=== PATIENT | female | born 2000 | race Asian ===

== ENCOUNTER 2021-11-17 02:49 | Emergency (ER) | payer OTHER, SELFPAY ==
[2021-11-17 04:14] VITALS: BP 131/75; PULSE 115; RESP 16; TEMP 36.8; O2SAT 97; BMI 37.2
[2021-11-17] MEDS: Ondansetron ODT 4 MG TAB.RAPDIS TRANSLINGU (04:21)
[2021-11-17 05:06] LABS: Basophils Percent Auto 0.2 % (0-2); Hematocrit 41.8 % (37.0-47.0); Hemoglobin 13.5 g/dl (12.0-16.0); Imm Gran Abs Auto 0.04 X10*3/uL (0.00-0.03); Imm Gran Pct Auto 0.3 % (0.0-0.4); Lymphocytes Absolute Auto 0.8 X10*3/uL (1.2-4.9); Lymphocytes Percent Auto 5.5 % (20-40); Mean Corpuscular HGB Conc 32.3 g/dl (31.0-35.0); Mean Corpuscular Hemoglobin 25.3 pg (27.0-33.0); Mean Corpuscular Volume 78.3 fL (80.0-98.0); Mean Platelet Volume 8.4 fL (9.4-12.3); Monocytes Absolute Auto 0.3 X10*3/uL (0.1-1.2); Monocytes Percent Auto 2.1 % (2-11); Neutrophils Absolute Auto 13.6 x10*3/uL (2.0-8.3); Neutrophils Percent Auto 91.9 % (45-73); Platelet Count 316 X10*3/uL (160-400); Red Blood Count 5.34 X10*6/uL (4.20-5.50); Red Cell Distribution Width 15.6 % (11.0-16.0); SCAN SMEAR FLAG 1; White Blood Count 14.7 X10*3/uL (4.8-10.8)
[2021-11-17 05:11] LABS: MANUAL DIFF FLAG SCAN
[2021-11-17 05:32] LABS: Alanine Aminotransferase 36 U/L (0-31); Albumin Level 4.5 g/dL (3.5-5.0); Alkaline Phosphatase 73 U/L (39-117); Anion Gap 16 (12-20); Aspartate Amino Transferase 20 U/L (5-31); Bilirubin Direct 0.3 mg/dL (0.0-0.5); Bilirubin Total 0.6 mg/dL (0.0-1.0); Blood Urea Nitrogen 12 mg/dL (9-16); Calcium 9.5 mg/dL (8.4-10.2); Carbon Dioxide 20 mmol/L (22-29); Chloride 105 mmol/L (96-108); Creatinine Clr Calc Pharmacy 117.6; Estimated Glomerular Filt Rate > 60; Glucose Random 135 mg/dL (60-115); Lipase 11 U/L (8-78); Potassium 4.2 mmol/L (3.3-5.1); Sodium 137 mmol/L (135-145); Total Protein 8.3 g/dL (6.5-8.0)
[2021-11-17 05:45] LABS: SLIDE REVIEW VERIFIED
--- NOTE | 2021-11-17 09:08 | ED_ITS ---
HPI - Nausea/Vomiting/Diarrhea General Chief complaint: Nausea/Vomiting/Diarrhea Stated complaint: Vomiting Time Seen by Provider: 11/17/21 09:08 Source: patient Mode of arrival: ambulatory History of Present Illness HPI Narrative: 21-year-old female without significant past medical history presents with multiple episodes of nausea and vomiting as well as diarrhea after consuming pasta are proximally 1630 yesterday and this was not preceded by any abdominal pain, urinary symptoms, fever, chills. Patient states that the food was from the previous day, did not have a cream sauce or containing any meet items. Patient otherwise denies any shortness of breath or chest pain. She currently is feeling better and last vomited at 02:00. Related Data Previous Rx's Medication Instructions Recorded ondansetron 4 mg disintegrating 4 mg PO Q8H PRN nausea and 11/17/21 tablet vomiting #7 tabs Allergies Allergy/AdvReac Type Severity Reaction Status Date / Time No Known Allergies Allergy Unverified 01/08/20 16:54 [No Known Allergies*] Review of Systems Review of Systems: Pertinent positives and negatives as stated in HPI 10 point review of systems is otherwise negative. PMFSH Past Medical History Source: nursing notes reviewed Medical History No known health problems Social History Social History Advance Directives: No Advance Directives Information Provided: No Physical Exam Vital Signs: Vital Signs: Last Vital Signs Temp 98.3 F 11/17/21 04:14 Pulse 115 H 11/17/21 04:14 Resp 16 11/17/21 04:14 BP 131/75 11/17/21 04:14 Pulse Ox 97 11/17/21 04:14 O2 Del Method 11/17/21 04:14 BMI result Body Mass Index 37.2 VITAL SIGNS: Reviewed. GENERAL: Well developed, well nourished, in no acute distress. HEAD: Normocephalic/atraumatic EYES: PERRLA, EOMI EARS: Ext canals without abnormality OROPHARYNX: no oral lesions noted, posterior pharynx clear LUNGS: Normal breath sounds. No adventitious sounds or accessory muscle use. SpO2<97> CARDIOVASCULAR: Regular rate and rhythm without noted murmurs ABDOMEN: Soft, non-tender, non-distended with bowel sounds. SKIN: Inspection of the skin reveals no rashes NEUROLOGIC: Alert and oriented x 4. Course Course Course Narrative: 21-year-old female with history and clinical presentation after review of all investigations consistent with food poisoning that has since resolved. Patient is now tolerating liquids and noted leukocytosis is likely reactive, urine is negative, U preg is negative and patient has no belly pain. All results and findings discussed with her bedside she was discharged home in stable condition. MDM - Nausea/Vomiting/Diarrhea Lab Data Result diagrams: 11/17/21 05:00 11/17/21 04:59 Labs: Lab Results 11/17/21 11/17/21 11/17/21 Range/Units 04:59 05:00 09:23 WBC 14.7 H (4.8-10.8) X10*3/uL RBC 5.34 (4.20-5.50) X10*6/uL Hgb 13.5 (12.0-16.0) g/dl Hct 41.8 (37.0-47.0) % MCV 78.3 L (80.0-98.0) fL MCH 25.3 L (27.0-33.0) pg MCHC 32.3 (31.0-35.0) g/dl RDW 15.6 (11.0-16.0) % Plt Count 316 (160-400) X10*3/uL MPV 8.4 L (9.4-12.3) fL Immature Gran % (Auto) 0.3 (0.0-0.4) % Neut % (Auto) 91.9 H (45-73) % Lymph % (Auto) 5.5 L (20-40) % [place] % (Auto) 2.1 (2-11) % Eos % (Auto) 0.0 (0-4) % Baso % (Auto) 0.2 (0-2) % Lymph # (Auto) 0.8 L (1.2-4.9) X10*3/uL [place] # (Auto) 0.3 (0.1-1.2) X10*3/uL Eos # (Auto) 0.0 (0.0-0.4) X10*3/uL Baso # (Auto) 0.0 (0.0-0.2) X10*3/uL Abs Immat Gran (auto) 0.04 H (0.00-0.03) X10*3/uL Absolute Neuts (auto) 13.6 H (2.0-8.3) x10*3/uL Absolute Nucleated RBC 0.000 (0.0-0.012) X10*3/uL Nucleated RBC % (auto) 0.0 (0.0-0.2) /100WBC Smear Tech's Comments VERIFIED Sodium 137 (135-145) mmol/L Potassium 4.2 (3.3-5.1) mmol/L Chloride 105 (96-108) mmol/L Carbon Dioxide 20 L (22-29) mmol/L Anion Gap 16 (12-20) BUN 12 (9-16) mg/dL Creatinine 0.83 (0.5-1.4) mg/dL Estim Creat Clear Calc 117.6 Estimated GFR > 60 Random Glucose 135 H (60-115) mg/dL Calcium 9.5 (8.4-10.2) mg/dL Total Bilirubin 0.6 (0.0-1.0) mg/dL Direct Bilirubin 0.3 (0.0-0.5) mg/dL AST 20 (5-31) U/L ALT 36 H (0-31) U/L Alkaline Phosphatase 73 (39-117) U/L Total Protein 8.3 H (6.5-8.0) g/dL Albumin 4.5 (3.5-5.0) g/dL Lipase 11 (8-78) U/L Beta HCG, Quant < 2 mIU/mL Urine Color YELLOW Urine Appearance HAZY Urine pH 6.0 (5.0-8.0) Ur Specific [place] >= 1.030 H (1.005-1.025) Urine Protein NEG (NEG-TRACE) MG/DL Urine Glucose (UA) NEG (NEG) MG/DL Urine Ketones NEG (NEG) MG/DL Urine Blood 1+ H (NEG) Urine Nitrite NEG (NEG) Ur Leukocyte Esterase NEG (NEG) Urine RBC 1-4 (0) /HPF Urine WBC 1-4 (0-4) /HPF Ur Squamous Epith Cells 4+ /LPF Urine Bacteria 2+ /LPF Discharge Plan Discharge Clinical Impression: Food poisoning, Gastroenteritis Patient Disposition: Home, Self-Care Instructions: Gastroenteritis (ED), Food Poisoning (ED) Additional Instructions: 1. Continue to stay well hydrated, especially with water. 2. You have been provided with a prescription for antinausea medication and should use this for the next 24 hours to help rehydrate. Return to the ER for worsening symptoms. Prescriptions: New ondansetron 4 mg tablet,disintegrating 4 mg PO Q8H PRN (Reason: nausea and vomiting) Qty: 7 0RF
[2021-11-17 09:33] LABS: Appearance Urine HAZY; Color Urine YELLOW; Glucose Urine UA NEG (NEG); Leukocyte Esterase Urine NEG (NEG); Nitrite Urine NEG (NEG); Specific Gravity - Urine >= 1.030 (1.005-1.025); UACC Culture Trigger NO; Urine Blood 1+ (NEG); Urine Ketones NEG (NEG); Urine Protein NEG (NEG-TRACE)
[2021-11-17 09:45] LABS: HCG Quantitative < 2 mIU/mL
[2021-11-17 09:56] LABS: Squamous Epithelial Cell Urine 4+ /LPF
[2021-11-17 09:57] LABS: Bacteria Urine 2+ /LPF
== END 2021-11-17 10:34 | disposition home or self-care (01) ==
PROVIDERS: Emergency Provider Student in an Organized Health Care Education/Training Program
DX: K52.9 Noninfective gastroenteritis and colitis, unspecified (principal); R11.2 Nausea with vomiting, unspecified; Z79.899 Other long term (current) drug therapy
CPT/HCPCS: 36415; 80053; 81001; 82248; 83690; 84702; 85025; 99282; 99283

== ENCOUNTER 2023-03-06 09:24 | Outpatient (AMB) | payer MEDICAID, SELFPAY ==
--- NOTE | 2023-03-06 09:41 | MHC.OFFVIS ---
Intake Vital Signs 03/06/23 09:43 Height 5 ft 3 in Weight 208 lb BMI 36.8 BP 112/70 Intake Visit Reasons: New patient PCOS consult Intake Note: Scribed for Maria R Escobedo CNM by Hoang Beltran medical charge entry specialist, on 03/06/23 at 9:55 AM, EST Allergies No Known Allergies [No Known Allergies*] Allergy (Verified 03/06/23 09:47) Is last menstrual period known: Yes Last menstrual period: 02/13/23 HPI HPI Comments History of Present Illness Details Patient is a 22 year old woman who presents to discuss possible PCOS. She denies any previous US. She denies ever having an annual slide fastener chain assembler exam. She denies ever being sexually active. She has a hx of gallbladder removal in 2012. She says since this surgery she has had issues with her menses. Her menses used to be irregular, sometimes months in-between. When they do occur they are painful with heavy bleeding for most of the time. Her menses typically lasts 5-8 days. In the last year they have been more normal when they occur, but they are still occasionally irregular. She denies any . She reports having facial hair growth about her chin, that she plucks semi-regularly. She also complains of increased acne in her chin. She has just graduated college, she says she gained weight due to school stress and virtual classes during [facility]. She has been working on improving her diet and increasing her activity now that she has graduated. She works two jobs, but says neither of these are particularly active. She tries to attend the gym 3x weekly or goes for a longer walk to make up for her prolonged sitting. She says with these changes she has not been able to lose weight. She denies any metabolic issues in her parents or grandparents, but is unsure if some family members have Diabetes. [facility] Medical History No known health problems Surgical History Hx of cholecystectomy Social History Alcohol intake: never Patient Tobacco Use Status: Never used Tobacco Female Reproductive History Menstrual Age of Menarche: 12 Duration of menses: 6-7 days Date of last menstrual period: 02/13/23 control method: none Total pregnancies: 0 Review of Systems Const All systems reviewed & are unremarkable except as noted in HPI and below Physical Exam Vital Signs: Last Vital Signs BP 112/70 03/06/23 09:43 BMI result Body Mass Index 36.8 Const General: cooperative, healthy appearing and no acute distress Orientation/consciousness: patient oriented x3 Neuro General: patient oriented x3 Assessment & Plan Assessment & Plan (1) PCOS (polycystic ovarian syndrome): Code(s): E28.2 - Polycystic ovarian syndrome Plan: Discussed workup including labs and US to rule out PCOS. Explained treatment options for PCOS, particularly PO BC. Labs and US ordered today. Will await results and treat accordingly. Return in 2 weeks for test results. Annual slide fastener chain assembler will be scheduled. She denies any hx of sexual activity. (2) Irregular menstrual cycle: Code(s): N92.6 - Irregular menstruation, unspecified Plan: Assessing for PCOS. Discussed weight management, and recommend she work on losing weight to see if this improves her symptoms. (3) Educated about management of weight: Code(s): Z78.9 - Other specified health status Orders: Orders Thyroid Stimulating Hormone Today L68.0 - Hirsutism, L70.9 - Acne, unspecified, N92.6 - Irregular menstruation, unspecified 17 Hydroxyprogesterone Today L68.0 - Hirsutism, L70.9 - Acne, unspecified, N92.6 - Irregular menstruation, unspecified DHEA Sulfate Today L68.0 - Hirsutism, L70.9 - Acne, unspecified, N92.6 - Irregular menstruation, unspecified US pelvic and transvaginal Today L68.0 - Hirsutism, L70.9 - Acne, unspecified, N92.6 - Irregular menstruation, unspecified Testosterone, Free/Total Today L68.0 - Hirsutism, L70.9 - Acne, unspecified, N92.6 - Irregular menstruation, unspecified Prolactin Today L68.0 - Hirsutism, L70.9 - Acne, unspecified, N92.6 - Irregular menstruation, unspecified Coding Level of Care Code New Pt Level 4 (26798) Diagnoses PCOS (polycystic ovarian syndrome) E28.2 Irregular menstrual cycle N92.6 Educated about management of weight Z78.9
[2023-03-06 09:43] VITALS: BP 112/70; BMI 36.8
== END 2023-03-06 10:08 | disposition home or self-care (01) ==
PROVIDERS: PCP Internal Medicine Medical Oncology; Visit Provider Advanced Practice Midwife
DX: E28.2 Polycystic ovarian syndrome (principal); N92.6 Irregular menstruation, unspecified; Z78.9 Other specified health status
CPT/HCPCS: 99204

== ENCOUNTER 2023-03-06 09:24 | Outpatient (REF) | payer MEDICAID, SELFPAY ==
[2023-03-06 12:02] LABS: Thyroid Stimulating Hormone 1.05 uIU/mL (0.32-4.0)
[2023-03-08 05:59] LABS: DHEA Sulfate 140 mcg/dL (14-349); Prolactin 8.2 ng/mL
[2023-03-18 11:44] LABS: Testosterone, Total 40 ng/dL (2-45)
== END 2023-03-06 09:25 | disposition home or self-care (01) ==
LOC: HO.LAB 09:24
PROVIDERS: PCP Internal Medicine Medical Oncology; Visit Provider Advanced Practice Midwife
DX: L68.0 Hirsutism (principal); L70.9 Acne, unspecified; E28.2 Polycystic ovarian syndrome; N92.6 Irregular menstruation, unspecified; Z78.9 Other specified health status
CPT/HCPCS: 36415; 82627; 83498; 84146; 84402; 84403; 84443; 99212

== ENCOUNTER 2023-03-12 15:04 | Outpatient (REF) | payer MEDICAID, SELFPAY ==
--- NOTE | ~2023-03-12 | US_ITS ---
EXAMINATION: US PELVIS CLINICAL INFORMATION: Irregular menstruation, question polycystic ovarian syndrome. Hirsutism. Last menstrual period 06/02/2022. COMPARISON: None available. TECHNIQUE: Ultrasound of the pelvis is performed using both transabdominal and transvaginal transducers along with Doppler. Transvaginal imaging is performed due to inadequate visualization transabdominally. FINDINGS: The uterus measures 7.9 x 2.7 x 3.9 cm. No discrete fibroids are identified. Endometrial thickness is 0.63 cm. Right ovary measures 4.2 x 2.2 x 2.0 cm, volume 9.4 mL. Left ovary measures 3.6 x 1.5 x 1.7 cm, volume 4.8 mL. Multiple small peripheral follicles in the bilateral ovaries. Severely limited visualization of the uterus, endometrium and ovaries due to bowel gas. Transvaginal ultrasound images are recommended if patient is able to tolerate the exam. Per pillowcase maker, patient declined transvaginal ultrasound images. US/US pelvic complete IMPRESSION: 1. Endometrial thickness is 0.63 cm. 2. Right ovary larger than left. Multiple small peripheral follicles in the bilateral ovaries. 3. Severely limited visualization of the uterus, endometrium and ovaries due to bowel gas. Transvaginal ultrasound images are recommended if patient is able to tolerate the exam. Per pillowcase maker, patient declined transvaginal ultrasound images.
== END 2023-03-12 15:05 | disposition home or self-care (01) ==
LOC: HO.HMGCX 15:04
PROVIDERS: PCP Internal Medicine Medical Oncology; Visit Provider Advanced Practice Midwife
DX: N92.6 Irregular menstruation, unspecified (principal); L68.0 Hirsutism; L70.9 Acne, unspecified
CPT/HCPCS: 76856

== ENCOUNTER 2023-05-03 14:46 | Outpatient (AMB) | payer MEDICAID, SELFPAY ==
--- NOTE | 2023-05-03 14:52 | MHC.OFFVIS ---
Intake Vital Signs 05/03/23 15:11 Height 5 ft 3 in Weight 208 lb BMI 36.8 BP 110/64 Intake Visit Reasons: US follow up Er Physician Required: No Shorer: Shorer Present Allergies No Known Allergies [No Known Allergies*] Allergy (Verified 05/03/23 15:16) Is last menstrual period known: Yes Last menstrual period: 03/26/23 Post menopausal: No HPI HPI Comments History of Present Illness Details Patient is here for follow-up on ultrasound and lab work up for PCOS. She reports her periods are somewhat regular not skipping more than 2 months. She has currently not sexually active. She has tried control in the past. She reports unable to lose weight despite going to the gym regularly, and eating well. She also reports hair loss over many years that she is concerned about. She denies any contraindications to control such as: migraines with aura, history of DVT or pulmonary emboli, high blood pressure, liver disease, thrombolic disorders, Lupus, +[place], breast cancer, or smoking. [facility] Medical History (Updated 05/03/23 @ 15:50 by Maria R Escobedo CNM) PCOS (polycystic ovarian syndrome) No known health problems Surgical History Hx of cholecystectomy Social History Alcohol intake: never Patient Tobacco Use Status: Never used Tobacco Female Reproductive History Menstrual Age of Menarche: 12 Date of last menstrual period: 03/26/23 control method: none Review of Systems Const All systems reviewed & are unremarkable except as noted in HPI and below Endo Reports no additional complaints Physical Exam Vital Signs: Last Vital Signs BP 110/64 05/03/23 15:11 BMI result Body Mass Index 36.8 Const General: cooperative, healthy appearing and no acute distress Psych Appearance: well kempt Attitude: cooperative Thought process: Normal thought process present Results Reviewed Results Reviewed: [facility] [place] [facility] [place] [id number] Ultrasound Report Signed Patient: Lee Ann Bell MR#: [id number] : 2000 Acct:[id number] Age/Sex: 22 / F ADM Date: 03/12/23 [facility] [place] Attending Dr: Maria R Escobedo CNM Ordering Physician: Maria R Escobedo CNM Date of Service: 03/12/23 Procedure(s): US pelvic complete Accession Number(s): [id number] cc: eDrian Smith MD; Maria R Escobedo CNM~ EXAMINATION: US PELVIS CLINICAL INFORMATION: Irregular menstruation, question polycystic ovarian syndrome. Hirsutism. Last menstrual period 06/02/2022. COMPARISON: None available. TECHNIQUE: Ultrasound of the pelvis is performed using both transabdominal and transvaginal transducers along with Doppler. Transvaginal imaging is performed due to inadequate visualization transabdominally. FINDINGS: The uterus measures 7.9 x 2.7 x 3.9 cm. No discrete fibroids are identified. Endometrial thickness is 0.63 cm. Right ovary measures 4.2 x 2.2 x 2.0 cm, volume 9.4 mL. Left ovary measures 3.6 x 1.5 x 1.7 cm, volume 4.8 mL. Multiple small peripheral follicles in the bilateral ovaries. Severely limited visualization of the uterus, endometrium and ovaries due to bowel gas. Transvaginal ultrasound images are recommended if patient is able to tolerate the exam. Per commanding officer homicide squad, patient declined transvaginal ultrasound images. US/US pelvic complete IMPRESSION: 1. Endometrial thickness is 0.63 cm. 2. Right ovary larger than left. Multiple small peripheral follicles in the bilateral ovaries. 3. Severely limited visualization of the uterus, endometrium and ovaries due to bowel gas. Transvaginal ultrasound images are recommended if patient is able to tolerate the exam. Per commanding officer homicide squad, patient declined transvaginal ultrasound images. Dictated By: Shannan Guillory MD Signed By: <Electronically signed by Shannan Guillory MD in OV> 03/13/23 0704 DD/ 1529 TD/TT: Analysis Tester: Assessment & Plan Assessment & Plan (1) PCOS (polycystic ovarian syndrome): Code(s): E28.2 - Polycystic ovarian syndrome (2) Unable to lose weight: Code(s): R63.8 - Other symptoms and signs concerning food and fluid intake (3) Hair loss: Code(s): L65.9 - Nonscarring hair loss, unspecified (4) control counseling: Code(s): Z30.09 - Encounter for other general counseling and advice on contraception Plan Discussed: Ultrasound findings and lab work reviewed notable elevated testosterone level. Use of Drosperinone Reviewed use, side effects an warnings including potassium sparing effects and ACHES. Instructed to stay well hydrated. Go directly to the nearest ED if any symptoms: severe headache, loss of vision, chest pain, difficulty breathing, severe abdominal pain, pain or selling in an extremity. No smoking if over age 35 due to the risk of blood clot (DVT, PE), stroke, or serious cardiovascular complications. Referral to dermatology for hair loss. Referral to Endocrine for weight management/metabolic syndrome eval. Control Counseling Use and side effects of control: Instructed to start the pill within the first 5 days of the menstrual period. Recommended to take pill at same time every day and with food to prevent stomach upset. Switch to bedtime intake with food if still experiencing nausea. Consider setting the cell phone for alerts as a reminder to take the pill at the same time. Use a back up method (condoms or abstinence if needed) if any late or missed doses until the end of the pill pack. Take the dose as soon as possible, and take your regular pill on time. If you miss the pill often, then consider another option of control. Always use condoms for STI prevention if indicated. Instructed patient to take for at least 3 months the body is acclimated to it. Most side effects go away with time in the first three months. Return in 3 months for pill check, or sooner if any concerns. All of her questions and concerns were addressed to the best of my ability and shared decision making. She is agreeable to plan of care. Orders: Referrals Endocrinology Referral E28.2 - Polycystic ovarian syndrome, R63.8 - Other symptoms and signs concerning food and fluid intake Dermatology Referral L65.9 - Nonscarring hair loss, unspecified Medications: New drospirenone-ethinyl estradiol 3-0.02 mg (Griselda (28)) 1 tab PO DAILY 84 tabs 0RF Coding Level of Care Code Est Pt Level 3 (81672) Diagnoses PCOS (polycystic ovarian syndrome) E28.2 Unable to lose weight R63.8 Hair loss L65.9 control counseling Z30.09
[2023-05-03 15:11] VITALS: BP 110/64; BMI 36.8
== END 2023-05-03 15:42 | disposition home or self-care (01) ==
LOC: HO.HWS 14:46
PROVIDERS: PCP Internal Medicine Medical Oncology; Visit Provider Advanced Practice Midwife
DX: E28.2 Polycystic ovarian syndrome (principal); R63.8 Other symptoms and signs concerning food and fluid intake; L65.9 Nonscarring hair loss, unspecified; Z30.09 Encounter for other general counseling and advice on contraception
CPT/HCPCS: 99213

== ENCOUNTER → 2023-05-03 14:46 | Outpatient (BNVA) | payer MEDICAID, SELFPAY | PROVIDERS: PCP Internal Medicine Medical Oncology; Visit Provider Advanced Practice Midwife | DX: E28.2 Polycystic ovarian syndrome (principal); Z30.09 Encounter for other general counseling and advice on contraception; L65.9 Nonscarring hair loss, unspecified; R63.8 Other symptoms and signs concerning food and fluid intake | CPT/HCPCS: 99212 ==

== ENCOUNTER 2023-08-08 15:39 | Outpatient (AMB) | payer MEDICAID, SELFPAY ==
--- NOTE | 2023-08-08 15:40 | A.OFFVIS_ITS ---
Intake Vital Signs 08/08/23 15:43 Height 5 ft 3 in BP 114/70 Intake Visit Reasons: 3 month pill check Travel Writer: Travel Writer Present Allergies No Known Allergies [No Known Allergies*] Allergy (Verified 08/08/23 15:40) Is last menstrual period known: Yes Last menstrual period: 07/16/23 HPI HPI Comments History of Present Illness Details Patient is here today for a follow up on her control. She is currently taking Griselda and is doing well with side effects and cycle control. She had a Dermatology referral few months back and has been unable to get an appointment locally due to either not taking new patients or other circumstances. She is seeking help for her hair loss. She denies any medical changes since her last visit and any contraindications to oral contraceptive use. [facility] Medical History (Updated 05/03/23 @ 15:50 by Maria R Escobedo CNM) PCOS (polycystic ovarian syndrome) No known health problems Surgical History Hx of cholecystectomy Social History Alcohol intake: never Patient Tobacco Use Status: Never used Tobacco Female Reproductive History Menstrual Age of Menarche: 12 Duration of menses: 6-7 days Date of last menstrual period: 07/16/23 control method: pills Review of Systems Const All systems reviewed & are unremarkable except as noted in HPI and below Endo Reports no additional complaints Physical Exam Vital Signs: Last Vital Signs BP 114/70 08/08/23 15:43 Const General: cooperative, healthy appearing and no acute distress Psych Appearance: well kempt Attitude: cooperative Thought process: Normal thought process present Assessment & Plan Assessment & Plan (1) Surveillance for control, oral contraceptives: Code(s): Z30.41 - Encounter for surveillance of contraceptive pills Plan Discuss options for Dermatology practices in the local area plan to research other options, if needing another referral we can replace it with the previous 1 to [place] [facility] to the [facility] group advised to call and notify us if she gets an appointment. Continue with OCPs. control hormone use warnings: go to ER if and loss of vision, blindness, severe headache, chest pain or difficulty breathing, severe abdominal pain, or any pain or swelling in an extremity. Schedule manager convention annual. All of her questions and concerns were addressed to the best of my ability and shared decision making. She is agreeable to the plan of care. This note is constructed using voice recognition software. While every effort has been made to ensure accuracy, canine service teacher errors may have been included. Medications: Refilled drospirenone-ethinyl estradiol 3-0.02 mg (Griselda (28)) 1 tab PO DAILY 84 tabs 2RF Coding Level of Care Code Est Pt Level 3 (10015) Diagnoses Surveillance for control, oral contraceptives Z30.41
[2023-08-08 15:43] VITALS: BP 114/70
== END 2023-08-08 15:58 | disposition home or self-care (01) ==
PROVIDERS: PCP Internal Medicine Medical Oncology; Visit Provider Advanced Practice Midwife
DX: Z30.41 Encounter for surveillance of contraceptive pills (principal)
CPT/HCPCS: 99213

== ENCOUNTER → 2023-08-08 15:39 | Outpatient (BNVA) | payer MEDICAID, SELFPAY | PROVIDERS: PCP Internal Medicine Medical Oncology; Visit Provider Advanced Practice Midwife | DX: Z30.41 Encounter for surveillance of contraceptive pills (principal) | CPT/HCPCS: 99212 ==

== ENCOUNTER 2024-05-22 10:57 | Outpatient (REF) | payer MEDICAID, SELFPAY ==
--- OUTSIDE RECORDS SUMMARY | 2024-05-22 15:17 | XMS_ITS | Encounter Summary ---
Author Organization [facility] Address [address] [place] [address] Phone Care Team Providers Care Coding Clerk Name Role Phone Gema Rosado MD Primary Care Provider Encounter Details Date Type Department Care Team (Late st Contact Info) Description 06/26/2016 Documentation [facility] [place] [address] [place] [address] Family Medicine, Physician [address] [place] [address] Social History Tobacco Use Types Packs/Day Years Used Date Smoking Tobacco: Never Comments:Never smoker Comments Unknown Sex and Gender Information Value Date Recorded Sex Assigned at Not on file Legal Sex Female 3:04 PM EDT Gender Identity Female 12/10/2019 1:57 AM EDT Sexual Orientation Straight 05/12/2022 2: 25 PM EST documented as of this encounter Plan of Treatment Not on file documented as of this encounter Visit Diagnoses Not on filedocumented in this encounter Care Teams Coding Clerk Relationship Specialty Start Date End Date Gema Rosado MD [address] [place] [id number] PCP - General 12/01/16 11/27/22 documented as of this encounter
--- OUTSIDE RECORDS SUMMARY | 2024-05-22 15:17 | XMS_ITS | Encounter Summary ---
Author Organization [facility] Address [address] [place] [address] Phone Care Team Providers Care C Architect Name Role Phone Gema Rosado MD Primary Care Provider [phone] Encounter Details Date Type Department Care Team ([facility] Contact Info) Description 12/07/2016 Conversion Encounter [facility] [address] [place] [address] Social History Tobacco Use Types Packs/Day Years [...] on filedocumented in this encounter Care Teams C Architect Relationship Specialty Start Date End Date Gema Rosado MD [address] [place] [address] PCP - General 12/01/16 11/27/22 documented as of this encounter
--- OUTSIDE RECORDS SUMMARY | 2024-05-22 15:17 | XMS_ITS | Clinical Summary ---
Author Organization [facility] Address [address] [place] [phone] Phone Care Team Providers Care Credit Interviewer Name Role Phone Unavailable Primary Care Provider Unavailabl e Allergies No known active allergies Medications No known medications Active Problems Problem Noted Date Diagnosed Date Anxiety 05/12/2022 Overview (05/12/2022): 05/12/202207/2021: Weaned off prozac 12/13/21; Last visit. Screening positive for anxiety and depression today. Refer to Behavioral Health. Currently she does not want to start medication. She is not having self harming thoughts or behaviors. Assessment & Plan (05/12/2022 2:33 PM EST): 07/2021: Weaned off prozac 12/13/21; Last visit. Screening positive for anxiety and depression today. Refer to Behavioral Health. Currently she does not want to start medication. She is not having self harming thoughts or behaviors. 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 Was on OCPs but stopped them. Menses had been fairly regular until Sept then no menses since then. Not sexually active. Plan: Check labs (DHEAS, T, LH, FSH, prolactin, TFTs, serum hCG, and Vitamin D level). Refer to [facility]. Assessment & Plan (05/12/2022 2:36 PM EST): Has a dx of PCOS. Was on OCPs but stopped them. Menses had been fairly regular until Sept then no menses since then. Not sexually active. Plan: Check labs (DHEAS, T, LH, FSH, prolactin, TFTs, serum hCG, and Vitamin D level). Refer to [facility]. BMI 36.0-36.9,adult 05/12/2022 Overview (05/12/2022): Exercising regularly and eating healthier. Assessment & Plan (05/12/2022 2:31 PM EST): Exercising regularly and eating healthier. 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 On 20 mg by 02/04/20 03/22/2020: Prozac increased to 30 mg QD 08/30/2019; Reconnect for support. Consult completed, follow up appt will be scheduled. 04/11/2021: wean her Prozac from 20 mg to 10 mg 07/2021: Weaned off prozac 12/13/21; Last visit. Further referrals not completed. Shahriar Assessment & Plan (05/12/2022 2:32 PM EST): 07/2021: Weaned off prozac 12/13/21; Last visit. Screening positive for anxiety and depression today. Refer to Behavioral Health. Currently she does not want to start medication. She is not having self harming thoughts or behaviors. Assessment & Plan (12/13/2021 2:32 PM EDT): Identified symptoms support diagnosis related to depressive disorders. Symptoms have been persistent and exacerbated duration the first week of March 2021. Symptoms are experienced most days of the week and have impacted daily and social functioning. Follow up interventions focus on processing thoughts and developing coping strategies would be of benefit to support identified needs, other referrals will be discussed and completed as necessary. PLAN: 1. Follow up with [facility]; Futher appt were not scheduled, today was our last visit. 2. Patient goal is to process social situations. 3. Behavioral Recommendations: a. Continue focusing on strategies discussion during intervention. b. Connect with support if needed. Assessment & Plan (11/28/2021 11:10 AM EDT): Identified symptoms support diagnosis related to depressive disorders. Symptoms have been persistent and exacerbated duration the first week of March 2021. Symptoms are experienced most days of the week and have impacted daily and social functioning. Follow up interventions focus on processing thoughts and developing coping strategies would be of benefit to support identified needs, other referrals will be discussed and completed as necessary. PLAN: 1. Follow up with [facility]; Virtual visit scheduled, Lee Ann is aware that appt could be scheduled in person or virtual. 2. Patient goal is to process social situations. 3. Behavioral Recommendations: a. Focus on assertive communication. Assessment & Plan (11/15/2021 2:08 PM EDT): Identified symptoms support diagnosis related to depressive disorders. Symptoms have been persistent and exacerbated duration the first week of March 2021. Symptoms are experienced most days of the week and have impacted daily and social functioning. Follow up interventions focus on processing thoughts and developing coping strategies would be of benefit to support identified needs, other referrals will be discussed and completed as necessary. PLAN: 1. Follow up with [facility]; Virtual visit scheduled, Lee Ann is aware that appt could be scheduled in person or virtual. 2. Patient goal is to process social situations. 3. Behavioral Recommendations: a. Focus on brainstorm questions discussed today. Assessment & Plan (11/09/2021 5:21 PM EDT): Prozac 20 mg last filled 06/03/2021. On phone call 08/03/2021 Lee Ann reported she had weaned off of her Prozac per her plan to come off by the spring. Reconnected with Christi Lopez PsyD (behavioral health provider at [facility]) in August of this year. She was last seen on November 01 and has follow-up on November 15. Lee Ann feels she is doing well and does not need to restart medication. She is somewhat stressed about school starting in the fall and trying to figure out what she is going to do after she completes her senior year of college. She is working to find a professor who could advise her on graduate school or internships Assessment & Plan (11/01/2021 10:43 AM EDT): Identified symptoms support diagnosis related to depressive disorders. Symptoms have been persistent and exacerbated duration the first week of March 2021. Symptoms are experienced most days of the week and have impacted daily and social functioning. Follow up interventions focus on processing thoughts and developing coping strategies would be of benefit to support identified needs, other referrals will be discussed and completed as necessary. PLAN: 1. Follow up with [facility]; Virtual visit scheduled, Lee Ann is aware that appt could be scheduled in person or virtual. 2. Patient goal is to process social situations. 3. Behavioral Recommendations: a. Lee Ann was encouraged to continue reflecting about her definition of self. Assessment & Plan (10/19/2021 10:39 AM EDT): Identified symptoms support diagnosis related to depressive disorders. Symptoms have been persistent and exacerbated duration the first week of March 2021. Symptoms are experienced most days of the week and have impacted daily and social functioning. Follow up interventions focus on processing thoughts and developing coping strategies would be of benefit to support identified needs, other referrals will be discussed and completed as necessary. PLAN: 1. Follow up with [facility]; Virtual visit scheduled, Lee Ann is aware that appt could be scheduled in person or virtual. 2. Patient goal is to process social situations. 3. Behavioral Recommendations: a. Identify summer goals and expectations. b. Create a daily schedule Assessment & Plan (05/04/2021 8:56 AM EST): Lee Ann has been doing well and decided to wean her Prozac from 20 mg to 10 mg on 04/11/2021. She is doing well on this dose. She wishes to continue this dose through the wintertime and possibly wean off her Prozac this spring. Follow-up in late June or early July to decide on weaning off of Prozac. Follow-up sooner as needed Assessment & Plan (03/03/2021 3:24 PM EST): On Prozac 20 mg p.o. daily. Doing well On campus at [employer] and also doing two jobs.Lee Ann is busy, and sometimes tired, but over all happy and doing well. Continue Prozac 20 mg p.o. daily. No refill needed today. Follow-up in 3 to 4 months. Discussed possible weaning off Prozac this coming spring/summer Assessment & Plan (12/01/2020 3:41 PM EDT): Did not like the 30 mg of Prozac so dropped her dose back to 20 mg. Did well at this dose but recently ran out of medication due to a pharmacy error. Prozac 20 mg p.o. daily reordered Continue to work on good sleep and daily physical activity Follow-up in 3 months. Assessment & Plan (08/12/2020 1:56 PM EDT): Prozac last filled 03/22/2020.Lee Ann says she had both the 20 mg capsules and the 10 mg capsules to make a total of a 30 mg dose.Lee Ann felt too tired on 30 mg so she cut her dose down to 20 mg. She used the 10 mg tablets ( 2 tabs) till they were gone and has now switched to the 20 mg capsules. She has 2 capsules left. She would like to remain on 20 mg daily. She will follow up with me in 3 months She last saw the therapist in April 2020, her follow-up with therapy is as needed only Today she feels like she is doing well except for the expected stress of pending final exams. Sleep hygiene was reviewed again today and she will try to work on getting more than 6 hours of sleep per night once school is out Assessment & Plan (04/28/2020 9:47 AM EST): Currently feeling much better. ? Due to higher dose of prozac or College semester over or both. Prozac now at 30 mg since 03/22/20 Continue medication at current dose. No need for refill today To see Christi Lopez ([facility]) 05/03/20 for last scheduled appointment. Follow up with her will be prn after that Follow up with me in 3 months , sooner if any issues Consider weaning Prozac Summer/Fall 2020 Assessment & Plan (03/22/2020 2:48 PM EST): BELINDA score still elevated at 12 No side effect on Fluoxetine 20 mg Will increase dose to 30 mg QD Lee Ann will continue to work on sleep hygiene & getting daily physical activity She will continue to follow closely with [facility] provider at [facility] & alert us to any issues with higher dose of the Fluoxetine FU with therapist in 1 week FU with me in 1 month, sooner prn Assessment & Plan (02/19/2020 9:27 AM EDT): Doing OK on Prozac 20 mg for past 2 weeks Seeing therapist weekly - has appointment tomorrow Continue present dose FU in 1 month Assessment & Plan (02/04/2020 9:48 AM EDT): Tolerated trial dose of prozac 10 mg Will bump dose to 20 mg QD FU with therapist next week & alfred me in 2 weeks patient will contact me if any side effects on the higher dose Assessment & Plan (01/27/2020 9:09 AM EDT): Denies SI Wishes to start Prozac - will start at 10 mg & see back in 1-2 weeks. If doing OK on test dose will increase to 20 mg & FU in 2 weeks patient to see provider weekly patient to call immediately if feeling worse on medication Borderline hyperlipidemia 10/14/2018 Overview (10/14/2018): 10/09- non-HDL 144, TG 170 Assessment & Plan (08/12/2020 1:20 PM EDT): Repeat lipids ordered Assessment & Plan (11/27/2019 9:18 AM EDT): Will repeat fasting lipids Assessment & Plan (10/14/2018 2:28 PM EDT): Check lipids in about a year. Seasonal allergic rhinitis 01/07/2018 Overview (12/05/2018): Zyrtec prn Spring is bad season but having less issues as she gets older Assessment & Plan (08/12/2020 1:41 PM EDT): No current need Assessment & Plan (11/27/2019 9:17 AM EDT): Spring is bad season Assessment & Plan (12/05/2018 2:44 PM EDT): No issues No meds Polycystic ovaries 06/11/2014 Overview (12/05/2018): Was On OCPs but stopped 08/2018 & menses have been OK Assessment & Plan (03/03/2021 3:14 PM EST): On Sprintec - doing well Assessment & Plan (12/01/2020 3:40 PM EDT): On Sprintec - doing well Would like refilled with 3 packs at a time. Lee Ann may wish to transfer to a pharmacy closer to her school. She will call us if she wishes to do this Assessment & Plan (08/12/2020 1:53 PM EDT): Took Tri-Sprintec for 1 month. Did not get any refills. [facility] it did not make her periods regular. Will prescribe Sprintec OCPs with 11 refills Lee Ann will call me if any issues. Assessment & Plan (02/19/2020 9:26 AM EDT): patient's menses irreg again LMP ? 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 Flovent in past Assessment & Plan (08/12/2020 1:41 PM EDT): Rare need for albuterol Assessment & Plan (11/27/2019 9:15 AM EDT): Very rare needed Assessment & Plan (12/05/2018 2:35 PM EDT): Albuterol prn - rare use Assessment & Plan (01/07/2018 5:02 PM EDT): Doesn't use aerochamber- discussed need for this and gave Rx. Discussed need to use albuterol prior to exercise given exercise-induced symptoms. Check in 3 mos for asthma check. Immunizations Name Administration Dates Next Due COVID-19 Pfizer, bivalent, 12+ years 05/12/2022 COVID-19 Pfizer, monovalent, 12+ years 2 DTaP 5 03/15/2005, 2,02/08/2001,12/07,2000 H1N1 04/21/2009,03/16/2009 HPV, Quadrivalent 09/24/2012,05/09/2012,01/09/20 12 Hep A, ped/adol 11/13/2008,09/12/2006 Hep B, ped/adol 01/07/2018, 2,2000,08/11 Hib (PRP-T) 11/13/2001, 1,2000,10/17 IPV 03/15/2005, 2,2000,10/17 Influenza Split 01/09/2012,01/05/2011 Influenza, injectable, quadrivalent 06/11/2014 Influenza, injectable, quadr ivalent, preservative free 05/12/2022,05/04/2021,04/14/2019,01/07,12/28/2016,05/14/2013 Influenza, injectable, trivalent 04/21/2009 MMR 03/15/2005,08/14/2001 Meningococcal B Trumenba 12/10/2019,10/16/2018 Meningococcal Conj (Menactra) MCV4P 01/07/2018,0 01/09/2012 Pneumococcal Conjugate 04/24/2003,2000,2000,10/17 Tdap 05/12/2022,01/09/2012 Varicella 08/16/2007,11/13/2001 Family History Medical History Relation Name Comments No Known Problems Brother Abdifatah Bell Hyperlipidemia Father Pamela Urias Obesity Father Pamela Urias Depression Mother Silvestre Vincent Hyperlipidemia Mother Silvestre Vincent Diabetes Paternal Grandfather Cancer Paternal Grandmother Relation Name Status Comments Brother Abdifatah Crabtree Brother: A live and well Father Pamela Crabtree Works as a office cashier, to patient's mother Mother Silvestre Vincent Alive Mother: RSD (CR PS) from injury, stay at home mother, to patient's father Other Family history of Autism, Family history of Deafness, Family history of Hyperlipidemia Paternal Grandfather Paternal Grandmother Social History Tobacco Use Types Packs/Day Years Used Date Smoking Tobacco: Never Smokeless Tobacco: Never Comments:Never smoker Alcohol Use Standard Drinks/Week Comments No 0 (1 standard drink = 0.6 oz pur e alcohol) Hunger/Food Answer Date Recorded In the last 12 months, did y ou or your family ever eat less than you felt you should because there wasn't enough money for food? No 05/11/2022 Stable Housing Answer Date Recorded Are you worried that in the next 2 months you may not have stable housing? No 05/11/2022 Transportation Concerns Answer Date Rec orded In the last 12 months, have you or your family ever had to go without healthcare because you didn't have a way to get there? No 05/11/2022 Hazards in Home Answer Date Recorded Think about the place you li ve. Do you have problems with any of the following? Pests (mice or roaches), mold, no/not working smoke detectors, water leaks, no window guards. No 2022 Financing Utilities Answer Date Recorde d In the last 12 months, has t he electric, gas, oil, or water company threatened to shut off your services in your home? No 05/11/2022 Safety at Home Answer Date Recorded Are you or your family worried about feeling saf e in your home? No 05/11/2022 Outside Support Answer Date Recorded Do you feel that you need mo re support from other people or programs to help you care for yourself or your family? No 05/11/2022 Understanding Health Concerns Answer Da te Recorded Do you need help understandi ng your or your child's healthcare needs (diagnosis, medications, plan, etc.)? No 05/11/2022 Financing Health Concerns Answer Date R ecorded In the last 12 months, was t here a time when your child needed to see a doctor or get medications or supplies but could not because of cost? 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 No 05/11/2022 Comments No Sex and Gender Information Value Date Recorded Sex Assigned at Not on file Legal Sex Female 3:04 PM EDT Gender Identity Female 12/10/2019 1:57 AM EDT Sexual Orientation Straight 05/12/2022 2: 25 PM EST Last Filed Vital Signs Vital Sign Reading Time Taken Comments Blood Pressure 124/73 05/12/2022 1:34 PM EST Pulse 86 05/12/2022 1:34 PM EST Temperature 36.6 ??C (97.8 ??F) 05/12/2022 1:34 PM ES T Respiratory Rate - - Oxygen Saturation - - Inhaled Oxygen Concentration - - Weight 93 kg (205 lb) 05/12/2022 1:34 PM EST Height 160 cm (5' 3 ) 05/12/2022 1:34 PM EST Body Mass Index 36.31 05/12/2022 1:34 PM EST Plan of Treatment Health Maintenance Due Date Last Done Comments Influenza Vaccines (#1) 2023 05/12/19, 05/04/2021, 04/14/2019, Additional history exists COVID-19 Vaccine (5 - 2023-2 5 season) 2023 05/12/2022, 05/04/2021, 09/06/2020, Additional history exists DTaP,Tdap,and Td Vaccines (8 - Td or Tdap) 05/12/2032 05/12/2022, 01/09/2012, 03/15/2005, Additional history exists HIB Vaccines Completed 11/13/2001, 01/21, 2000, Additional history exists Pneumococcal Vaccine Completed 04/24/2003, 02/08/2001, 2000, Additional history exists IPV Vaccines Completed 03/15/2005, 10/22, 2000, Additional history exists MMR Vaccines Completed 03/15/2005, 08/14/2001 Varicella Vaccines Completed 08/16/2007, 11/13/2001 Hepatitis A Vaccines Completed 11/13/2008, 09/13/19 07 HPV Vaccines Completed 09/24/2012, 04/23, 01/09/2012 Hepatitis B Vaccines Completed 01/07/2018, 05/22/2001, 2000, Additional history exists Meningococcal Vaccine Completed 01/07/2018, 012 Men B Vaccine Completed 12/10/2019, 10/16/2018 Procedures * Due to [place] [employer] law, this organization might not be sharing sensitive test results. Procedure Name Priority Date/Time Associated Diagnosis Comments CHLAMYDIA AND GONORRHEA, AMPLIFIED Routine 05/12/2022 2:38 PM EST Special screening examination for chlamydial disease from Last 3 Months or Most Recently Relevant to Health Maintenance Results * Due to [place] [employer] law, this organization might not be sharing sensitive test results. * Chlamydia and Gonorrhoea, Amplified (05/12/2022 2:38 PM EST) Chlamydia Trachomatis, DNA Probe NEGATIVE (NEG) [facility] Comment: No Chlamydia Trachomatis RNA detected in this patient's sample ? (REFERENCE RANGE/NORMAL VALUE: NOT DETECTED) ? Note: This test uses automation qa analyst- mediated amplification method to detect rRNA from C. Trachomatis URINE GC AMP PROBE NEGATIVE (NEG) [facility] Comment: No Neisseria Gonorrhoeae RNA detected in this patient's sample ? (REFERENCE RANGE/NORMAL VALUE: NOT DETECTED) ? NOTE: This test uses automation qa analyst-mediated amplification method to detect rRNA from N.Gonorrhoeae. A negative result does not preclude infection. In the case of a negative urine result, testing of an endocervical(female) or urethral (male) specimen is recommended if there is high clinical suspicion of infection. Due to very high sensitivity of Nucleic Acid Amplification Test, false positive results may occur. Therefore, specimen handling is extremely important. In patients in whom the disease is unlikely, additional sample for testing should be considered after an initial positive result. The performance characteristics of this test have not been evaluated in children. The Aptima Combo2 assay is not intended for the evaluation of suspected sexual abuse or for other medico-legal indications. The ordering provider should assess if the patient had consensual sex without risk of sexual abuse. Consult the [facility] if needed. Contact phone number . Therapeutic failure or success cannot be determined with the Aptima Combo2 assay since nucleic acid may persist following appropriate antimicrobial therapy. The Centers for Disease Control and Prevention (CDC) recommends confirmatory retesting using culture or a different nucleic acid amplification test when positive results occur, if indicated. Testing performed or reported by [facility], a Service of [facility], [address] [place] [address] Aly Quinonez MD, Bilingual Medical Receptionist [facility]# [id number] Urine (Urine) 05/12/2022 2:3 8 PM EST 05/13/2022 7:45 AM EST us Jessica Garnica MD LAB MICROBIOLOGY - GENERAL ORD ERABLES Final Result [facility] from Last 3 Months or Most Recently Relevant to Health Maintenance Insurance [facility] NON PCC ANGELO BEDOYA [id number] [facility] NON PCC
--- OUTSIDE RECORDS SUMMARY | 2024-05-22 15:17 | XMS_ITS | Encounter Summary ---
Author Organization [facility] Address [address] [place] [phone] Phone Care Team Providers Care Ski Molder Name Role Phone Gema Rosado MD Primary Care Provider [phone] Encounter Details Date Type Department Care Team (Late st Contact Info) Description 10/03/2016 Documentation [facility] [place] [address] [place] [address] Family Medicine, Physician [address] [place] [address] Social History Tobacco Use Types Packs/Day Years [...] on filedocumented in this encounter Care Teams Ski Molder Relationship Specialty Start Date End Date Gema Rosado MD [address] [place] [phone] PCP - General 12/01/16 11/27/22 documented as of this encounter
--- OUTSIDE RECORDS SUMMARY | 2024-05-22 15:17 | XMS_ITS | Encounter Summary ---
Author Organization [facility] Address [address] [place] [phone] Phone Care Team Providers Care Clip Loading Machine Feeder Name Role Phone Gema Rosado MD Primary Care Provider [phone] Encounter Details Date Type Department Care Team (Late st Contact Info) Description 12/13/2012 Documentation [facility] [address] [place] [address] Family Medicine, Physician [address] [place] [address] Social History Tobacco Use Types Packs/Day Years Used Date Smoking Tobacco: Never Assessed Comments Unknown Sex and Gender Information Value Date Recorded Sex Assigned at Not on file Legal Sex Female 3:04 PM EDT Gender Identity Female 12/10/2019 1:57 AM EDT Sexual Orientation Straight 05/12/2022 2: 25 PM EST documented as of this encounter Plan of Treatment Not on file documented as of this encounter Visit Diagnoses Not on filedocumented in this encounter Care Teams Clip Loading Machine Feeder Relationship Specialty Start Date End Date Gema Rosado MD [address] [place] [phone] PCP - General 12/01/16 11/27/22 documented as of this encounter
== END 2024-05-22 10:58 | disposition home or self-care (01) ==
LOC: HO.LNP 10:57
PROVIDERS: PCP Internal Medicine Medical Oncology; Visit Provider Advanced Practice Midwife
DX: Z01.419 Encounter for gynecological examination (general) (routine) without abnormal findings (principal)
CPT/HCPCS: 88175; 99395; 99459

== ENCOUNTER 2024-09-10 11:21 | Outpatient (REF) | payer MEDICAID, SELFPAY ==
--- NOTE | ~2024-09-10 | XR_ITS ---
EXAMINATION: XR CERVICAL SPINE CLINICAL INFORMATION: NECK PAIN COMPARISON: None available. TECHNIQUE: 3 views of the cervical spine were obtained. FINDINGS: Craniocervical junction is intact. Mild reverse curvature apex C4-5. No acute cortical disruption or gross malalignment. No lytic or blastic lesions. Upper airway is patent. XR/XR cervical spine 3V IMPRESSION: No acute fracture or listhesis. Reverse curvature apex C4-5 which could be positional. Electronically signed by: Sundeep Cardenas MD 09/10/2024 12:42 PM EDT RP
[2024-09-10 11:32] LABS: MANUAL DIFF FLAG NO
[2024-09-10 12:20] LABS: Basophils Percent Auto 0.5 % (0-2); Eosinophils Absolute Auto 0.2 X10*3/uL (0.0-0.4); Eosinophils Percent Auto 2.4 % (0-4); Hematocrit 39.7 % (37.0-47.0); Hemoglobin 12.8 g/dl (12.0-16.0); Imm Gran Abs Auto 0.01 X10*3/uL (0.00-0.03); Imm Gran Pct Auto 0.1 % (0.0-0.4); Lymphocytes Absolute Auto 2.9 X10*3/uL (1.2-4.9); Lymphocytes Percent Auto 36.8 % (20-40); Mean Corpuscular HGB Conc 32.2 g/dl (31.0-35.0); Mean Corpuscular Hemoglobin 26.6 pg (27.0-33.0); Mean Corpuscular Volume 82.5 fL (80.0-98.0); Mean Platelet Volume 8.8 fL (9.4-12.3); Monocytes Absolute Auto 0.6 X10*3/uL (0.1-1.2); Monocytes Percent Auto 7.2 % (2-11); Neutrophils Absolute Auto 4.2 x10*3/uL (2.0-8.3); Platelet Count 310 X10*3/uL (160-400); Red Blood Count 4.81 X10*6/uL (4.20-5.50); White Blood Count 7.9 X10*3/uL (4.8-10.8)
--- OUTSIDE RECORDS SUMMARY | 2024-09-10 12:41 | XMS_ITS ---
Author Organization Derian Smith III, MD Address [address] [place] [address] [place] [address] Care Team Providers Care Heavy Equipment Technician Name Role Phone Derian Smith Primary Care Provider Allergies Allergen (clinical drug ingredient) Drug/Non Drug Allergy documented on EMR Reaction Allergy Type Onset Date Status No Known Drug Allergy Unknown Drug Allergy Active REASON FOR VISIT Polycystic ovary disease Medications Medication SIG (Take, Route, Fr equency, Duration) Notes Start Date End Date Status D3 50 MCG (1999) 1 tablet Orally Once a day Active Social History Tobacco Use: Social History Observation Description Date Details (start date - stop date) Never Smoker NA - NA Tobacco Use/Smoking Question Answer Notes Patient is a nonsmoker Additional Findings: Tobacco Non-User Aggressive non-smoker Vital Signs Temperature 97.6 degrees Fahrenheit 04/30/19 24 Blood pressure systolic 130 mm Hg 04/30/19 24 Blood pressure diastolic 80 mm Hg 024 Heart Rate 78 /min 04/30/2023 Height 5 ft 3 in in 04/30/2023 Weight 207 lbs 04/30/2023 BMI 36.66 kg/m2 04/30/2023 Encounters Encounter Location Date Provider Diagnosis Derian Smith III, MD [address] [place] [address] [place] [id number] 04/30/2023 Derian Smith Obesity (BMI 30.0-34.9) E66.9 and Polycystic ovaries E28.2 Assessments Encounter Date Diagnosis (ICD Code) Assessment Notes Treatment Notes Treatment Clinical Notes 04/30/2023 Obesity (BMI 30.0-34.9) (ICD-10 - E66.9) We [...] of obesity. Various strategiees to reduce it. 04/30/2023 Polycystic ovaries (ICD-10 - E28.2) She has been referred to [facility] for evaluation and management and routine reproductive health care. She is not at this time. She does not have contraception. Plan Of Treatment Medication Medication Name Sig Start Date Stop Date Notes D3 50 MCG (1999) 1 tablet Orally Once a day Next Appt Details Follow Up: 6 Months, As sche duled, Reason: OV, Annual Exam Provider Name:Derian Smith, 09/24/2024 10:15:00 AM, [address] [place] [address] [address], [place], [id number], Provider Name:Derian Smith, 11/12/2024 02:30:00 PM, [address] [place] [address] [address], [place], [id number], Progress Notes * KRZYSZTOF GARCIADOB: 1 (22 yo F)Acc No.[id number]:04/30/2023 Progress Notes Patient:?KRZYSZTOF GARCIA Provider:?Derian Smith MD :2000???Age:22 Y???Sex:Female D ate:04/30/2023 Address:[address] [place] [address], [id number] Subjective: * Chief Complaints: * ???Polycystic ovary disease * HPI: ???COVID-19 Screening:?Questions?Have you experienced fever, chills, cough, sore throat, shortness of breath, difficulty breathing, muscle aches, loss of taste or smell??No ?Have you been exposed to the virus within the last 10 days??No ?Have you travelled internationally in the last 10 days??No ?Have you been exposed to COVID-19 in the past??No ? He returns to the office for a weight check and general status evalluation at the age 22. She has gained 2 pounds since her last visit but is wearing heavier clothing. She feels generallly healthy and well. We discussed her diet and nutrition and weight loss strategy G today. No problems. She continues to have regular but heavy periiods. * ROS:?General/Constitutional:?pain?only normal aches and pains.?Chills?denies.?Fatigue?admits.?Fever?denies.?ENT:?Decreased hearing?denies.?Respiratory:?Cough?denies.?Cardiovascular:?Chest pain with exertion?denies.?Dyspnea on exertion?denies.?Shortness of breath?denies.?Gastrointestinal:?Constipation?admits.?Decreased appetite?denies.?Diarrhea?denies.?Heartburn?denies.?Nausea?denies.?Rectal bleeding?denies.?Vomiting?denies.?Hematology:?bruising?denies.?petechiae?denies.?Swollen glands?none have been noted.?Genitourinary:?Frequent urination?denies.?Musculoskeletal:?Muscle aches?denies.?Painful joints?denies.?Sciatica?denies.?Weakness?denies.?Skin:?Itching?denies.?Rash?denies.?Skin lesion(s)?denies.?Neurologic:?Difficulty speaking?denies.?Dizziness?denies.?Headache?denies.?Low back pain?denies.?Psychiatric:?Depressed mood?denies.? * Medical History:? * Surgical History:?Cholecyste ctomy for cholecystitis [id number] * Hospitalization/Major Diagno stic Procedure:?[facility] cholecystectomy for stones food poisoning 2022 * Family History:?Father: jabari reyes, History of depression, diagnosed with DM.?Mother: alive, Chronic pain syndrome, orthostatic hypotension, diagnosed with HTN.?Siblings: alive.?1 brother(s) - healthy. .? There is no family history of breast or uterine cancer. She is not aware of any family history of inherited cancer syndromes. She is not aware of any family history of addiction, or mental illness, other than her father's depression or substance use disorder. * Social History:?Tobacco Use:?Tobacco Use/Smoking?Patient is a?nonsmoker ?Additional Findings: Tobacco Non-User?Aggressive non-smoker ???She is now observe it most of her does not smoke or drink. She does not have a shinto objection to blood transfusion. She does not have any children. She has no exposures to toxic materials. She was born in [place], [place]. Her parents are from [place]. * Medications:?Not-Taking/PRND 3 50 MCG (2000 UT) Tablet 1 tablet Orally Once a dayMedication List reviewed and reconciled with the patientNot-Taking/PRN D3 50 MCG (2000 UT) Tablet 1 tablet Orally Once a dayMedication List reviewed and reconciled with the patient * Allergies:?No Known Drug All ergyno[Allergies Verified] Objective: * Vitals:?Ht: 5 ft 3 in, Wt: 2 07, BMI:36.66, BP: 130/80, HR: 78, Temp: 97.6, Wt- k.89. * Examination: ???General Examination: ?GENERAL APPEARANCE:?pleasant, well nourished, well developed, in no acute distress, calm and relaxed , obese , obese , woman.?HEAD:?atraumatic, normocephalic.?EYES:?eomi, perrla, anicteric, conjugate.?EARS:?normal.?NOSE:?septum intact.?ORAL CAVITY:?normal, unremarkable.?NECK/THYROID:?no jugular venous distention, no carotid bruit, thyroid normal.?LYMPH NODES:?no enlarged lymph nodes,spleen normal.?SKIN:?no suspicious lesions, anicteric.?HEART:?no clicks, gallops, murmurs, or rubs, regular rhythm, S1, S2 normal, no s3, or vascular bruits.?LUNGS:?clear to auscultation .?BREASTS:?not examined.?ABDOMEN:?bowel sounds normal, no ascites, no organomegaly, no mass.?RECTAL EXAM:?not examined.?MUSCULOSKELETAL:?extremities unremarkable, no clubbing, cyanosis or edema.?PERIPHERAL PULSES:?normal.?NEUROLOGIC:?alert and oriented, cranial nerves 2-12 grossly intact, deep tendon reflexes 2+ symmetrical, motor strength normal upper and lower extremities, sensory exam intact.?PSYCH:?alert, oriented.? Assessment: * Assessment: 1.?Obesity (BMI 30.0-34.9) - E66.9 (Primary), We have discussed diet and nutrition today. We made a plan to lose weight at a rate of one half of a pound per week through a diet restricted in fact calories and sodium combined with regular physical activity. Her weight is stable over the last 6 monnths. We reviewed the health consequences of obesity. Various strategiees to reduce it.?2. Polycystic ovaries - E28.2, She has been referred to DECISION SUPPORT MANAGER for evaluation and management and routine reproductive health care. She is not at this time. She does not have contraception.? Plan: * Treatment: * Procedure Codes:? * Preventive Medicine:? ??Counseling:?Care goal follow-up plan:?Counseling for abnormal BMI given?Yes ?Above Normal BMI Follow-up?Dietary management education, guidance, and counseling, Dietary needs education, Exercise promotion: strength training, Exercise promotion: stretching, Feeding regime, Giving encouragement to exercise, Lifestyle education regarding diet, Nutrition / feeding management, Nutrition therapy, Prescribed activity/exercise education, Prescribed diet education, Prescribed dietary intake, Special diet education, Weight monitoring , Intervention, Order not done: Medical or Other reason not done * Follow Up:?6 Months, As sche duled (Reason: OV, Annual Exam) * Images: * Sign off status: Completed true * Provider:?Derian Smith MD Date:?11/2023 Generated for Marci rodarte/Agata/Sayitting on:?09/10/2024 12:41 PM EDT History and Physical Notes * HPI (History of Present Illness) Category Sub-Category Detail Notes COVID-19 Screening Questions Have you had any new onset fever, chills, cough, congestion, sore throat, shortness of breath, muscle aches?: No Have you been exposed to the virus withi n the last 10 days?: No Have you travelled internationally in last 10 days?: No Have you been exposed to COVID-19 in the past?: No Examination Category Sub-Category Detail Notes General Examination GENERAL APPEARANCE: pleasant , well nourished, well developed, in no acute distress, calm and relaxed , obese , obese , woman HEAD: atraumatic, normocep halic EYES: eomi, perrla, anicte eli, conjugate EARS: normal NOSE: septum intact NECK/THYROID: no jugular venous di stention, no carotid bruit, thyroid normal HEART: no clicks, gallops, murmurs, or rubs, regular rhythm, S1, S2 normal, no s3, or vascular bruits LUNGS: clear to auscultatio n ABDOMEN: bowel sounds normal, no ascites, no organomegaly, no mass NEUROLOGIC: alert and oriented, cranial nerves 2-12 [...]
--- OUTSIDE RECORDS SUMMARY | 2024-09-10 12:41 | XMS_ITS | Clinical Summary ---
Author Organization [facility] Address [address] [place] [address] Phone Care Team Providers Care Food Order Delivery Runner Name Role Phone Unavailable Primary Care Provider [...] hCG, and Vitamin D level). Refer to [facility]. Assessment & Plan (05/12/2022 2:36 PM EST): Has a dx of PCOS. Was on OCPs but stopped them. Menses had been fairly regular until Sept then no menses since then. Not sexually active. Plan: Check labs (DHEAS, T, LH, FSH, prolactin, TFTs, serum hCG, and Vitamin D level). Refer to [facility]. BMI 36.0-36.9,adult 05/12/2022 Overview (05/12/2022): Exercising regularly [...] as necessary. PLAN: 1. Follow up with [facility]; Futher appt were not scheduled, today was [...] as necessary. PLAN: 1. Follow up with [facility]; Virtual visit scheduled, Lee Ann is aware [...] as necessary. PLAN: 1. Follow up with [facility]; Virtual visit scheduled, Lee Ann is aware [...] Christi Lopez PsyD (behavioral health provider at [facility]) in August of this year. [...] as necessary. PLAN: 1. Follow up with [facility]; Virtual visit scheduled, Lee Ann is aware [...] as necessary. PLAN: 1. Follow up with [facility]; Virtual visit scheduled, Lee Ann is aware [...] p.o. daily. Doing well [facility] campus at [facility] and also doing two [...] She will continue to follow closely with [facility] provider at [facility] & alert us to any [...] 1 month. Did not get any refills. [place] it did not make her periods regular. [...] 06/11/2014 05/12/2022 Overview (12/05/2018): Was tested at [facility] & not truly intol but does better [...] in 3 mos for asthma check. 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 Procedure Name Priority Date/Time Associated Diagnosis Comments CHLAMYDIA AND GONORRHEA, AMPLIFIED Routine 05/12/2022 2:38 PM EST Special screening examination for chlamydial disease from Last 3 Months or Most Recently Relevant to Health Maintenance Results * Due to [place] [employer] law, this organization might not be sharing sensitive test results. * Chlamydia and Gonorrhoea, Amplified (05/12/2022 2:38 PM EST) Chlamydia Trachomatis, DNA Probe NEGATIVE (NEG) [facility] Comment: No Chlamydia Trachomatis RNA detected in this patient's sample ? (REFERENCE RANGE/NORMAL VALUE: NOT DETECTED) ? Note: This test uses wage adjuster- mediated amplification method to detect rRNA from C. Trachomatis URINE GC AMP PROBE NEGATIVE (NEG) [facility] Comment: No Neisseria Gonorrhoeae RNA detected in this patient's sample ? (REFERENCE RANGE/NORMAL VALUE: NOT DETECTED) ? NOTE: This test uses wage adjuster-mediated amplification method to detect rRNA from N.Gonorrhoeae. [...] without risk of sexual abuse. Consult the [facility] if needed. Contact phone number . Therapeutic failure or success cannot be determined with the Aptima Combo2 assay since nucleic acid may persist following appropriate antimicrobial therapy. The Centers for Disease Control and Prevention (CDC) recommends confirmatory retesting using culture or a different nucleic acid amplification test when positive results occur, if indicated. Testing performed or reported by [facility], a Service of [facility], [address] [place] [address] Aly Quinonez MD, Bobbin Doffer [facility]# [id number] Urine (Urine) 05/12/2022 2:3 8 PM EST 05/13/2022 7:45 AM EST us Jessica Garnica MD LAB MICROBIOLOGY - GENERAL ORD ERABLES Final Result [facility] from Last 3 Months or Most Recently Relevant to Health Maintenance Insurance [facility] NON PCC [place] [id number] [facility] NON PCC
--- OUTSIDE RECORDS SUMMARY | 2024-09-10 12:41 | XMS_ITS | Encounter Summary ---
Author Organization [facility] Address [address] [place] [phone] Phone Care Team Providers Care Creative/Art Director Name Role Phone Gema Rosado MD Primary Care Provider [phone] Encounter Details Date Type Department Care Team (Late st Contact Info) Description 12/13/2012 Documentation [facility] Family Medicine [address] [place] [address] Family Medicine, Physician [address] [place] [address] Social History Tobacco Use Types Packs/Day Years [...] on filedocumented in this encounter Care Teams Creative/Art Director Relationship Specialty Start Date End Date Gema Rosado MD [address] [place] [id number] PCP - General 12/01/16 11/27/22 documented as of this encounter
--- OUTSIDE RECORDS SUMMARY | 2024-09-10 12:41 | XMS_ITS | Encounter Summary ---
Author Organization [facility] Address [address] [place] [address] Phone Care Team Providers Care Client Account Specialist Name Role Phone Gema Rosado MD Primary Care Provider [phone] Encounter Details Date Type Department Care Team (Late st Contact Info) Description 10/03/2016 Documentation [facility] Family Medicine [address] [place] [address] Family Medicine, Physician [address] [place] [address] Social History Tobacco Use Types Packs/Day Years [...] on filedocumented in this encounter Care Teams Client Account Specialist Relationship Specialty Start Date End Date Gema Rosado MD [address] [place] [id number] PCP - General 12/01/16 11/27/22 documented as of this encounter
--- OUTSIDE RECORDS SUMMARY | 2024-09-10 12:41 | XMS_ITS | Encounter Summary ---
Author Organization [facility] Address [address] [place] [address] Phone Care Team Providers Care Bridge Contractor Name Role Phone Gema Rosado MD Primary Care Provider [phone] Encounter Details Date Type Department Care Team (Late st Contact Info) Description 06/26/2016 Documentation [facility] [place] Family Medicine [address] [place] [address] Family Medicine, Physician [address] [place] [address] Social History Tobacco Use Types Packs/Day Years [...] on filedocumented in this encounter Care Teams Bridge Contractor Relationship Specialty Start Date End Date Gema Rosado MD [address] [place] [phone] PCP - General 12/01/16 11/27/22 documented as of this encounter
--- OUTSIDE RECORDS SUMMARY | 2024-09-10 12:41 | XMS_ITS | Data Portability ---
Author Organization GAMALIEL Roberson s [facility] Address [address] [place] [address] Care Team Providers Care Applications Engineer Manufacturing Name Role Phone [facility] Primary Care Provid er Assessment No assessment recorded. Plan of Treatment Reminders Order Date Submit Date Provider Last Modified By Organization Details Last Modified Time Details Appointments None recorded. Lab rapid SARS CoV 2 Ag, QL IA, respiratory specimen 2022 023 [email or web address] _[facility], [address] [place] [address], [id number], 13:15:58 rapid strep group A, throat 2022 023 JONATHON _[facility], [address] [place] [address], [phone], 13:21:40 Referral None recorded. Procedures None recorded. Surgeries None recorded. Imaging None recorded. Medication Orders None recorded. Patient TargetsNo targets recorded. Patient Instructions Encounter Date Encounter Id Patient Instructions Last Modified By Organization Details Last Modified Time 09/24/2022 [id number] your symptoms seem consistent with a viral upper respiratory infection and treatment is symptomatic. There is no indication for antibiotics. We recommend plain mucinex tablets to help thin out mucus. Control fever and pain with tylenol or ibuprofen. As we discussed you also likely have a tonsil stone on the right. Gargle with some warm water and you may be able to dislodge it. Follow up with your PCP as needed. [email or web address] Not available 09/24/2022 13:27:44 Reason for Referral None Reported. Results Created Date Observation Date Name Description Value Unit Range Abnormal Flag Note LastModifiedBy Organization Detail LastModifiedTime 09/25/19 23 09/24/2022 rapid strep group A, throa t Unknown Analyte Normal = Negati ve Not Available [address] [place] [address], [phone], 09/24/2022 13:15:49 09/25/19 23 09/24/2022 rapid strep group A, throa t Unknown Analyte negati ve Not Available [address] [place] [address], [phone], 09/24/2022 13:15:49 09/25/19 23 09/24/2022 rapid SARS CoV 2 Ag, QL IA, respi rator y speci men Unknown Analyte Normal =Negat rdaha Not Available [address] [place] [address], [phone], 09/24/2022 12:29:13 09/25/19 23 09/24/2022 rapid SARS CoV 2 Ag, QL IA, respi rator y speci men Unknown Analyte negati ve Not Available [address] [place] [address], [phone], 09/24/2022 12:29:13 Result Notes None recorded. Problems No Known Problems Procedures Surgical History Date Name Laterality Status Provider Name and Address Organization Details Recorded Time cholecystostomy completed VALENCIA ALSTON - [facility] 09/24/2022 12:25:49 Imaging Results None recorded. Procedure Notes None recorded. Medical Equipment None Reported. Allergies No known drug allergies Medications Name Sig Start Date Stop Date Status Note LastModified by Organization Details LastModified Time ondansetron 4 mg disintegrat ing tablet DISSOLVE ONE TABLET BY MOUTH EVERY 8 HOURS NEEDED FOR NAUSEA AND VOMITING 09/24 completed Not Available Not Available Not Available cholecalcif rodrigue (vitamin D3) 50 mcg (2,000 unit) capsule TAKE ONE CAPSULE BY MOUTH EVERY DAY 2022 active Not Available Not Available Not Avai lable Vitals Date Recorded Body height Body mass index (BMI) Body weight Oxygen saturation Oxygen saturation in Arterial blood by Pulse oximetry Heart rate Respiratory rate Body temperature Systolic blood pressure Diastolic blood pressure Provider Name and Address Organization Details Last Updated DateTime 160.02 cm 36.3 kg/m2 69483.4 4 g 97 % 97 % 112 /min 18 /min 99.3 [degF] 125 mm[Hg] 73 mm[Hg] VALENCIA LING PA - [facility] 12:29:07 Social History Question Answer Notes LastModified by [employer] Details LastModified Time Tobacco Smoking Status Never Smoker VALENCIA pillai PA [facility] 09/24/2022 12:25:30 Have You Recently Traveled Abroad? No Information not available 09/24/2022 Are You Currently In School? No Information not available 09/24/2022 Sex: Unknown Functional Status Question Answer Note LastModified by [employer] Details LastModified Time Do you use any illicit or recreational drugs? No Information not available 09/24/2022 Do you or have you ever used any other forms of tobacco or nicotine? No Information not available 09/24/2022 What is your level of alcohol consumption? None Information not available 09/24/2022 Are you currently employed? No Information not available 09/24/2022 Mental Status None recorded. Family History Relationship Description Onset Age of this Age Resolved Age Notes LastModified by Organization Details LastModified Time Father No current problems or disability Not available 09/24 12:25:11 Mother No current problems or disability Not available 09/24 12:25:11 Medical History No medical history recorded. Gynecological History Statement/Question Response Date of LMP 09/17/2022 Is there any chance of ? No Obstetrics History GPAL:G 0 P 0 0 0 0 Immunizations Vaccine Type Date Status Note Provider Nam e and Address Organization Details Recorded Time meningococcal B, recombinant 9 completed VALENCIA pillai PA [place] [facility] 09/24/2022 12:24:25 meningococcal B, recombinant 0 completed VALENCIA ANURADHA null, PA - [facility] 09/24/2022 12:24:25 COVID-19, mRNA, LNP-S, PF, 30 mcg/0.3 mL dose 2 completed VALENCIA ANURADHA null, PA - [facility] 09/24/2022 12:24:25 COVID-19, mRNA, LNP-S, PF, 30 mcg/0.3 mL dose 1 completed VALENCIA ANURADHA null, PA - [facility] 09/24/2022 12:24:25 COVID-19, mRNA, LNP-S, PF, 30 mcg/0.3 mL dose 1 completed VALENCIA ANURADHA null, PA - [facility] 09/24/2022 12:24:25 COVID-19, mRNA, LNP-S, bivalent, PF, 30 mcg/0.3 mL dose 3 completed VALENCIA ANURADHA null, PA - [facility] 09/24/2022 12:24:25 Tdap 3 completed VALENCIA ANURADHA null, PA - [facility] 09/24/2022 12:24:25 Hep B, adolescent or pediatric 8 completed VALENCIA ANURADHA null, PA - [facility] 09/24/2022 12:24:25 meningococcal MCV4P 8 completed VALENCIA ANURADHA null, PA - [facility] 09/24/2022 12:24:25 Influenza, split virus, quadrivalent, PF 2 completed VALENCIA ANURADHA null, PA - [facility] 09/24/2022 12:24:25 Influenza, split virus, quadrivalent, PF 3 completed VALENCIA ANURADHA null, PA - [facility] 09/24/2022 12:24:25 Influenza, split virus, quadrivalent, PF 7 completed VALENCIA ANURADHA null, PA - [facility] 09/24/2022 12:24:25 Influenza, split virus, quadrivalent, PF 09/17/201 8 completed VALENCIA ANURADHA null, PA - [facility] 09/24/2022 12:24:26 Influenza, split virus, quadrivalent, PF 9 completed GAMALIEL Lentz - [facility] 09/24/2022 12:24:26 Past Encounters Encounter ID Performer Location Encounter Start Date Encounter Closed Date Diagnosis/Indication Diagnosis SNOMED-CT Code Diagnosis ICD10 Code Diagnosis Note [id number] GAMALIEL Buchanan [address] [place] [address] 09/24/2022 10:20:48 09/24/2022 13:31:31 Cough 68377549 R05.9 Acute pharyngitis 338178 003 J02.9 Health Concerns Section Related Observation LastModified by Organization Detai ls LastModified Time None Recorded Concern Status LastModified by Organization Details LastModified Time None Recorded Advance Directives Directive None Recorded Payers Insurance Date Sequence Insurance Name Policy Number Policy Li Covered Member ID Li Member ID Guarantor Name 09/24/2022 1 [facility] (MEDICAID REPLACEMENT - HMO) CHILDACO Lee Ann Collinsnaomie [id number] Lee Ann Bell Notes Date Note Type Note Provider Name and Address Organization Details Recorded Time 09/25/19 23 text/htm l CoughReported bypatient.source of patient informationInformation obtained from patient; Patient arrived at Urgent Care ambulatory Quality:productive cough; intermittent; started dry resovled for few days then returned and now productive Severity:worsening; moderate Context:Patient denies vaping; non-smoker Associated Symptoms:no fever; no chills; no chest pain; no heartburn; no nausea; no vomiting; no post nasal drip GAMALIEL Raymundo [address] [place] [address] Rhona Garcia W, [address], [place] - [facility] 09/24/2022 13:28:00 OBGyn Episode No OBEpisode recorded.
--- OUTSIDE RECORDS SUMMARY | 2024-09-10 12:41 | XMS_ITS ---
Author Organization Derian Smith III, MD Address [address] [place] [place] [address] Care Team Providers Care Transmission Rebuilder Name Role Phone Derian Smith Primary Care Provider [phone] Allergies Allergen (clinical drug ingredient) Drug/Non Drug Allergy documented on EMR Reaction Allergy Type Onset Date Status No Known Drug Allergy Unknown Drug Allergy Active REASON FOR VISIT Neck pain x 1 month, Hands swell with a pin needle pain and cramping, Tired all the time, Feels bloated and tired Medications Medication SIG (Take, Route, Fr equency, Duration) Notes Start Date End Date Status dexAMETHasone 2 MG 1 tablet Orally twic e a day for 10 days 09/10/2024 Active D3 50 MCG (1999) 1 tablet Orally Once a day Active Loryna 3-0.02 MG TAKE ONE TABLET BY M OUTH EVERY DAY Oral Active Social History Tobacco Use: Social History Observation Description Date Details (start date - stop date) Never Smoker NA - NA Tobacco Use/Smoking Question Answer Notes Patient is a nonsmoker Additional Findings: Tobacco Non-User Aggressive non-smoker Vital Signs Temperature 97.5 degrees Fahrenheit 09/11/19 25 Blood pressure systolic 154 mm Hg 09/11/19 25 Blood pressure diastolic 90 mm Hg 025 Heart Rate 87 /min 09/10/2024 Height 5 ft 3 in in 09/10/2024 Weight 205 lbs 09/10/2024 BMI 36.31 kg/m2 09/10/2024 Encounters Encounter Location Date Provider Diagnosis Derian Smith III, MD [address] [place] [address] [place] [address] 09/10/2024 Derian Smith Obesity (BMI 30.0-34.9) E66.9 ; Fatigue R53.83 ; Vitamin B deficiency, unspecified E53.9 ; Hypothyroidism, unspecified E03.9 and Neck pain M54.2 Assessments Encounter Date Diagnosis (ICD Code) Assessment Notes Treatment Notes Treatment Clinical Notes 09/10/2024 Obesity (BMI [...] obesity. Various strategiees to reduce it. 09/10/2024 Fatigue (ICD-10 - R53.83) 09/10/2024 Vitamin B deficiency, unspecified (ICD-10 - E53.9) 09/10/2024 Hypothyroidism, unspecified (ICD-10 - E03.9) 09/10/2024 Neck pain (ICD-10 - M54.2) Plan Of Treatment Medication Medication Name Sig [...] STIMULATING HORMONE) 2024 CBC w DIFF 09/10/2024 XR CERVICAL SPINE 2-3 VIEWS 09/10/2024 Lipid Panel 09/10/2024 Vitamin B12 and Folate 09/10/2024 Free T4 (Free Thyroxine) 09/10/2024 Next Appt Details Provider Name:Derian Smith, 09/24/2024 10:15:00 AM, [address] [facility] [address], [place], [address], Provider Name:Derian Smith, 11/12/2024 02:30:00 PM, [address] [facility] [address], [place], [address], Progress Notes * SOL GARCIA: 1 (24 yo F)Acc No.[id number]:09/10/2024 Progress Notes Patient:?KRZYSZTOF GARCAI Provider:?Derian Smith MD :2000???Age:24 Y???Sex:Female D ate:09/10/2024 Address:[address] [place] [address] [address]LO[address], [place] [address] Subjective: * Chief Complaints: * ???1. Neck pain x 1 month. 2 . Hands swell with a pin needle pain and cramping. 3. Tired all the time. 4. Feels bloated and tired. * HPI: ???COVID-19 Screening:? nerve imipingemen t neck leftear and shoulder,? hands cramp up with use tingling with carrhying, 3) weight? trying to exercise and lose weight. ?Questions?Have you had any new onset fever, chills, cough, congestion, sore throat, shortness of breath, muscle aches??No * ROS:?General/Constitutional:?pain?only normal aches and pains.?Chills?denies.?Fatigue?admits.?Fever?denies.?ENT:?Decreased hearing?denies.?Respiratory:?Cough?denies.?Cardiovascular:?Chest pain with exertion?denies.?Dyspnea on exertion?denies.?Shortness of breath?denies.?Gastrointestinal:?Constipation?denies.?Decreased appetite?denies.?Diarrhea?denies.?Heartburn?denies.?Nausea?denies.?Rectal bleeding?denies.?Vomiting?denies.?Hematology:?bruising?denies.?petechiae?denies.?Swollen glands?none have been noted.?Genitourinary:?Frequent urination?denies.?Musculoskeletal:?Muscle aches?denies.?Painful joints?denies.?Sciatica?denies.?Weakness?denies.?Skin:?Itching?denies.?Rash?denies.?Skin lesion(s)?denies.?Neurologic:?Difficulty speaking?denies.?Dizziness?denies.?Headache?denies.?Low back pain?denies.?Psychiatric:?Depressed mood?denies.? * Medical History:?Obesity, Po lycystic ovaries. * Surgical History:?Cholecyste ctomy for cholecystitis 2013, . * Hospitalization/Major Diagno stic Procedure:?bmc cholecystectomy for stones , food poisoning 2022. * Family History:?Father: jabari reyes, History of [...] or drink. She does not have a samaritan objection to blood transfusion. She does not have any children. She has no exposures to toxic materials. She was born in [place], [place]. Her parents are from [place]. * Medications:?Taking D3 50 MC G (2000 UT) Tablet 1 tablet Orally Once a day , Taking Loryna 3-0.02 MG Tablet TAKE ONE TABLET BY MOUTH EVERY DAY Oral , Medication List reviewed and reconciled with the patient * Allergies:?No Known Drug All ergy. Objective: * Vitals:?Ht: 5 ft 3 in, Wt: 2 05, BMI:36.31, BP: 154/90, HR: 87, Temp: 97.5, Wt- k.99. * Examination: ???General Examination: ?GENERAL APPEARANCE:?pleasant, well nourished, well developed, in no acute distress, calm and relaxed.?HEAD:?atraumatic, normocephalic.?EYES:?eomi, perrla, anicteric, conjugate.?EARS:?normal.?NOSE:?septum intact.?ORAL CAVITY:?normal, unremarkable.?NECK/THYROID:?no jugular venous distention, no carotid bruit, thyroid normal.?LYMPH NODES:?no enlarged lymph nodes,spleen normal.?SKIN:?no suspicious lesions, anicteric.?HEART:?no clicks, gallops, murmurs, or rubs, regular rhythm, S1, S2 normal, no s3, or vascular bruits.?LUNGS:?clear to auscultation .?BREASTS:??no masses palpable bilaterally.?ABDOMEN:?bowel sounds normal, no ascites, no organomegaly, no mass.?RECTAL EXAM:?not examined.?MUSCULOSKELETAL:?extremities unremarkable, no clubbing, cyanosis or edema.?PERIPHERAL PULSES:?normal.?NEUROLOGIC:?alert and oriented, cranial nerves 2-12 grossly intact, deep tendon reflexes 2+ symmetrical, motor strength normal upper and lower extremities, sensory exam intact.?PSYCH:?alert, oriented.? Assessment: * Assessment: 1.?Obesity (BMI 30.0-34.9) - E66.9???Notes :We have discussed diet and nutrition today. We made a plan to lose weight at a rate of one half of a pound per week through a diet restricted in fact calories and sodium combined with regular physical activity. Her weight is stable over the last 6 monnths. We reviewed the health consequences of obesity. Various strategiees to reduce it.???2.?Fatigue - R53.83???3.?Vitamin B deficiency, unspecified - E53.9???4.?Hypothyroidism, unspecified - E03.9???5.?Neck pain - M54.2??? Plan: * Treatment: 2.?Fatigue?LAB: PROFILE, FASTING (COMPREHENSIVE METABOLIC) ?LAB: TSH (THYROID STIMULATING HORMONE) ?LAB: CBC w DIFF ?LAB: Lipid Panel ?LAB: Vitamin B12 and Folate ?LAB: Free T4 (Free Thyroxine) 3.?Vitamin B deficiency, uns pecified?LAB: PROFILE, FASTING (COMPREHENSIVE METABOLIC) ?LAB: TSH (THYROID STIMULATING HORMONE) ?LAB: CBC w DIFF ?LAB: Lipid Panel ?LAB: Vitamin B12 and Folate ?LAB: Free T4 (Free Thyroxine) 4.?Hypothyroidism, unspecifi ed?LAB: PROFILE, FASTING (COMPREHENSIVE METABOLIC) ?LAB: TSH (THYROID STIMULATING HORMONE) ?LAB: CBC w DIFF ?LAB: Lipid Panel ?LAB: Vitamin B12 and Folate ?LAB: Free T4 (Free Thyroxine) 5.?Neck pain?Imaging: XR CERVICAL SPINE 2-3 VIEWS * Preventive Medicine:? ??Counseling:?Care goal follow-up plan:?Counseling [...] Medical or Other reason not done * Images: * The named appointment provid er may or may not be the originator of this progress note, and it is not deemed complete until electronically signed by the appointment provider. Sign off status: Pending * Provider:?Derian Smith MD Date:?08/22 Generated for Marci rodarte/Agata/eTransmitting on:?09/10/2024 12:41 PM EDT History and Physical Notes * HPI (History of Present Illness) Category Sub-Category Detail Notes COVID-19 Screening Questions Have you had any new onset fever, chills, cough, congestion, sore throat, shortness of breath, muscle aches?: No Examination Category Sub-Category Detail Notes General Examination GENERAL APPEARANCE: pleasant , well nourished, well developed, in no acute distress, calm and relaxed HEAD: atraumatic, normocep halic EYES: eomi, perrla, [...]
--- OUTSIDE RECORDS SUMMARY | 2024-09-10 12:41 | XMS_ITS | Encounter Summary ---
Author Organization [facility] Address [address] [place] [address] Phone Care Team Providers Care Keeler Polygraph Operator Name Role Phone Gema Rosado MD Primary Care Provider [phone] Encounter Details Date Type Department Care Team ([facility] Contact Info) Description 12/07/2016 Conversion Encounter [facility] [address] [place] [address] Social History Tobacco Use Types Packs/Day Years [...] on filedocumented in this encounter Care Teams Keeler Polygraph Operator Relationship Specialty Start Date End Date Gema Rosado MD [address] [place] [address] PCP - General 12/01/16 11/27/22 documented as of this encounter
--- OUTSIDE RECORDS SUMMARY | 2024-09-10 12:41 | XMS_ITS | Patient Health Record ---
Author Organization Derian Smith III, MD Address [address] [place] [address] Care Team Providers Care Carriage Operator Name Role Phone Derian Smith Primary Care [...] 1.3 BLD Positive Negative - Menstrating No Pap Smear Reviewed date:05/30/2024 09:27:02 AM Interpretation: Performing Lab:[facility], [address] [place] [phone] Notes/Report: Name: Krzysztof Bell Age/Sex: 23/F : 2000 Unit#: [id number] Attend Dr: Maria R Escobedo CNM Re05/22/24 Status : DEP [facility]ch: SPEC : [id number] RECD : 05/23/24 STATUS: CHARO ELMORE NUM: [id number] BETO: 05/22/24-[address] [facility] [address]: Maria R Escobedo CNM ENTERED: 05/23/24-10 23 SP TYPE: Pap Smr OTHR DR: Derian Smith MD ORDERED: Pap Smear Interpretation Satisfactory for evaluation. Negative for intraep ithelial lesion or malignancy. Clinical Information LMP:04/21/24 Previous PAP test: Never Other surgery: Other history: Material Received ThinPrep-Cervical Copies To: Derian Smith MD [address], [address] [place] [address] Maria R Escobedo CNM [facility] [address] [place] [address] Signed (si gnature on file) KENDALL Pena ([facility]) 05/27/24 0835 END OF REPORT Complete Blood Count Auto Di ff (Not yet reviewed by provider) Interpretation: Performing Lab:[facility], [address] [place] [phone] Notes/Report: White Blood Count 7.9 4.8-10.8 X10*3/uL Red Blood Count 4.81 4.20-5.50 X10*6/uL Hemoglobin 12.8 12.0-16.0 g/dl Hematocrit 39.7 37.0-47.0 % Mean Corpuscular Volume 82.5 80.0-98.0 fL Mean Corpuscular Hemoglobin 26.6 27.0-33.0 pg Mean Corpuscular HGB Conc 32.2 31.0-35.0 g/dl Red Cell Distribution Width 14.0 11.0-16.0 % Platelet Count 310 160-400 X10*3/uL Mean Platelet Volume 8.8 9.4-12.3 fL Neutrophils Percent Auto 53.0 45-73 % Imm Gran Pct Auto 0.1 0.0-0.4 % Lymphocytes Percent Auto 36.8 20-40 % Monocytes Percent Auto 7.2 2-11 % Eosinophils Percent Auto 2.4 0-4 % Basophils Percent Auto 0.5 0-2 % NRBC Pct Auto 0.0 0.0-0.2 /100WBC Neutrophils Absolute Auto 4.2 2.0-8.3 x10*3/u L Imm Gran Abs Auto 0.01 0.00-0.03 X10*3/uL Lymphocytes Absolute Auto 2.9 1.2-4.9 X10*3/u L Monocytes Absolute Auto 0.6 0.1-1.2 X10*3/uL Eosinophils Absolute Auto 0.2 0.0-0.4 X10*3/u L Basophils Absolute Auto 0.0 0.0-0.2 X10*3/uL NRBC Abs Auto 0.000 0.0-0.012 X10*3/uL Reason For Referral No Information Medications Medication SIG (Take, Route, Fr equency, Duration) Notes Start Date End Date Status dexAMETHasone 2 MG 1 tablet Orally twic e a day for 10 days 09/10/2024 Active D3 50 MCG (1999 UT) 1 tablet Orally Once a day Active Loryna 3-0.02 MG TAKE ONE TABLET BY M OUTH EVERY DAY Oral Active Immunizations Vaccine Route Administration Date Status Comme nts Hepatitis B (11-19) Unknown 01/07/2018 Administered Menactra (MCV4) Unknown 01/07/2018 Administered Tdap Unknown 05/12/2022 Administered Meningococcal B Unknown 10/16/2018 Administered Influenza, quad Unknown 12/28/2016 Administered Influenza, quad Unknown 05/12/2022 Administered Influenza, quad Unknown 04/14/2019 Administered COVID PFIZER Unknown 09/06/2020 Administered Influenza, quad Unknown 01/07/2018 Administered COVID PFIZER Unknown 05/04/2021 Administered COVID PFIZER Unknown 08/16/2020 Administered Influenza, quad Unknown 05/04/2021 Administered Meningococcal B Unknown 01/07/2018 Administered COVID 19 Pfizer Unknown 05/12/2022 Administered Social History Tobacco Use: Social History Observation Description Date Details (start date - stop date) Never Smoker NA - NA Tobacco Use/Smoking Question Answer Notes Patient is a nonsmoker Additional Findings: Tobacco Non-User Aggressive non-smoker Alcohol Screen Question Answer Notes Did you have a drink containing alcohol in the p ast year? No Points 0 Interpretation Negative Problems Problem Type SNOMED Code ICD Code Onset Dates Problem Status W/U Status Risk Notes Problem [id number] Obesity (BMI 30.0-34.9) (E66.9) Active confirmed We have discussed diet and nutrition today. We made a plan to lose weight at a rate of one half of a pound per week through a diet restricted in fact calories and sodium combined with regular physical activity. Her weight is stable over the last 6 monnths. We reviewed the health consequences of obesity. Various strategiees to reduce it. Problem Hypothyroidism (01213750) Hypothyroidis m, unspecified (E03.9) Active confirmed Problem Polycystic ovaries (E28.2) Active confirmed She has been referred to [facility] for evaluation and management and routine reproductive health care. She is not at this time. She does not have contraception. Vital Signs Heart Rate 87 /min 09/10/2024 Temperature 97.5 degrees Fahrenheit 09/10/2024 Blood pressure diastolic 90 mm Hg 09/10/2024 Height 5 ft 3 in in 09/10/2024 Blood pressure systolic 154 mm Hg 09/10/2024 Weight 205 lbs 09/10/2024 BMI 36.31 kg/m2 09/10/2024 Encounters Encounter Location Date Provider Diagnosis Derian Smith III, MD [address] [place] [address] [address] [place], [place] [phone] 11/12/2023 Derian Smith Obesity (BMI 30.0-34.9) E66.9 and Polycystic ovaries E28.2 Derian Smith III, MD [address] [place] [address] [address] [place] [phone] 09/10/2024 Derian Smith Obesity (BMI 30.0-34.9) E66.9 [...] - E28.2) She has been referred to [facility] for evaluation and management and routine reproductive health care. She is not at this time. She does not have contraception. 09/10/2024 Obesity (BMI 30.0-34.9) (ICD-10 - E66.9) [...] pain (ICD-10 - M54.2) Plan Of Treatment Pending Test Test Name Order Date PROFILE, FASTING (COMPREHENSIVE METABOLI C) 09/10/2024 PROFILE, FASTING (COMPREHENSIVE METABOLI C) 10/10/2022 TSH (THYROID STIMULATING HORMONE) 2024 CBC w DIFF 09/10/2024 CBC w DIFF 10/10/2022 SED RATE (ESR) 10/10/2022 XR CERVICAL SPINE 2-3 VIEWS 09/10/2024 Complete Blood Count Auto Diff Lipid Panel 09/10/2024 Lipid Panel 10/10/2022 Vitamin B12 and Folate 09/10/2024 Free T4 (Free Thyroxine) 09/10/2024 Next Appt Details Provider Name:Derian Smith, 09/24/2024 10:15:00 AM, [address] [place] [address] [address], [place], [phone], Provider Name:Derian Smith, 11/12/2024 02:30:00 PM, [address] [place] [address] [address], [place], [phone], Insurance Providers Payer Name Payer Address Payer Phone Subscriber Number Group Number Insured Name Patient Relationship to Insured Coverage Start Date Coverage End Date [place] [address] [place] [id number] [phone] [id number] KRZYSZTOF BELL Self - patient is the insured Medical (General) History Medical History History ICD Code Obesity Polycystic ovaries Surgical History Surgery Date(Month/Year) Cholecystectomy for cholecystitis 2013 Hospitalization History Reason Date(Month/Year) food poisoning [place] [facility] [place]
--- OUTSIDE RECORDS SUMMARY | 2024-09-10 12:41 | XMS_ITS ---
Author Organization Derian Smith III, MD Address [address] [place] [address] [place] [address] Care Team Providers Care Campground Attendant Name Role Phone Derian Smith Primary Care [...] Date End Date Status D3 50 MCG (1999 UT) 1 tablet [...] Date Provider Diagnosis Derian Smith III, MD [address] [place] [address] [place] [phone] 11/12/2023 Derian Smith Obesity (BMI 30.0-34.9) E66.9 [...] - E28.2) She has been referred to [facility] for evaluation and management and routine reproductive [...] Reason: O V, Annual Exam Provider Name:Derian Smith, 09/24/2024 10:15:00 AM, [address] [place] [address] [address], [place], [phone], Provider Name:Derian Smith, 11/12/2024 02:30:00 PM, [address] [place] [address] [place], [phone], Progress Notes * KRZYSZTOF GARCIADOB: 1 (23 yo F)Acc No.[id number]:11/12/2023 Progress Notes Patient:?KRZYSZTOF GARCIA Provider:?Derian Smith MD :2000???Age:23 Y???Sex:Female D ate:11/12/2023 Address:[address] [place] [address] [address], [id number] Subjective: * Chief Complaints: * ???Annual Exam * HPI: ???Depression Screening:? She returns to the office for her annual physical examination. She is up-to-date with her [facility]. She has no new complaints. She continues her efforts at weight loss. We have discussed diet and nutrition and weight loss strategies at length today. ?PHQ-9?Little interest or pleasure in doing things?More than half the days ?Feeling down, depressed, or hopeless?Several days ?Trouble falling or staying asleep, or sleeping too much?Nearly every day ?Feeling tired or having little energy?More than half the days ?Poor appetite or overeating?More than half the days ?Feeling bad about yourself or that you are a failure, or have let yourself or your family down?Not at all ?Trouble concentrating on things, such as reading the newspaper or watching television?Nearly every day ?Moving or speaking so slowly that other people could have noticed; or the opposite, being so fidgety or restless that you have been moving around a lot more than usual?Not at all ?Thoughts that you would be better off or of hurting yourself in some way?Not at all ?Total Score?13 ?Interpretation?Moderate Depression ???COVID-19 Screening:?Questions?Have you experienced fever, chills, cough, sore throat, shortness of breath, difficulty breathing, muscle aches, loss of taste or smell??No ?Have you been exposed to the virus within the last 10 days??No ?Have you travelled internationally in the last 10 days??No ?Have you been exposed to COVID-19 in the past??No ???SDOH Questions:?SDOH Questions?In the past year have you been worried about losing your housing??No ?In the past year have you or any family members you live with been unable to get any of the following when it was really needed? Check all that apply:?None * ROS:?General/Constitutional:?pain?only normal aches and pains.?Chills?denies.?Fatigue?admits.?Fever?denies.?ENT:?Decreased hearing?denies.?Respiratory:?Cough?denies.?Cardiovascular:?Chest pain with exertion?denies.?Dyspnea on exertion?denies.?Shortness of breath?denies.?Gastrointestinal:?Constipation?denies.?Decreased appetite?denies.?Diarrhea?denies.?Heartburn?denies.?Nausea?denies.?Rectal bleeding?denies.?Vomiting?denies.?Hematology:?bruising?denies.?petechiae?denies.?Swollen glands?none have been noted.?Genitourinary:?Frequent urination?at night.?Musculoskeletal:?Muscle aches?denies.?Painful joints?denies.?Sciatica?denies.?Weakness?denies.?Skin:?Itching?denies.?Rash?denies.?Skin lesion(s)?denies.?Neurologic:?Difficulty speaking?denies.?Dizziness?denies.?Headache?denies.?Low back pain?denies.?Psychiatric:?Depressed mood?denies.? * Medical History:? * Surgical History:?Cholecyste ctomy for cholecystitis [id number] * Hospitalization/Major Diagno stic Procedure:?[facility] cholecyst[facility] for [...] is a?nonsmoker ?Additional Findings: Tobacco Non-User?Aggressive non-smoker ???Drugs/Alcohol:?Drugs?Have you used drugs other than those for medical reasons in the past 12 months??No ?Alcohol Screen?Did you have a drink containing alcohol in the past year??No ?Points?0 ?Interpretation?Negative ???She is now observe it most of her does not smoke or drink. She does not have a rastafari objection to blood transfusion. She does not have any children. She has no exposures to toxic materials. She was born in [place], [place]. Her parents are from [place]. * Medications:?TakingD3 50 MCG (1999) Tablet 1 tablet Orally Once a dayLoryna 3-0.02 MG Tablet TAKE ONE TABLET BY MOUTH EVERY DAY Oral Medication List reviewed and reconciled with the patientTaking D3 50 MCG (1999 UT) Tablet 1 tablet Orally Once a dayTaking Loryna 3-0.02 MG Tablet TAKE ONE TABLET BY MOUTH EVERY DAY Oral Medication List reviewed and reconciled with the patient * Allergies:?No Known Drug All ergyno[Allergies Verified] Objective: * Vitals:?Ht: 5 ft 3 in, Wt: 2 04, BMI:36.13, BP: 132/74, HR: 93, Temp: 98.1, Wt- k.53. * Examination: ???General Examination: ?GENERAL APPEARANCE:?pleasant, well nourished, well developed, in no acute distress, calm and relaxed woman, obese.?HEAD:?atraumatic, normocephalic.?EYES:?eomi, perrla, anicteric, conjugate.?EARS:?normal.?NOSE:?septum intact.?ORAL CAVITY:?normal, unremarkable.?NECK/THYROID:?no jugular venous distention, no carotid bruit, thyroid normal.?LYMPH NODES:?no enlarged lymph nodes,spleen normal.?SKIN:?no suspicious lesions, anicteric.?HEART:?no clicks, gallops, murmurs, or rubs, regular rhythm, S1, S2 normal, no s3, or vascular bruits.?LUNGS:?clear to auscultation .?BREASTS:?not examined.?ABDOMEN:?bowel sounds normal, no ascites, no organomegaly, no mass , centripital obesity.?RECTAL EXAM:?not examined.?MUSCULOSKELETAL:?extremities unremarkable, no clubbing, cyanosis or edema.?PERIPHERAL PULSES:?normal.?NEUROLOGIC:?alert and oriented, cranial nerves 2-12 grossly intact, deep tendon reflexes 2+ symmetrical, motor strength normal upper and lower extremities, sensory exam intact.?PSYCH:?alert, oriented.? Assessment: * Assessment: 1.?Obesity (BMI 30.0-34.9) - E66.9, We have discussed diet and nutrition today. We made a plan to lose weight at a rate of one half of a pound per week through a diet restricted in fact calories and sodium combined with regular physical activity. Her weight is stable over the last 6 monnths. We reviewed the health consequences of obesity. Various strategiees to reduce it.?2.?Polycystic ovaries - E28.2, She has been referred to [facility] for evaluation and management and routine reproductive health care. She is not at this time. She does not have contraception.? Plan: * Treatment: * Labs:? * ?Lab: URINE DIP STICK ? Value Reference Range ?SG 1.030 1.005 - 1.025 * ?pH 5.0 5.0 - 9.0 * ?HUSSEIN Negative Negative - * ?NIT Negative Negative - * ?PRO 15 Negative - Trac e * ?GLU Negative Negative - * ?KET 5 Negative - * ?UBG 0.2 0.1 - 1.8 * ?FEMI 1 0.2 - 1.3 * ?BLD Positive Negative - * ?Menstrating No * Procedure Codes:?01636 URINE -NO MICRO * Preventive Medicine:? ??Counseling:?Care goal follow-up plan:?Counseling for abnormal BMI given?Yes ?Above Normal BMI Follow-up?Dietary management education, guidance, and counseling, Dietary needs education * Follow Up:?1 Year (Reason: O V, Annual Exam) * Images: * Sign off status: Completed true * Provider:?Derian Smith MD Date:?10/22 Generated for Marci rodarte/Agata/Kasia on:?09/10/2024 12:41 PM EDT History and Physical [...] Poor appetite or overeating: More than h group home the days Feeling bad about yourself o [...] [facility]?: No Have you travelled internationally in [facility] last 10 days?: No Have you been [...]
[2024-09-10 13:54] LABS: Folate 4.7 ng/mL (> or = 4.0); Vitamin B12 233 pg/mL (200-900)
[2024-09-10 15:18] LABS: Alanine Aminotransferase 18 U/L (0-31); Albumin Level 3.9 g/dL (3.5-5.0); Alkaline Phosphatase 56 U/L (39-117); Anion Gap 12 (12-20); Aspartate Amino Transferase 16 U/L (5-31); Bilirubin Total 0.3 mg/dL (0.0-1.0); Blood Urea Nitrogen 9 mg/dL (9-16); Calcium 9.1 mg/dL (8.4-10.2); Carbon Dioxide 23 mmol/L (22-29); Chloride 109 mmol/L (96-108); Cholesterol 204 mg/dL (<200); Estimated Glomerular Filt Rate > 60; Glucose Fasting 86 mg/dL (60-99); HDL Cholesterol 59 mg/dL (>40); LDL Cholesterol Calculated 97 mg/dL (<100); Potassium 4.1 mmol/L (3.3-5.1); Sodium 140 mmol/L (135-145); Total Protein 7.6 g/dL (6.5-8.0); Triglycerides 241 mg/dL (<150)
[2024-09-10 15:40] LABS: Free T4 (Free Thyroxine) 0.98 ng/dL (0.71-1.85); Thyroid Stimulating Hormone 1.82 uIU/mL (0.32-4.0)
== END 2024-09-10 11:22 | disposition home or self-care (01) ==
LOC: HO.XRAY 11:21
PROVIDERS: PCP Internal Medicine Medical Oncology; Visit Provider Internal Medicine Medical Oncology
DX: E66.9 Obesity, unspecified (principal); R53.83 Other fatigue; E53.9 Vitamin B deficiency, unspecified; E03.9 Hypothyroidism, unspecified; M54.2 Cervicalgia
CPT/HCPCS: 36415; 72040; 80053; 80061; 82607; 82746; 84439; 84443; 85025

== ENCOUNTER → 2024-09-10 11:40 | Outpatient (BNV) | payer MEDICAID, SELFPAY | PROVIDERS: PCP Internal Medicine Medical Oncology; Visit Provider Radiology Diagnostic Radiology | DX: M50.221 Other cervical disc displacement at C4-C5 level (principal) | CPT/HCPCS: 72040 ==

== ENCOUNTER 2024-11-14 10:30 | Outpatient (REF) | payer MEDICAID, SELFPAY ==
--- OUTSIDE RECORDS SUMMARY | 2024-09-10 06:30 | XMS_ITS ---
Author Organization Derian Smith III, MD Address [address] [place] [address] [place] [address] Care Team Providers Care Asp Net Software Developer Name Role Phone Derian Smith Primary Care Provider [phone] Allergies Allergen (clinical drug ingredient) Drug/Non Drug Allergy documented on EMR Reaction Allergy Type Onset Date Status No Known Drug Allergy Unknown Drug Allergy Active Results Component Value Reference Range Notes Lipid Panel Reviewed date:09/16/2024 01:55:42 PM Interpretation: Performing Lab:[facility], [address] [place] [phone] Notes/Report: Triglycerides 241 <150 mg/dL Desirable Triglyceride: [...] Folate Reviewed date:09/16/2024 01:55:42 PM Interpretation: Performing Lab:[facility], [address] [place] [phone] Notes/Report: Vitamin B12 233 200-900 pg/mL NORMAL 200-900 PG/ML INDETERMINATE 160-199 PG/ML DEFICIENT < 160 PG/ML Folate 4.7 > or = 4.0 ng/mL Reference Values: > or = 4.0 ng/mL < 4.0 ng/mL suggests folate deficiency Methotrexate, aminopterin and folinic acid (leucovorin) are chemotherapeutic agents whose molecular structures are similar to folate; therefore, the Shaft Repairer folate assay cannot be used for patients using these drugs. Free T4 (Free Thyroxine) Reviewed date:09/16/2024 01:55:42 PM Interpretation: Performing Lab:[facility], [address] [place] [phone] Notes/Report: Free T4 (Free Thyroxine) 0.98 0.71-1.85 [...] Problem Status W/U Status Risk Notes Problem [id number] Cervical radiculopathy (M54.12) Active confirmed The neck pain is not improved but the shoulder pain is described as a little better. He'll continue current therapy. If this has not improved in 3 weeks she will have imaging done and be referred for possible injections and physical therapy. Problem Fatigue (R53.83) Active confirmed This is becoming a chronic complaint. Repeat P conference blood work has been ordered to evaluate for a metabolic cause. Vital Signs Temperature 97.5 degrees Fahrenheit 09/11/19 25 Blood pressure systolic 154 mm Hg 05/21/20 25 Blood pressure diastolic 90 mm Hg 025 Heart Rate 87 /min 09/10/2024 Height 5 ft 3 in in 09/10/2024 Weight 205 lbs 09/10/2024 BMI 36.31 kg/m2 09/10/2024 Encounters Encounter Location Date Provider Diagnosis Derian Smith III, MD [address] [place] [address] [place] [address] 09/10/2024 Derian Smith Obesity (BMI 30.0-34 .9) [...] Up: 2 Weeks, Reason: ov Provider Name:Derian Smith, 12/03/2024 03:45:00 PM, [address] [place] [address] [place], [address], Provider Name:Derian Smith, 11/16/2025 02:30:00 PM, [address] [place] [address] [address], [place], [phone], Progress Notes * KRZYSZTOF GARCIADOB: 1 (24 yo F)Acc No.[id number]:09/10/2024 Progress Notes Patient: KRZYSZTOF GÓMEZ Provider: Sherri Smith MD :2000 A ge:24 Y S ex:Female Date:09/10/2024 Address:[address] [place] [address] [address] FLOOR, [phone] Subjective: * Chief Complaints: * N ian [...] T obacco Use: T obacco Use/Smoking P atsilva is a n onsmoker A dditional Findings: Tobacco Non-User A ggressive non-smoker S he is now observe it most of her does not smoke or drink. She does not have a restorationism objection to blood transfusion. She does not have any children. She has no exposures to toxic materials. She was born in [place], [place]. Her parents are from [place]. * Medications: T akingD3 50 MCG (1999 UT) Tablet 1 tablet Orally Once a [...] Smith MD Date: 0 09/10/2024 Generated for Vilmai cayden/Agata/Curtsmitting on: 0 11/14/2024 10:42 AM EDT History and Physical Notes * HPI (History [...]
--- OUTSIDE RECORDS SUMMARY | 2024-11-14 10:42 | XMS_ITS | Encounter Summary ---
Author Organization [facility] Address [address] [place] [address] Phone Care Team Providers Care Software Security Consultant Name Role Phone Gema Rosado MD Primary Care Provider [phone] Encounter Details Date Type Department Care Team (Late st Contact Info) Description 12/13/2012 Documentation [facility] Family Medicine [address] [place] [address] Family Medicine, Physician [address] [place] [address] Social History Tobacco Use Types Packs/Day Years [...] on filedocumented in this encounter Care Teams Software Security Consultant Relationship Specialty Start Date End Date Gema Rosado MD [address] [place] [address] PCP - General 12/01/16 11/27/22 documented as of this encounter
--- OUTSIDE RECORDS SUMMARY | 2024-11-14 10:43 | XMS_ITS | Data Portability ---
Author Organization [facility]ALIEL [facility]erson [facility] Address [address] [place] [address] Care Team Providers Care Powerhouse Laborer Name Role Phone [facility] Primary Care Provid er Assessment No assessment recorded. Plan of Treatment Reminders Order Date Submit Date Provider Last Modified By Organization Details Last Modified Time Details Appointments None recorded. Lab rapid SARS CoV 2 Ag, QL IA, respiratory specimen 2022 023 [email or web address] _[facility], [address] [place] [address], [id number], 13:15:58 rapid strep group A, throat 2022 023 [email or web address] _[facility], [address] [place] [address], [phone], 13:21:40 Referral None recorded. Procedures None recorded. Surgeries None recorded. Imaging None recorded. Medication Orders None recorded. Patient TargetsNo targets recorded. Patient Instructions Encounter Date Encounter Id Patient Instructions Last Modified By Organization Details Last Modified Time 09/24/2022 [id number] your symptoms seem consistent with a viral [...] Analyte Normal = Negati ve Not Available [address] [place] [address], [phone], 09/24/2022 13:15:49 09/25/19 23 09/24/2022 rapid strep group A, throa t Unknown Analyte negati ve Not Available [address] [place] [address], [phone], 09/24/2022 13:15:49 09/25/19 23 09/24/2022 rapid SARS CoV 2 Ag, QL [place], respi rator y speci men Unknown Analyte Normal =Negat radha Not Available [address] [place] [address], [address], 09/24/2022 12:29:13 09/25/1909/24/2022 rapid SARS CoV 2 Ag, QL IA, respi rator y speci men Unknown Analyte negati ve Not Available [address] [place] [address], [address], 09/24/2022 12:29:13 Result Notes None recorded. Problems No Known Problems Procedures Surgical History Date Name Laterality Status Provider Name and Address Organization Details Recorded Time cholecystostomy completed VALENCIA ALSTON [facility] 09/24/2022 12:25:49 Imaging Results None [...] height Body mass index (BMI) Body weight Pain severity - 0-10 verbal numeric rating [Score] - Reported Oxygen saturation Oxygen saturation in Arterial blood by Pulse oximetry Heart rate Respiratory rate Body temperature Systolic And Diastolic Provider Name and Address Organization Details Last Updated DateTime 160.02 cm 36.3 kg/m2 50233.4 4 g 6 97 % 97 % 112 /min 18 /min 99.3 [degF] 125/73 mm[Hg] VALENCIA LING PA - [facility] 12:29:07 Social History Question Answer Notes LastModified by [employer] Details LastModified Time Tobacco Smoking Status Never Smoker GAMALIEL Lentz [facility] 09/24/2022 12:25:30 Have You Recently Traveled Abroad? No Information not available 09/24/2022 Are You Currently In School? No Information not available 09/24/2022 Sex: Unknown Functional Status Question Answer Note LastModified by [employer] Details LastModified Time Do you use any [...] 09/24/2022 12:24:25 Influenza, split virus, quadrivalent, PF 8 completed VALENCIA ANURADHA null, PA - [facility] 09/24/2022 12:24:26 Influenza, split virus, quadrivalent, PF 9 completed VALENCIA ANURADHA null, PA - [facility] 09/24/2022 12:24:26 Past Encounters Encounter ID Performer Location Encounter Start Date Encounter Closed Date Diagnosis/Indication Diagnosis SNOMED-CT Code Diagnosis ICD10 Code Diagnosis Note [id number] GAMALIEL Buchanan [address] [place] [address] 09/24/2022 10:20:48 09/24/2022 13:31:31 Cough 70044068 R05.9 Acute pharyngitis 506233 003 J02.9 Health Concerns Section Related Observation LastModified by Organization Detai ls LastModified Time None Recorded Concern Status LastModified by Organization Details LastModified Time None Recorded Advance Directives Directive None Recorded Payers Insurance Date Sequence Insurance Name Policy Number Policy Li Covered Member ID Li Member ID Guarantor Name 09/24/2022 1 [facility] (MEDICAID REPLACEMENT - HMO) CHILDACO Lee Ann Collinsnaomie [id number] Lee Ann Bell Notes Date Note Type Note Provider Name and Address Organization Details Recorded Time 3 text/html CoughReported by PatientHPIFor quality, patient reportsproductive coughbut reportsintermittent(star cuca dry resovled for few days then returned and now productive). For severity, patient reportsworseningbut reportsmoderate. For source of patient information, patient reportsinformation obtained from patientandpatient arrived at urgent care ambulatory. For context, patient reportspatient denies vapingandnon-smoker. For associated symptoms, patient reportsno fever,no chills,no chest pain,no heartburn,no nausea,no vomiting, andno post nasal drip. GAMALIEL Raymundo [facility] [place], [address], [place] - [facility] 09/24/2022 13:28:00 OBGyn Episode No OBEpisode recorded.
[2024-11-14 10:47] LABS: MANUAL DIFF FLAG NO
[2024-11-14 11:14] LABS: Hematocrit 40.0 % (37.0-47.0); Hemoglobin 13.1 g/dl (12.0-16.0); Imm Gran Abs Auto 0.01 X10*3/uL (0.00-0.03); Imm Gran Pct Auto 0.1 % (0.0-0.4); Lymphocytes Absolute Auto 2.8 X10*3/uL (1.2-4.9); Mean Corpuscular HGB Conc 32.8 g/dl (31.0-35.0); Mean Corpuscular Hemoglobin 26.8 pg (27.0-33.0); Mean Corpuscular Volume 81.8 fL (80.0-98.0); NRBC Abs Auto 0.000 X10*3/uL (0.0-0.012); NRBC Pct Auto 0.0 /100WBC (0.0-0.2); Platelet Count 287 X10*3/uL (160-400); Red Blood Count 4.89 X10*6/uL (4.20-5.50); White Blood Count 6.9 X10*3/uL (4.8-10.8)
[2024-11-14 11:55] LABS: Alanine Aminotransferase 20 U/L (0-31); Albumin Level 4.1 g/dL (3.5-5.0); Alkaline Phosphatase 59 U/L (39-117); Anion Gap 15 (12-20); Aspartate Amino Transferase 27 U/L (5-31); Blood Urea Nitrogen 13 mg/dL (9-16); Calcium 9.0 mg/dL (8.4-10.2); Carbon Dioxide 21 mmol/L (22-29); Chloride 107 mmol/L (96-108); Cholesterol 227 mg/dL (<200); Estimated Glomerular Filt Rate > 60; HDL Cholesterol 44 mg/dL (>40); Magnesium 2.1 mg/dL (1.6-2.6); Potassium 4.1 mmol/L (3.3-5.1); Sodium 139 mmol/L (135-145); Total Protein 7.5 g/dL (6.5-8.0); Triglycerides 407 mg/dL (<150)
== END 2024-11-14 10:31 | disposition home or self-care (01) ==
LOC: HO.LAB 10:30
PROVIDERS: PCP Internal Medicine Medical Oncology; Visit Provider Internal Medicine Medical Oncology
DX: Z00.00 Encounter for general adult medical examination without abnormal findings (principal); E66.9 Obesity, unspecified; R53.83 Other fatigue
CPT/HCPCS: 36415; 80053; 80061; 83735; 85025; 85652

== ENCOUNTER 2024-12-04 07:47 | Outpatient (REF) | payer MEDICAID, SELFPAY ==
--- OUTSIDE RECORDS SUMMARY | 2024-12-03 11:45 | XMS_ITS ---
Author Organization Derian Smith III, MD Address [address] [place] [address] [place] [address] Care Team Providers Care Nuclear Fuel Processing Technician Name Role Phone Derian Smith Primary Care Provider Allergies Allergen (clinical drug ingredient) Drug/Non Drug Allergy documented on EMR Reaction Allergy Type Onset Date Status No Known Drug Allergy Unknown Drug Allergy Active No Known Food Allergy Unknown Drug Allergy Active Reason For Referral Reason Evaluate and Treat Questioning if patient has Androgenetic alopecia Diagnosis 1 Fatigue (R53.83) Diagnosis 2 Obesity (BMI 30.0-34 .9) (E66.9) Diagnosis 3 Cervical radiculopat hy (M54.12) Diagnosis 4 Polycystic ovaries ( E28.2) Referral Organization Derian Smith III, MD Referring Provider First Name Derian Referring Provider Last Name Smith Referring Provider Speciality Internal edicine Referred Organization [facility] nter Referred Provider [facility] er, SHEETFED PRESS OPERATOR [facility] Midwifery Referred Address [address] [place] [phone], Referred Provider Specialty OB - Gynecol ogy Referral Priority Routine Reason Evaluate and Treat AM Nausea, Abdominal pain after eating Diagnosis 1 Fatigue (R53.83) Diagnosis 2 Obesity (BMI 30.0-34 .9) (E66.9) Referral Organization Derian Smith III, MD Referring Provider First Name Derian Referring Provider Last Name Sarah Referring Provider Speciality Internal M edicine Referred Provider Derian Chow Referred Provider Specialty Gastroentero logy Referral Priority Routine REASON FOR VISIT Follow up Medications Medication SIG (Take, Route, Fr equency, [...] Date Provider Diagnosis Derian Smith III, MD [address] [place] [address] [place] [address] 12/03/2024 Derian Smith Obesity (BMI 30.0-34.9) E66.9 ; Celiac disease K90.0 and Daytime somnolence R40.0 Assessments Encounter Date Diagnosis (ICD Code) Assessment Notes Treatment Notes Treatment Clinical Notes 12/03/2024 Obesity (BMI [...] obesity. Various strategiees to reduce it. 12/03/2024 Celiac disease (ICD-10 - K90.0) 12/03/2024 Daytime somnolence (ICD-10 - R40.0) Plan Of Treatment Medication Medication Name Sig Start Date Stop Date Notes Loryna 3-0.02 MG TAKE ONE TABLET BY MOUTH EVERY DAY Oral Pending Test Test Name Order Date Sleep Study - Baseline 12/03/2024 Gliadin Ab Panel 12/03/2024 Referrals Referral Date Details 12/03/2024 12/03/2024, Evaluate and Treat Questioning if patient has Androgenetic alopecia, SHEETFED PRESS OPERATOR & Midwifery [facility], [address] [place], [place] [address], [place], [phone], 12/03/2024 12/03/2024, Evaluate and Treat AM Nausea, Abdominal pain after eating, Derian Chow Next Appt Details Follow Up: 4 Weeks, Reason: OV Provider Name:Derian Smith, 01/07/2025 04:00:00 PM, [address] [place] [address] [address], [place], [address], Provider Name:Derian Smith, 11/16/2025 02:30:00 PM, [address] [place] [address] [address], [place], [address], Progress Notes * KRZYSZTOF GARCIADOB: 1 (24 yo F)Acc No.[id number]:12/03/2024 Progress Notes Patient: KRZYSZTOF GÓMEZ Provider: Sherri Smith MD :2000 A ge:24 Y S ex:Female Date:12/03/2024 Address:[address] [place] [address] FLOOR, [facility] Subjective: * Chief Complaints: * 1 . Follow up. * HPI: C OVID-19 Screening: Questions H ave you [...] Depressed mood d enies. * Medical History: O besity, Polycystic ovaries, Cervical radiculopathy. * Surgical History: C holecystectomy for cholecystitis 2013, . * Hospitalization/Major Diagno stic Procedure: b cholecystectomy for stones , food poisoning 2022. * Family History: F ather: alive, History [...] to toxic materials. She was born in [place], [place]. Her parents are from [place]. * Medications: T aking Loryna 3-0.02 MG Tablet TAKE ONE TABLET BY MOUTH EVERY DAY Oral , Medication List reviewed and reconciled with the patient * Allergies: N o Known Drug Allergy, No Known Food Allergy. Objective: * Vitals: H t: 5 ft [...] soon as possible,PLEASE FAX COMPLETED RESULTS TO [phone] Please fast for 12-14 hours prior to having this labwork done. You may have black coffee or tea with no milk or sugar. May have water,PLEASE FAX COMPLETED RESULTS TO [phone] * Lab:Thyroid Stimulating Horm one * Collection Date 09/10/2024 03/06/2023 Collection Time 11:32 AM 10:46 AM Order Date 09/10/2024 03/06/2023 Thyroid Stimulating Hormone 1.82 (Ref Range: 0.32-4.0 uIU/mL) 1.05 (Ref Range: 0.32-4.0 uIU/mL) * Lab:Comprehensive Lovely. Dat l Fast * Collection Date 11/14/2024 [...] May have water,PLEASE FAX COMPLETED RESULTS TO [phone] ???Lab:Vitamin B12 and Folate (Order Date - 09/10/2024) (Collection Date & Time - 09/10/2024 11:32AM)?ValueReference Range?Vitamin [id number] - pg/mL?Folate4.7> or = 4.0 - ng/mL?Clinical Info: Please fast for 12-14 hours prior tohaving this labwork done. You may have black coffee or tea with no milk or sugar. May have water,PLEASE FAX COMPLETED RESULTS TO [phone] ???Lab:Magnesium (Order Date - 11/12/2024) (Collection Date & Time - 11/14/2024 10:45 AM)?ValueReference Range?Magnesium2.11.6-2.6 - mg/dL ?Clinical Info: Please fast for 12-14 hours prior tohaving this labwork done. You may have black coffee or tea with no milk or sugar. May have water,Ple ase have this testing done as soon as possible,PLEASE FAX COMPLETED RESULTS TO [phone] ???Lab:Erythrocyte Sedimentation Rate (Order Date - 11/14/2024) (Collection Date & Time - 11/14/2024 10:45 AM)?ValueReference Range?Erythrocyte Sedimentation Tiqr63M0-92 - MM/HR ???Imaging:XR cervical spine 3V (Order Date - 09/10/2024) (Performed Date - 09/10/2024) * Examination: G eneral Examination: GENERAL APPEARANCE: p leasant, well nourished, well developed, in no acute distress, calm and relaxed. HEAD: a traumatic, normocephalic. EYES: e isabelle, [...] 1. O besity (BMI 30.0-34.9) - E66.9 N [...] Various strategiees to reduce it. 2 . C eliac disease - K90.0 3 . D aytime somnolence - R40.0 Plan: * Treatment: 2. C eliac disease L AB: Gliadin Ab Panel 3. D aytime somnolence I maging: Sleep Study - Baseline 4. O thers Referral To:SHEETFED PRESS OPERATOR & Midwifery [facility] OB - Gynecology Reason:Evaluate and Treat Questioning if patient has Androgenetic alopecia Referral To:Derian Chow Gastroenterology Reason:Evaluate and Treat AM Nausea, Abdominal pain after eating * Preventive Medicine: Counseling: C are goal [...] 4 Weeks (Reason: OV) * Images: * The named appointment provid er may or may not be the originator of this progress note, and it is not deemed complete until electronically signed by the appointment provider. Sign off status: Pending * Provider: Sherri Smith MD Date: 0 12/03/2024 Generated for Marci rodarte/Agata/Sayitting on: 12/04/2024 07:49 AM EDT History and Physical Notes * [...] Referred Provider Not es 12/03/2024 Derian Smith [facility], SHEETFED PRESS OPERATOR & Midwifery Evaluate and Treat Questioning if patient has Androgenetic alopecia 12/03/2024 Derian Smith Robert Evaluate and Treat AM Nausea, Abdominal pain after eating
--- OUTSIDE RECORDS SUMMARY | 2024-12-04 07:49 | XMS_ITS | Encounter Summary ---
Author Organization [facility] Address [address] [place] [address] Phone Care Team Providers Care Apparatus Repair Mechanic Name Role Phone Gema Rosado MD Primary Care Provider [phone] Encounter Details Date Type Department Care Team (Late st Contact Info) Description 12/13/2012 Documentation [facility] Family Medicine [address] [place] [address] Family Medicine, Physician [address] [place] [address] Social History Tobacco Use Types Packs/Day Years [...] on filedocumented in this encounter Care Teams Apparatus Repair Mechanic Relationship Specialty Start Date End Date Gema Rosado MD [address] [place] [address] PCP - General 12/01/16 11/27/22 documented as of this encounter
== END 2024-12-04 07:48 | disposition home or self-care (01) ==
LOC: HO.LAB 07:47
PROVIDERS: PCP Internal Medicine Medical Oncology; Visit Provider Internal Medicine Medical Oncology
DX: K90.0 Celiac disease (principal)
CPT/HCPCS: 36415; 86258

== ENCOUNTER 2025-01-20 09:50 | Outpatient (REF) | payer MEDICAID, SELFPAY ==
--- OUTSIDE RECORDS SUMMARY | 2024-12-03 11:45 | XMS_ITS ---
Author Organization Derian Smith III, MD Address [address] [place] [address] [place] [address] Care Team Providers Care Bench Assembler Battery Name Role Phone Dr. Derian Smith III Primary Care Provider [phone] Allergies Allergen (clinical drug ingredient) Drug/Non Drug Allergy documented on EMR Reaction Allergy Type Onset Date Status No Known Drug Allergy Unknown Drug Allergy Active No Known Food Allergy Unknown Drug Allergy Active Results Component Value Reference Range Notes Gliadin Ab Panel Reviewed date:01/17/2025 09:00:51 PM Interpretation: Performing Lab:[facility], [address] [place] [id number] Notes/Report: Gliadin Deamidated IgA Ab 4.5 Value Interpretation ----- <15.0 Antibody not detected > or = 15.0 Antibody detected Gliadin Deamidated IgG Ab 5.6 Value Interpretation ----- <15.0 Antibody not detected > or = 15.0 Antibody detected THIS TEST WAS PERFORMED AT: [facility] [address] [place] [phone] RYLAN PALACIO MD Reason For Referral Reason Evaluate and Treat Questioning if patient has Androgenetic alopecia Diagnosis 1 Fatigue (R53.83) Diagnosis 2 Obesity (BMI 30.0-34 .9) (E66.9) Diagnosis 3 Cervical radiculopat hy (M54.12) Diagnosis 4 Polycystic ovaries ( E28.2) Referral Organization Derian Smith III, MD Referring Provider First Name Derian Referring Provider Last Name Smith Ref[facility] Provider [facility] Referred Organization [facility] nter Referred Provider [facility] er, [facility] Referred Address [address] [place] [address],[place], [place],[phone], Referred Provider Specialty OB - Gynecol ogy [...] Referring Provider Speciality Internal edicine Referred Provider [facility] er, Pulmonology Referred Provider Specialty Pulmonary Di [...] Date Provider Diagnosis Derian Smith III, MD [address] [place] [address] [place] [address] 12/03/2024 Derian Smith Obesity (BMI 30.0-34 .9) [...] - E28.2) She has been referred to ROUNDHOUSE WORKER for evaluation and management and routine reproductive [...] Treat Questioning if patient has Androgenetic alopecia, [facility], [address] [place] [address], [place], [place], [phone], 12/03/2024 12/03/2024, Evaluate and Treat AM Nausea, Abdominal pain after eating, Derian Chow 12/04/2024 12/04/2024, Evaluate and Treat Needs Sleep Study, Pulmonology [facility] Next Appt Details Follow Up: 4 Weeks, Reason: OV Provider Name:Derian Smith , 03/13/2025 03:00:00 PM, [address] [place] [address] [address], [place], [address], Provider Name:Derian Smith , 11/16/2025 02:30:00 PM, [address] [place] [address] [address], [place], [address], Progress Notes * KRZYSZTOF GARCIADOB: 1 (24 yo F)Acc No.[id number]:12/03/2024 Progress Notes Patient: KRZYSZTOF GÓMEZ Provider: Sherri Smith MD :2000 A ge:24 Y S ex:Female Date:12/03/2024 Address:[address] [place] [address], [id number] Subjective: * Chief Complaints: * C hronic [...] * Surgical History: C holecystectomy for cholecystitis [id number] * Hospitalization/Major Diagno stic Procedure: b cholecystectomy [...] or drink. She does not have a latter-day objection to blood transfusion. She does not have any children. She has no exposures to toxic materials. She was born in [place], [place]. Her parents are from [place]. * [...] soon as possible,PLEASE FAX COMPLETED RESULTS TO [phone] Please fast for 12-14 hours prior to having this labwork done. You may have black coffee or tea with no milk or sugar. May have water,PLEASE FAX COMPLETED RESULTS TO [phone] * Lab:Thyroid Stimulating Horm one * Collection [...] May have water,PLEASE FAX COMPLETED RESULTS TO [phone] ???Lab:Vitamin B12 and Folate (Order Date - 09/10/2024) (Collection Date & Time - 09/10/2024 11:32AM)?ValueReference Range?Vitamin [id number] - pg/mL?Folate4.7> or = 4.0 - ng/mL?Clinical Info: Please fast for 12-14 hours prior tohaving this labwork done. You may have black coffee or tea with no milk or sugar. May have water,PLEASE FAX COMPLETED RESULTS TO [phone] ???Lab:Magnesium (Order Date - 11/12/2024) (Collection Date & Time - 11/14/2024 10:45 AM)?ValueReference Range?Magnesium2.11.6-2.6 - mg/dL ?Clinical Info: Please fast for 12-14 hours prior tohaving this labwork done. You may have black coffee or tea with no milk or sugar. May have water,Ple ase have this testing done as soon as possible,PLEASE FAX COMPLETED RESULTS TO [phone] ???Lab:Erythrocyte Sedimentation Rate (Order Date - 11/14/2024) (Collection Date & Time - 11/14/2024 10:45 AM)?ValueReference Range?Erythrocyte Sedimentation [id number] - MM/HR ???Imaging:XR cervical spine 3V (Order [...] N otes :She has been referred to ROUNDHOUSE WORKER for evaluation and management and routine reproductive [...] TABLET BY MOUTH EVERY DAY, Oral. Referral To:[facility]ENT [facility] OB - Gynecology Reason:Evaluate and Treat Questioning if patient has Androgenetic alopecia Referral To:Derian Chow Gastroenterology Reason:Evaluate and Treat AM Nausea, Abdominal pain after eating Referral To:Pulmonology [facility] Pulmonary Diseases Reason:Evaluate and Treat Needs Sleep Study 3. P olycystic ovaries Referral To:[facility]PER[facility]ENT [facility] & [facility] OB - Gynecology Reason:Evaluate and Treat Questioning if patient has Androgenetic alopecia 4. C ervical radiculopathy Referral To:[facility]PER[facility]ENT [facility] & [facility] OB - Gynecology Reason:Evaluate and Treat Questioning if patient has Androgenetic alopecia 5. O thers Referral To:Pulmonology [facility] Pulmonary Diseases Reason:Evaluate and Treat Needs [...] 0 12/03/2024 Generated for Marci rodarte/Agata/Sayitting on: 0 01/20/2025 10:42 AM EDT History and Physical Notes [...] Referred Provider Not es 12/03/2024 Derian Smith [facility], [facility] Evaluate and Treat Questioning if patient has Androgenetic alopecia 12/03/2024 Derian Smith Robert Evaluate and Treat AM Nausea, Abdominal pain after eating 12/04/2024 [facility], Pulmonology Evaluate and Treat Needs Sleep Study
--- OUTSIDE RECORDS SUMMARY | 2024-12-17 06:09 | XMS_ITS ---
Author Organization Derian Smith III, MD Address [address] [place] [address] [address] [place] [facility] [address] Care Team Providers Care Train Dispatcher Name Role Phone Dr. Derian Smith III Primary Care Provider [phone] REASON FOR VISIT Reschedule Appointment Request Social History Sex Assigned At : Social History Observation Description Sex Assigned At Female Encounters Encounter Location Date Provider Diagnosis Derian Smith III, MD [address] [place] [address] [place] [address] 12/17/2024 Derian Smith Plan Of Treatment Next Appt Details Provider Name:Derian Smith , 03/13/2025 03:00:00 PM, [address] [place] [address] [place], [address], Provider Name:Derian Smith , 11/16/2025 02:30:00 PM, [address] [place] [address] [place], [address], Progress Notes * JOSE HEMALJENNYDOB: 1 (24 yo F)Acc No.[id number]:12/17/2024 Patient: KRZYSZTOF GÓMEZ :2000 A ge:24 Y S ex:Female Address:[address] [facility] [address], [place], [address] * true * Date: Generated for Printi ng/Faxing/eTransmitting on: 0 01/20/2025 10:44 AM EDT
--- OUTSIDE RECORDS SUMMARY | 2024-12-17 06:09 | XMS_ITS ---
Author Organization Derian Smith III, MD Address [address] [place] [address] [place] [address] Care Team Providers Care Environmental Test Technician Name Role Phone Dr. Derian Smith III Primary Care Provider [phone] REASON FOR VISIT Cancel Appointment Request Social History Sex Assigned At : Social History Observation Description Sex Assigned At Female Encounters Encounter Location Date Provider Diagnosis Derian Smith III, MD [address] [place] [address] [place] [address] 12/17/2024 Derian Smith Plan Of Treatment Next Appt Details Provider Name:Derian Smith , 03/13/2025 03:00:00 PM, [address] [place] [address] [place], [address], Provider Name:Derian Simth , 11/16/2025 02:30:00 PM, [address] [place] [address] [place], [address], Progress Notes * KRZYSZTOF GARCIADOB: 1 (24 yo F)Acc No.[id number]:12/17/2024 Patient: KRZYSZTOF GÓMEZ :2000 A ge:24 Y S ex:Female Address:[address] [facility] [address], [place], [address] * true * Date: Generated for Printi ng/Faeddieg/eTransmitting on: 0 01/20/2025 10:43 AM EDT
--- OUTSIDE RECORDS SUMMARY | 2025-01-07 13:00 | XMS_ITS ---
Author Organization Derian Smith III, MD Address [address] [place] [address] [place] [address] Care Team Providers Care Efficiency Expert Name Role Phone Dr. Derian Smith III Primary Care Provider REASON FOR VISIT Follow up Social History Sex Assigned At : Social History Observation Description Sex Assigned At Female Encounters Encounter Location Date Provider Diagnosis Derian Smith III, MD [address] [place] [address] [place] [address] 01/07/2025 Derian Smith Plan Of Treatment Next Appt Details Provider Name:Derian Smith , 03/13/2025 03:00:00 PM, [address] [place] [address] [place], [address], Provider Name:Derian Smith , 11/16/2025 02:30:00 PM, [address] [place] [address] [place], [address], Progress Notes * KRZYSZTOF GARCIADOB: 1 (24 yo F)Acc No.[id number]:01/07/2025 Progress Notes Patient: KRZYSZTOF GÓMEZ Provider: Sherri Smith MD :2000 A ge:24 Y S ex:Female Date:01/07/2025 Address:[address] [facility] [address], [id number] Subjective: * Chief Complaints: * 1 . [...] MD Date: 0 01/07/2025 Generated for Marci rodarte/Agata/Sayitting on: 0 01/20/2025 10:42 AM EDT
--- OUTSIDE RECORDS SUMMARY | 2025-01-08 05:15 | XMS_ITS ---
Author Organization Derian Smith III, MD Address [address] [place] [address] [place] [address] Care Team Providers Care Tool Grinding Technician Name Role Phone Dr. Derian Smith III Primary Care Provider [phone] Allergies Allergen (clinical drug ingredient) Drug/Non Drug [...] Encounters Encounter Location Date Provider Diagnosis Derian mSith III, MD [address] [place] [address] [place] [address] 01/08/2025 Derian Smith Obesity (BMI 30.0-34 .9) [...] - E28.2) She has been referred to SVP for evaluation and management and routine reproductive [...] Provider Name:Derian Smith , 03/13/2025 03:00:00 PM, [address] [place] [address] [place] [place], [place], [address], Provider Name:Derian Smith , 11/16/2025 02:30:00 PM, [address] [place] [address] [place], [address], Progress Notes * KRZYSZTOF GARCIADOB: 1 (24 yo F)Acc No.[id number]:01/08/2025 Progress Notes Patient: Jus TROYFIQUE, KRZYSZTOF Provider: Sherri Smith MD :2000 A ge:24 Y S ex:Female Date:01/08/2025 Address:[address] [place] [address] [address], [id number] Subjective: * Chief Complaints: * C hronic [...] * Surgical History: C holecystectomy for cholecystitis 5119L2T3 * Hospitalization/Major Diagno stic Procedure: b cholecystectomy [...] or drink. She does not have a rastafarian objection to blood transfusion. She does not have any children. She has no exposures to toxic materials. She was born in [place], [place]. Her parents are from [facility]. * Medications: T akingLoryna 3-0.02 MG Tablet [...] N otes :She has been referred to SVP for evaluation and management and routine reproductive [...] MD Date: 0 01/08/2025 Generated for Marci rodarte/Agata/Sayitting on: 0 01/20/2025 10:43 AM EDT History and Physical Notes * [...]
--- OUTSIDE RECORDS SUMMARY | 2025-01-20 10:42 | XMS_ITS | Encounter Summary ---
Author Organization [facility] Address [address] [place] [id number] Phone Care Team Providers Care Technical Report Writer Name Role Phone Gema Rosado MD Primary Care Provider [phone] Encounter Details Date Type Department Care Team (Late st Contact Info) Description 12/13/2012 Documentation [facility] [place] Family Medicine [address] [place] [address] Family Medicine, Physician [address] [place] [address] Social History Tobacco Use Types Packs/Day Years [...] on filedocumented in this encounter Care Teams Technical Report Writer Relationship Specialty Start Date End Date Gema Rosado MD [address] [place] [address] PCP - General 12/01/16 11/27/22 documented as of this encounter
--- OUTSIDE RECORDS SUMMARY | 2025-01-20 10:43 | XMS_ITS | Encounter Summary ---
Author Organization [facility] Address [address] [place] [address] Phone Care Team Providers Care Fur Liner Name Role Phone Gema Rosado MD Primary Care Provider [phone] Encounter Details Date Type Department Care Team (Late st Contact Info) Description 10/03/2016 [place] [facility] [place] [address] [place] [address] Family Medicine, Physician [address] [place] [address] Social History Tobacco Use Types Packs/Day Years [...] on filedocumented in this encounter Care Teams Fur Liner Relationship Specialty Start Date End Date Gema Rosado MD [address] [place] [address] PCP - General 12/01/16 11/27/22 documented as of this encounter
--- OUTSIDE RECORDS SUMMARY | 2025-01-20 10:43 | XMS_ITS | Clinical Summary ---
Author Organization [facility] Address [address] [place] [address] Phone Care Team Providers Care Project Executive Name Role Phone Unavailable Primary Care Provider [...] hCG, and Vitamin D level). Refer to ELECTRO WINNING OPERATOR. Assessment & Plan (05/12/2022 2:36 PM EST): Has a dx of PCOS. Was on OCPs but stopped them. Menses had been fairly regular until Sept then no menses since then. Not sexually active. Plan: Check labs (DHEAS, T, LH, FSH, prolactin, TFTs, serum hCG, and Vitamin D level). Refer to ELECTRO WINNING OPERATOR. BMI 36.0-36.9,adult 05/12/2022 Overview (05/12/2022): Exercising regularly [...] as necessary. PLAN: 1. Follow up with [facility]; Futher appt were not scheduled, today was [...] as necessary. PLAN: 1. Follow up with [facility]; Virtual visit scheduled, Lee Ann is aware [...] as necessary. PLAN: 1. Follow up with [facility]; Virtual visit scheduled, Lee Ann is aware [...] Christi Lopez PsyD (behavioral health provider at [facility]) in August of this year. She was [...] as necessary. PLAN: 1. Follow up with [facility]; Virtual visit scheduled, Lee Ann is aware [...] as necessary. PLAN: 1. Follow up with [facility]; Virtual visit scheduled, Lee Ann is aware [...] p.o. daily. Doing well On campus at [facility] [employer] and also doing two jobs.Lee [...] She will continue to follow closely with [facility] provider at [facility] & alert us to any issues with [...] 1 month. Did not get any refills. Carpenter it did not make her periods regular. [...] well Father Pamela Crabtree Works as a hostess cashier, to patient's mother Mother Silvestre Vincent [...] 86 05/12/2022 1:34 PM EST Temperature 36.6 C (97.8 F) 05/12/2022 1:34 PM EST Respiratory Rate - - Oxygen Saturation - - Inhaled Oxygen Concentration - - Weight 93 kg (205 lb) 05/12/2022 1:34 PM EST Height 160 cm (5' 3 ) 05/12/2022 1:34 PM EST Body Mass Index 36.31 05/12/2022 1:34 PM EST Plan of Treatment Health Maintenance Due Date Last Done Comments Influenza Vaccines (#1) 2024 05/12/19, 05/04/2021, 04/14/2019, Additional history exists COVID-19 Vaccine (2024-2 6 season) 2024 05/12/2022, 05/04/2021, 09/06/2020, Additional history exists DTaP,Tdap,and [...] 12/10/2019, 10/16/2018 Procedures * Due to [place] [employer] law, this organization might not be sharing sensitive test results. Procedure Name Priority Date/Time Associated Diagnosis Comments CHLAMYDIA AND GONORRHEA, AMPLIFIED Routine 05/12/2022 2:38 PM EST Special screening examination for chlamydial disease from Last 3 Months or Most Recently Relevant to Health Maintenance Results * Due to [place] [employer] law, this organization might not be sharing sensitive test results. * Chlamydia and Gonorrhoea, Amplified (05/12/2022 2:38 PM EST) Chlamydia Trachomatis, DNA Probe NEGATIVE (NEG) [facility] Comment: No Chlamydia Trachomatis RNA detected in this patient's sample (REFERENCE RANGE/NORMAL VALUE: NOT DETECTED) Note: This test uses register in chancery- mediated amplification method to detect rRNA from C. Trachomatis URINE GC AMP PROBE NEGATIVE (NEG) [facility] Comment: No Neisseria Gonorrhoeae RNA detected in this patient's sample (REFERENCE RANGE/NORMAL VALUE: NOT DETECTED) NOTE: This test uses register in chancery-mediated amplification method to detect rRNA from N.Gonorrhoeae. [...] without risk of sexual abuse. Consult the [facility] if needed. Contact phone number . Therapeutic failure or success cannot be determined with the Aptima Combo2 assay since nucleic acid may persist following appropriate antimicrobial therapy. The Centers for Disease Control and Prevention (CDC) recommends confirmatory retesting using culture or a different nucleic acid amplification test when positive results occur, if indicated. Testing performed or reported by [facility], a Service of [facility], [address] [place] [address] Aly Quinonez MD, Channel Director [facility]# [id number] Urine (Urine) 05/12/2022 2:3 8 PM EST 05/13/2022 7:45 AM EST us Jessica Garnica MD LAB MICROBIOLOGY - GENERAL ORD ERABLES Final Result [facility] from Last 3 Months or Most Recently Relevant to Health Maintenance Insurance [id number] [facility]
--- OUTSIDE RECORDS SUMMARY | 2025-01-20 10:43 | XMS_ITS | Encounter Summary ---
Author Organization [facility] Address [address] [place] [address] Phone Care Team Providers Care Java Flex Developer Name Role Phone Gema Rosado MD Primary Care Provider [phone] Encounter Details Date Type Department Care Team ([facility] Contact Info) Description 12/07/2016 Conversion Encounter [facility] [address] [place] [address] Social History Tobacco Use Types Packs/Day Years [...] on filedocumented in this encounter Care Teams Java Flex Developer Relationship Specialty Start Date End Date Gema Rosado MD [address] [place] [address] PCP - General 12/01/16 11/27/22 documented as of this encounter
--- OUTSIDE RECORDS SUMMARY | 2025-01-20 10:43 | XMS_ITS | Encounter Summary ---
Author Organization [facility] Address [address] [place] [address] Phone Care Team Providers Care Car Oiler Name Role Phone Gema Rosado MD Primary Care Provider [phone] Encounter Details Date Type Department Care Team (Late st Contact Info) Description 06/26/[address] [facility] [place] Family Medicine [address] [place] [address] Family Medicine, Physician [address] [place] [address] Social History Tobacco Use Types Packs/Day Years [...] on filedocumented in this encounter Care Teams Car Oiler Relationship Specialty Start Date End Date Gema Rosado MD [address] [place] [address] PCP - General 12/01/16 11/27/22 documented as of this encounter
--- OUTSIDE RECORDS SUMMARY | 2025-01-20 10:43 | XMS_ITS | Patient Health Record ---
Author Organization [facility] Address [address] [place] [address] Care Team Providers Care Frit Maker Name Role Phone Derian Smith MD Primary Care Provider Unavailab Derian Lin Unavailable [phone] Reason For Referral Referring Provider First Name Derian Referring Provider Last Name Sarah Referring Provider Speciality Oncology Referred Organization [facility] Referred Provider Derian Chow Referred Address [address] [facility],[address],[place], [place],[address], Referred Provider Specialty Gastroentero logy General Notes Tana Rodriguez 2024 02:27:17 PM >requested a [facility] referral from Dr. Smith's office for visit with Dr. Chow on 01-20-25 Referral Priority Routine Medications Medication SIG (Take, Route, Fr equency, Duration) Notes Start Date End Date Status Dicyclomine HCl 10 MG Take 1 or 2 capsul es 30 to 60 minutes before a meal to try to prevent the cramps, bloating, and discomfort you get when you are eating Orally Three times a day as directed for 30 days 01/20/2025 Active Famotidine 40 MG 1 tablet Orally Once a day every morning, but you can use a second dose 10 to 12 hours later in the day if needed for heartburn and reflux for 30 days 01/20/2025 Active Loryna 3-0.02 MG [...] Problem Status W/U Status Risk Notes Problem Irritable bowel syndrome (06953632) Irritable bowel syndrome (K58.9) Active confirmed Problem Abdominal bloating (124382042) Abdominal bloating (R14.0) Active confirmed Problem Heartburn (93402803) Heartburn (R12) Active confirmed Problem Gastroesophageal reflux disease (103508772) GERD (gastroesopha geal reflux disease) (K21.9) Active confirmed Vital Signs Temperature 97.5 degrees Fahrenheit 01/20/2025 Blood pressure diastolic 01 mm Hg 01/20/2025 Height 63 in 01/20/2025 Blood pressure systolic 001 mm Hg 01/20/2025 Weight 207.8 lbs 01/20/2025 BMI 36.81 kg/m2 01/20/2025 Encounters Encounter Location Date Provider Diagnosis [facility] [address] [place] [address] 01/20/2025 Derian Chow GERD (gastroesophage al reflux disease) K21.9 ; Heartburn R12 ; Irritable bowel syndrome K58.9 ; Abdominal bloating R14.0 and Abdominal pain, acute, generalized R10.84 Assessments Encounter Date Diagnosis (ICD Code) Assessment Notes Treatment Notes Treatment Clinical Notes Section Notes 01/20/2025 Heartburn (ICD-10 - R12) Overall, Krzysztof [...] keep you advised of her progress. 01/20/2025 GERD (gastroesophage al reflux disease) (ICD-10 [...] advised of her progress. Plan Of Treatment Pending Test Test Name Order Date IRON + IBC (FE) 01/20/2025 CBC w DIFF 01/20/2025 Ferritin 01/20/2025 Transglutaminase Ab IgG 01/20/2025 Transglutaminase IgA 01/20/2025 Gliadin Ab Panel 01/20/2025 Endomysial IgA rflx Titer 01/20/2025 US abdomen complete 01/20/2025 Next Appt Details Provider Name:Derian Chow , 05/22/2025 01:00:00 PM, [address] [facility], [address], [place], [address], Insurance Providers Payer Name Payer Address Payer Phone Subscriber Number Group Number Insured Name Patient Relationship to Insured Coverage Start Date Coverage End Date [employer] [facility] [address] [place] [phone] [id number] JOSE KRZYSZTOF Self - patient is the insured Medical (General) History Medical History History ICD Code Denies MS,DM,CVA,Lung disease,renal dise ase Surgical History Surgery Date(Month/Year) Gallbladder removal 2012
--- OUTSIDE RECORDS SUMMARY | 2025-01-20 10:43 | XMS_ITS | Patient Health Record ---
Author Organization Derian Smith III, MD Address [address] [place] [address] Care Team Providers Care Ranch Manager Name Role Phone Dr. Derian Smith III Primary Care Provider Allergies Allergen (clinical drug ingredient) Drug/Non Drug Allergy documented on EMR Reaction Allergy Type Onset Date Status No Known Drug Allergy Unknown Drug Allergy Active No Known Food Allergy Unknown Drug Allergy Active Results Component Value Reference Range Notes Pap Smear Reviewed date:05/30/2024 09:27:02 AM Interpretation: Performing Lab:[facility], [address] [place] [phone] Notes/Report: -- ---- Name: Krzysztof Garcia Nguyen Age/Sex: 23/F : 2000 Unit#: [id number] Attend Dr: Maria R Escobedo [facility] Re05/22/24 Status : DEP REF Location: [facility] Disch: -- ---- SPEC : [id number] RECD : 05/23/24 STATUS: CHARO ELMORE NUM: [id number] BETO: 05/22/24-[address]: Maria R Escobedo CNM ENTERED: 05/23/24-10 23 SP TYPE: Pap Smr OTHR DR: Derian Smith MD ORDERED: Pap Smear Interpretation Satisfactory for evaluation. Negative for intraepithelial lesion or malignancy. Clinical Information LMP:04/21/24 Previous PAP test: Never Other surgery: Other history: Material Received ThinPrep-Cervical Copies To: Derian Smith MD [address], [address] [place] [address] Maria R Escobedo CNM [facility] [address] [place] [address] -- ---- Signed (signature on file) KENDALL Pena (ASCP) 05/27/24 0835 -- ---- END OF REPORT Lipid Panel Reviewed date:09/16/2024 01:55:42 PM Interpretation: Performing Lab:[facility], [address] [place] [phone] Notes/Report: Triglycerides 241 <150 mg/dL Desirable Triglyceride: [...] Folate Reviewed date:09/16/2024 01:55:42 PM Interpretation: Performing Lab:[address] [phone] Notes/Report: Vitamin B12 233 200-900 pg/mL NORMAL 200-900 PG/ML INDETERMINATE 160-199 PG/ML DEFICIENT < 160 PG/ML Folate 4.7 > or = 4.0 ng/mL Reference Values: > or = 4.0 ng/mL < 4.0 ng/mL suggests folate deficiency Methotrexate, aminopterin and folinic acid (leucovorin) are chemotherapeutic agents whose molecular structures are similar to folate; therefore, the Product Safety Technician folate assay cannot be used for patients using these drugs. Free T4 (Free Thyroxine) Reviewed date:09/16/2024 01:55:42 PM Interpretation: Performing Lab:[facility], [address] [place] [phone] Notes/Report: Free T4 (Free Thyroxine) 0.98 0.71-1.85 ng/dL Complete Blood Count Auto Di ff Reviewed date:09/16/2024 01:55:42 PM Interpretation: Performing Lab:[facility], [address] [place] [phone] Notes/Report: White Blood Count 7.9 4.8-10.8 X10*3/uL [...] 0.0-0.2 /100WBC Neutrophils Absolute Auto 4.2 2.0-8.3 x10*3/uL Imm Gran Abs Auto 0.01 0.00-0.03 X10*3/uL Lymphocytes Absolute Auto 2.9 1.2-4.9 X10*3/uL Monocytes Absolute Auto 0.6 0.1-1.2 X10*3/uL Eosinophils Absolute Auto 0.2 0.0-0.4 X10*3/uL Basophils Absolute Auto 0.0 0.0-0.2 X10*3/uL NRBC Abs Auto 0.000 0.0-0.012 X10*3/uL Comprehensive [place]. Panel Fa st Reviewed date:09/16/2024 01:55:42 PM Interpretation: Performing Lab:[facility], [address] [place] [phone] Notes/Report: Sodium 140 135-145 mmol/L Potassium 4.1 3.3-5.1 mmol/L Chloride 109 96-108 mmol/L Carbon Dioxide 23 22-29 mmol/L Anion Gap 12 12-20 Blood Urea Nitrogen 9 9-16 mg/dL Creatinine 0.70 0.5-1.4 mg/dL Estimated Glomerular Filt Rate > 60 Chronic Kidney Disease: Estimated GFR < 60 mL/min/1.73m2 Severe Kidney Disease: Estimated GFR < 15 mL/min/1.73m2 Glucose Fasting 86 60-99 mg/dL Calcium 9.1 8.4-10.2 mg/dL Bilirubin Total 0.3 0.0-1.0 mg/dL Aspartate Amino Transferase 16 5-31 U/L Alanine Aminotransferase 18 0-31 U/L Total Protein 7.6 6.5-8.0 g/dL Albumin Level 3.9 3.5-5.0 g/dL Alkaline Phosphatase 56 39-117 U/L Thyroid Stimulating Hormone Reviewed date:09/16/2024 01:55:42 PM Interpretation: Performing Lab:[facility], [address] [place] [phone] Notes/Report: Thyroid Stimulating Hormone 1.82 0.32-4.0 uIU/mL TSH 3rd Generation ([employer] [employer]) XR cervical spine 3V Reviewed date:09/16/2024 01:55:42 PM Interpretation: Performing Lab: Notes/Report: [address] [address] XRay Report Signed Patient: Krzysztof Garcia MR#: [id number] : 2000 Acct:[id number] Age/Sex: 24 / F ADM Date: 09/10/24 Loc: [facility] Attending Dr: Derian Smith MD Ordering Physician: Derian Smith MD Date of Service: 09/10/24 Procedure(s): XR cervical spine 3V Accession Number(s): [id number] cc: Derian Smith MD EXAMINATION: XR CERVICAL SPINE CLINICAL INFORMATION: NECK PAIN COMPARISON: None available. TECHNIQUE: 3 views of the cervical spine were obtained. FINDINGS: Craniocervical junction is intact. Mild reverse curvature apex C4-5. No acute cortical disruption or gross malalignment. No lytic or blastic lesions. Upper airway is patent. XR/XR cervical spine 3V IMPRESSION: No acute fracture or listhesis. Reverse curvature apex C4-5 which could be positional. Electronically signed by: Sundeep Cardenas MD 09/10/2024 12:42 PM EDT Dictated By: Sundeep Kinney MD Signed By: <Electronically signed by Sundeep Ann MD in OV> 09/10/24 1242 DD/ 1140 TD/TT: 09/10/24 1146 Shot Blaster: [address] [place] [address] XRay Report Signed Patient: Krzysztof Garcia MR#: [id number] : 2000 Acct:[id number] Age/Sex: 24 / F ADM Date: 09/10/24 Loc: HO.XRAY Attending Dr: Derian Smith MD Ordering Physician: Derian Smith MD Date of Service: 09/10/24 Procedure(s): XR cervical spine 3V Accession Number(s): [id number] cc: Derian Smith MD EXAMINATION: XR CERVICAL SPINE CLINICAL INFORMATION: NECK PAIN COMPARISON: None available. TECHNIQUE: 3 views of the cervical spine were obtained. FINDINGS: Craniocervical junction is intact. Mild reverse curvatu re apex C4-5. No acute cortical disruption or gross malalignment. No lytic or blastic lesions. Upper airwa y is patent. XR/XR cervical spine 3V IMPRESSION: No acute fracture or listhesis. Reverse curvature ap ex C4-5 which could be positional. Electronically samuel d by: Sundeep Cardenas MD 09/10/2024 12:42 PM EDT Dictated By: Sundeep Singh MD Signed By: <Electronically signed by Sundeep Ann MD in OV> 09/10/24 1242 DD/ 1140 TD/TT: 09/10/24 1146 Shot Blaster: Magnesium Reviewed date:12/03/2024 04:20:57 PM Interpretation: Performing Lab:[facility], [address] [place] [phone] Notes/Report: Magnesium 2.1 1.6-2.6 mg/dL Lipid Panel Reviewed date:12/03/2024 04:20:57 PM Interpretation: Performing Lab:[facility], [address] [place] [phone] Notes/Report: Triglycerides 407 <150 mg/dL Desirable Triglyceride: [...] low results in patients with liver disease. Complete Blood Count Auto Di ff Reviewed date:12/03/2024 04:20:57 PM Interpretation: Performing Lab:[facility], [address] [place] [phone] Notes/Report: White Blood Count 6.9 4.8-10.8 X10*3/uL Red Blood Count 4.89 4.20-5.50 X10*6/uL Hemoglobin 13.1 12.0-16.0 g/dl Hematocrit 40.0 37.0-47.0 % Mean Corpuscular Volume 81.8 80.0-98.0 fL Mean Corpuscular Hemoglobin 26.8 27.0-33.0 pg Mean Corpuscular HGB Conc 32.8 31.0-35.0 g/dl Red Cell Distribution Width 14.0 11.0-16.0 % Platelet Count 287 160-400 X10*3/uL Mean Platelet Volume 8.9 9.4-12.3 fL Neutrophils Percent Auto 50.0 45-73 % Imm Gran Pct Auto 0.1 0.0-0.4 % Lymphocytes Percent Auto 40.1 20-40 % Monocytes Percent Auto 7.0 2-11 % Eosinophils Percent Auto 2.2 0-4 % Basophils Percent Auto 0.6 0-2 % NRBC Pct Auto 0.0 0.0-0.2 /100WBC Neutrophils Absolute Auto 3.4 2.0-8.3 x10*3/uL Imm Gran Abs Auto 0.01 0.00-0.03 X10*3/uL Lymphocytes Absolute Auto 2.8 1.2-4.9 X10*3/uL Monocytes Absolute Auto 0.5 0.1-1.2 X10*3/uL Eosinophils Absolute Auto 0.2 0.0-0.4 X10*3/uL Basophils Absolute Auto 0.0 0.0-0.2 X10*3/uL NRBC Abs Auto 0.000 0.0-0.012 X10*3/uL Erythrocyte Sedimentation Ra te Reviewed date:12/03/2024 04:20:57 PM Interpretation: Performing Lab:[facility], [address] [place] [phone] Notes/Report: Erythrocyte Sedimentation Rate 21 0-20 MM/HR Patients with polycythemia and many hemoglobin abnormalities may have depressed sed rates whereas patients with anemia may have elevated sed rates. Comprehensive [place]. Panel Fa Reviewed date:12/03/2024 04:20:57 PM Interpretation: Performing Lab:[facility], [address] [place] [phone] Notes/Report: Sodium 139 135-145 mmol/L Potassium 4.1 3.3-5.1 mmol/L Chloride 107 96-108 mmol/L Carbon Dioxide 21 22-29 mmol/L Anion Gap 15 12-20 Blood Urea Nitrogen 13 9-16 mg/dL Creatinine 0.69 0.5-1.4 mg/dL Estimated Glomerular Filt Rate > 60 Chronic Kidney Disease: Estimated GFR < 60 mL/min/1.73m2 Severe Kidney Disease: Estimated GFR < 15 mL/min/1.73m2 Glucose Fasting 86 60-99 mg/dL Calcium 9.0 8.4-10.2 mg/dL Bilirubin Total 0.3 0.0-1.0 mg/dL Aspartate Amino Transferase 27 5-31 U/L Alanine Aminotransferase 20 0-31 U/L Total Protein 7.5 6.5-8.0 g/dL Albumin Level 4.1 3.5-5.0 g/dL Alkaline Phosphatase 59 39-117 U/L Gliadin Ab Panel Reviewed date:01/17/2025 09:00:51 PM Interpretation: Performing Lab:[facility], [address] [place] [phone] Notes/Report: Gliadin Deamidated IgA Ab 4.5 Value Interpretation ----- <15.0 Antibody not detected > or = 15.0 Antibody detected Gliadin Deamidated IgG Ab 5.6 Value Interpretation ----- <15.0 Antibody not detected > or = 15.0 Antibody detected THIS TEST WAS PERFORMED AT: [facility] [address] [place] [phone] RYLAN PALACIO MD Reason For Referral Reason Evaluate and Treat Questioning if patient has Androgenetic alopecia Diagnosis 1 Fatigue (R53.83) Diagnosis 2 Obesity (BMI 30.0-34 .9) (E66.9) Diagnosis 3 Cervical radiculopat hy (M54.12) Diagnosis 4 Polycystic ovaries ( E28.2) Referral Organization Derian Smith III, MD Referring Provider First Name Derian Referring Provider Last Name Sarah Referring Provider Speciality Internal edicine Referred Organization [facility] nter Referred Provider [facility] er, [facility] Referred Address [address] [place] [id number], Referred Provider Specialty OB - Gynecol ogy General Notes D Isadora 12/08/2024 09:40:19 AM > referral and progress note faxed. Patient made aware Referral Priority Routine Reason Evaluate and Treat AM Nausea, Abdominal pain after eating Diagnosis 1 Fatigue (R53.83) Diagnosis 2 Obesity (BMI 30.0-34 .9) (E66.9) Referral Organization Derian Smith III, MD Referring Provider First Name eDrian Referring Provider Last Name Sarah Referring Provider Speciality Internal edicine Referred Provider Derian Chow Referred Provider Specialty Gastroentero logy General Notes D Isadora 12/09/2024 11:00:21 AM > Faxed referral [...] Provider Speciality Internal M edicine Referred Provider Terre Hillivis Mckeon [facility] er, Pulmonology Referred Provider Specialty Pulmonary Selena porter General Notes Isadora Rodriguez 12/08/2024 09:44:41 AM > Referral faxed with progress note Referral Priority Routine Referral Appointment Date 01/23/2025 Medications Medication SIG (Take, Route, Fr equency, [...] Problem Status W/U Status Risk Notes Problem Fatigue (93807291) Fatigue (R53.83) Active confirmed A sleep study has been ordered to evaluate her complaints of insomnia and daytime somnolence and snoring. He'll be seen thereafter. Problem [id number] Obesity (BMI 30.0-34.9) (E66.9) Active confirmed We [...] obesity. Various strategiees to reduce it. Problem [id number] Cervical radiculopathy (M54.12) Active confirmed The neck pain is not improved but the shoulder pain is described as a little better. He'll continue current therapy. If this has not improved in 3 weeks she will have imaging done and be referred for possible injections and physical therapy. Problem Polycystic ovary syndrome (disorder) (234326205) Polycystic ovaries (E28.2) Active confirmed She has been referred to [facility] for evaluation and management and routine reproductive health care. She is not at this time. She does not have contraception . Vital Signs Heart Rate 112 /min 01/08/2025 Temperature 97.0 degrees Fahrenheit 01/08/2025 Blood pressure diastolic 86 mm Hg 01/08/2025 Height 5 ft 3 in in 01/08/2025 Blood pressure systolic 127 mm Hg 01/08/2025 Weight 208 lbs 01/08/2025 BMI 36.84 kg/m2 01/08/2025 Encounters Encounter Location Date Provider Diagnosis Derian Smith III, MD [address] [place] [address] [place] [phone] 09/10/2024 Derian Smith Obesity (BMI 30.0-34 .9) E66.9 ; Cervical radiculopathy M54.12 and Fatigue R53.83 Derian Smith III, MD [address] [place] [address] [place] [phone] 09/24/2024 Derian Smith Obesity (BMI 30.0-34 .9) E66.9 ; Cervical radiculopathy M54.12 and Polycystic ovaries E28.2 Derian Smith III, MD [address] [place] [address] [place] [phone] 11/12/2024 Derian Smith Obesity (BMI 30.0-34 .9) E66.9 ; Fatigue R53.83 ; Cervical radiculopathy M54.12 and Polycystic ovaries E28.2 Derian Smith III, MD [address] [place] [address] [place] [address] 12/03/2024 Derian Smith Obesity (BMI 30.0-34 .9) E66.9 ; Fatigue R53.83 ; Polycystic ovaries E28.2 and Cervical radiculopathy M54.12 Derian Smith III, MD [address] [place] [address] [place] [address] 01/08/2025 Derian Smith Obesity (BMI 30.0-34 .9) E66.9 ; Fatigue R53.83 ; Polycystic ovaries E28.2 and Cervical radiculopathy M54.12 Derian Smith III, MD [address] [place] [address] [place] [address] 12/17/2024 Derian Smith III, MD [address] [place] [address] [place] [address] 12/17/2024 Derian Smith Assessments Encounter Date Diagnosis (ICD Code) Assessment [...] heat and rest as well as Tylenol. 09/24/2024 Obesity (BMI 30.0-34.9) (ICD-10 - E66.9) [...] for possible injections and physical therapy. 11/12/2024 Fatigue (ICD-10 - R53.83) This is becoming a chronic complaint. Repeat P conference blood work has been ordered to evaluate for a metabolic cause. 11/12/2024 Obesity (BMI 30.0-34.9) (ICD-10 - E66.9) [...] to evaluate for a metabolic cause. 12/03/2024 Obesity (BMI 30.0-34.9) (ICD-10 - E66.9) [...] and snoring. He'll be seen thereafter. 01/08/2025 Obesity (BMI 30.0-34.9) (ICD-10 - E66.9) [...] reduce it. 09/10/2024 Fatigue (ICD-10 - R53.83) She complains of feeling chronically tired. Comprehensive blood work with thyroid function tests have been ordered. 09/24/2024 Polycystic ovaries (ICD-10 - E28.2) She has been referred to [facility] for evaluation and management and routine reproductive health care. She is not at this time. She does not have contraception. 11/12/2024 Cervical radiculopathy (ICD-10 - M54.12) The neck pain is not improved but the shoulder pain is described as a little better. He'll continue current therapy. If this has not improved in 3 weeks she will have imaging done and be referred for possible injections and physical therapy. 12/03/2024 Polycystic ovaries (ICD-10 - E28.2) She has been referred to [facility] for evaluation and management and routine reproductive health care. She is not at this time. She does not have contraception. 01/08/2025 Polycystic ovaries (ICD-10 - E28.2) She has been referred to [facility] for evaluation and management and routine reproductive health care. She is not at this time. She does not have contraception. 11/12/2024 Polycystic ovaries (ICD-10 - E28.2) She has been referred to [facility] for evaluation and management and routine reproductive [...] referred for possible injections and physical therapy. 01/08/2025 Cervical radiculopathy (ICD-10 - M54.12) The neck pain is not improved but the shoulder pain is described as a little better. He'll continue current therapy. If this has not improved in 3 weeks she will have imaging done and be referred for possible injections and physical therapy. Plan Of Treatment Pending Test Test Name Order Date PROFILE, FASTING (COMPREHENSIVE METABOLI C) 10/10/2022 PROFILE, FASTING (COMPREHENSIVE METABOLI C) 11/12/2024 PROFILE, FASTING (COMPREHENSIVE METABOLI C) 09/10/2024 TSH (THYROID STIMULATING HORMONE) 2024 CBC w DIFF 09/10/2024 CBC w DIFF 10/10/2022 CBC w DIFF 11/12/2024 SED RATE (ESR) 10/10/2022 SED RATE (ESR) 11/12/2024 Sleep Study - Baseline 12/03/2024 Lipid Panel 10/10/2022 Next Appt Details Provider Name:Derian Smith , 03/13/2025 03:00:00 PM, [address] [place] [address] [address], [place], [phone], Provider Name:Derian Gouldrne , 11/16/2025 02:30:00 PM, [address] [place] [address] [address], [place], [phone], Insurance Providers Payer Name Payer Address Payer Phone Subscriber Number Group Number Insured Name Patient Relationship to Insured Coverage Start Date Coverage End Date MEDICAID [place] [address] [place] [id number] KRZYSZTOF GARCIA Self - patient is the insured Medical (General) History Medical History History ICD Code Obesity Polycystic ovaries Cervical radiculopathy Surgical History Surgery Date(Month/Year) Cholecystectomy for cholecystitis 2013 Hospitalization History Reason Date(Month/Year) food poisoning 2022 [facility] cholecystectomy for stones
[2025-01-20 11:16] LABS: MANUAL DIFF FLAG NO
[2025-01-20 11:28] LABS: Iron 43 mcg/dL (30-160); Percent Iron Saturation 12 % (15-50); Total Iron Binding Capacity 367 mcg/dL (228-428); Unsaturated Iron Binding 324 ug/dL
[2025-01-20 11:42] LABS: Ferritin 63 ng/mL (10-122)
[2025-01-20 11:44] LABS: Hematocrit 37.4 % (37.0-47.0); Hemoglobin 12.6 g/dl (12.0-16.0); Imm Gran Abs Auto 0.02 X10*3/uL (0.00-0.03); Imm Gran Pct Auto 0.3 % (0.0-0.4); Lymphocytes Absolute Auto 3.3 X10*3/uL (1.2-4.9); Mean Corpuscular HGB Conc 33.7 g/dl (31.0-35.0); Mean Corpuscular Hemoglobin 27.3 pg (27.0-33.0); Mean Corpuscular Volume 81.0 fL (80.0-98.0); NRBC Abs Auto 0.000 X10*3/uL (0.0-0.012); NRBC Pct Auto 0.0 /100WBC (0.0-0.2); Platelet Count 284 X10*3/uL (160-400); Red Blood Count 4.62 X10*6/uL (4.20-5.50); White Blood Count 7.9 X10*3/uL (4.8-10.8)
[2025-01-22 13:23] LABS: Transglutaminase Ab IgG <1.0 U/mL
== END 2025-01-20 09:51 | disposition home or self-care (01) ==
LOC: HO.10HDL 09:50
PROVIDERS: Visit Provider Internal Medicine
DX: K58.9 Irritable bowel syndrome, unspecified (principal); R14.0 Abdominal distension (gaseous)
CPT/HCPCS: 36415; 82728; 83540; 85025; 86231; 86258; 86364

== ENCOUNTER 2025-02-04 11:39 | Outpatient (AMB) | payer MEDICAID, SELFPAY ==
--- OUTSIDE RECORDS SUMMARY | 2024-12-03 11:45 | XMS_ITS ---
Author Organization Derian Smith III, MD Address [address] [place] [address] [place] [address] Care Team Providers Care Box Worker Name Role Phone Dr. Derian Smith III Primary Care Provider Allergies Allergen (clinical drug ingredient) Drug/Non Drug Allergy documented on EMR Reaction Allergy Type Onset Date Status No Known Drug Allergy Unknown Drug Allergy Active No Known Food Allergy Unknown Drug Allergy Active Results Component Value Reference Range Notes Gliadin Ab Panel Reviewed date:01/17/2025 09:00:51 PM Interpretation: Performing Lab:[facility], [address] [place] [phone] Notes/Report: Gliadin Deamidated IgA Ab 4.5 Value Interpretation ----- <15.0 Antibody not detected > or = 15.0 Antibody detected Gliadin Deamidated IgG Ab 5.6 Value Interpretation ----- <15.0 Antibody not detected > or = 15.0 Antibody detected THIS TEST WAS PERFORMED AT: [facility] [address] [place] [phone] RYLAN PALACIO MD Reason For Referral Reason Evaluate and Treat Questioning if patient has Androgenetic alopecia Diagnosis 1 Fatigue (R53.83) Diagnosis 2 Obesity (BMI 30.0-34 .9) (E66.9) Diagnosis 3 Cervical radiculopat hy (M54.12) Diagnosis 4 Polycystic ovaries ( E28.2) Referral Organization Derian Smith III, MD Referring Provider First Name Derian Referring Provider Last Name Smith Referring Provider [facility] Referred Organization [facility] nter Referred Provider [facility] er, [facility] Referred Address [address] [place] [address],[place], [place],[phone], Referred Provider Specialty OB - Gynecol ogy [...] Referring Provider Speciality Internal edicine Referred Provider [facility] er, Pulmonology Referred Provider Specialty Pulmonary Di [...] Date Provider Diagnosis Derian Smith III, MD [address] [place] [address] [place] [address] 12/03/2024 Derian Smith Obesity (BMI 30.0-34 .9) [...] - E28.2) She has been referred to [facility] OPERATOR for evaluation and management and routine [...] Treat Questioning if patient has Androgenetic alopecia, [facility], [address] [place] [address], [place], [place], [phone], 12/03/2024 12/03/2024, Evaluate and Treat AM Nausea, Abdominal pain after eating, Derian Chow 12/04/2024 12/04/2024, Evaluate and Treat Needs Sleep Study, Pulmonology [facility] Next Appt Details Follow Up: 4 Weeks, Reason: OV Provider Name:Derian Smith , 03/13/2025 03:00:00 PM, [address] [place] [address] [address], [place], [address], Provider Name:Derian Smith , 11/16/2025 02:30:00 PM, [address] [place] [address] [address], [place], [address], Progress Notes * KRZYSZTOF GARCIADOB: 1 (24 yo F)Acc No.[id number]:12/03/2024 Progress Notes Patient: KRZYSZTOF GÓMEZ Provider: Sherri Smith MD :2000 A ge:24 Y S ex:Female Date:12/03/2024 Address:[address] [place] [address], [id number] Subjective: * Chief Complaints: * C hronic [...] * Surgical History: C holecystectomy for cholecystitis [id number] * Hospitalization/Major Diagno stic Procedure: b cholecystectomy [...] or drink. She does not have a anabaptist objection to blood transfusion. She does not have any children. She has no exposures to toxic materials. She was born in [place], [place]. Her parents are from [place]. * [...] soon as possible,PLEASE FAX COMPLETED RESULTS TO [phone] Please fast for 12-14 hours prior to having this labwork done. You may have black coffee or tea with no milk or sugar. May have water,PLEASE FAX COMPLETED RESULTS TO [phone] * Lab:Thyroid Stimulating Horm one * Collection [...] May have water,PLEASE FAX COMPLETED RESULTS TO [phone] ???Lab:Vitamin B12 and Folate (Order Date - 09/10/2024) (Collection Date & Time - 09/10/2024 11:32AM)?ValueReference Range?Vitamin [id number] - pg/mL?Folate4.7> or = 4.0 - ng/mL?Clinical Info: Please fast for 12-14 hours prior tohaving this labwork done. You may have black coffee or tea with no milk or sugar. May have water,PLEASE FAX COMPLETED RESULTS TO [phone] ???Lab:Magnesium (Order Date - 11/12/2024) (Collection Date & Time - 11/14/2024 10:45 AM)?ValueReference Range?Magnesium2.11.6-2.6 - mg/dL ?Clinical Info: Please fast for 12-14 hours prior tohaving this labwork done. You may have black coffee or tea with no milk or sugar. May have water,Ple ase have this testing done as soon as possible,PLEASE FAX COMPLETED RESULTS TO [phone] ???Lab:Erythrocyte Sedimentation Rate (Order Date - 11/14/2024) (Collection Date & Time - 11/14/2024 10:45 AM)?ValueReference Range?Erythrocyte Sedimentation [id number] - MM/HR ???Imaging:XR cervical spine 3V (Order [...] N otes :She has been referred to [facility] OPERATOR for evaluation and management and routine [...] TABLET BY MOUTH EVERY DAY, Oral. Referral To:[facility] OB - Gynecology Reason:Evaluate and Treat Questioning if patient has Androgenetic alopecia Referral To:Derian Chow Gastroenterology Reason:Evaluate and Treat AM Nausea, Abdominal pain after eating Referral To:Pulmonology [facility] Pulmonary Diseases Reason:Evaluate and Treat Needs Sleep Study 3. P olycystic ovaries Referral To:[facility] OB - Gynecology Reason:Evaluate and Treat Questioning if patient has Androgenetic alopecia 4. C ervical radiculopathy Referral To:[facility] OB - Gynecology Reason:Evaluate and Treat Questioning if patient has Androgenetic alopecia 5. O thers Referral To:Pulmonology [facility] Pulmonary Diseases Reason:Evaluate and Treat Needs [...] MD Date: 0 12/03/2024 Generated for Marci rodarte/Agata/Sayitting on: 1 02:47 PM EDT History and Physical Notes * [...] Referring Provider Referred Provider Not es 12/03/2024 Derian Smith [facility], [facility] Evaluate and Treat Questioning if patient has Androgenetic alopecia 12/03/2024 Derian Smith Robert Evaluate and Treat AM Nausea, Abdominal pain after eating 12/04/2024 [facility], Pulmonology Evaluate and Treat Needs Sleep Study
--- OUTSIDE RECORDS SUMMARY | 2024-12-17 06:09 | XMS_ITS ---
Author Organization Derian Smith III, MD Address [address] [place] [address] [place] [address] Care Team Providers Care Quality Control Tech Name Role Phone Dr. Derian Smith III Primary Care Provider [phone] REASON FOR VISIT Cancel Appointment Request Social History Sex Assigned At : Social History Observation Description Sex Assigned At Female Encounters Encounter Location Date Provider Diagnosis Derian Smith III, MD [address] [place] [address] [place] [address] 12/17/2024 Derian Smith Plan Of Treatment Next Appt Details Provider Name:Derian Smith , 03/13/2025 03:00:00 PM, [address] [place] [address] [place], [address], Provider Name:Derian Smith , 11/16/2025 02:30:00 PM, [address] [place] [address] [place], [address], Progress Notes * KRZYSZTOF GARCIADOB: 1 (24 yo F)Acc No.[id number]:12/17/2024 Patient: KRZYSZTOF GÓMEZ :2000 A ge:24 Y S ex:Female Address:[address] [facility] [address], [place], [address] * true * Date: Generated for Printi cayden/Faeddieg/eTransmitting on: 1 02:48 PM EDT
--- OUTSIDE RECORDS SUMMARY | 2024-12-17 06:09 | XMS_ITS ---
Author Organization Derian Smith III, MD Address [address] [place] [address] [address] [facility] [facility] [place] [address] Care Team Providers Care Pouncer Name Role Phone Dr. Derian Smith III Primary Care Provider [phone] REASON FOR VISIT Reschedule Appointment Request Social History Sex Assigned At : Social History Observation Description Sex Assigned At Female Encounters Encounter Location Date Provider Diagnosis Derian Smith III, MD [address] [place] [address] [place] [address] 12/17/2024 Derian Smith Plan Of Treatment Next Appt Details Provider Name:Derian Smith , 03/13/2025 03:00:00 PM, [address] [place] [address] [place], [address], Provider Name:Derian Smith , 11/16/2025 02:30:00 PM, [address] [place] [address] [place], [address], Progress Notes * JOSE HEMALJENNYDOB: 1 (24 yo F)Acc No.[id number]:12/17/2024 Patient: KRZYSZTOF GÓMEZ :2000 A ge:24 Y S ex:Female Address:[address] [facility] [address], [place], [address] * true * Date: Generated for Printi cayden/Faeddieg/eTransmitting on: 1 02:49 PM EDT
--- OUTSIDE RECORDS SUMMARY | 2025-01-07 13:00 | XMS_ITS ---
Author Organization Derian Smith III, MD Address [address] [place] [address] [place] [address] Care Team Providers Care Carpet Weaver Name Role Phone Dr. Derian Smith III Primary Care Provider REASON FOR VISIT Follow up Social History Sex Assigned At : Social History Observation Description Sex Assigned At Female Encounters Encounter Location Date Provider Diagnosis Derian Smith III, MD [address] [place] [address] [place] [address] 01/07/2025 Derian Smith Plan Of Treatment Next Appt Details Provider Name:Derian Smith , 03/13/2025 03:00:00 PM, [address] [place] [address] [place], [address], Provider Name:Derian Smith , 11/16/2025 02:30:00 PM, [address] [place] [address] [place], [address], Progress Notes * KRZYSZTOF GARCIADOB: 1 (24 yo F)Acc No.[id number]:01/07/2025 Progress Notes Patient: KRZYSZTOF GÓMEZ Provider: Sherri Smith MD :2000 A ge:24 Y S ex:Female Date:01/07/2025 Address:[address] [facility] [address], [id number] Subjective: * Chief Complaints: * 1 . [...] 01/07/2025 Generated for Marci rodarte/Agata/Kasia on: 1 02:46 PM EDT
--- OUTSIDE RECORDS SUMMARY | 2025-01-08 05:15 | XMS_ITS ---
Author Organization Derain Smith III, MD Address [address] [place] [address] [place] [address] Care Team Providers Care Dispatch Supervisor Name Role Phone Dr. Derian Smith III Primary Care Provider [phone] Allergies Allergen (clinical drug ingredient) Drug/Non Drug [...] Provider Diagnosis Derian Smith III, MD [address] [place] [address] [place] [address] 01/08/2025 Derian Smith Obesity (BMI 30.0-34 .9) [...] - E28.2) She has been referred to SOCIAL SERVICES ANALYST for evaluation and management and routine reproductive [...] Provider Name:Derian Smith , 03/13/2025 03:00:00 PM, [address] [place] [address] [place], [place], [address], Provider Name:Derian Smith , 11/16/2025 02:30:00 PM, [address] [place] [address] [place], [address], Progress Notes * KRZYSZTOF GARCIADOB: 1 (24 yo F)Acc No.[id number]:01/08/2025 Progress Notes Patient: Jus TROYFIQUE, KRZYSZTOF Provider: Sherri Smith MD :2000 A ge:24 Y S ex:Female Date:01/08/2025 Address:[address] [place] [address] [address]LO[address], [id number] Subjective: * Chief Complaints: * C hronic [...] * Surgical History: C holecystectomy for cholecystitis [id number] * Hospitalization/Major Diagno stic Procedure: b cholecystectomy [...] to toxic materials. She was born in [place], [place]. Her parents are from [facility]. * Medications: T akingLoryna 3-0.02 MG Tablet [...] N otes :She has been referred to SOCIAL SERVICES ANALYST for evaluation and management and routine reproductive [...] 01/08/2025 Generated for Marci rodarte/Agata/Kasia on: 1 02:49 PM EDT History and Physical Notes * [...]
--- OUTSIDE RECORDS SUMMARY | 2025-01-20 05:10 | XMS_ITS ---
Author Organization [facility] Address [address] [place] [address] Care Team Providers Care Medical Management Trainer Name Role Phone Derian Smith MD Primary Care Provider UnavailDerian Campbell Unavailable [phone] Results Component Value Reference Range Notes Ferritin Reviewed date:01/22/2025 01:24:45 AM Interpretation: Performing Lab:[facility], [address] [place] [phone] Notes/Report: Ferritin 63 10-122 ng/mL Transglutaminase Ab IgG Reviewed date:01/26/2025 11:24:08 PM Interpretation: Performing Lab:[facility], [address] [place] [phone] Notes/Report: Transglutaminase Ab IgG <1.0 Value Interpretation ----- <15.0 Antibody not detected > or = 15.0 Antibody detected THIS TEST WAS PERFORMED AT: [facility] [address] [place] [phone] RYLAN PALACIO MD Transglutaminase IgA Reviewed date:01/26/2025 11:23:34 PM Interpretation: Performing Lab:[facility], [address] [place] [phone] Notes/Report: Transglutaminase IgA <1.0 Value Interpretation ----- <15.0 Antibody not detected > or = 15.0 Antibody detected THIS TEST WAS PERFORMED AT: [facility] [address] [place] [phone] RYLAN PALACIO MD Gliadin Ab Panel Reviewed date:01/26/2025 11:23:56 PM Interpretation: Performing Lab:[facility], [address] [place] [phone] Notes/Report: Gliadin Deamidated IgA Ab 3.6 Value Interpretation ----- <15.0 Antibody not detected > or = 15.0 Antibody detected Gliadin Deamidated IgG Ab 5.6 Value Interpretation ----- <15.0 Antibody not detected > or = 15.0 Antibody detected THIS TEST WAS PERFORMED AT: [facility] [address] [place] [phone] RYLAN PALACIO MD Endomysial IgA rflx Titer Reviewed date:01/26/2025 11:24:02 PM Interpretation: Performing Lab:[facility], [address] [place] [phone] Notes/Report: Endomysial IgA Antibody Negative Negative THIS TEST WAS PERFORMED AT: [facility]/[address] [phone] LEIA GARZA MD,PHD Endomysial Titer TNP REASON FOR VISIT Patient presents today for am nausea, abd pain after eating, fatigue Medications Medication SIG (Take, Route, Fr equency, Duration) Notes Start Date End Date Status Dicyclomine HCl 10 MG Take 1 or 2 capsul es 30 to 60 minutes before a meal to try to prevent the cramps, bloating, and discomfort you get when you are eating Orally Three times a day as directed; Duration: 30 days 01/20/2025 Active Famotidine 40 MG 1 tablet Orally Once a day every morning, but you can use a second dose 10 to 12 hours later in the day if needed for heartburn and reflux; Duration: 30 days 01/20/2025 Active Loryna 3-0.02 MG 1 tablet Orally Once a day Active Immunizations Vaccine Route Administration Date Status Comme nts Influenza Unknown 01/20/2025 Refused Social History Tobacco Use: Social History Observation Description Date Details (start date - stop date) Never Smoker NA - NA Tobacco Control (Standard) Question Answer Notes Tobacco use: Nonsmoker AUDIT-C (Standard) Question Answer Notes Did you have a drink containing alcohol in the p ast year? No Points 0 Interpretation Negative Problems Problem Type SNOMED Code ICD Code Onset Dates Problem Status W/U Status Risk Notes Problem Gastroesophageal reflux disease (005813519) GERD (gastroesopha geal reflux disease) (K21.9) Active confirmed Problem Heartburn (05020961) Heartburn (R12) Active confirmed Problem Irritable bowel syndrome (15753683) Irritable bowel syndrome (K58.9) Active confirmed Problem Abdominal bloating (104902602) Abdominal bloating (R14.0) Active confirmed Vital Signs Temperature 97.5 degrees Fahrenheit 01/21/20 25 Blood pressure systolic 001 mm Hg 01/21/20 25 Blood pressure diastolic 01 mm Hg 025 Height 63 in 01/20/2025 Weight 207.8 lbs 01/20/2025 BMI 36.81 kg/m2 01/20/2025 Encounters Encounter Location Date Provider Diagnosis [facility] [address] [place] [address] 01/20/2025 Derian Chow GERD (gastroesophage al reflux disease) K21.9 ; Heartburn R12 ; Irritable bowel syndrome K58.9 ; Abdominal bloating R14.0 and Abdominal pain, acute, generalized R10.84 Assessments Encounter Date Diagnosis (ICD Code) Assessment Notes Treatment Notes Treatment Clinical Notes Section Notes 01/20/2025 GERD (gastroesophage al reflux disease) (ICD-10 - K21.9) Overall, Krzysztof appears quite well. We did have a lengthy discussion today regarding her symptomatology. Given the longstanding nature of her symptoms, excellent clinical appearance, and the description of her symptoms, I advised her that this sounds most consistent with an irritable bowel syndrome as well as perhaps some gastroesophageal reflux. I do not think this represents inflammatory bowel disease, peptic ulcer disease, significant esophagitis, or celiac disease. I advised her that I do not think she needs an upper endoscopy or colonoscopy at the present time but will need to keep that in mind down the road if her symptoms persist or certainly if they worsen. Given my low suspicion for any other diagnoses besides irritable bowel syndrome and reflux, I advised her that I think would be best to try to treat things symptomatically initially. I shall give her a prescription to use dicyclomine before meals and to use famotidine at least daily. I am going to hold off on a PPI at this time so as to minimize any further issues with bloating that might be a side effect of that. I shall check an abdominal ultrasound even though she is status-post a cholecystectomy just to rule out any other pathology given her ongoing abdominal complaints. I shall check some blood work including a full celiac disease panel, iron studies, and CBC. I will plan to see her in follow-up in several months but did advise her to call sooner if she has any problems or questions I can be of assistance with. We did review the possibility that we may want her to undergo an upper endoscopy and colonoscopy at some point depending upon her clinical course. Krzysztof was comfortable with this plan. Thank you again for allowing me to participate in Krzysztof's care. I shall continue to keep you advised of her progress. 01/20/2025 Heartburn (ICD-10 - R12) Overall, Krzysztof appears quite well. We did have a lengthy discussion today regarding her symptomatology. Given the longstanding nature of her symptoms, excellent clinical appearance, and the description of her symptoms, I advised her that this sounds most consistent with an irritable bowel syndrome as well as perhaps some gastroesophageal reflux. I do not think this represents inflammatory bowel disease, peptic ulcer disease, significant esophagitis, or celiac disease. I advised her that I do not think she needs an upper endoscopy or colonoscopy at the present time but will need to keep that in mind down the road if her symptoms persist or certainly if they worsen. Given my low suspicion for any other diagnoses besides irritable bowel syndrome and reflux, I advised her that I think would be best to try to treat things symptomatically initially. I shall give her a prescription to use dicyclomine before meals and to use famotidine at least daily. I am going to hold off on a PPI at this time so as to minimize any further issues with bloating that might be a side effect of that. I shall check an abdominal ultrasound even though she is status-post a cholecystectomy just to rule out any other pathology given her ongoing abdominal complaints. I shall check some blood work including a full celiac disease panel, iron studies, and CBC. I will plan to see her in follow-up in several months but did advise her to call sooner if she has any problems or questions I can be of assistance with. We did review the possibility that we may want her to undergo an upper endoscopy and colonoscopy at some point depending upon her clinical course. Krzysztof was comfortable with this plan. Thank you again for allowing me to participate in Krzysztof's care. I shall continue to keep you advised of her progress. 01/20/2025 Irritable bowel syndrome (ICD-10 - K58.9) Overall, Krzysztof appears quite well. We did have a lengthy discussion today regarding her symptomatology. Given the longstanding nature of her symptoms, excellent clinical appearance, and the description of her symptoms, I advised her that this sounds most consistent with an irritable bowel syndrome as well as perhaps some gastroesophageal reflux. I do not think this represents inflammatory bowel disease, peptic ulcer disease, significant esophagitis, or celiac disease. I advised her that I do not think she needs an upper endoscopy or colonoscopy at the present time but will need to keep that in mind down the road if her symptoms persist or certainly if they worsen. Given my low suspicion for any other diagnoses besides irritable bowel syndrome and reflux, I advised her that I think would be best to try to treat things symptomatically initially. I shall give her a prescription to use dicyclomine before meals and to use famotidine at least daily. I am going to hold off on a PPI at this time so as to minimize any further issues with bloating that might be a side effect of that. I shall check an abdominal ultrasound even though she is status-post a cholecystectomy just to rule out any other pathology given her ongoing abdominal complaints. I shall check some blood work including a full celiac disease panel, iron studies, and CBC. I will plan to see her in follow-up in several months but did advise her to call sooner if she has any problems or questions I can be of assistance with. We did review the possibility that we may want her to undergo an upper endoscopy and colonoscopy at some point depending upon her clinical course. Krzyszotf was comfortable with this plan. Thank you again for allowing me to participate in Krzysztof's care. I shall continue to keep you advised of her progress. 01/20/2025 Abdominal bloating (ICD-10 - R14.0) Overall, Krzysztof appears quite well. We did have a lengthy discussion today regarding her symptomatology. Given the longstanding nature of her symptoms, excellent clinical appearance, and the description of her symptoms, I advised her that this sounds most consistent with an irritable bowel syndrome as well as perhaps some gastroesophageal reflux. I do not think this represents inflammatory bowel disease, peptic ulcer disease, significant esophagitis, or celiac disease. I advised her that I do not think she needs an upper endoscopy or colonoscopy at the present time but will need to keep that in mind down the road if her symptoms persist or certainly if they worsen. Given my low suspicion for any other diagnoses besides irritable bowel syndrome and reflux, I advised her that I think would be best to try to treat things symptomatically initially. I shall give her a prescription to use dicyclomine before meals and to use famotidine at least daily. I am going to hold off on a PPI at this time so as to minimize any further issues with bloating that might be a side effect of that. I shall check an abdominal ultrasound even though she is status-post a cholecystectomy just to rule out any other pathology given her ongoing abdominal complaints. I shall check some blood work including a full celiac disease panel, iron studies, and CBC. I will plan to see her in follow-up in several months but did advise her to call sooner if she has any problems or questions I can be of assistance with. We did review the possibility that we may want her to undergo an upper endoscopy and colonoscopy at some point depending upon her clinical course. Krzysztof was comfortable with this plan. Thank you again for allowing me to participate in Krzysztof's care. I shall continue to keep you advised of her progress. 01/20/2025 Abdominal pain, acute, generalized (ICD-10 - R10.84) Overall, Krzysztof appears quite well. We did have a lengthy discussion today regarding her symptomatology. Given the longstanding nature of her symptoms, excellent clinical appearance, and the description of her symptoms, I advised her that this sounds most consistent with an irritable bowel syndrome as well as perhaps some gastroesophageal reflux. I do not think this represents inflammatory bowel disease, peptic ulcer disease, significant esophagitis, or celiac disease. I advised her that I do not think she needs an upper endoscopy or colonoscopy at the present time but will need to keep that in mind down the road if her symptoms persist or certainly if they worsen. Given my low suspicion for any other diagnoses besides irritable bowel syndrome and reflux, I advised her that I think would be best to try to treat things symptomatically initially. I shall give her a prescription to use dicyclomine before meals and to use famotidine at least daily. I am going to hold off on a PPI at this time so as to minimize any further issues with bloating that might be a side effect of that. I shall check an abdominal ultrasound even though she is status-post a cholecystectomy just to rule out any other pathology given her ongoing abdominal complaints. I shall check some blood work including a full celiac disease panel, iron studies, and CBC. I will plan to see her in follow-up in several months but did advise her to call sooner if she has any problems or questions I can be of assistance with. We did review the possibility that we may want her to undergo an upper endoscopy and colonoscopy at some point depending upon her clinical course. Krzysztof was comfortable with this plan. Thank you again for allowing me to participate in Krzysztof's care. I shall continue to keep you advised of her progress. Plan Of Treatment Medication Medication Name Sig Start Date Stop Date Notes Dicyclomine HCl 10 MG Take 1 or 2 capsul es 30 to 60 minutes before a meal to try to prevent the cramps, bloating, and discomfort you get when you are eating Orally Three times a day as directed; Duration: 30 days 01/20/2025 Famotidine 40 MG 1 tablet Orally Once a day every morning, but you can use a second dose 10 to 12 hours later in the day if needed for heartburn and reflux; Duration: 30 days 01/20/2025 Pending Test Test Name Order Date IRON + IBC (FE) 01/20/2025 CBC w DIFF 01/20/2025 US abdomen complete 01/20/2025 Next Appt Details Follow Up: 4 Months, Reason: Provider Name:Derian Chow , 05/22/2025 01:00:00 PM, [address], [address], [place], [address], Progress Notes * HEMAL GARCIAJENNYDOB: [birth year] (24 yo F)Acc No.[id number]:01/20/2025 Progress Notes Patient: KRZYSZTOF GÓMEZ Provider: Sherri Chow MD :2000 A ge:24 Y S ex:Female Date:01/20/2025 Address:[address] [place] [address], [id number] Pcp:Derian Smith MD Subjective: * Chief Complaints: * 1 . Patient presents today for am nausea, abd pain after eating, fatigue. * HPI: i ncontinence: I saw Kr[facility]ztof [facility] of her abdominal bloating and discomfort, and history of intermittent reflux with associated heartburn. As you know, Krzysztof is a healthy 24-year-old female who generally feels well. However, she does describe a longstanding history of postprandial abdominal bloating and nausea. This can occur within several bites of food or later in the meal. She does have the associated nausea but never has any vomiting. She will have the urge to have bowel movements during the meal and afterwards. The bowel movements can be relatively loose but are not associated with any hematochezia nor melena. She describes that this has been going on since at least high school and think she saw her a pediatric sports photographer. She denies any associated weight loss, anorexia, signs of jaundice, or fevers. Aside from the generalized abdominal discomfort and bloating she denies any specific localizing abdominal pain. She does describe having had her gallbladder out at age 13 for gallstones. She does try to watch her diet and avoid any particularly spicy or greasy food. She does not eat much in the way of any dairy products. She does describe that she is always under stress and thinks that may possibly contribute to her symptoms as well. She does have intermittent heartburn and takes an occasional omeprazole but has never been on a regular course of that. She denies any dysphagia or early satiety. She denies any urinary symptoms. She describes that her menses is irregular and will be seeing a freight conductor for that issue. She denies the use of any NSAIDs, regular aspirin use, tobacco, nor alcohol. She does not recall having had any x-ray of the abdomen or GI tract. She does not think she ever had an endoscopy or colonoscopy. Lab work over the last few months have included antigliadin antibodies in the normal range, normal chemistries and renal function, normal calcium and magnesium, normal LFTs, low normal B12 of 233 and low normal folate of 4.7, normal TSH and T4, hemoglobin 13.1 with a normal MCV of 82, and a sed rate of 21. She denies any known family history of inflammatory bowel disease, colorectal cancer, nor celiac disease. * Medical History: D enies MS,DM,CVA,Lung disease,renal disease. * Surgical History: G allbladder removal 2012. * Family History: F ather: alive. M other: alive. No family history of liver cancer or colon cancer. * Social History: T obacco Use: T obacco Control (Standard) T obacco use: N onsmoker. M iscellaneous: M arital status: single. 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 D rug/Alcohol: A JEREMIAS-C (Standard) D id you have a drink containing alcohol in the past year? N o,?Points 0 , I nterpretation N egative. * Medications: T aking Loryna 3-0.02 MG Tablet 1 tablet Orally Once a day , Medication List reviewed and reconciled with the patient Objective: * Vitals: W t: 207.8 lbs, Ht: 63 in, BMI:36.81Index, BP: 001/01 mm Hg, Temp: 97.5, Ht-cm: 160.02, Wt-k.26. Assessment: * Assessment: 1. G ERD (gastroesophageal reflux disease) - K21.9 (Primary) 2 . H eartburn - R12 3 . I rritable bowel syndrome - K58.9 4 . A bdominal bloating - R14.0 5 . A bdominal pain, acute, generalized - R10.84 ? Overall, Kryzsztof appears quite well. We did have a lengthy discussion today regarding her symptomatology. Given the longstanding nature of her symptoms, excellent clinical appearance, and the description of her symptoms, I advised her that this sounds most consistent with an irritable bowel syndrome as well as perhaps some gastroesophageal reflux. I do not think this represents inflammatory bowel disease, peptic ulcer disease, significant esophagitis, or celiac disease. I advised her that I do not think she needs an upper endoscopy or colonoscopy at the present time but will need to keep that in mind down the road if her symptoms persist or certainly if they worsen. Given my low suspicion for any other diagnoses besides irritable bowel syndrome and reflux, I advised her that I think would be best to try to treat things symptomatically initially. I shall give her a prescription to use dicyclomine before meals and to use famotidine at least daily. I am going to hold off on a PPI at this time so as to minimize any further issues with bloating that might be a side effect of that. I shall check an abdominal ultrasound even though she is status-post a cholecystectomy just to rule out any other pathology given her ongoing abdominal complaints. I shall check some blood work including a full celiac disease panel, iron studies, and CBC. I will plan to see her in follow-up in several months but did advise her to call sooner if she has any problems or questions I can be of assistance with. We did review the possibility that we may want her to undergo an upper endoscopy and colonoscopy at some point depending upon her clinical course. Krzysztof was comfortable with this plan. Thank you again for allowing me to participate in Krzysztof's care. I shall continue to keep you advised of her progress. Plan: * Treatment: 2. I rritable bowel syndrome L AB: IRON + IBC (FE) L AB: CBC w DIFF L AB: Ferritin (Collection Date & Time - 01/20/2025 09:56 AM) Value Reference Range F erritin 63 10-122 - ng/mL ?LAB: Transglutaminase Ab IgG (Collection Date & Time - 01/20/2025 09:56 AM) * Value Reference Range T ransglutaminase Ab IgG <1.0 - U/mL ?LAB: Transglutaminase IgA (Collection Date & Time - 01/20/2025 09:56 AM)* Value Reference Range T ransglutaminase IgA <1.0 - U/mL ?LAB: Gliadin Ab Panel (Collection Date & Time - 01/20/2025 09:56 AM)* Value Reference Range G liadin Deamidated IgA Ab 3.6 - U/mL * G liadin Deamidated IgG Ab 5.6 - U/mL ?LAB: Endomysial IgA rflx Titer (Collection Date & Time - 01/20/2025 09:56 AM)* Value Reference Range E ndomysial IgA Antibody Negative Negative - * E ndomysial Titer TNP - 3.?Abdominal bloating? Start Dicyclomine HCl Capsule, 10 MG, Take 1 or 2 capsules 30 to 60 minutes before a meal to try toprevent the cramps, bloating, and discomfort you get when you are eating, Orally, Three times a dayas directed, 30 days, 180, Refills 5.?LAB: IRON + IBC (FE) ?LAB: CBC w DIFF ?LAB: Ferritin (Collection Date & Time - 01/20/2025 09:56 AM)* Value Reference Range F erritin 63 10-122 - ng/mL ?LAB: Transglutaminase Ab IgG (Collection Date & Time - 01/20/2025 09:56 AM) * Value Reference Range T ransglutaminase Ab IgG <1.0 - U/mL ?LAB: Transglutaminase IgA (Collection Date & Time - 01/20/2025 09:56 AM)* Value Reference Range T ransglutaminase IgA <1.0 - U/mL ?LAB: Gliadin Ab Panel (Collection Date & Time - 01/20/2025 09:56 AM)* Value Reference Range G liadin Deamidated IgA Ab 3.6 - U/mL * G liadin Deamidated IgG Ab 5.6 - U/mL ?LAB: Endomysial IgA rflx Titer (Collection Date & Time - 01/20/2025 09:56 AM)* Value Reference Range E ndomysial IgA Antibody Negative Negative - * E ndomysial Titer TNP - ?Imaging: US abdomen complete* sched for 03/12/25 at 8:00 a [facility] Ultrasound dept 2nd floor fasting 8 hrs prior * 4.?Abdominal pain, acute, generalized?Imaging: US abdomen complete* sched for 03/12/25 at 8:00 a [facility] Ultrasound dept 2nd floor fasting 8 hrs prior * * Immunizations: Influenza (Not administered - Refused: Patient decision) * Preventive Medicine: Counseling: C are goal follow-up plan: A pardeep Normal BMI Follow-up D ietary management education, guidance, and counseling, B MS management provided N o. * Follow Up: 4 Months * * The named appointment provid er may or may not be the originator of this progress note, and it is not deemed complete until electronically signed by the appointment provider. Sign off status: Pending * Provider: Sherri Chow MD Date: 0 01/20/2025 Generated for Marci rodarte/Agata/Kasia on: 1 02:49 PM EDT History and Physical Notes * HPI (History of Present Illness) Category Sub-Category Detail Notes Category Not es incontinence I saw Krzysztof in [facility] the evaluation of her abdominal bloating and discomfort, and history of intermittent reflux with associated heartburn. As you know, Krzysztof is a healthy 24-year-old female who generally feels well. However, she does describe a longstanding history of postprandial abdominal bloating and nausea. This can occur within several bites of food or later in the meal. She does have the associated nausea but never has any vomiting. She will have the urge to have bowel movements during the meal and afterwards. The bowel movements can be relatively loose but are not associated with any hematochezia nor melena. She describes that this has been going on since at least high school and think she saw her a pediatric sports photographer. She denies any associated weight loss, anorexia, signs of jaundice, or fevers. Aside from the generalized abdominal discomfort and bloating she denies any specific localizing abdominal pain. She does describe having had her gallbladder out at age 13 for gallstones. She does try to watch her diet and avoid any particularly spicy or greasy food. She does not eat much in the way of any dairy products. She does describe that she is always under stress and thinks that may possibly contribute to her symptoms as well. She does have intermittent heartburn and takes an occasional omeprazole but has never been on a regular course of that. She denies any dysphagia or early satiety. She denies any urinary symptoms. She describes that her menses is irregular and will be seeing a freight conductor for that issue. She denies the use of any NSAIDs, regular aspirin use, tobacco, nor alcohol. She does not recall having had any x-ray of the abdomen or GI tract. She does not think she ever had an endoscopy or colonoscopy. Lab work over the last few months have included antigliadin antibodies in the normal range, normal chemistries and renal function, normal calcium and magnesium, normal LFTs, low normal B12 of 233 and low normal folate of 4.7, normal TSH and T4, hemoglobin 13.1 with a normal MCV of 82, and a sed rate of 21. She denies any known family history of inflammatory bowel disease, colorectal cancer, nor celiac disease.
[2025-02-04 11:42] VITALS: BP 118/70; BMI 36.8
--- NOTE | 2025-02-04 11:42 | MHC.OFFVIS ---
Vital Signs 02/04/25 11:42 Height 5 ft 3 in Weight 208 lb BMI 36.8 BP 118/70 Intake Visit Reasons: bleeding/hairloss on bc Intake Note: pt states no period july to november, light period in dec, normal period in jan. pt c/o hairloss and weight gain on BC Night Warehouse Manager: Night Warehouse Manager Present Allergies No Known Allergies (No Known Allergies*) Allergy (Verified 05/22/24 11:01) Is last menstrual period known: Yes Last menstrual period: 01/23/25 HPI Comments Details: Patient is here today with concerns regarding. Current Griselda OCP user. She has experienced hair loss since middle school over the years, hair loss rate has accelerated since July-August this year. Hx. of PCOS. TSH 1.82. PFSH Medical History (Updated 02/04/25 @ 12:49 by Maria R Escobedo CNM) Hair loss PCOS (polycystic ovarian syndrome) No known health problems Surgical History Hx of cholecystectomy Family History Paternal Grandmother History of breast cancer Social History Alcohol intake: never Patient Tobacco Use Status: Never used Tobacco Female Reproductive History Menstrual Age of Menarche: 12 Duration of menses: 3-5 days Date of last menstrual period: 01/23/25 control method: pills Total pregnancies: 0 Review of Systems Const All systems reviewed & are unremarkable except as noted in HPI and below Endo Reports no additional complaints Physical Exam Vital Signs: Last Vital Signs BP 118/70 02/04/25 11:42 BMI result Body Mass Index 36.8 Const General: cooperative, healthy appearing and no acute distress Skin Hair: general thinning Psych Appearance: well kempt Attitude: cooperative Thought process: Normal thought process present Assessment & Plan Assessment & Plan (1) Hair loss: Code(s): L65.9 - Nonscarring hair loss, unspecified Plan Discussed concerns regarding her hair loss recommended for dermis appointments referral renewing provided with multiple optical laboratory technician in the patient to do some research on availability and insurance coverage and we will call back the office so the referral can be placed to another agency besides [place] [facility]. Next cost estimating engineer appointment as scheduled May 2025. The patient expressed understanding and agreement with the plan of care. All of her questions and concerns were addressed to the best of my ability. This note is constructed using voice recognition software. While every effort has been made to ensure accuracy, mold technician errors may have been included. Coding Level of Care Code Est Pt Level 3 (66526) Diagnoses Hair loss L65.9
--- OUTSIDE RECORDS SUMMARY | 2025-02-04 14:46 | XMS_ITS | Encounter Summary ---
Author Organization [facility] Address [address] [place] [phone] Phone Care Team Providers Care Tobacco Conditioner Name Role Phone Gema Rosado MD Primary Care Provider Encounter Details Date Type Department Care Team (Late st Contact Info) Description 12/13/2012 Documentation [facility] Family Medicine [address] [place] [address] Family Medicine, Physician [address] [place] [address] Social History Tobacco Use Types Packs/Day Years [...] on filedocumented in this encounter Care Teams Tobacco Conditioner Relationship Specialty Start Date End Date Gema Rosado MD [address] [place] [id number] PCP - General 12/01/16 11/27/22 documented as of this encounter
--- OUTSIDE RECORDS SUMMARY | 2025-02-04 14:47 | XMS_ITS | Patient Health Record ---
Author Organization Derian Smith III, MD Address [address] [place] [address] Care Team Providers Care Wet End Supervisor Name Role Phone Dr. Derian Smith III Primary Care Provider Allergies Allergen (clinical drug ingredient) Drug/Non Drug Allergy documented on EMR Reaction Allergy Type Onset Date Status No Known Drug Allergy Unknown Drug Allergy Active No Known Food Allergy Unknown Drug Allergy Active Results Component Value Reference Range Notes Pap Smear Reviewed date:05/30/2024 09:27:02 AM Interpretation: Performing Lab:[facility], [address] [place] [phone] Notes/Report: -- ---- Name: Krzysztof Garcia Nguyen Age/Sex: 23/F : 2000 Unit#: [id number] Attend Dr: Maria R Escobedo [facility] Re05/22/24 Status : DEP REF Location: [facility] Disch: -- ---- SPEC : [id number] RECD : 05/23/24 STATUS: CHARO ELMORE NUM: [id number] BETO: 05/22/24-[address]: Maria R Escobedo CNM ENTERED: 05/23/24-10 23 SP TYPE: Pap Smr OTHR DR: Derian Smith MD ORDERED: Pap Smear Interpretation Satisfactory for evaluation. Negative for intraepithelial lesion or malignancy. Clinical Information LMP:04/21/24 Previous PAP test: Never Other surgery: Other history: Material Received ThinPrep-Cervical Copies To: Derian Smith MD [address], [address] [place] [address] Maria R Escobedo CNM [facility] [address] [place] [address] -- ---- Signed (signature on file) KENDALL Pena (ASCP) 05/27/24 0835 -- ---- END OF REPORT Lipid Panel Reviewed date:09/16/2024 01:55:42 PM Interpretation: Performing Lab:[facility], [address] [place] [phone] Notes/Report: Triglycerides 241 <150 mg/dL Desirable Triglyceride: [...] Folate Reviewed date:09/16/2024 01:55:42 PM Interpretation: Performing Lab:[address] [phone] Notes/Report: Vitamin B12 233 200-900 pg/mL NORMAL 200-900 PG/ML INDETERMINATE 160-199 PG/ML DEFICIENT < 160 PG/ML Folate 4.7 > or = 4.0 ng/mL Reference Values: > or = 4.0 ng/mL < 4.0 ng/mL suggests folate deficiency Methotrexate, aminopterin and folinic acid (leucovorin) are chemotherapeutic agents whose molecular structures are similar to folate; therefore, the Motor [employer] Generator [employer] folate assay cannot be used for patients using these drugs. Free T4 (Free Thyroxine) Reviewed date:09/16/2024 01:55:42 PM Interpretation: Performing Lab:[facility], [address] [place] [phone] Notes/Report: Free T4 (Free Thyroxine) 0.98 0.71-1.85 ng/dL Complete Blood Count Auto Di ff Reviewed date:09/16/2024 01:55:42 PM Interpretation: Performing Lab:[facility], [address] [place] [phone] Notes/Report: White Blood Count 7.9 4.8-10.8 X10*3/uL [...] NRBC Abs Auto 0.000 0.0-0.012 X10*3/uL Comprehensive [place]. Panel Fa st Reviewed date:09/16/2024 01:55:42 PM Interpretation: Performing Lab:[facility], [address] [place] [phone] Notes/Report: Sodium 140 135-145 mmol/L Potassium 4.1 [...] Hormone Reviewed date:09/16/2024 01:55:42 PM Interpretation: Performing Lab:[facility], [address] [place] [phone] Notes/Report: Thyroid Stimulating Hormone 1.82 0.32-4.0 uIU/mL TSH 3rd Generation ([facility]) XR cervical spine 3V Reviewed date:09/16/2024 01:55:42 PM Interpretation: Performing Lab: Notes/Report: [address] [address] XRay Report Signed Patient: Krzysztof Garcia MR#: [id number] : 2000 Acct:[id number] Age/Sex: 24 / F ADM Date: 09/10/24 Loc: WILLA Attending Dr: Derian Smith MD Ordering Physician: Derian Smith MD Date of Service: 09/10/24 Procedure(s): XR cervical spine 3V Accession Number(s): [id number] cc: Derian Smith MD EXAMINATION: XR CERVICAL [...] 09/10/24 1242 DD/ 1140 TD/TT: 09/10/24 1146 Services Executive: [address] [place] [address] XRay Report Signed Patient: Krzysztof Garcia MR#: [id number] : 2000 Acct:[id number] Age/Sex: 24 / F ADM Date: 09/10/24 Loc: HO.XRAY Attending Dr: Derian Smith MD Ordering Physician: Derian Smith MD Date of Service: 09/10/24 Procedure(s): XR cervical spine 3V Accession Number(s): [id number] cc: Derian Smith MD EXAMINATION: XR CERVICAL [...] 09/10/24 1242 DD/ 1140 TD/TT: 09/10/24 1146 Services Executive: Magnesium Reviewed date:12/03/2024 04:20:57 PM Interpretation: Performing Lab:[facility], [address] [place] [phone] Notes/Report: Magnesium 2.1 1.6-2.6 mg/dL Lipid Panel Reviewed date:12/03/2024 04:20:57 PM Interpretation: Performing Lab:[facility], [address] [place] [phone] Notes/Report: Triglycerides 407 <150 mg/dL Desirable Triglyceride: [...] ff Reviewed date:12/03/2024 04:20:57 PM Interpretation: Performing Lab:[facility], [address] [place] [phone] Notes/Report: White Blood Count 6.9 4.8-10.8 X10*3/uL [...] te Reviewed date:12/03/2024 04:20:57 PM Interpretation: Performing Lab:[facility], [address] [place] [phone] Notes/Report: Erythrocyte Sedimentation Rate 21 0-20 MM/HR Patients with polycythemia and many hemoglobin abnormalities may have depressed sed rates whereas patients with anemia may have elevated sed rates. Comprehensive [place]. Panel Fa Reviewed date:12/03/2024 04:20:57 PM Interpretation: Performing Lab:[facility], [address] [place] [phone] Notes/Report: Sodium 139 135-145 mmol/L Potassium 4.1 [...] Panel Reviewed date:01/17/2025 09:00:51 PM Interpretation: Performing Lab:[facility], [address] [place] [phone] Notes/Report: Gliadin Deamidated IgA Ab 4.5 Value Interpretation ----- <15.0 Antibody not detected > or = 15.0 Antibody detected Gliadin Deamidated IgG Ab 5.6 Value Interpretation ----- <15.0 Antibody not detected > or = 15.0 Antibody detected THIS TEST WAS PERFORMED AT: [facility] [address] [place] [phone] RYLAN PALACIO MD Reason For Referral Reason Evaluate and Treat Questioning if patient has Androgenetic alopecia Diagnosis 1 Fatigue (R53.83) Diagnosis 2 Obesity (BMI 30.0-34 .9) (E66.9) Diagnosis 3 Cervical radiculopat hy (M54.12) Diagnosis 4 Polycystic ovaries ( E28.2) Referral Organization Derian Smith III, MD Referring Provider First Name Derian Referring Provider Last Name Sarah Referring Provider Speciality Internal edicine Referred Organization [facility] nter Referred Provider [facility] er, [facility] [employer] [facility] Referred Address [address] [place] [id number], Referred Provider Specialty OB - Gynecol ogy [...] Provider Speciality Internal M edicine Referred Provider [facility] er, Pulmonology Referred Provider Specialty Pulmonary [...] Status W/U Status Risk Notes Problem Fatigue (36147588) Fatigue (R53.83) Active confirmed A sleep study has been ordered to evaluate her complaints of insomnia and daytime somnolence and snoring. He'll be seen thereafter. Problem [id number] Obesity (BMI 30.0-34.9) (E66.9) Active confirmed We [...] obesity. Various strategiees to reduce it. Problem [id number] Cervical radiculopathy (M54.12) Active confirmed The neck pain is not improved but the shoulder pain is described as a little better. He'll continue current therapy. If this has not improved in 3 weeks she will have imaging done and be referred for possible injections and physical therapy. Problem Polycystic ovary syndrome (disorder) (056424044) Polycystic ovaries (E28.2) Active confirmed She has been referred to DIRECTOR TALENT MANAGEMENT for evaluation and management and routine reproductive [...] Date Provider Diagnosis Derian Smith III, MD [address] [place] [address] [place] [phone] 09/10/2024 Derian Smith Obesity (BMI 30.0-34 .9) E66.9 ; Cervical radiculopathy M54.12 and Fatigue R53.83 Derian Smith III, MD [address] [place] [address] [place] [phone] 09/24/2024 Derian Smith Obesity (BMI 30.0-34 .9) E66.9 ; Cervical radiculopathy M54.12 and Polycystic ovaries E28.2 Derian Smith III, MD [address] [place] [address] [place] [phone] 11/12/2024 Derian Smith Obesity (BMI 30.0-34 .9) E66.9 ; Fatigue R53.83 ; Cervical radiculopathy M54.12 and Polycystic ovaries E28.2 Derian Smith III, MD [address] [place] [address] [place] [phone] 12/03/2024 Derian Smith Obesity (BMI 30.0-34 .9) E66.9 ; Fatigue R53.83 ; Polycystic ovaries E28.2 and Cervical radiculopathy M54.12 Derian Smith III, MD [address] [place] [address] [place] [id number] 01/08/2025 Derian Smith Obesity (BMI 30.0-34 .9) E66.9 ; Fatigue R53.83 ; Polycystic ovaries E28.2 and Cervical radiculopathy M54.12 Derian Smith III, MD [address] [place] [address] [place] [phone] 12/17/2024 Derian Smith III, MD [address] [place] [address] [place] [id number] 12/17/2024 Derian Smith Assessments Encounter Date Diagnosis [...] - E28.2) She has been referred to DIRECTOR TALENT MANAGEMENT for evaluation and management and routine reproductive [...] - E28.2) She has been referred to DIRECTOR TALENT MANAGEMENT for evaluation and management and routine reproductive health care. She is not at this time. She does not have contraception. 01/08/2025 Polycystic ovaries (ICD-10 - E28.2) She has been referred to DIRECTOR TALENT MANAGEMENT for evaluation and management and routine reproductive health care. She is not at this time. She does not have contraception. 11/12/2024 Polycystic ovaries (ICD-10 - E28.2) She has been referred to DIRECTOR TALENT MANAGEMENT for evaluation and management and routine reproductive [...] 09/10/2024 PROFILE, FASTING (COMPREHENSIVE METABOLI C) 10/10/2022 PROFILE, FASTING (COMPREHENSIVE METABOLI C) 11/12/2024 TSH (THYROID STIMULATING HORMONE) 2024 CBC w DIFF 09/10/2024 CBC w DIFF 10/10/2022 CBC w DIFF 11/12/2024 SED RATE (ESR) 10/10/2022 SED RATE (ESR) 11/12/2024 Sleep Study - Baseline 12/03/2024 Lipid Panel 10/10/2022 Next Appt Details Provider Name:Derian Smith , 03/13/2025 03:00:00 PM, [address] [place] [address] [address], [place], [phone], Provider Name:Derian Gouldrne , 11/16/2025 02:30:00 PM, [address] [place] [address] [address], [place], [phone], Insurance Providers Payer Name Payer Address Payer Phone Subscriber Number Group Number Insured Name Patient Relationship to Insured Coverage Start Date Coverage End Date MEDICAID [place] [address] [place] [id number] KRZYSZTOF GARCIA Self - patient is the insured Medical (General) History Medical History History ICD Code Obesity Polycystic ovaries Cervical radiculopathy Surgical History Surgery Date(Month/Year) Cholecystectomy for cholecystitis 2013 Hospitalization History Reason Date(Month/Year) food poisoning 2022 [facility] cholecystectomy for stones
--- OUTSIDE RECORDS SUMMARY | 2025-02-04 14:47 | XMS_ITS | Encounter Summary ---
Author Organization [facility] Address [address] [place] [address] Phone Care Team Providers Care Stylist Apprentice Name Role Phone Gema Rosado MD Primary Care Provider Encounter Details Date Type Department Care Team (Late st Contact Info) Description 06/26/2016 Documentation [facility] Family Medicine [address] [place] [address] Family Medicine, Physician [address] [place] [address] Social History Tobacco Use Types Packs/Day Years [...] on filedocumented in this encounter Care Teams Stylist Apprentice Relationship Specialty Start Date End Date Gema Rosado MD [address] [place] [address] PCP - General 12/01/16 11/27/22 documented as of this encounter
--- OUTSIDE RECORDS SUMMARY | 2025-02-04 14:48 | XMS_ITS | Encounter Summary ---
Author Organization [facility] Address [address] [place] [address] Phone Care Team Providers Care Assistant Offset Press Operator Name Role Phone Gema Rosado MD Primary Care Provider [phone] Encounter Details Date Type Department Care Team ([facility] Contact Info) Description 12/07/2016 Conversion Encounter [facility] [address] [place] [address] Social History Tobacco Use Types Packs/Day Years [...] on filedocumented in this encounter Care Teams Assistant Offset Press Operator Relationship Specialty Start Date End Date Gema Rosado MD [address] [place] [address] PCP - General 12/01/16 11/27/22 documented as of this encounter
--- OUTSIDE RECORDS SUMMARY | 2025-02-04 14:48 | XMS_ITS | Encounter Summary ---
Author Organization [facility] Address [address] [place] [address] Phone Care Team Providers Care Practical Nurse Clinical Coordinator Name Role Phone Gema Rosado MD Primary Care Provider [phone] Encounter Details Date Type Department Care Team (Late st Contact Info) Description 10/03/2016 Documentation [facility] Family Medicine [address] [place] [address] Family Medicine, Physician [address] [place] [address] Social History Tobacco Use Types Packs/Day Years [...] on filedocumented in this encounter Care Teams Practical Nurse Clinical Coordinator Relationship Specialty Start Date End Date Gema Rosado MD [address] [place] [id number] PCP - General 12/01/16 11/27/22 documented as of this encounter
--- OUTSIDE RECORDS SUMMARY | 2025-02-04 14:49 | XMS_ITS | Clinical Summary ---
Author Organization [facility] Address [address] [place] [address] Phone Care Team Providers Care Sausage Smoker Name Role Phone Unavailable Primary Care Provider [...] hCG, and Vitamin D level). Refer to VERIFICATION ENGINEER. Assessment & Plan (05/12/2022 2:36 PM EST): Has a dx of PCOS. Was on OCPs but stopped them. Menses had been fairly regular until Sept then no menses since then. Not sexually active. Plan: Check labs (DHEAS, T, LH, FSH, prolactin, TFTs, serum hCG, and Vitamin D level). Refer to VERIFICATION ENGINEER. BMI 36.0-36.9,adult 05/12/2022 Overview (05/12/2022): Exercising regularly [...] as necessary. PLAN: 1. Follow up with [facility]; Futher appt were not scheduled, today was [...] as necessary. PLAN: 1. Follow up with [facility]; Virtual visit scheduled, Lee Ann is aware [...] as necessary. PLAN: 1. Follow up with [facility]; Virtual visit scheduled, Lee Ann is aware [...] Christi Lopez PsyD (behavioral health provider at [facility]) in August of this year. She [...] as necessary. PLAN: 1. Follow up with [facility]; Virtual visit scheduled, Lee Ann is aware [...] as necessary. PLAN: 1. Follow up with [facility]; Virtual visit scheduled, Lee Ann is aware [...] daily. Doing well On campus at [employer] and also doing two jobs.Lee Ann is [...] She will continue to follow closely with [facility] provider at [facility] & alert us to any issues [...] 1 month. Did not get any refills. Earth it did not make her periods regular. 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 Procedure Name Priority Date/Time Associated Diagnosis Comments CHLAMYDIA AND GONORRHEA, AMPLIFIED Routine 05/12/2022 2:38 PM EST Special screening examination for chlamydial disease from Last 3 Months or Most Recently Relevant to Health Maintenance Results * Due to [place] [employer] law, this organization might not be sharing sensitive test results. * Chlamydia and Gonorrhoea, Amplified (05/12/2022 2:38 PM EST) Chlamydia Trachomatis, DNA Probe NEGATIVE (NEG) [facility] Comment: No Chlamydia Trachomatis RNA detected in this patient's sample (REFERENCE RANGE/NORMAL VALUE: NOT DETECTED) Note: This test uses shower screen installer- mediated amplification method to detect rRNA from C. Trachomatis URINE GC AMP PROBE NEGATIVE (NEG) [facility] Comment: No Neisseria Gonorrhoeae RNA detected in this patient's sample (REFERENCE RANGE/NORMAL VALUE: NOT DETECTED) NOTE: This test uses shower screen installer-mediated amplification method to detect rRNA from N.Gonorrhoeae. [...] without risk of sexual abuse. Consult the [facility] if needed. Contact phone number . Therapeutic failure or success cannot be determined with the Aptima Combo2 assay since nucleic acid may persist following appropriate antimicrobial therapy. The Centers for Disease Control and Prevention (CDC) recommends confirmatory retesting using culture or a different nucleic acid amplification test when positive results occur, if indicated. Testing performed or reported by [facility], a Service of [facility], [address] [place] [address] Aly Quinonez MD, Brewing Director [facility]# [id number] Urine (Urine) 05/12/2022 2:3 8 PM EST 05/13/2022 7:45 AM EST us Jessica Garnica MD LAB MICROBIOLOGY - GENERAL ORD ERABLES Final Result [facility] from Last 3 Months or Most Recently Relevant to Health Maintenance Insurance [facility] [place] [place] [address] [facility]
== END 2025-02-04 13:09 | disposition home or self-care (01) ==
LOC: HO.HWS 11:39
PROVIDERS: PCP Internal Medicine Medical Oncology; Visit Provider Advanced Practice Midwife
DX: L65.9 Nonscarring hair loss, unspecified (principal)
CPT/HCPCS: 99213

== ENCOUNTER → 2025-02-04 11:39 | Outpatient (BNVA) | payer MEDICAID, SELFPAY | PROVIDERS: PCP Internal Medicine Medical Oncology; Visit Provider Advanced Practice Midwife | DX: L65.9 Nonscarring hair loss, unspecified (principal) | CPT/HCPCS: 99212 ==

== ENCOUNTER 2025-02-27 10:52 | Outpatient (AMB) | payer MEDICAID, SELFPAY ==
--- OUTSIDE RECORDS SUMMARY | 2023-11-12 09:00 | XMS_ITS ---
Author Organization Derian Smith III, MD Address [address] [place] [address] Care Team Providers Care Chief Resource Officer Name Role Phone Dr. Derian Smith III [...] Date Provider Diagnosis Derian Smith III, MD [address] [place] [address] [place] [address] 11/12/2023 Derian Smith Obesity (BMI 30.0-34.9) E66.9 [...] - E28.2) She has been referred to [facility] for evaluation and management and routine reproductive [...] Provider Name:Derian Smith , 03/13/2025 03:00:00 PM, [address] [place] [address] [place], [address], Provider Name:Derian Smith , 11/16/2025 02:30:00 PM, [address] [place] [address] [place], [address], Progress Notes * KRZYSZTOF GARCIADOB: 1 (23 yo F)Acc No.[id number]:11/12/2023 Progress Notes Patient: KRZYSZTOF GÓMEZ Provider: Sherri Smith MD :2000 A ge:23 Y S ex:Female Date:11/12/2023 Address:[address] [place] [address] [place], [place] [facility] Subjective: * Chief Complaints: * A nnual Exam * HPI: D epression Screening: She returns to the office for her annual physical examination. She is up-to-date with her [facility]. She has no new complaints. She continues [...] * Surgical History: C holecystectomy for cholecystitis [id number] * Hospitalization/Major Diagno stic Procedure: b cholecystectomy [...] or drink. She does not have a zoroastrianism objection to blood transfusion. She does not have any children. She has no exposures to toxic materials. She was born in [place], [place]. Her parents are from [place]. * [...] - E28.2, She has been referred to [facility] for evaluation and management and routine reproductive [...] 0 11/12/2023 Generated for Marci rodarte/Agata/Sayitting on: 04/29/2024 01:03 PM EST History and Physical Notes * [...] days?: No Have you travelled internationally in [facility] last 10 days?: No Have you [...]
--- OUTSIDE RECORDS SUMMARY | 2024-09-10 05:30 | XMS_ITS ---
Author Organization Derian Smith III, MD Address [address] [place] [address] [place] [address] Care Team Providers Care Mat Packer Name Role Phone Dr. Derian Smith III Primary Care Provider Allergies Allergen (clinical drug ingredient) Drug/Non Drug Allergy documented on EMR Reaction Allergy Type Onset Date Status No Known Drug Allergy Unknown Drug Allergy Active Results Component Value Reference Range Notes Lipid Panel Reviewed date:09/16/2024 01:55:42 PM Interpretation: Performing Lab:[facility], [address] [place] [phone] Notes/Report: Triglycerides 241 <150 mg/dL Desirable Triglyceride: [...] Folate Reviewed date:09/16/2024 01:55:42 PM Interpretation: Performing Lab:[facility], [address] [place] [phone] Notes/Report: Vitamin B12 233 200-900 pg/mL NORMAL 200-900 PG/ML INDETERMINATE 160-199 PG/ML DEFICIENT < 160 PG/ML Folate 4.7 > or = 4.0 ng/mL Reference Values: > or = 4.0 ng/mL < 4.0 ng/mL suggests folate deficiency Methotrexate, aminopterin and folinic acid (leucovorin) are chemotherapeutic agents whose molecular structures are similar to folate; therefore, the Blower Room Attendant folate assay cannot be used for patients using these drugs. Free T4 (Free Thyroxine) Reviewed date:09/16/2024 01:55:42 PM Interpretation: Performing Lab:[facility], [address] [place] [phone] Notes/Report: Free T4 (Free Thyroxine) 0.98 0.71-1.85 [...] Problem Status W/U Status Risk Notes Problem [id number] Cervical radiculopathy (M54.12) Active confirmed The neck pain is not improved but the shoulder pain is described as a little better. He'll continue current therapy. If this has not improved in 3 weeks she will have imaging done and be referred for possible injections and physical therapy. Problem Fatigue (02906761) Fatigue (R53.83) Active confirmed A sleep study [...] Date Provider Diagnosis Derian Smith III, MD [address] [place] [address] [place] [address] 09/10/2024 Derian Smith Obesity (BMI 30.0-34 .9) [...] Name:Derian Smith , 03/13/2025 03:00:00 PM, 10 [facility] [address], [place], [address], Provider Name:Derian Smith , 11/16/2025 02:30:00 PM, 10 [facility] [address], [place], [address], Progress Notes * KRZYSZTOF GARCIADOB: 1 (24 yo F)Acc No.[id number]:09/10/2024 Progress Notes Patient: KRZYSZTOF GÓMEZ Provider: Sherri Smith MD :2000 A ge:24 Y S ex:Female Date:09/10/2024 Address:[address] [place] [address] FLOOR, [id number] Subjective: * Chief Complaints: * N ian [...] or drink. She does not have a hoahaoism objection to blood transfusion. She does not have any children. She has no exposures to toxic materials. She was born in [place], [place]. Her parents are from [place]. * [...] 0 09/10/2024 Generated for Marci rodarte/Agata/Sayitting on: 04/29/2024 01:04 PM EST History and Physical Notes * [...]
--- OUTSIDE RECORDS SUMMARY | 2024-09-24 05:15 | XMS_ITS ---
Author Organization Derian Smith III, MD Address [address] [place] [address] [place] [address] Care Team Providers Care Irrigation Laborer Name Role Phone Dr. Derian Smith III Primary Care Provider [phone] Allergies Allergen (clinical drug ingredient) Drug/Non Drug [...] Date Provider Diagnosis Derian Smith III, MD [address] [place] [address] [place] [address] 09/24/2024 Derian Smith Obesity (BMI 30.0-34 .9) [...] - E28.2) She has been referred to [facility] for evaluation and management and routine reproductive [...] Provider Name:Derian Smith , 03/13/2025 03:00:00 PM, [address] [place] [address] [address], [place], [address], Provider Name:Derian Smith , 11/16/2025 02:30:00 PM, [address] [place] [address] [place], [address], Progress Notes * KRZYSZTOF GARCIADOB: 1 (24 yo F)Acc No.[id number]:09/24/2024 Progress Notes Patient: Jus TROYSERGIOKRZYSZTOF Provider: Sherri Smith MD :2000 A ge:24 Y S ex:Female Date:09/24/2024 Address:[address] [place] [address] [address]LO[address], [id number] Subjective: * Chief Complaints: * N ian [...] * Surgical History: C holecystectomy for cholecystitis [id number] * Hospitalization/Major Diagno stic Procedure: b cholecystectomy [...] to toxic materials. She was born in [place], [place]. Her parents are from [facility]. * Medications: T akingD3 50 MCG [...] May have water,PLEASE FAX COMPLETED RESULTS TO [phone] L ab:Free T4 (Free Thyroxine) (Order Date - 09/10/2024) (Collection Date & Time - 09/10/2024 11:32 AM) Value Reference Range Free T4 (Free Thyroxine) 0.98 0.71-1.85 - ng/ dL Clinical Info: Please fast for 12-14 hours prior to having this labwork done. You may have black coffee or tea with no milk or sugar. May have water,PLEASE FAX COMPLETED RESULTS TO [phone] L ab:Complete Blood Count Auto Diff (Order [...] Auto 0.000 0.0-0.012 - X10*3/uL L ab:Comprehensive [place]. Panel Fast (Order Date - 09/10/2024) (Collection [...] May have water,PLEASE FAX COMPLETED RESULTS TO [phone] Lab:Thyroid Stimulating Horm one * Collection Date [...] N otes :She has been referred to [facility] for evaluation and management and routine reproductive [...] 0 09/24/2024 Generated for Marci rodarte/Agata/eTransmitting on: 04/29/2024 01:04 PM EST History and [...]
--- OUTSIDE RECORDS SUMMARY | 2024-11-12 09:30 | XMS_ITS ---
Author Organization Derian Smith III, MD Address [address] [place] [address] [place] [address] Care Team Providers Care Lead Miner Name Role Phone Dr. Derian Smith III Primary Care Provider Allergies Allergen (clinical drug ingredient) Drug/Non Drug Allergy documented on EMR Reaction Allergy Type Onset Date Status No Known Drug Allergy Unknown Drug Allergy Active No Known Food Allergy Unknown Drug Allergy Active Results Component Value Reference Range Notes Magnesium Reviewed date:12/03/2024 04:20:57 PM Interpretation: Performing Lab:[facility], [address] [place] [phone] Notes/Report: Magnesium 2.1 1.6-2.6 mg/dL Lipid Panel Reviewed date:12/03/2024 04:20:57 PM Interpretation: Performing Lab:[facility], [address] [place] [phone] Notes/Report: Triglycerides 407 <150 mg/dL Desirable Triglyceride: [...] Date Provider Diagnosis Derian Smith III, MD [address] [place] [address] [place] [address] 11/12/2024 Derian Smith Obesity (BMI 30.0-34 .9) [...] - E28.2) She has been referred to [facility] for evaluation and management and routine reproductive [...] Weeks, Reason: OV Provider Name:Derian Smith , 03/13/2025 03:00:00 PM, [address] [place] [address] [address], [place], [address], Provider Name:Derian Smith , 11/16/2025 02:30:00 PM, [address] [place] [address] [address], [place], [address], Progress Notes * KRZYSZTOF GARCIADOB: 1 (24 yo F)Acc No.[id number]:11/12/2024 Progress Notes Patient: KRZYSZTOF GÓMEZ Provider: Sherri Smith MD :2000 A ge:24 Y S ex:Female Date:11/12/2024 Address:[address] [place] [address], [facility] Subjective: * Chief Complaints: * A nnual [...] or drink. She does not have a yazidi objection to blood transfusion. She does not have any children. She has no exposures to toxic materials. She was born in [place], [place]. Her parents are from [place]. * [...] N otes :She has been referred to [facility] for evaluation and management and routine reproductive [...] 0 11/12/2024 Generated for Marci rodarte/Agata/eTransmitting on: 04/29/2024 01:04 [...]
--- OUTSIDE RECORDS SUMMARY | 2024-12-03 10:45 | XMS_ITS ---
Author Organization Derian Smith III, MD Address [address] [place] [address] [place] [address] Care Team Providers Care Commis Chef Name Role Phone Dr. Derian Smith III Primary Care Provider [phone] Allergies Allergen (clinical drug ingredient) Drug/Non Drug Allergy documented on EMR Reaction Allergy Type Onset Date Status No Known Drug Allergy Unknown Drug Allergy Active No Known Food Allergy Unknown Drug Allergy Active Results Component Value Reference Range Notes Gliadin Ab Panel Reviewed date:01/17/2025 09:00:51 PM Interpretation: Performing Lab:[facility], [address] [place] [phone] Notes/Report: Gliadin Deamidated IgA Ab 4.5 Value Interpretation ----- <15.0 Antibody not detected > or = 15.0 Antibody detected Gliadin Deamidated IgG Ab 5.6 Value Interpretation ----- <15.0 Antibody not detected > or = 15.0 Antibody detected THIS TEST WAS PERFORMED AT: [facility] [address] [place] [phone] RYLAN PALACIO MD Reason For Referral Reason Evaluate and Treat Questioning if patient has Androgenetic alopecia Diagnosis 1 Fatigue (R53.83) Diagnosis 2 Obesity (BMI 30.0-34 .9) (E66.9) Diagnosis 3 Cervical radiculopat hy (M54.12) Diagnosis 4 Polycystic ovaries ( E28.2) Referral Organization Derian Smith III, MD Referring Provider First Name Derian Referring Provider Last Name Smith Ref[facility] Referred Organization [facility] nter Referred Provider [facility] er, [facility] Midwifery Referred Address [address] [place] [address],[place], [place],[phone], Referred Provider Specialty OB - Gynecol ogy General Notes D, 12/08/2024 09:40:19 AM > referral and progress note faxed. Patient made aware Referral Priority Routine Reason Evaluate and Treat AM Nausea, Abdominal pain after eating Diagnosis 1 Fatigue (R53.83) Diagnosis 2 Obesity (BMI 30.0-34 .9) (E66.9) Referral Organization Derian Smith III, MD Referring Provider First Name Derian Referring Provider Last Name Smith Referring Provider Speciality Internal edicine Referred Provider Derian Chow Referred Provider Specialty Gastroentero logy General Notes D, Isadora 12/09/2024 11:00:21 AM > Faxed referral with progress note and recent labs.Jus Suzanne CMA 12/10/2024 03:17:03 PM >received note via fax from Dr Chow office pt has appt on 01/20/2025 at 9:10am pt called and mailed this appt information also Referral Priority Routine Referral Appointment Date 01/20/2025 Reason Evaluate and Treat Needs Sleep Study Diagnosis 1 Daytime somnolence ( R40.0) Diagnosis 2 Obesity (BMI 30.0-34 .9) (E66.9) Diagnosis 3 Fatigue (R53.83) Referral Organization Derian Smith III, MD Referring Provider First Name Derian Referring Provider Last Name Smith Referring Provider Speciality Internal edicine Referred Provider [facility] er, Pulmonology Referred Provider Specialty Pulmonary Di [place] General Notes D, 12/08/2024 09:44:41 AM > Referral faxed with progress note Referral Priority Routine Referral Appointment Date 01/23/2025 REASON FOR VISIT Chronic fatigue, Obesity, Radiculopathy Medications Medication SIG (Take, Route, Fr equency, [...] Nonsmoker Additional Findings: Tobacco non-user Aggressive nonsmoker Vital Signs Temperature 97.0 degrees Fahrenheit 12/04/19 25 Blood pressure systolic 144 mm Hg 12/04/19 25 Blood pressure diastolic 81 mm Hg 025 Heart Rate 115 /min 12/03/2024 Height 5 ft 3 in in 12/03/2024 Weight 210 lbs 12/03/2024 BMI 37.2 kg/m2 12/03/2024 Encounters Encounter Location Date Provider Diagnosis Derian Smith III, MD [address] [place] [address] [place] [address] 12/03/2024 Derian Smith Obesity (BMI 30.0-34 .9) E66.9 ; Fatigue R53.83 ; Polycystic ovaries E28.2 and Cervical radiculopathy M54.12 Assessments Encounter Date Diagnosis (ICD Code) Assessment Notes Treat ment Notes Treatment Clinical Notes 12/03/2024 Obesity (BMI 30.0-34.9) (ICD-10 - E66.9) We [...] of obesity. Various strategiees to reduce it. 12/03/2024 Fatigue (ICD-10 - R53.83) This is becoming a chronic complaint. Repeat P conference blood work has been ordered to evaluate for a metabolic cause. 12/03/2024 Polycystic ovaries (ICD-10 - E28.2) She has been referred to [facility]SEATER OPERATOR for evaluation and management and routine reproductive health care. She is not at this time. She does not have contraception. 12/03/2024 Cervical radiculopathy (ICD-10 - M54.12) The neck pain is not improved but the shoulder pain is described as a little better. He'll continue current therapy. If this has not improved in 3 weeks she will have imaging done and be referred for possible injections and physical therapy. Plan Of Treatment Medication Medication Name Sig Start Date Stop Date Notes Loryna 3-0.02 MG TAKE ONE TABLET BY MOUTH EVERY DAY Oral Pending Test Test Name Order Date Sleep Study - Baseline 12/03/2024 Referrals Referral Date Details 12/03/2024 12/03/2024, Evaluate and Treat Questioning if patient has Androgenetic alopecia, [facility], [address] [place] [address], [place], [place], [phone], 12/03/2024 12/03/2024, Evaluate and Treat AM Nausea, Abdominal pain after eating, Derian Chow 12/04/2024 12/04/2024, Evaluate and Treat Needs Sleep Study, Pulmonology [facility] Next Appt Details Follow Up: 4 Weeks, Reason: OV Provider Name:Derian Smith , 03/13/2025 03:00:00 PM, [address] [place] [address] [address], [place], [address], Provider Name:Derian Smith , 11/16/2025 02:30:00 PM, [address] [place] [address] [address], [place], [phone], Progress Notes * KRZYSZTOF GARCIADOB: 1 (24 yo F)Acc No.[id number]:12/03/2024 Progress Notes Patient: KRZYSZTOF GÓMEZ Provider: Sherri Smith MD :2000 A ge:24 Y S ex:Female Date:12/03/2024 Address:[address] [place] [address], [id number] Subjective: * Chief Complaints: * C hronic fatigueObesityRadiculopathy * HPI: C OVID-19 Screening: She returns in follow-up of her complaints of severe feelings of tiredness and fatigue of recent origin. Her initial blood work was unremarkable. She has a sensation of facial puffiness. Additional laboratory data including a cortisol level have been ordered to evaluate this complaint. Her examination today showed no new findings. She is trying to lose weight. She is consuming a Mediterranean diet.I have ordered a sleep study to rule out sleep apnea she does complain of snoring at night. Questions H ave you had any new onset fever, chills, cough, congestion, sore throat, shortness of breath, muscle aches? N o * ROS: G eneral/Constitutional: pain o nly [...] enies. S ciatica d enies. W eakness C hronically tired and fatigued. S kin: Itching d enies. R harry d enies. S kin lesion(s)?denies. N eurologic: Difficulty speaking d enies. D izziness d enies.?Headache d enies. L ow back pain d enies. P sychiatric: Depressed mood d enies. * Medical History: * Surgical History: C holecystectomy for cholecystitis [id number] * Hospitalization/Major Diagno stic Procedure: b cholecystectomy [...] dditional Findings: Tobacco non-user A ggressive nonsmoker S he is now observe it most of her does not smoke or drink. She does not have a baptism objection to blood transfusion. She does not have any children. She has no exposures to toxic materials. She was born in [place], [place]. Her parents are from [place]. * Medications: T akingLoryna 3-0.02 MG Tablet TAKE ONE TABLET BY MOUTH EVERY DAY Oral Medication List reviewed and reconciled with the patientTaking Loryna 3-0.02 MG Tablet TAKE ONE TABLET BY MOUTH EVERY DAY Oral Medication List reviewed and reconciled with the patient * Allergies: N o Known Drug AllergyNo Known Food Allergyno[Allergies Verified] Objective: * Vitals: H t: 5 ft 3 in, Wt: 210, BMI:37.2, BP: 144/81, HR: 115, Temp: 97.0, Wt-k.25. * P ast Orders: Lab:Lipid Panel * Collection Date 11/14/2024 09/10/2024 Collection Time 10:45 AM 11:32 AM Order Date 11/12/2024 09/10/2024 Triglycerides 407 H (Ref Range: <150 mg/dL) 241 H (Ref Range: <150 mg/dL) Cholesterol 227 H (Ref Range: <200 mg/dL) 204 H (Ref Range: <200 mg/dL) LDL Cholesterol Calculated TNP (Ref Range: <100 mg/dL) 97 (Ref Range: <100 mg/dL) HDL Cholesterol 44 (Ref Range: >40 mg/dL) 59 (Ref Range: >40 mg/dL) Clinical Info: Please fast for 12-1 4 hours prior to having this labwork done. You may have black coffee or tea with no milk or sugar. May have water,Please have this testing done as soon as possible,PLEASE FAX COMPLETED RESULTS TO [phone] Please fast for 12-14 hours prior to having this labwork done. You may have black coffee or tea with no milk or sugar. May have water,PLEASE FAX COMPLETED RESULTS TO [phone] * Lab:Thyroid Stimulating Horm one * Collection Date 09/10/2024 03/06/2023 Collection Time 11:32 AM 10:46 AM Order Date 09/10/2024 03/06/2023 Thyroid Stimulating Hormone 1.82 (Ref Range: 0.32-4.0 uIU/mL) 1.05 (Ref Range: 0.32-4.0 uIU/mL) * Lab:Ana Scruggs. Dat l Fast * Collection Date 11/14/2024 09/10/2024 Collection Time 10:45 AM 11:32 AM Order Date 11/14/2024 09/10/2024 Sodium 139 (Ref Range: 135-145 mmol/L) 140 (Ref Range: 135-145 mmol/L) Bilirubin Total 0.3 (Ref Range: 0.0-1.0 mg/dL) 0.3 (Ref Range: 0.0-1.0 mg/dL) Aspartate Amino Transferase 27 (Ref Range: 5-31 U/L) 16 (Ref Range: 5-31 U/L) Alanine Aminotransferase 20 (Ref Range: 0-31 U/L) 18 (Ref Range: 0-31 U/L) Total Protein 7.5 (Ref Range: 6.5-8.0 g/dL) 7.6 (Ref Range: 6.5-8.0 g/dL) Albumin Level 4.1 (Ref Range: 3.5-5.0 g/dL) 3.9 (Ref Range: 3.5-5.0 g/dL) Alkaline Phosphatase 59 (Ref Range: 39-117 U/L) 56 (Ref Range: 39-117 U/L) Potassium 4.1 (Ref Range: 3.3-5.1 mmol/L) 4.1 (Ref Range: 3.3-5.1 mmol/L) Chloride 107 (Ref Range: 96-108 mmol/L) 109 H (Ref Range: 96-108 mmol/L) Carbon Dioxide 21 L (Ref Range: 22-29 mmol/L) 23 (Ref Range: 22-29 mmol/L) Anion Gap 15 (Ref Range: 12-20) 12 (Ref Range: 12-20) Blood Urea Nitrogen 13 (Ref Range: 9-16 mg/dL) 9 (Ref Range: 9-16 mg/dL) Creatinine 0.69 (Ref Range: 0.5-1.4 mg/dL) 0.70 (Ref Range: 0.5-1.4 mg/dL) Estimated Glomerular Filt Rate > 60 > 60 Glucose Fasting 86 (Ref Range: 60-99 mg/dL) 86 (Ref Range: 60-99 mg/dL) Calcium 9.0 (Ref Range: 8.4-10.2 mg/dL) 9.1 (Ref Range: 8.4-10.2 mg/dL) * Lab:Complete Blood Count Aut o Diff * Collection Date 11/14/2024 09/10/2024 Collection Time 10:45 AM 11:32 AM Order Date 11/14/2024 09/10/2024 White Blood Count 6.9 (Ref Range: 4.8-10.8 X10*3/uL) 7.9 (Ref Range: 4.8-10.8 X10*3/uL) Red Blood Count 4.89 (Ref Range: 4.20-5.50 X10*6/uL) 4.81 (Ref Range: 4.20-5.50 X10*6/uL) Hemoglobin 13.1 (Ref Range: 12.0-16.0 g/dl) 12.8 (Ref Range: 12.0-16.0 g/dl) Hematocrit 40.0 (Ref Range: 37.0-47.0 %) 39.7 (Ref Range: 37.0-47.0 %) Mean Corpuscular Volume 81.8 (Ref Range: 80.0-98.0 fL) 82.5 (Ref Range: 80.0-98.0 fL) Mean Corpuscular Hemoglobin 26.8 L (Ref Range: 27.0-33.0 pg) 26.6 L (Ref Range: 27.0-33.0 pg) Mean Corpuscular HGB Conc 32.8 (Ref Range: 31.0-35.0 g/dl) 32.2 (Ref Range: 31.0-35.0 g/dl) Red Cell Distribution Width 14.0 (Ref Range: 11.0-16.0 %) 14.0 (Ref Range: 11.0-16.0 %) Platelet Count 287 (Ref Range: 160-400 X10*3/uL) 310 (Ref Range: 160-400 X10*3/uL) Mean Platelet Volume 8.9 L (Ref Range: 9.4-12.3 fL) 8.8 L (Ref Range: 9.4-12.3 fL) Neutrophils Percent Auto 50.0 (Ref Range: 45-73 %) 53.0 (Ref Range: 45-73 %) Imm Gran Pct Auto 0.1 (Ref Range: 0.0-0.4 %) 0.1 (Ref Range: 0.0-0.4 %) Lymphocytes Percent Auto 40.1 H (Ref Range: 20-40 %) 36.8 (Ref Range: 20-40 %) Monocytes Percent Auto 7.0 (Ref Range: 2-11 %) 7.2 (Ref Range: 2-11 %) Eosinophils Percent Auto 2.2 (Ref Range: 0-4 %) 2.4 (Ref Range: 0-4 %) Basophils Percent Auto 0.6 (Ref Range: 0-2 %) 0.5 (Ref Range: 0-2 %) NRBC Pct Auto 0.0 (Ref Range: 0.0-0.2 /100WBC) 0.0 (Ref Range: 0.0-0.2 /100WBC) Neutrophils Absolute Auto 3.4 (Ref Range: 2.0-8.3 x10*3/uL) 4.2 (Ref Range: 2.0-8.3 x10*3/uL) Imm Gran Abs Auto 0.01 (Ref Range: 0.00-0.03 X10*3/uL) 0.01 (Ref Range: 0.00-0.03 X10*3/uL) Lymphocytes Absolute Auto 2.8 (Ref Range: 1.2-4.9 X10*3/uL) 2.9 (Ref Range: 1.2-4.9 X10*3/uL) Monocytes Absolute Auto 0.5 (Ref Range: 0.1-1.2 X10*3/uL) 0.6 (Ref Range: 0.1-1.2 X10*3/uL) Eosinophils Absolute Auto 0.2 (Ref Range: 0.0-0.4 X10*3/uL) 0.2 (Ref Range: 0.0-0.4 X10*3/uL) Basophils Absolute Auto 0.0 (Ref Range: 0.0-0.2 X10*3/uL) 0.0 (Ref Range: 0.0-0.2 X10*3/uL) NRBC Abs Auto 0.000 (Ref Range: 0.0-0.012 X10*3/uL) 0.000 (Ref Range: 0.0-0.012 X10*3/uL) ???Lab:Free T4 (Free Thyroxine) (Order Date - 09/10/2024) (Collection Date & Time - 09/10/2024 11:32 AM)?ValueReference Range?Free T4 (Free Thyroxine)0.980.71-1.85 - ng/dL?Clinical Info: Please fast for 12-14 hours prior tohaving this labwork done. You may have black coffee or tea with no milk or sugar. May have water,PLEASE FAX COMPLETED RESULTS TO [phone] ???Lab:Vitamin B12 and Folate (Order Date - 09/10/2024) (Collection Date & Time - 09/10/2024 11:32AM)?ValueReference Range?Vitamin [id number] - pg/mL?Folate4.7> or = 4.0 - ng/mL?Clinical Info: Please fast for 12-14 hours prior tohaving this labwork done. You may have black coffee or tea with no milk or sugar. May have water,PLEASE FAX COMPLETED RESULTS TO [phone] ???Lab:Magnesium (Order Date - 11/12/2024) (Collection Date & Time - 11/14/2024 10:45 AM)?ValueReference Range?Magnesium2.11.6-2.6 - mg/dL ?Clinical Info: Please fast for 12-14 hours prior tohaving this labwork done. You may have black coffee or tea with no milk or sugar. May have water,Ple ase have this testing done as soon as possible,PLEASE FAX COMPLETED RESULTS TO [phone] ???Lab:Erythrocyte Sedimentation Rate (Order Date - 11/14/2024) (Collection Date & Time - 11/14/2024 10:45 AM)?ValueReference Range?Erythrocyte Sedimentation [id number] - MM/HR ???Imaging:XR cervical spine 3V (Order Date - 09/10/2024) (Performed Date - 09/10/2024) * Examination: G eneral Examination: GENERAL APPEARANCE: p sueasant, well nourished, well developed, in no acute [...] sounds normal, no ascites, no organomegaly, no mass. RECTAL EXAM: n ot examined. MUSCULOSKELETAL: e xtremities unremarkable, no clubbing, cyanosis or edema. PERIPHERAL PULSES: n ormal. NEUROLOGIC: a lert and oriented, cranial nerves 2-12 grossly intact, deep tendon reflexes 2+ symmetrical, motor strength normal upper and lower extremities, sensory exam intact. PSYCH: a lert, oriented. Assessment: * Assessment: 1. F atigue - R53.83 (Primary) N otes :This is becoming a chronic complaint. Repeat P conference blood work has been ordered to evaluate for a metabolic cause. 2 . O besity (BMI 30.0-34.9) - [...] N otes :She has been referred to [facility]SE[facility] OPERATOR for evaluation and management and routine reproductive health care. She is not at this time. She does not have contraception. 4 . C ervical radiculopathy - M54.12 N otes :The neck pain is not improved but the shoulder pain is described as a little better. He'll continue current therapy. If this has not improved in 3 weeks she will have imaging done and be referred for possible injections and physical therapy. Plan: * Treatment: 2. O besity (BMI 30.0-34.9) Continue Loryna Tablet, 3-0.02 MG, TAKE ONE TABLET BY MOUTH EVERY DAY, Oral. Referral To:[facility] OB - Gynecology Reason:Evaluate and Treat Questioning if patient has Androgenetic alopecia Referral To:Derian Chow Gastroenterology Reason:Evaluate and Treat AM Nausea, Abdominal pain after eating Referral To:Pulmonology [facility] Pulmonary Diseases Reason:Evaluate and Treat Needs Sleep Study 3. P olycystic ovaries Referral To:[facility] OB - Gynecology Reason:Evaluate and Treat Questioning if patient has Androgenetic alopecia 4. C ervical radiculopathy Referral To:[facility] OB - Gynecology Reason:Evaluate and Treat Questioning if patient has Androgenetic alopecia 5. O thers Referral To:Pulmonology [facility] Pulmonary Diseases Reason:Evaluate and Treat Needs Sleep Study * Imaging: * I maging: Sleep Study - Baseline * Labs: * L ab: Gliadin Ab Panel * Procedure Codes: * Preventive Medicine: [...] Other reason not done * Follow Up: 4 Weeks (Reason: OV) * Images: * Sign off status: Completed true * Provider: Sherri Smith MD Date: 0 12/03/2024 Generated for Marci rodarte/Agata/Curtsmitting on: 1 04/29/2024 01:04 PM EST History and Physical [...] PSYCH: alert, oriented ORAL CAVITY: normal, unremarkable Consultation Request Notes Referral Date Referring Provider Referred Provider Not es 12/03/2024 [facility], [facility]wifery Evaluate and Treat Questioning if patient has Androgenetic alopecia 12/03/2024 Derian Smith Robert Evaluate and Treat AM Nausea, Abdominal pain after eating 12/04/2024 [facility], Pulmonology Evaluate and Treat Needs Sleep Study
--- OUTSIDE RECORDS SUMMARY | 2024-12-17 05:09 | XMS_ITS ---
Author Organization Derian Smith III, MD Address [address] [place] [address] [address] [facility] [facility] [place] [address] Care Team Providers Care Automatic Data Processing Planner Name Role Phone Dr. Derian Smith III Primary Care Provider REASON FOR VISIT Reschedule Appointment Request Social History Sex Assigned At : Social History Observation Description Sex Assigned At Female Encounters Encounter Location Date Provider Diagnosis Derian Smith III, MD [address] [place] [address] [place] [address] 12/17/2024 Derian Smith Plan Of Treatment Next Appt Details Provider Name:Derian Smith , 03/13/2025 03:00:00 PM, [address] [place] [address] [place], [address], Provider Name:Derian Smith , 11/16/2025 02:30:00 PM, [address] [place] [address] [place], [address], Progress Notes * KRZYSZTOF GARCIADOB: 1 (24 yo F)Acc No.[id number]:12/17/2024 Patient: KRZYSZTOF GÓMEZ :2000 A ge:24 Y S ex:Female Address:[address] [facility] [address], [place], [address] * true * Date: Generated for Printi caydne/Agata/eTransmitting on: 04/29/2024 01:05 PM EST
--- OUTSIDE RECORDS SUMMARY | 2024-12-17 05:09 | XMS_ITS ---
Author Organization Derian Smith III, MD Address [address] [place] [address] [place] [address] Care Team Providers Care Maintenance Tech Name Role Phone Dr. Derian Smith III Primary Care Provider REASON FOR VISIT Cancel Appointment Request Social History Sex Assigned At : Social History Observation Description Sex Assigned At Female Encounters Encounter Location Date Provider Diagnosis Derian Smith III, MD [address] [place] [address] [place] [address] 12/17/2024 Derian Smith Plan Of Treatment Next Appt Details Provider Name:Derian Smith , 03/13/2025 03:00:00 PM, [address] [place] [address] [place], [address], Provider Name:Derian Smith , 11/16/2025 02:30:00 PM, [address] [place] [address] [place], [address], Progress Notes * KRZYSZTOF GARCIADOB: 1 (24 yo F)Acc No.[id number]:12/17/2024 Patient: KRZYSZTOF GÓMEZ :2000 A ge:24 Y S ex:Female Address:[address] [facility] [address], [place], [address] * true * Date: Generated for Printi cayden/Agata/eTransmitting on: 04/29/2024 01:05 PM EST
--- OUTSIDE RECORDS SUMMARY | 2025-01-07 12:00 | XMS_ITS ---
Author Organization Derian Smith III, MD Address [address] [place] [address] [place] [address] Care Team Providers Care Cake Wrapper Name Role Phone Dr. Derian Smith III Primary Care Provider REASON FOR VISIT Follow up Social History Sex Assigned At : Social History Observation Description Sex Assigned At Female Encounters Encounter Location Date Provider Diagnosis Derian Smith III, MD [address] [place] [address] [place] [address] 01/07/2025 Derian Smith Plan Of Treatment Next Appt Details Provider Name:Derian Smith , 03/13/2025 03:00:00 PM, [address] [place] [address] [place], [address], Provider Name:Derian Smith , 11/16/2025 02:30:00 PM, [address] [place] [address] [place], [address], Progress Notes * KRZYSZTOF GARCIADOB: 1 (24 yo F)Acc No.[id number]:01/07/2025 Progress Notes Patient: KRZYSZTOF GÓMEZ Provider: Sherri Smith MD :2000 A ge:24 Y S ex:Female Date:01/07/2025 Address:[address] [facility] [address], [place] Subjective: * Chief Complaints: * 1 . Follow up. * Medical History: Objective: * Vitals: Assessment: Plan: * Treatment: * Images: * The named appointment provid er may or may not be the originator of this progress note, and it is not deemed complete until electronically signed by the appointment provider. Sign off status: Pending * Provider: Sherri Smith MD Date: 0 01/07/2025 Generated for Marci rodarte/Agata/Kasia on: 04/29/2024 01:04 PM EST
--- OUTSIDE RECORDS SUMMARY | 2025-01-08 04:15 | XMS_ITS ---
Author Organization Derian Smith III, MD Address [address] [place] [address] [place] [address] Care Team Providers Care Issue Clerk Name Role Phone Dr. Derian Smith III Primary Care Provider [phone] Allergies Allergen (clinical drug ingredient) Drug/Non Drug Allergy documented on EMR Reaction Allergy Type Onset Date Status No Known Drug Allergy Unknown Drug Allergy Active No Known Food Allergy Unknown Drug Allergy Active REASON FOR VISIT Chronic fatigue, Possible sleep apnea, Obesity, Cervical radiculopathy Medications Medication SIG (Take, Route, [...] nonsmoker Vital Signs Temperature 97.0 degrees Fahrenheit 01/09/20 25 Blood pressure systolic 127 mm Hg 01/09/20 25 Blood pressure diastolic 86 mm Hg 025 Heart Rate 112 /min 01/08/2025 Height 5 ft 3 in in 01/08/2025 Weight 208 lbs 01/08/2025 BMI 36.84 kg/m2 01/08/2025 Encounters Encounter Location Date Provider Diagnosis Derian Smith III, MD [address] [place] [address] [place] [address] 01/08/2025 Derian Smith Obesity (BMI 30.0-34 .9) E66.9 ; Fatigue R53.83 ; Polycystic ovaries E28.2 and Cervical radiculopathy M54.12 Assessments Encounter Date Diagnosis (ICD Code) Assessment Notes Treat ment Notes Treatment Clinical Notes 01/08/2025 Obesity (BMI 30.0-34.9) (ICD-10 - E66.9) We [...] of obesity. Various strategiees to reduce it. 01/08/2025 Fatigue (ICD-10 - R53.83) A sleep study has been ordered to evaluate her complaints of insomnia and daytime somnolence and snoring. He'll be seen thereafter. 01/08/2025 Polycystic ovaries (ICD-10 - E28.2) She has been referred to [facility] T[facility] for evaluation and management and routine reproductive health care. She is not at this time. She does not have contraception. 01/08/2025 Cervical radiculopathy (ICD-10 - M54.12) The neck [...] ONE TABLET BY MOUTH EVERY DAY Oral Next Appt Details Follow Up: 2 Months, Reason: OV Provider Name:Derian Smith , 03/13/2025 03:00:00 PM, [address] [place] [address] [address] [place], [place], [address], Provider Name:Derian Smith , 11/16/2025 02:30:00 PM, [address] [place] [address] [place], [address], Progress Notes * KRZYSZTOF GARCIADOB: 1 (24 yo F)Acc No.[id number]:01/08/2025 Progress Notes Patient: Jus TROYFIQUE, KRZYSZTOF Provider: Sherri Smith MD :2000 A ge:24 Y S ex:Female Date:01/08/2025 Address:[address] [place] [address] [address]LO[address], [id number] Subjective: * Chief Complaints: * C hronic fatiguePossible sleep apneaObesityCervical radiculopathy * HPI: C OVID-19 Screening: pulm for raj early ocotober, neck begtter,. Questions H ave you had any new onset fever, chills, cough, congestion, sore throat, shortness of breath, muscle aches? N o * ROS: G eneral/Constitutional: pain A bdominal pain after eating. C hills d enies.?Fatigue a dmits. F ever d enies. E NT: Decreased hearing d enies. R espiratory: Cough d enies. C ardiovascular: Chest pain with exertion d enies. D yspnea on exertion?denies. S hortness of breath w ith exertion. G astrointestinal: Constipation d enies. D ecreased [...] pain d enies. P sychiatric: Depressed mood w hich is mild. * Medical History: * Surgical History: C holecystectomy for cholecystitis 5848I1O8 * Hospitalization/Major Diagno stic Procedure: b cholecystectomy [...] or drink. She does not have a hindu objection to blood transfusion. She does not have any children. She has no exposures to toxic materials. She was born in [place], [place]. Her parents are from [facility]. * Medications: T akingLoryna 3-0.02 MG Tablet [...] H t: 5 ft 3 in, Wt: 208, BMI:36.84, BP: 127/86, HR: 112, Temp: 97.0, Wt-k.35. * Examination: G eneral Examination: GENERAL APPEARANCE: [...] lert, oriented. Assessment: * Assessment: 1. F ricardo - R53.83 (Primary) N otes :A sleep study has been ordered to evaluate her complaints of insomnia and daytime somnolence and snoring. He'll be seen thereafter. 2 . O besity (BMI 30.0-34.9) - [...] N otes :She has been referred to [facility] for evaluation and management and routine reproductive [...] injections and physical therapy. Plan: * Treatment: * Procedure Codes: * [...] reason not done * Follow Up: 2 Months (Reason: OV) * Images: * Sign off status: Completed true * Provider: Sherri Smith MD Date: 0 01/08/2025 Generated for Marci rodarte/Agata/Kasia on: 04/29/2024 01:05 PM EST History and Physical Notes * [...]
--- NOTE | 2025-02-27 10:56 | A.OFFVIS_ITS ---
Vital Signs 02/27/25 10:57 Height 5 ft 3 in Weight 214 lb BMI 37.9 BP 116/68 Pulse 96 Pulse Source Pulse Oximeter Pulse Oximetry (%) 99 Oxygen Delivery Method Room Air Intake Visit Reasons: Somnolence Escrow Assistant Required: No Mental Measurements Teacher: Mental Measurements Teacher offered & declined Accompanied by: Self / Same As Patient Allergies No Known Allergies (No Known Allergies*) Allergy (Verified 02/27/25 11:00) Medication List - Last Reconciled 02/27/25 by Анна Trinh LPN dicyclomine 10 - 20 mg PO TID drospirenone-ethinyl estradiol 3-0.02 mg (Griselda (28)) 1 tab PO DAILY famotidine mg PO HPI HPI Somnolence: Details: Lee Ann is a pleasant 24-year-old female, never smoker, with underlying asthma. She was referred by PCP for suspected sleep apnea. She reports ongoing history of loud snoring, morning headaches as well as daytime fatigue. She also described frequent nocturnal awakenings and paroxsymal nocturnal dyspnea. She denies prior sleep study. She reports h/o asthma as a child, previously prescribed Albuterol MDI however symptoms have resolved up until recently. She notes dyspnea with moderate exertion with associated chest tightness however infrequent. Denies cough or wheezing. At this time she denies any respiratory symptoms. Reports mild seasonal allergies. She denies any pertinent family history. [facility] Medical History (Updated 02/27/25 @ 12:21 by Lorna Nielsen NP) Hair loss PCOS (polycystic ovarian syndrome) No known health problems Surgical History Hx of cholecystectomy Family History Paternal Grandmother History of breast cancer Social History Alcohol intake: never Patient Tobacco Use Status: Never used Tobacco Female Reproductive History Menstrual Age of Menarche: 12 Review of Systems Const Denies chills, Denies excessive sweating, Denies fever(s), Denies headache(s) and Denies night sweats Eyes Denies dry eyes, Denies irritation and Denies itchy eyes ENT Reports Normal hearing present, Denies headache(s), Denies nasal congestion, Denies nasal discharge, Denies post nasal drip and Denies sore throat Card Denies chest pain, Denies chest pain at rest, Denies chest pain with activity, Denies claudication, Denies leg edema, Denies dyspnea, Reports dyspnea on exertion, Denies orthopnea and Denies paroxysmal nocturnal dyspnea Resp Denies chest congestion, Denies cough, Denies excessive phlegm production, Denies pain on inspiration, Denies pain with cough, Denies dyspnea, Reports dyspnea on exertion, Denies stridor and Denies wheezing Musc Denies myalgias Neuro Reports Normal hearing present and Denies headache(s) Endo Denies excessive sweating Tay/Lymph Denies lymphadenopathy Aller/Immun Denies itchy eyes, Denies seasonal rhinorrhea and Denies wheezing Physical Exam Vital Signs: Last Vital Signs Pulse 96 02/27/25 10:57 BP 116/68 02/27/25 10:57 Pulse Ox 99 02/27/25 10:57 Oxygen Delivery Method Room Air 02/27/25 10:57 BMI result Body Mass Index 37.9 Const General: cooperative, healthy appearing, comfortable, no acute distress, well developed and alert Nutritional Appearance: obese Orientation/consciousness: patient oriented x3 Limitations: no limitations HEENT Head: Yes normal to inspection, Yes normocephalic and Yes atraumatic Ears: hearing grossly normal bilaterally and external ears normal Eyes General: appearance normal, both eyes and all related structures Eyelids: Yes eyelids normal Sclerae: sclerae normal EOM: EOMs intact bilaterally Neck Neck: Yes normal visual inspection and Yes no lymphadenopathy Lymphatic: no lymphadenopathy noted Chest Chest palpation & inspection: normal inspection of the chest Resp Effort & Inspection: normal respiratory effort, able to speak in complete sentences, no audible wheezes, no cough, no stridor, not tachypneic, no tripod positioning and no use of accessory muscles Auscultation: clear to auscultation bilaterally Cardio Jugular venous distension: no JVD Rate: regular rate Rhythm: regular rhythm Skin Other: warm, dry General skin exam: no rashes or lesions noted Neuro General: patient oriented x3 Cranial nerves: Yes Normal hearing present Cognition (Neuro): normal cognition Gait exam (Neuro): Normal gait present Extrem General: Yes normal to inspection, Yes capillary refill normal, Yes no clubbing, cyanosis or edema and Yes no pedal edema Psych Appearance: grossly normal and well kempt Speech and movement: Normal speech and movement present and Clear speech present Affect: normal affect Attitude: cooperative Thought process: Normal thought process present Thought content: Normal thought content present Insight: Good insight present (Psych) Judgement: Good judgement present (Psych) Assessment & Plan Assessment & Plan (1) Daytime somnolence: Code(s): R40.0 - Somnolence Category: Medical (2) Loud snoring: Code(s): R06.83 - Snoring Category: Medical (3) Asthma: Code(s): J45.909 - Unspecified asthma, uncomplicated Category: Medical Plan Patient presents for pulmonary evaluation for suspected obstructive sleep apnea, reporting daytime fatigue, non restorative sleep, loud snoring, morning headaches and proximal nocturnal dyspnea. Will send for home sleep study for further evaluation. At this time she feels her asthma is relatively controlled, will send albuterol MDI to use p.r.n.. She is aware to call if asthma becomes less controlled and will consider further follow-up with PFT. All questions were answered and patient is in agreement of plan. Will follow-up to review results or sooner if needed. Orders: Orders RT home sleep study Today R06.83 - Snoring, R40.0 - Somnolence Medications: New albuterol sulfate 90 mcg/actuation 2 puffs inhalation Q4-6H PRN 1 ea 3RF shortness of breath or wheezing Coding Level of Care Code New Pt Level 3 (17504) Diagnoses Daytime somnolence R40.0 Loud snoring R06.83 Asthma J45.909
[2025-02-27 10:57] VITALS: BP 116/68; PULSE 96; O2SAT 99; BMI 37.9
--- OUTSIDE RECORDS SUMMARY | 2025-02-27 13:04 | XMS_ITS | Patient Health Record ---
Author Organization Derian Smith III, MD Address [address] [place] [address] Care Team Providers Care Heating Fixture Tender Name Role Phone Dr. Derian Smith III Primary Care Provider [phone] Allergies Allergen (clinical drug ingredient) Drug/Non Drug Allergy documented on EMR Reaction Allergy Type Onset Date Status No Known Drug Allergy Unknown Drug Allergy Active No Known Food Allergy Unknown Drug Allergy Active Results Component Value Reference Range Notes Pap Smear Reviewed date:05/30/2024 09:27:02 AM Interpretation: Performing Lab:[facility], [address] [place] [phone] Notes/Report: -- ---- Name: Krzysztof Garcia Nguyen Age/Sex: 23/F : 2000 Unit#: [id number] Attend Dr: Maria R Escobedo [facility] Re05/22/24 Status : DEP REF Location: [facility] Disch: -- ---- SPEC : [id number] RECD : 05/23/24 STATUS: CHARO ELMORE NUM: [id number] BETO: 05/22/24-[address]: Maria R Escobedo CNM ENTERED: 05/23/24-10 23 SP TYPE: Pap Smr OTHR DR: Derian Smith MD ORDERED: Pap Smear Interpretation Satisfactory for evaluation. Negative for intraepithelial lesion or malignancy. Clinical Information LMP:04/21/24 Previous PAP test: Never Other surgery: Other history: Material Received ThinPrep-Cervical Copies To: Derian Smith MD [address], [address] [place] [address] Maria R Escobedo CNM [facility] [address] [place] [address] -- ---- Signed (signature on file) KENDALL Pena (ASCP) 05/27/24 0835 -- ---- END OF REPORT Lipid Panel Reviewed date:09/16/2024 01:55:42 PM Interpretation: Performing Lab:[facility], [address] [place] [phone] Notes/Report: Triglycerides 241 <150 mg/dL Desirable Triglyceride: [...] Folate Reviewed date:09/16/2024 01:55:42 PM Interpretation: Performing Lab:[address] [phone] Notes/Report: Vitamin B12 233 200-900 pg/mL NORMAL 200-900 PG/ML INDETERMINATE 160-199 PG/ML DEFICIENT < 160 PG/ML Folate 4.7 > or = 4.0 ng/mL Reference Values: > or = 4.0 ng/mL < 4.0 ng/mL suggests folate deficiency Methotrexate, aminopterin and folinic acid (leucovorin) are chemotherapeutic agents whose molecular structures are similar to folate; therefore, the Testing Lead folate assay cannot be used for patients using these drugs. Free T4 (Free Thyroxine) Reviewed date:09/16/2024 01:55:42 PM Interpretation: Performing Lab:[facility], [address] [place] [phone] Notes/Report: Free T4 (Free Thyroxine) 0.98 0.71-1.85 ng/dL Complete Blood Count Auto Di ff Reviewed date:09/16/2024 01:55:42 PM Interpretation: Performing Lab:[facility], [address] [place] [phone] Notes/Report: White Blood Count 7.9 4.8-10.8 X10*3/uL [...] NRBC Abs Auto 0.000 0.0-0.012 X10*3/uL Comprehensive [place]. Panel Fa st Reviewed date:09/16/2024 01:55:42 PM Interpretation: Performing Lab:[facility], [address] [place] [phone] Notes/Report: Sodium 140 135-145 mmol/L Potassium 4.1 [...] Hormone Reviewed date:09/16/2024 01:55:42 PM Interpretation: Performing Lab:[facility], [address] [place] [phone] Notes/Report: Thyroid Stimulating Hormone 1.82 0.32-4.0 uIU/mL TSH 3rd Generation ([facility]) XR cervical spine 3V Reviewed date:09/16/2024 01:55:42 PM Interpretation: Performing Lab: Notes/Report: [address] [address] XRay Report Signed Patient: Krzysztof Garcia MR#: [id number] : 2000 Acct:[id number] Age/Sex: 24 / F ADM Date: 09/10/24 Loc: [facility] Attending Dr: Derian Smith MD Ordering Physician: Derian Smith MD Date of Service: 09/10/24 Procedure(s): XR cervical spine 3V Accession Number(s): [id number] cc: Derian Smith MD EXAMINATION: XR CERVICAL [...] 09/10/24 1242 DD/ 1140 TD/TT: 09/10/24 1146 Wine Fermenter: [address] [place] [address] XRay Report Signed Patient: Krzysztof Garcia MR#: [id number] : 2000 Acct:[id number] Age/Sex: 24 / F ADM Date: 09/10/24 Loc: HO.XRAY Attending Dr: Derian Smith MD Ordering Physician: Derian Smith MD Date of Service: 09/10/24 Procedure(s): XR cervical spine 3V Accession Number(s): [id number] cc: Derian Smith MD EXAMINATION: XR CERVICAL [...] 09/10/24 1242 DD/ 1140 TD/TT: 09/10/24 1146 Wine Fermenter: Magnesium Reviewed date:12/03/2024 04:20:57 PM Interpretation: Performing Lab:[facility], [address] [place] [phone] Notes/Report: Magnesium 2.1 1.6-2.6 mg/dL Lipid Panel Reviewed date:12/03/2024 04:20:57 PM Interpretation: Performing Lab:[facility], [address] [place] [phone] Notes/Report: Triglycerides 407 <150 mg/dL Desirable Triglyceride: [...] ff Reviewed date:12/03/2024 04:20:57 PM Interpretation: Performing Lab:[facility], [address] [place] [phone] Notes/Report: White Blood Count 6.9 4.8-10.8 X10*3/uL [...] te Reviewed date:12/03/2024 04:20:57 PM Interpretation: Performing Lab:[facility], [address] [place] [phone] Notes/Report: Erythrocyte Sedimentation Rate 21 0-20 MM/HR Patients with polycythemia and many hemoglobin abnormalities may have depressed sed rates whereas patients with anemia may have elevated sed rates. Comprehensive [place]. Panel Fa Reviewed date:12/03/2024 04:20:57 PM Interpretation: Performing Lab:[facility], [address] [place] [phone] Notes/Report: Sodium 139 135-145 mmol/L Potassium 4.1 [...] Panel Reviewed date:01/17/2025 09:00:51 PM Interpretation: Performing Lab:[facility], [address] [place] [phone] Notes/Report: Gliadin Deamidated IgA Ab 4.5 Value Interpretation ----- <15.0 Antibody not detected > or = 15.0 Antibody detected Gliadin Deamidated IgG Ab 5.6 Value Interpretation ----- <15.0 Antibody not detected > or = 15.0 Antibody detected THIS TEST WAS PERFORMED AT: [facility] [address] [place] [phone] RYLAN PALACIO MD Reason For Referral Reason Evaluate and Treat Questioning if patient has Androgenetic alopecia Diagnosis 1 Fatigue (R53.83) Diagnosis 2 Obesity (BMI 30.0-34 .9) (E66.9) Diagnosis 3 Cervical radiculopat hy (M54.12) Diagnosis 4 Polycystic ovaries ( E28.2) Referral Organization Derian Smith III, MD Referring Provider First Name Derian Referring Provider Last Name Sarah Referring Provider Speciality Internal edicine Referred Organization [facility] nter Referred Provider [facility], [facility] Referred Address [address] [place] [phone], Referred Provider Specialty OB - Gynecol ogy [...] Provider Speciality Internal M edicine Referred Provider [facility], Pulmonology Referred Provider Specialty Pulmonary [...] Status W/U Status Risk Notes Problem Fatigue (50272901) Fatigue (R53.83) Active confirmed A sleep study has been ordered to evaluate her complaints of insomnia and daytime somnolence and snoring. He'll be seen thereafter. Problem [id number] Obesity (BMI 30.0-34.9) (E66.9) Active confirmed We [...] obesity. Various strategiees to reduce it. Problem 83318807 Cervical radiculopathy (M54.12) Active confirmed The neck pain is not improved but the shoulder pain is described as a little better. He'll continue current therapy. If this has not improved in 3 weeks she will have imaging done and be referred for possible injections and physical therapy. Problem Polycystic ovary syndrome (disorder) (663222587) Polycystic ovaries (E28.2) Active confirmed She has been referred to [facility] for evaluation and management and routine [...] Provider Diagnosis Derian Smith III, MD [address] [place] [address] [place] [address] 09/10/2024 Derian Smith Obesity (BMI 30.0-34 .9) E66.9 ; Cervical radiculopathy M54.12 and Fatigue R53.83 Derian Smith III, MD [address] [place] [address] [place] [address] 09/24/2024 Derian Smith Obesity (BMI 30.0-34 .9) E66.9 ; Cervical radiculopathy M54.12 and Polycystic ovaries E28.2 Derian Smith III, MD [address] [place] [address] [place] [address] 11/12/2024 Derian Smith Obesity (BMI 30.0-34 .9) E66.9 ; Fatigue R53.83 ; Cervical radiculopathy M54.12 and Polycystic ovaries E28.2 Derian Smith III, MD [address] [place] [address] [place] [address] 12/03/2024 Derian Smith Obesity (BMI 30.0-34 .9) E66.9 ; Fatigue R53.83 ; Polycystic ovaries E28.2 and Cervical radiculopathy M54.12 Derian Smith III, MD [address] [place] [address] [place] [address] 01/08/2025 Derian Smith Obesity (BMI 30.0-34 .9) E66.9 ; Fatigue R53.83 ; Polycystic ovaries E28.2 and Cervical radiculopathy M54.12 Derian Smith III, MD [address] [place] [address] [place] [address] 12/17/2024 Derian Smith III, MD [address] [place] [address] [place] [address] 12/17/2024 Deiran Smith Assessments Encounter Date Diagnosis (ICD Code) [...] - E28.2) She has been referred to [facility] for evaluation and management and routine [...] - E28.2) She has been referred to [facility] for evaluation and management and routine reproductive health care. She is not at this time. She does not have contraception. 01/08/2025 Polycystic ovaries (ICD-10 - E28.2) She has been referred to [facility] for evaluation and management and routine reproductive health care. She is not at this time. She does not have contraception. 11/12/2024 Polycystic ovaries (ICD-10 - E28.2) She has been referred to [facility] for evaluation and management and routine [...] Name:Derian Smith , 03/13/2025 03:00:00 PM, [address] [place] [address] [address], [place], [address], Provider Name:Derian Gouldrne , 11/16/2025 02:30:00 PM, [address] [place] [address] [address], [place], [address], Insurance Providers Payer Name Payer Address Payer Phone Subscriber Number Group Number Insured Name Patient Relationship to Insured Coverage Start Date Coverage End Date MEDICAID [place] [address] [place] [id number] KRZYSZTOF GARCIA Self - patient is the insured Medical (General) History Medical History History ICD Code Obesity Polycystic ovaries Cervical radiculopathy Surgical History Surgery Date(Month/Year) Cholecystectomy for cholecystitis 2013 Hospitalization History Reason Date(Month/Year) food poisoning 2022 [facility] cholecyst[facility] stones
--- OUTSIDE RECORDS SUMMARY | 2025-02-27 13:04 | XMS_ITS | Encounter Summary ---
Author Organization [facility] Address [address] [place] [address] Phone Care Team Providers Care Crate Builder Name Role Phone Gema Rosado MD Primary Care Provider [phone] Encounter Details Date Type Department Care Team (Late st Contact Info) Description 10/03/2016 Documentation [facility] Family Medicine [address] [place] [address] Family Medicine, Physician [address] [place] [address] Social History Tobacco Use Types Packs/Day Years [...] on filedocumented in this encounter Care Teams Crate Builder Relationship Specialty Start Date End Date Gema Rosado MD [address] [place] [address] PCP - General 12/01/16 11/27/22 documented as of this encounter
--- OUTSIDE RECORDS SUMMARY | 2025-02-27 13:04 | XMS_ITS | Encounter Summary ---
Author Organization [facility] Address [address] [place] [address] Phone Care Team Providers Care Bottle Sorter Name Role Phone Gema Rosado MD Primary Care Provider [phone] Encounter Details Date Type Department Care Team (Late st Contact Info) Description 06/26/2016 Documentation [facility] Family Medicine [address] [place] [address] Family Medicine, Physician [address] [place] [address] Social History Tobacco Use Types Packs/Day Years [...] on filedocumented in this encounter Care Teams Bottle Sorter Relationship Specialty Start Date End Date Gema Rosado MD [address] [place] [address] PCP - General 12/01/16 11/27/22 documented as of this encounter
--- OUTSIDE RECORDS SUMMARY | 2025-02-27 13:04 | XMS_ITS | Encounter Summary ---
Author Organization [facility] Address [address] [place] [address] Phone Care Team Providers Care Mechanical Sound Technician Name Role Phone Gema Rosado MD Primary Care Provider [phone] Encounter Details Date Type Department Care Team ([facility] Contact Info) Description 12/07/2016 Conversion Encounter [facility] [address] [place] [address] Social History Tobacco Use Types Packs/Day Years [...] on filedocumented in this encounter Care Teams Mechanical Sound Technician Relationship Specialty Start Date End Date Gema Rosado MD [address] [place] [address] PCP - General 12/01/16 11/27/22 documented as of this encounter
--- OUTSIDE RECORDS SUMMARY | 2025-02-27 13:04 | XMS_ITS | Encounter Summary ---
Author Organization [facility] Address [address] [place] [address] Phone Care Team Providers Care Knitter Hand Name Role Phone Gema Rosado MD Primary Care Provider [phone] Encounter Details Date Type Department Care Team (Late st Contact Info) Description 12/13/2012 Documentation [facility] [place] [facility] [address] [place] [address] Family Medicine, Physician [address] [place] [address] Social History Tobacco Use Types Packs/Day Years [...] on filedocumented in this encounter Care Teams Knitter Hand Relationship Specialty Start Date End Date Gema Rosado MD [address] [place] [address] PCP - General 12/01/16 11/27/22 documented as of this encounter
--- OUTSIDE RECORDS SUMMARY | 2025-02-27 13:05 | XMS_ITS | Clinical Summary ---
Author Organization [facility] Address [address] [place] [address] Phone Care Team Providers Care Boiler Operator Helper Name Role Phone Unavailable Primary Care Provider [...] hCG, and Vitamin D level). Refer to [facility]. Assessment & Plan (05/12/2022 2:36 PM EST): Has a dx of PCOS. Was on OCPs but stopped them. Menses had been fairly regular until Sept then no menses since then. Not sexually active. Plan: Check labs (DHEAS, T, LH, FSH, prolactin, TFTs, serum hCG, and Vitamin D level). Refer to [facility]. BMI 36.0-36.9,adult 05/12/2022 Overview (05/12/2022): Exercising regularly [...] necessary. PLAN: 1. Follow up with [facility]; Futher appt were not scheduled, today was [...] necessary. PLAN: 1. Follow up with [facility]; Virtual visit scheduled, Lee Ann is aware [...] necessary. PLAN: 1. Follow up with [facility]; Virtual visit scheduled, Lee Ann is aware [...] Christi Lopez PsyD (behavioral health provider at [facility]) in August of this year. She [...] necessary. PLAN: 1. Follow up with [facility]; Virtual visit scheduled, Lee Ann is aware [...] necessary. PLAN: 1. Follow up with [facility]; Virtual visit scheduled, Lee Ann is aware [...] p.o. daily. Doing well On campus at [facility] and also doing two jobs.Lee Ann is [...] She will continue to follow closely with [facility] provider at [facility] & alert us to any issues [...] 1 month. Did not get any refills. Carver it did not make her periods regular. 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 Procedure Name Priority Date/Time Associated Diagnosis Comments CHLAMYDIA AND GONORRHEA, AMPLIFIED Routine 05/12/2022 2:38 PM EST Special screening examination for chlamydial disease from Last 3 Months or Most Recently Relevant to Health Maintenance Results * Due to [place] [employer] law, this organization might not be sharing sensitive test results. * Chlamydia and Gonorrhoea, Amplified (05/12/2022 2:38 PM EST) Chlamydia Trachomatis, DNA Probe NEGATIVE (NEG) [facility] Comment: No Chlamydia Trachomatis RNA detected in this patient's sample (REFERENCE RANGE/NORMAL VALUE: NOT DETECTED) Note: This test uses certified surgical assistant- mediated amplification method to detect rRNA from C. Trachomatis URINE GC AMP PROBE NEGATIVE (NEG) [facility] Comment: No Neisseria Gonorrhoeae RNA detected in this patient's sample (REFERENCE RANGE/NORMAL VALUE: NOT DETECTED) NOTE: This test uses certified surgical assistant-mediated amplification method to detect rRNA from N.Gonorrhoeae. [...] without risk of sexual abuse. Consult the [facility] if needed. Contact phone number . Therapeutic failure or success cannot be determined with the Aptima Combo2 assay since nucleic acid may persist following appropriate antimicrobial therapy. The Centers for Disease Control and Prevention (CDC) recommends confirmatory retesting using culture or a different nucleic acid amplification test when positive results occur, if indicated. Testing performed or reported by [facility], a Service of [facility], [address] [place] [address] Aly Quinonez MD, Supervisor Sign Shop [facility]# [id number] Urine (Urine) 05/12/2022 2:3 8 PM EST 05/13/2022 7:45 AM EST us Jessica Garnica MD LAB MICROBIOLOGY - GENERAL ORD ERABLES Final Result [facility] from Last 3 Months or Most Recently Relevant to Health Maintenance Insurance [place] [id number] [facility]
--- OUTSIDE RECORDS SUMMARY | 2025-02-27 13:05 | XMS_ITS | Patient Health Record ---
Author Organization [facility] Address [address] [place] [address] Care Team Providers Care Locker Room Attendant Name Role Phone Sarah COONEY, Derian Primary Care Provider Derian Serrano Unavailable [phone] Results Component Value Reference Range Notes Ferritin Reviewed date:01/22/2025 01:24:45 AM Interpretation: Performing Lab:[facility], [address] [place] [phone] Notes/Report: Ferritin 63 10-122 ng/mL Transglutaminase Ab IgG Reviewed date:01/26/2025 11:24:08 PM Interpretation: Performing Lab:[facility], [address] [place] [phone] Notes/Report: Transglutaminase Ab IgG <1.0 Value Interpretation ----- <15.0 Antibody not detected > or = 15.0 Antibody detected THIS TEST WAS PERFORMED AT: [facility] [address] [address] RYLAN PALACIO MD Transglutaminase IgA Reviewed date:01/26/2025 11:23:34 PM Interpretation: Performing Lab:[facility], [address] [place] [phone] Notes/Report: Transglutaminase IgA <1.0 Value Interpretation ----- <15.0 Antibody not detected > or = 15.0 Antibody detected THIS TEST WAS PERFORMED AT: [facility] [address] [place] [phone] RYLAN PALACIO MD Gliadin Ab Panel Reviewed date:01/26/2025 11:23:56 PM Interpretation: Performing Lab:[facility], [address] [place] [phone] Notes/Report: Gliadin Deamidated IgA Ab 3.6 Value Interpretation ----- <15.0 Antibody not detected > or = 15.0 Antibody detected Gliadin Deamidated IgG Ab 5.6 Value Interpretation ----- <15.0 Antibody not detected > or = 15.0 Antibody detected THIS TEST WAS PERFORMED AT: [facility] [address] [place] [phone] RYLAN PALACIO MD Endomysial IgA rflx Titer Reviewed date:01/26/2025 11:24:02 PM Interpretation: Performing Lab:[facility], [address] [place] [phone] Notes/Report: Endomysial IgA Antibody Negative Negative THIS TEST WAS PERFORMED AT: [facility]/[address] [address] LEIA GARZA MD,PHD Endomysial Titer TNP Complete Blood Count Auto Di ff Reviewed date:02/10/2025 12:02:27 AM Interpretation: Performing Lab:[facility], [address] [place] [phone] Notes/Report: White Blood Count 7.9 4.8-10.8 X10*3/uL Red Blood Count 4.62 4.20-5.50 X10*6/uL Hemoglobin 12.6 12.0-16.0 g/dl Hematocrit 37.4 37.0-47.0 % Mean Corpuscular Volume 81.0 80.0-98.0 fL Mean Corpuscular Hemoglobin 27.3 27.0-33.0 pg Mean Corpuscular HGB Conc 33.7 31.0-35.0 g/dl Red Cell Distribution Width 13.7 11.0-16.0 % Platelet Count 284 160-400 X10*3/uL Mean Platelet Volume 8.9 9.4-12.3 fL Neutrophils Percent Auto 50.8 45-73 % Imm Gran Pct Auto 0.3 0.0-0.4 % Lymphocytes Percent Auto 41.8 20-40 % Monocytes Percent Auto 5.2 2-11 % Eosinophils Percent Auto 1.5 0-4 % Basophils Percent Auto 0.4 0-2 % NRBC Pct Auto 0.0 0.0-0.2 /100WBC Neutrophils Absolute Auto 4.0 2.0-8.3 x10*3/u L Imm Gran Abs Auto 0.02 0.00-0.03 X10*3/uL Lymphocytes Absolute Auto 3.3 1.2-4.9 X10*3/u L Monocytes Absolute Auto 0.4 0.1-1.2 X10*3/uL Eosinophils Absolute Auto 0.1 0.0-0.4 X10*3/u L Basophils Absolute Auto 0.0 0.0-0.2 X10*3/uL NRBC Abs Auto 0.000 0.0-0.012 X10*3/uL IRON PROFILE Reviewed date:01/22/2025 01:15:14 AM Interpretation: Performing Lab:[facility], [address] [place] [phone] Notes/Report: Iron 43 30-160 mcg/dL Total Iron Binding Capacity 367 228-428 mcg/d L Percent Iron Saturation 12 15-50 % Unsaturated Iron Binding 324 Reason For Referral Referring Provider First Name Derian Referring Provider Last Name Sarah Referring Provider Speciality Oncology Referred Organization [facility] Referred Provider Derian Chow Referred Address [address] [place] [phone], Referred Provider Specialty Gastroentero logy General Notes [...] Status Risk Notes Problem Irritable bowel syndrome (08979377) Irritable bowel syndrome (K58.9) Active confirmed Problem Abdominal bloating (041192527) Abdominal bloating (R14.0) Active confirmed Problem Heartburn (98539680) Heartburn (R12) Active confirmed Problem Gastroesophageal reflux disease (319888786) GERD (gastroesopha geal reflux disease) (K21.9) Active confirmed Vital Signs Temperature 97.5 degrees Fahrenheit 01/20/2025 Blood pressure diastolic 01 mm Hg 01/20/2025 Height 63 in 01/20/2025 Blood pressure systolic 001 mm Hg 01/20/2025 Weight 207.8 lbs 01/20/2025 BMI 36.81 kg/m2 01/20/2025 Encounters Encounter Location Date Provider Diagnosis [facility] [address] [place] [address] 01/20/2025 Derian Chow GERD (gastroesophage al reflux disease) K21.9 ; Irritable bowel syndrome K58.9 ; Heartburn R12 ; Abdominal bloating R14.0 and Abdominal pain, acute, generalized R10.84 Assessments Encounter Date Diagnosis (ICD Code) Assessment Notes Treatment Notes Treatment Clinical Notes Section Notes 01/20/2025 Irritable bowel syndrome (ICD-10 - K58.9) [...] Name:Derian Chow , 05/22/2025 01:00:00 PM, [address], [address], [place], [address], Insurance Providers Payer Name Payer Address Payer Phone Subscriber Number Group Number Insured Name Patient Relationship to Insured Coverage Start Date Coverage End Date MEDICAID OF [facility] [address] [place] [phone] [id number] KRZYSZTOF GARCIA Self - patient is the insured Medical (General) History Medical History History ICD Code Denies [place],DM,CVA,Lung disease,renal dise ase Surgical History Surgery Date(Month/Year) Gallbladder removal 2012
--- OUTSIDE RECORDS SUMMARY | 2025-02-27 13:06 | XMS_ITS | Data Portability ---
Author Organization GAMALIEL Roberson [facility] [address] Address [address] [place] [address] Care Team Providers Care Supervisor Concrete Stone Finishing Name Role Phone [facility] Primary Care Provid er Assessment No assessment recorded. Plan of Treatment Reminders Order Date Submit Date Provider Last Modified By Organization Details Last Modified Time Details Appointments None recorded. Lab rapid SARS CoV 2 Ag, QL IA, respiratory specimen 2022 023 [email or web address], [address] [place] [address], [phone], 13:15:58 rapid strep group A, throat 2022 023 [place] _[facility], [address] [place] [address], [phone], 13:21:40 Referral None recorded. Procedures None recorded. Surgeries None recorded. Imaging None recorded. Medication Orders None recorded. Patient TargetsNo targets recorded. Patient Instructions Encounter Date Encounter Id Patient Instructions Last Modified By Organization Details Last Modified Time 09/24/2022 [id number] your symptoms seem consistent with a viral [...] Analyte Normal = Negati ve Not Available [address] [place] [address], [phone], 09/24/2022 13:15:49 09/25/19 23 09/24/2022 rapid strep group A, throa t Unknown Analyte negati ve Not Available [address] [place] [address], [phone], 09/24/2022 13:15:49 09/25/19 23 09/24/2022 rapid SARS CoV 2 Ag, QL IA, respi rator y speci men Unknown Analyte Normal =Negat radha Not Available [address] [place] [address], [phone], 09/24/2022 12:29:13 09/25/1909/24/2022 rapid SARS CoV 2 Ag, QL IA, respi rator y speci men Unknown Analyte negati ve Not Available [address] [place] [address], [phone], 09/24/2022 12:29:13 Result Notes None recorded. Problems [...] Last Updated DateTime 160.02 cm 36.3 kg/m2 23951.4 4 g 6 97 % 97 % 112 /min 18 /min 99.3 [degF] 125/73 mm[Hg] VALENCIA LING PA - [facility] 12:29:07 Social History Question Answer Notes LastModified by [employer] Details LastModified Time Tobacco Smoking Status Never Smoker GAMALIEL Lentz [facility] 09/24/2022 12:25:30 Have You Recently Traveled Abroad? No Information not available 09/24/2022 Are You Currently In School? No Information not available 09/24/2022 Sex: Unknown Functional Status Question Answer Note LastModified by [employer] Details LastModified Time Do you use any [...] [facility] 09/24/2022 12:24:25 Tdap 3 completed VALENCIA ANURADAH null, PA - [facility] 09/24/2022 12:24:25 [...] split virus, quadrivalent, PF 8 completed VALENCIA LING null, PA - [facility] 09/24/2022 12:24:26 Influenza, split virus, quadrivalent, PF 9 completed VALENCIA ANURADHA null, PA - [facility] 09/24/2022 12:24:26 Past Encounters Encounter ID Performer Location Encounter Start Date Encounter Closed Date Diagnosis/Indication Diagnosis SNOMED-CT Code Diagnosis ICD10 Code Diagnosis IMO Codes Diagnosis Note [id number] GAMALIEL Buchanan [address] [address] 09/24/2022 10:20:48 09/24/2022 13:31:31 Cough 58799106 R05.9 Acute pharyngitis 963955 003 J02.9 Health Concerns Section Related Observation LastModified by Organization Detai ls LastModified Time None Recorded Concern Status LastModified by Organization Details LastModified Time None Recorded Advance Directives Directive None Recorded Payers Insurance Date Sequence Insurance Name Policy Number Policy Li Covered Member ID Li Member ID Guarantor Name 09/24/2022 1 [facility] (MEDICAID REPLACEMENT - HMO) CHILDACO Lee Ann Collinsnaomie [id number] Lee Ann Bell Notes Date Note Type [...] vomiting, andno post nasal drip. GAMALIEL Raymundo [facility] [place], [id number], PA - [facility] 09/24/2022 13:28:00 OBGyn Episode No OBEpisode recorded.
== END 2025-02-27 11:45 | disposition home or self-care (01) ==
LOC: HO.HPSW 10:53
PROVIDERS: PCP Internal Medicine Medical Oncology; Referring Provider Internal Medicine Medical Oncology; Visit Provider Nurse Practitioner Family
DX: R40.0 Somnolence (principal); R06.83 Snoring; J45.909 Unspecified asthma, uncomplicated
CPT/HCPCS: 99203

== ENCOUNTER → 2025-02-27 10:52 | Outpatient (BNVA) | payer MEDICAID, SELFPAY | PROVIDERS: PCP Internal Medicine Medical Oncology; Referring Provider Internal Medicine Medical Oncology; Visit Provider Nurse Practitioner Family | DX: R40.0 Somnolence (principal); R06.83 Snoring; J45.909 Unspecified asthma, uncomplicated | CPT/HCPCS: 99212 ==

== ENCOUNTER 2025-03-12 07:52 | Outpatient (REF) | payer OTHER, SELFPAY ==
--- OUTSIDE RECORDS SUMMARY | 2023-11-12 09:00 | XMS_ITS ---
Author Organization Derian Smith III, MD Address [address] [place] [address] Care Team Providers Care Lead Programmer Analyst Name Role Phone Dr. Derian Smith III Primary Care Provider [phone] Allergies Allergen (clinical drug ingredient) Drug/Non Drug [...] Date Provider Diagnosis Derian Smith III, MD [address] [place] [address] [place] [address] 11/12/2023 Derian Smith Obesity (BMI 30.0-34.9) E66.9 [...] - E28.2) She has been referred to [facility] for evaluation and management and routine reproductive [...] V, Annual Exam Provider Name:Derian Smith , 03/13/2025 03:00:00 PM, [address] [place] [address] [place], [address], Provider Name:Derian Smith , 11/16/2025 02:30:00 PM, [address] [place] [address] [place], [address], Progress Notes * KRZYSZTOF GARCIADOB: 1 (23 yo F)Acc No.[id number]:11/12/2023 Progress Notes Patient: KRZYSZTOF GÓMEZ Provider: Sherri Smith MD :2000 A ge:23 Y S ex:Female Date:11/12/2023 Address:[address] [place] [address] [place], [place] [facility] Subjective: * Chief Complaints: * A nnual Exam * HPI: D epression Screening: She returns to the office for her annual physical examination. She is up-to-date with her [facility]. She has no new complaints. She continues [...] * Surgical History: C holecystectomy for cholecystitis [id number] * Hospitalization/Major Diagno stic Procedure: b cholecystectomy [...] or drink. She does not have a jewish objection to blood transfusion. She does not have any children. She has no exposures to toxic materials. She was born in [place], [place]. Her parents are from [place]. * [...] - E28.2, She has been referred to [facility] for evaluation and management and routine reproductive [...] 11/12/2023 Generated for Marci rodarte/Agata/Sayitting on: 1 05/12/2024 08:02 AM EST History and Physical Notes * HPI [...] days?: No Have you travelled internationally in [facility] last 10 days?: No Have you [...] atraumatic, normocep halic EYES: eomi, perrla, anicte eil, conjugate EARS: normal NOSE: septum intact NECK/THYROID: [...]
--- OUTSIDE RECORDS SUMMARY | 2024-09-10 05:30 | XMS_ITS ---
Author Organization Derian Smith III, MD Address [address] [place] [address] [place] [address] Care Team Providers Care Rn Circulating Name Role Phone Dr. Derian Smith III Primary Care Provider [phone] Allergies Allergen (clinical drug ingredient) Drug/Non Drug Allergy documented on EMR Reaction Allergy Type Onset Date Status No Known Drug Allergy Unknown Drug Allergy Active Results Component Value Reference Range Notes Lipid Panel Reviewed date:09/16/2024 01:55:42 PM Interpretation: Performing Lab:[facility], [address] [place] [phone] Notes/Report: Triglycerides 241 <150 mg/dL Desirable Triglyceride: less than 150 mg/dL Borderline High Triglyceride 150-199 mg/dL High Triglyceride: 200-499 mg/dL Very High Triglyceride: greater than or equal to 5OO mg/dL Cholesterol 204 <200 mg/dL Desirable Cholesterol: less than 200 mg/dL Borderline High Cholesterol: 200-239 mg/dL High Cholesterol: greater than 239 mg/dL LDL Cholesterol Calculated 97 <100 mg/dL Desirable LDL: less than 100 mg/dL Near Optimal/Above Optimal LDL: 110-129 mg/dL Borderline High LDL: 130-159 mg/dL High LDL: 160-189 mg/dL Very High LDL: greater than or equal to 190 mg/dL HDL Cholesterol 59 >40 mg/dL Desirable HDL: greater than 40 mg/dL Note: This HDL assay may give artificially low results in patients with liver disease. Vitamin B12 and Folate Reviewed date:09/16/2024 01:55:42 PM Interpretation: Performing Lab:[facility], [address] [place] [phone] Notes/Report: Vitamin B12 233 200-900 pg/mL NORMAL 200-900 PG/ML INDETERMINATE 160-199 PG/ML DEFICIENT < 160 PG/ML Folate 4.7 > or = 4.0 ng/mL Reference Values: > or = 4.0 ng/mL < 4.0 ng/mL suggests folate deficiency Methotrexate, aminopterin and folinic acid (leucovorin) are chemotherapeutic agents whose molecular structures are similar to folate; therefore, the Director Of Casino folate assay cannot be used for patients using these drugs. Free T4 (Free Thyroxine) Reviewed date:09/16/2024 01:55:42 PM Interpretation: Performing Lab:[facility], [address] [place] [phone] Notes/Report: Free T4 (Free Thyroxine) 0.98 0.71-1.85 ng/dL REASON FOR VISIT Neck pain Radiation to left shoulder and left here for a month, Cramping and swelling of both handswith you this, Obesity, Polycystic ovaries Medications Medication SIG (Take, Route, Fr equency, Duration) Notes Start Date End Date Status dexAMETHasone 2 MG 1 tablet Orally twic e a day for 10 days 09/10/2024 Active D3 50 MCG (1999 UT) 1 tablet Orally Once a day Active [...] nonsmoker Additional Findings: Tobacco Non-User Aggressive non-smoker Problems Problem Type SNOMED Code ICD Code Onset Dates Problem Status W/U Status Risk Notes Problem 43865439 Cervical radiculopathy (M54.12) Active confirmed The neck pain is not improved but the shoulder pain is described as a little better. He'll continue current therapy. If this has not improved in 3 weeks she will have imaging done and be referred for possible injections and physical therapy. Problem Fatigue (02712227) Fatigue (R53.83) Active confirmed A sleep study has been ordered to evaluate her complaints of insomnia and daytime somnolence and snoring. He'll be seen thereafter. Vital Signs Temperature 97.5 degrees Fahrenheit 09/11/19 25 Blood pressure systolic 154 mm Hg 09/11/19 25 Blood pressure diastolic 90 mm Hg 025 Heart Rate 87 /min 09/10/2024 Height 5 ft 3 in in 09/10/2024 Weight 205 lbs 09/10/2024 BMI 36.31 kg/m2 09/10/2024 Encounters Encounter Location Date Provider Diagnosis Derian Smith III, MD [address] [place] [address] [place] [address] 09/10/2024 Derian Smith Obesity (BMI 30.0-34 .9) E66.9 ; Cervical radiculopathy M54.12 and Fatigue R53.83 Assessments Encounter Date Diagnosis (ICD Code) Assessment Notes Treat ment Notes Treatment Clinical Notes 09/10/2024 Obesity (BMI 30.0-34.9) (ICD-10 - E66.9) We [...] of obesity. Various strategiees to reduce it. 09/10/2024 Cervical radiculopathy (ICD-10 - M54.12) Her history is very typical of nerve impingement in the upper cervical spine. I have ordered x-rays and given her a prescription for dexamethasone. She will use heat and rest as well as Tylenol. 09/10/2024 Fatigue (ICD-10 - R53.83) She complains of feeling chronically tired. Comprehensive blood work with thyroid function tests have been ordered. Plan Of Treatment Medication Medication Name Sig Start Date Stop Date Notes dexAMETHasone 2 MG 1 tablet Orally twic e a day for 10 days 09/10/2024 D3 50 MCG (1999 UT) 1 tablet Orally Once a day Loryna 3-0.02 MG TAKE ONE TABLET BY M OUTH EVERY DAY Oral Pending Test Test Name Order Date PROFILE, FASTING (COMPREHENSIVE METABOLI C) 09/10/2024 TSH (THYROID STIMULATING HORMONE) 2024 CBC w DIFF 09/10/2024 Next Appt Details Follow Up: 2 Weeks, Reason: ov Provider Name:Derian Smith , 03/13/2025 03:00:00 PM, 10 [facility] [address], [place], [address], Provider Name:Derian Smith , 11/16/2025 02:30:00 PM, 10 [facility] [address], [place], [address], Progress Notes * KRZYSZTOF GARCIADOB: 1 (24 yo F)Acc No.[id number]:09/10/2024 Progress Notes Patient: KRZYSZTOF GÓMEZ Provider: Sherri Smith MD :2000 A ge:24 Y S ex:Female Date:09/10/2024 Address:[address] [place] [address] FLOOR, [id number] Subjective: * Chief Complaints: * N ian pain Radiation to left shoulder and left here for a monthCramping and swelling of both hands with you thisObesityPolycystic ovaries * HPI: C OVID-19 Screening: nerve imipingemen t neck leftear and shoulder, hands cramp up with use tingling with carrhying, 3) weight trying to exercise and lose weight. Questions H ave you had any new onset fever, chills, cough, congestion, sore throat, shortness of breath, muscle aches? N o * ROS: G eneral/Constitutional: pain N ian and left shoulder and left ear. C hills d enies. F atigue a dmits. F ever d enies. E [...] have been noted. G enitourinary: Frequent urination d enies. M usculoskeletal: Muscle aches d enies. P [...] * Surgical History: C holecystectomy for cholecystitis * Hospitalization/Major Diagno stic Procedure: b cholecystectomy [...] dditional Findings: Tobacco Non-User A ggressive non-smoker S he is now observe it most of her does not smoke or drink. She does not have a adventist objection to blood transfusion. She does not have any children. She has no exposures to toxic materials. She was born in [place], [place]. Her parents are from [place]. * Medications: T akingD3 50 MCG (2000 UT) Tablet 1 tablet Orally Once a day Loryna 3-0.02 MG Tablet TAKE ONE TABLET BY MOUTH EVERY DAY Oral Medication List reviewed and reconciled with the patientTaking D3 50 MCG (2000 UT) Tablet 1 tablet Orally Once a day Taking Loryna 3-0.02 MG Tablet TAKE ONE TABLET BY MOUTH EVERY DAY Oral Medication List reviewed and reconciled with the patient * Allergies: N o Known Drug Allergyno[Allergies Verified] Objective: * Vitals: H t: 5 ft 3 in, Wt: 205, BMI:36.31, BP: 154/90, HR: 87, Temp: 97.5, Wt-k.99. * Examination: G eneral Examination: GENERAL APPEARANCE: p yamil, well nourished, well developed, in no acute distress, calm and relaxed, obese, woman. HEAD: a traumatic, normocephalic. EYES: e isabelle, perrla, anicteric, conjugate. EARS: n ormal. NOSE: s eptum intact. ORAL CAVITY: n ormal, unremarkable. NECK/THYROID: n o jugular venous distention, no carotid bruit, thyroid normal, The range of motion of the neck is normal in all directions but did not last pain. Range of motion of the shoulder did not reproduce the pain.. LYMPH NODES: n o enlarged lymph nodes,spleen normal. SKIN: n o suspicious lesions, anicteric. HEART: n o clicks, gallops, murmurs, or rubs, regular rhythm, S1, S2 normal, no s3, or vascular bruits. LUNGS: c lear to auscultation . BREASTS: no masses palpable bilaterally. ABDOMEN: b owel sounds normal, no ascites, no organomegaly, no mass, centripital obesity. RECTAL EXAM: n ot examined. MUSCULOSKELETAL: e xtremities unremarkable, no clubbing, cyanosis or edema, Both hands were pink with good capillary filling N pulses. Reflexes are unremarkable.. PERIPHERAL PULSES: n ormal. NEUROLOGIC: a lert and oriented, cranial nerves 2-12 grossly intact, deep tendon reflexes 2+ symmetrical, motor strength normal upper and lower extremities, sensory exam intact. PSYCH: a lert, oriented. Assessment: * Assessment: 1. C ervical radiculopathy - M54.12 (Primary) N otes :Her history is very typical of nerve impingement in the upper cervical spine. I have ordered x-rays and given her a prescription for dexamethasone. She will use heat and rest as well as Tylenol. 2 . O besity (BMI 30.0-34.9) - E66.9 N otes :We have discussed diet and nutrition today. We made a plan to lose weight at a rate of one half of a pound per week through a diet restricted in fact calories and sodium combined with regular physical activity. Her weight is stable over the last 6 monnths. We reviewed the health consequences of obesity. Various strategiees to reduce it. 3 . F atigue - R53.83 N otes :She complains of feeling chronically tired. Comprehensive blood work with thyroid function tests have been ordered. Plan: * Treatment: 2. F atigue L AB: PROFILE, FASTING (COMPREHENSIVE METABOLIC) L AB: TSH (THYROID STIMULATING HORMONE) L AB: CBC w DIFF L AB: Lipid Panel L AB: Vitamin B12 and Folate L AB: Free T4 (Free Thyroxine) * Imaging: * I maging: XR CERVICAL SPINE 2-3 VIEWS * Procedure Codes: * Preventive Medicine: Counseling: C are goal follow-up plan: Counseling for abnormal BMI given Y es Above Normal BMI Follow-up D ietary management education, guidance, and counseling, Dietary needs education, Exercise promotion: strength training, Exercise promotion: stretching, Feeding regime, Giving encouragement to exercise, Lifestyle education regarding diet, Nutrition / feeding management, Nutrition therapy, Prescribed activity/exercise education, Prescribed diet education, Prescribed dietary intake, Special diet education, Weight monitoring , Intervention, Order not done: Medical or Other reason not done * Follow Up: 2 Weeks (Reason: ov) * Images: * Sign off status: Completed true * Provider: Sherri Smith MD Date: 0 09/10/2024 Generated for Marci rodarte/Agata/Sayitting on: 05/12/2024 08:02 AM EST History and Physical Notes * HPI (History of Present Illness) Category Sub-Category Detail Notes COVID-19 Screening Questions Have you had any new onset fever, chills, cough, congestion, sore throat, shortness of breath, muscle aches?: No Examination Category Sub-Category Detail Notes General Examination GENERAL APPEARANCE: pleasant , well nourished, well developed, in no acute distress, calm and relaxed, obese, woman HEAD: atraumatic, normocep halic EYES: eomi, perrla, anicte eli, conjugate EARS: normal NOSE: septum intact NECK/THYROID: no jugular venous di stention, no carotid bruit, thyroid normal, The range of motion of the neck is normal in all directions but did not last pain. Range of motion of the shoulder did not reproduce the pain. HEART: no clicks, gallops, murmurs, or rubs, regular rhythm, S1, S2 normal, no s3, or vascular bruits LUNGS: clear to auscultatio n ABDOMEN: bowel sounds normal, no ascites, no organomegaly, no mass, centripital obesity NEUROLOGIC: alert and oriented, cranial nerves 2-12 grossly intact, deep tendon reflexes 2+ symmetrical, motor strength normal upper and lower extremities, sensory exam intact SKIN: no suspicious lesion s, anicteric PERIPHERAL PULSES: normal BREASTS: no masses palpable b ilaterally MUSCULOSKELETAL: extremities unremark able, no clubbing, cyanosis or edema, Both hands were pink with good capillary filling N pulses. Reflexes are unremarkable. LYMPH NODES: no enlarged lymph no elida,spleen normal RECTAL EXAM: not examined PSYCH: alert, oriented ORAL CAVITY: normal, unremarkable
--- OUTSIDE RECORDS SUMMARY | 2024-09-24 05:15 | XMS_ITS ---
Author Organization Derian Smith III, MD Address [address] [place] [address] [place] [address] Care Team Providers Care Hand Tube Winder Name Role Phone Dr. Derian Smith III Primary Care Provider [phone] Allergies Allergen (clinical drug ingredient) Drug/Non Drug Allergy documented on EMR Reaction Allergy Type Onset Date Status No Known Drug Allergy Unknown Drug Allergy Active REASON FOR VISIT Neck pain with range of motion, Left shoulder pain, Cervical radiculopathy Medications Medication SIG (Take, Route, Fr equency, Duration) Notes Start Date End Date Status D3 50 MCG (1999) 1 tablet Orally Once a day Active Loryna 3-0.02 MG TAKE ONE TABLET BY M OUTH EVERY DAY Oral Active dexAMETHasone 2 MG 1 tablet Orally twice a day Active Social History Tobacco Use: Social History Observation Description Date Details (start date - stop date) Never Smoker NA - NA Sex Assigned At : Social History Observation Description Sex Assigned At Female Tobacco Use/Smoking Question Answer Notes Patient is a nonsmoker Additional Findings: Tobacco Non-User Aggressive non-smoker Vital Signs Temperature 97.2 degrees Fahrenheit 09/25/19 25 Blood pressure systolic 124 mm Hg 09/25/19 25 Blood pressure diastolic 73 mm Hg 025 Heart Rate 79 /min 09/24/2024 Height 5 ft 3 in in 09/24/2024 Weight 205 lbs 09/24/2024 BMI 36.31 kg/m2 09/24/2024 Encounters Encounter Location Date Provider Diagnosis Derian Smith III, MD [address] [place] [address] [place] [address] 09/24/2024 Derian Smith Obesity (BMI 30.0-34 .9) E66.9 ; Cervical radiculopathy M54.12 and Polycystic ovaries E28.2 Assessments Encounter Date Diagnosis (ICD Code) Assessment Notes Treat ment Notes Treatment Clinical Notes 09/24/2024 Obesity (BMI 30.0-34.9) (ICD-10 - E66.9) We [...] of obesity. Various strategiees to reduce it. 09/24/2024 Cervical radiculopathy (ICD-10 - M54.12) The neck pain is not improved but the shoulder pain is described as a little better. He'll continue current therapy. If this has not improved in 3 weeks she will have imaging done and be referred for possible injections and physical therapy. 09/24/2024 Polycystic ovaries (ICD-10 - E28.2) She has been referred to [facility] for evaluation and management and routine reproductive health care. She is not at this time. She does not have contraception. Plan Of Treatment Medication Medication Name Sig Start Date Stop Date Notes D3 50 MCG (1999) 1 tablet Orally Once a day Loryna 3-0.02 MG TAKE ONE TABLET BY M OUTH EVERY DAY Oral dexAMETHasone 2 MG 1 tablet Orally twice a day 09/10/2024 Next Appt Details Follow Up: 3 Weeks, Reason: ov Provider Name:Derian Smith , 03/13/2025 03:00:00 PM, [address] [place] [address] [address], [place], [address], Provider Name:Derian Smith , 11/16/2025 02:30:00 PM, [address] [place] [address] [place], [address], Progress Notes * KRZYSZTOF GARCIADOB: 1 (24 yo F)Acc No.[id number]:09/24/2024 Progress Notes Patient: Jus TROYSERGIOKRZYSZTOF Provider: Sherri Smith MD :2000 A ge:24 Y S ex:Female Date:09/24/2024 Address:[address] [place] [address] [address]LO[address], [id number] Subjective: * Chief Complaints: * N ian pain with range of motionLeft shoulder painCervical radiculopathy * HPI: C OVID-19 Screening: . He returns to the office for management of her cervical radiculopathy. The pain in her neck persists and continues to radiate to the top of her left shoulder. She has had no response to treatment so far. Her blood work was reviewed with her in detail. She says the shoulder pain may be a little better. Questions H ave you had any new onset fever, chills, cough, congestion, sore throat, shortness of breath, muscle aches? N o * ROS: G eneral/Constitutional: pain N ian and left shoulder. C hills d enies. F atigue a [...] Muscle aches d enies. P ainful joints N ian and left shoulder that is moderate. S ciatica d enies. W eakness d enies. S kin: Itching d enies. R harry d enies. S kin lesion(s)?denies. N eurologic: Difficulty speaking d enies. D izziness d enies.?Headache d enies. L ow back pain d enies. P sychiatric: Depressed mood d enies. * Medical History: * Surgical History: C holecystectomy for cholecystitis [id number] * Hospitalization/Major Diagno stic Procedure: b cholecystectomy [...] to toxic materials. She was born in [place], [place]. Her parents are from [facility]. * Medications: T akingD3 50 MCG (2000 UT) Tablet 1 tablet Orally Once a day Loryna 3-0.02 MG Tablet TAKE ONE TABLET BY MOUTH EVERY DAY Oral dexAMETHasone 2 MG Tablet 1 tablet Orally twice a day Medication List reviewed and reconciled with the patientTaking D3 50 MCG (2000 UT) Tablet 1 tablet Orally Once a day Taking Loryna 3-0.02 MG Tablet TAKE ONE TABLET BY MOUTH EVERY DAY Oral Taking dexAMETHasone 2 MG Tablet 1 tablet Orally twice a day Medication List reviewed and reconciled with the patient * Allergies: N o Known Drug Allergyno[Allergies Verified] Objective: * Vitals: H t: 5 ft 3 in, Wt: 205, BMI:36.31, BP: 124/73, HR: 79, Temp: 97.2, Wt-k.99. * P ast Orders: L ab:Vitamin B12 and Folate (Order Date - 09/10/2024) (Collection Date & Time - 09/10/2024 11:32 AM) Value Reference Range Vitamin B12 233 200-900 - pg/mL Folate 4.7 > or = 4.0 - ng/mL Clinical Info: Please fast for 12-14 hours prior to having this labwork done. You may have black coffee or tea with no milk or sugar. May have water,PLEASE FAX COMPLETED RESULTS TO [phone] L ab:Free T4 (Free Thyroxine) (Order Date - 09/10/2024) (Collection Date & Time - 09/10/2024 11:32 AM) Value Reference Range Free T4 (Free Thyroxine) 0.98 0.71-1.85 - ng/ dL Clinical Info: Please fast for 12-14 hours prior to having this labwork done. You may have black coffee or tea with no milk or sugar. May have water,PLEASE FAX COMPLETED RESULTS TO [phone] L ab:Complete Blood Count Auto Diff (Order Date - 09/10/2024) (Collection Date & Time - 09/10/2024 11:32 AM) Value Reference Range White Blood Count 7.9 4.8-10.8 - X10*3/uL Red Blood Count 4.81 4.20-5.50 - X10*6/uL Hemoglobin 12.8 12.0-16.0 - g/dl Hematocrit 39.7 37.0-47.0 - % Mean Corpuscular Volume 82.5 80.0-98.0 - fL Mean Corpuscular Hemoglobin 26.6 L 27.0-33.0 - pg Mean Corpuscular HGB Conc 32.2 31.0-35.0 - g/ dl Red Cell Distribution Width 14.0 11.0-16.0 - % Platelet Count 310 160-400 - X10*3/uL Mean Platelet Volume 8.8 L 9.4-12.3 - fL Neutrophils Percent Auto 53.0 45-73 - % Imm Gran Pct Auto 0.1 0.0-0.4 - % Lymphocytes Percent Auto 36.8 20-40 - % Monocytes Percent Auto 7.2 2-11 - % Eosinophils Percent Auto 2.4 0-4 - % Basophils Percent Auto 0.5 0-2 - % NRBC Pct Auto 0.0 0.0-0.2 - /100WBC Neutrophils Absolute Auto 4.2 2.0-8.3 - x10* 3/uL Imm Gran Abs Auto 0.01 0.00-0.03 - X10*3/uL Lymphocytes Absolute Auto 2.9 1.2-4.9 - X10* 3/uL Monocytes Absolute Auto 0.6 0.1-1.2 - X10*3/ uL Eosinophils Absolute Auto 0.2 0.0-0.4 - X10* 3/uL Basophils Absolute Auto 0.0 0.0-0.2 - X10*3/ uL NRBC Abs Auto 0.000 0.0-0.012 - X10*3/uL L ab:Comprehensive [place]. Panel Fast (Order Date - 09/10/2024) (Collection Date & Time - 09/10/2024 11:32 AM) Value Reference Range Sodium 140 135-145 - mmol/L Bilirubin Total 0.3 0.0-1.0 - mg/dL Aspartate Amino Transferase 16 5-31 - U/L Alanine Aminotransferase 18 0-31 - U/L Total Protein 7.6 6.5-8.0 - g/dL Albumin Level 3.9 3.5-5.0 - g/dL Alkaline Phosphatase 56 39-117 - U/L Potassium 4.1 3.3-5.1 - mmol/L Chloride 109 H 96-108 - mmol/L Carbon Dioxide 23 22-29 - mmol/L Anion Gap 12 12-20 - Blood Urea Nitrogen 9 9-16 - mg/dL Creatinine 0.70 0.5-1.4 - mg/dL Estimated Glomerular Filt Rate > 60 - Glucose Fasting 86 60-99 - mg/dL Calcium 9.1 8.4-10.2 - mg/dL L ab:Lipid Panel (Order Date - 09/10/2024) (Collection Date & Time - 09/10/2024 11:32 AM) Value Reference Range Triglycerides 241 H <150 - mg/dL Cholesterol 204 H <200 - mg/dL LDL Cholesterol Calculated 97 <100 - mg/dL HDL Cholesterol 59 >40 - mg/dL Clinical Info: Please fast for 12-14 hours prior to having this labwork done. You may have black coffee or tea with no milk or sugar. May have water,PLEASE FAX COMPLETED RESULTS TO [phone] Lab:Thyroid Stimulating Horm one * Collection Date 09/10/2024 03/06/2023 Collection Time 11:32 AM 10:46 AM Order Date 09/10/2024 03/06/2023 Thyroid Stimulating Hormone 1.82 (Ref Range: 0.32-4.0 uIU/mL) 1.05 (Ref Range: 0.32-4.0 uIU/mL) ???Imaging:XR cervical spine 3V (Order Date - 09/10/2024) (Performed Date - 09/10/2024) * Examination: G eneral Examination: GENERAL APPEARANCE: ayleen lobo, well nourished, well developed, in no acute distress, calm and relaxed, obese, woman. HEAD: a traumatic, normocephalic. EYES: e isabelle, perrla, anicteric, conjugate. EARS: n ormal. NOSE: s eptum intact. ORAL CAVITY: n ormal, unremarkable. NECK/THYROID: n o jugular venous distention, no carotid bruit, thyroid normal, Pain to range of motion of neck the left, pain to lateral flexion either direction. LYMPH NODES: n o enlarged lymph nodes,spleen normal. SKIN: n o suspicious lesions, anicteric. HEART: n o clicks, gallops, murmurs, or rubs, regular rhythm, S1, S2 normal, no s3, or vascular bruits. LUNGS: c lear to auscultation . BREASTS: N ot examined. ABDOMEN: b owel sounds normal, [...] ervical radiculopathy - M54.12 (Primary) N otes :The neck pain is not improved but the shoulder pain is described as a little better. He'll continue current therapy. If this has not improved in 3 weeks she will have imaging done and be referred for possible injections and physical therapy. 2 . O besity (BMI 30.0-34.9) - [...] Various strategiees to reduce it. 3 . P olycystic ovaries - E28.2 N otes :She has been referred to [facility] for evaluation and management and routine reproductive health care. She is not at this time. She does not have contraception. Plan: * Treatment: * Procedure Codes: * Preventive Medicine: Counseling: [...] Other reason not done * Follow Up: 3 Weeks (Reason: ov) * Images: * Sign off status: Completed true * Provider: Sherri Smith MD Date: 0 09/24/2024 Generated for Marci rodarte/Agata/eTransmitting on: 05/12/2024 08:03 AM EST History and Physical Notes * [...] di stention, no carotid bruit, thyroid normal, Pain to range of motion of neck the left, pain to lateral flexion either direction HEART: no clicks, gallops, murmurs, or rubs, [...] lesion s, anicteric PERIPHERAL PULSES: normal BREASTS: Not examined MUSCULOSKELETAL: extremities unremark able, no clubbing, cyanosis or edema LYMPH NODES: no enlarged lymph no elida,spleen normal RECTAL EXAM: not examined PSYCH: alert, oriented ORAL CAVITY: normal, unremarkable
--- OUTSIDE RECORDS SUMMARY | 2024-11-12 09:30 | XMS_ITS ---
Author Organization Derian Smith III, MD Address [address] [place] [address] [place] [address] Care Team Providers Care Division Plant Engineer Name Role Phone Dr. Derian Smith III Primary Care Provider [phone] Allergies Allergen (clinical drug ingredient) Drug/Non Drug Allergy documented on EMR Reaction Allergy Type Onset Date Status No Known Drug Allergy Unknown Drug Allergy Active No Known Food Allergy Unknown Drug Allergy Active Results Component Value Reference Range Notes Magnesium Reviewed date:12/03/2024 04:20:57 PM Interpretation: Performing Lab:[facility], [address] [place] [phone] Notes/Report: Magnesium 2.1 1.6-2.6 mg/dL Lipid Panel Reviewed date:12/03/2024 04:20:57 PM Interpretation: Performing Lab:[facility], [address] [place] [phone] Notes/Report: Triglycerides 407 <150 mg/dL Desirable Triglyceride: [...] Date Provider Diagnosis Derian Smith III, MD [address] [place] [address] [place] [address] 11/12/2024 Derian Smith Obesity (BMI 30.0-34 .9) [...] - E28.2) She has been referred to [facility] ADMINISTR[facility] for evaluation and management and routine reproductive [...] Provider Name:Derian Smith , 03/13/2025 03:00:00 PM, [address] [place] [address] [address], [place], [address], Provider Name:Derian Smith , 11/16/2025 02:30:00 PM, [address] [place] [address] [address], [place], [address], Progress Notes * KRZYSZTOF GARCIADOB: 1 (24 yo F)Acc No.[id number]:11/12/2024 Progress Notes Patient: KRZYSZTOF GÓMEZ Provider: Sherri Smith MD :2000 A ge:24 Y S ex:Female Date:11/12/2024 Address:[address] [place] [address], [id number] Subjective: * Chief Complaints: * A nnual [...] or drink. She does not have a christianity objection to blood transfusion. She does not have any children. She has no exposures to toxic materials. She was born in [place], [place]. Her parents are from [place]. * [...] N otes :She has been referred to EDUC[facility] ADMINISTRATOR for evaluation and management and routine reproductive [...] 0 11/12/2024 Generated for Marci rodarte/Agata/eTransmitting on: 05/12/2024 08:02 AM EST History and [...]
--- OUTSIDE RECORDS SUMMARY | 2024-12-03 10:45 | XMS_ITS ---
Author Organization Derian Smith III, MD Address [address] [place] [address] [place] [address] Care Team Providers Care Pelt Dropper Name Role Phone Dr. Derian Smith III Primary Care Provider Allergies Allergen (clinical drug ingredient) Drug/Non Drug Allergy documented on EMR Reaction Allergy Type Onset Date Status No Known Drug Allergy Unknown Drug Allergy Active No Known Food Allergy Unknown Drug Allergy Active Results Component Value Reference Range Notes Gliadin Ab Panel Reviewed date:01/17/2025 09:00:51 PM Interpretation: Performing Lab:[facility], [address] [place] [phone] Notes/Report: Gliadin Deamidated IgA Ab 4.5 Value Interpretation ----- <15.0 Antibody not detected > or = 15.0 Antibody detected Gliadin Deamidated IgG Ab 5.6 Value Interpretation ----- <15.0 Antibody not detected > or = 15.0 Antibody detected THIS TEST WAS PERFORMED AT: [facility] [address] [place] [phone] RYLAN PALACIO MD Reason For Referral Reason Evaluate and Treat Questioning if patient has Androgenetic alopecia Diagnosis 1 Fatigue (R53.83) Diagnosis 2 Obesity (BMI 30.0-34 .9) (E66.9) Diagnosis 3 Cervical radiculopat hy (M54.12) Diagnosis 4 Polycystic ovaries ( E28.2) Referral Organization Derian Smith III, MD Referring Provider First Name Derian Referring Provider Last Name Smith Ref[facility] Referred Organization [facility] nter Referred Provider [facility], [facility] Referred Address [address] [place] [address],[place], [place],[phone], Referred Provider Specialty OB - Gynecol ogy [...] Referring Provider Speciality Internal edicine Referred Provider [facility], Pulmonology Referred Provider Specialty Pulmonary [...] Date Provider Diagnosis Derian Smith III, MD [address] [place] [address] [place] [address] 12/03/2024 Derian Smith Obesity (BMI 30.0-34 .9) [...] - E28.2) She has been referred to PEDIATRIC UROLOGIST for evaluation and management and routine reproductive [...] Treat Questioning if patient has Androgenetic alopecia, [facility], [address] [place] [address], [place], [place], [phone], 12/03/2024 12/03/2024, Evaluate and Treat AM Nausea, Abdominal pain after eating, Derian Chow 12/04/2024 12/04/2024, Evaluate and Treat Needs Sleep Study, Pulmonology [facility] Next Appt Details Follow Up: 4 Weeks, Reason: OV Provider Name:Derian Smith , 03/13/2025 03:00:00 PM, [address] [place] [address] [address], [place], [address], Provider Name:Derain Smith , 11/16/2025 02:30:00 PM, [address] [place] [address] [address], [place], [address], Progress Notes * KRZYSZTOF GARCIADOB: [birth year] (24 yo F)Acc No.[id number]:12/03/2024 Progress Notes Patient: KRZYSZTOF GÓMEZ Provider: Sherri Smith MD :2000 A ge:24 Y S ex:Female Date:12/03/2024 Address:[address] [place] [address], [id number] Subjective: * Chief Complaints: * C hronic [...] * Surgical History: C holecystectomy for cholecystitis [id number] * Hospitalization/Major Diagno stic Procedure: b cholecystectomy [...] or drink. She does not have a latter day objection to blood transfusion. She does not have any children. She has no exposures to toxic materials. She was born in [place], [place]. Her parents are from [place]. * [...] soon as possible,PLEASE FAX COMPLETED RESULTS TO [phone] Please fast for 12-14 hours prior to having this labwork done. You may have black coffee or tea with no milk or sugar. May have water,PLEASE FAX COMPLETED RESULTS TO [phone] * Lab:Thyroid Stimulating Horm one * Collection [...] May have water,PLEASE FAX COMPLETED RESULTS TO [phone] ???Lab:Vitamin B12 and Folate (Order Date - 09/10/2024) (Collection Date & Time - 09/10/2024 11:32AM)?ValueReference Range?Vitamin [id number] - pg/mL?Folate4.7> or = 4.0 - ng/mL?Clinical Info: Please fast for 12-14 hours prior tohaving this labwork done. You may have black coffee or tea with no milk or sugar. May have water,PLEASE FAX COMPLETED RESULTS TO [phone] ???Lab:Magnesium (Order Date - 11/12/2024) (Collection Date & Time - 11/14/2024 10:45 AM)?ValueReference Range?Magnesium2.11.6-2.6 - mg/dL ?Clinical Info: Please fast for 12-14 hours prior tohaving this labwork done. You may have black coffee or tea with no milk or sugar. May have water,Ple ase have this testing done as soon as possible,PLEASE FAX COMPLETED RESULTS TO [phone] ???Lab:Erythrocyte Sedimentation Rate (Order Date - 11/14/2024) (Collection Date & Time - 11/14/2024 10:45 AM)?ValueReference Range?Erythrocyte Sedimentation [id number] - MM/HR ???Imaging:XR cervical spine 3V (Order [...] N otes :She has been referred to PEDIATRIC UROLOGIST for evaluation and management and routine reproductive [...] TABLET BY MOUTH EVERY DAY, Oral. Referral To:[facility] OB - Gynecology Reason:Evaluate and Treat Questioning if patient has Androgenetic alopecia Referral To:Derian Chow Gastroenterology Reason:Evaluate and Treat AM Nausea, Abdominal pain after eating Referral To:Pulmonology [facility] Pulmonary Diseases Reason:Evaluate and Treat Needs Sleep Study 3. P olycystic ovaries Referral To:[facility] OB - Gynecology Reason:Evaluate and Treat Questioning if patient has Androgenetic alopecia 4. C ervical radiculopathy Referral To:[facility] OB - Gynecology Reason:Evaluate and Treat Questioning if patient has Androgenetic alopecia 5. O thers Referral To:Pulmonology [facility] Pulmonary Diseases Reason:Evaluate and Treat Needs [...] 12/03/2024 Generated for Marci rodarte/Agata/Curtsmitting on: 1 05/12/2024 08:02 AM EST History [...] Provider Referred Provider Not es 12/03/2024 [facility], [facility] Evaluate and Treat Questioning if patient has Androgenetic alopecia 12/03/2024 Derian Smith Robert Evaluate and Treat AM Nausea, Abdominal pain after eating 12/04/2024 [facility], Pulmonology Evaluate and Treat Needs Sleep Study
--- OUTSIDE RECORDS SUMMARY | 2024-12-17 05:09 | XMS_ITS ---
Author Organization Derian Smith III, MD Address [address] [place] [address] [place] [address] Care Team Providers Care Manager Of Application Development Name Role Phone Dr. Derian Smith III Primary Care Provider [phone] REASON FOR VISIT Cancel Appointment Request Social History Sex Assigned At : Social History Observation Description Sex Assigned At Female Encounters Encounter Location Date Provider Diagnosis Derian Smith III, MD [address] [place] [address] [place] [address] 12/17/2024 Derian Smith Plan Of Treatment Next Appt Details Provider Name:Derian Smith , 03/13/2025 03:00:00 PM, [address] [place] [address] [place], [address], Provider Name:Derian Smith , 11/16/2025 02:30:00 PM, [address] [place] [address] [place], [address], Progress Notes * KRZYSZTOF GARCIADOB: 1 (24 yo F)Acc No.[id number]:12/17/2024 Patient: KRZYSZTOF GÓMEZ :2000 A ge:24 Y S ex:Female Address:[address] [facility] [address], [place], [address] * true * Date: Generated for Printi cayden/Faeddieg/eTransmitting on: 05/12/2024 08:03 AM EST
--- OUTSIDE RECORDS SUMMARY | 2024-12-17 05:09 | XMS_ITS ---
Author Organization Derian Smith III, MD Address [address] [place] [address] [address] [place] [address] Care Team Providers Care Public Works Manager Name Role Phone Dr. Derian Smith III Primary Care Provider REASON FOR VISIT Reschedule Appointment Request Social History Sex Assigned At : Social History Observation Description Sex Assigned At Female Encounters Encounter Location Date Provider Diagnosis Derian Smith III, MD [address] [place] [address] [place] [address] 12/17/2024 Derian Smith Plan Of Treatment Next Appt Details Provider Name:Derian Smith , 03/13/2025 03:00:00 PM, [address] [place] [address] [place], [address], Provider Name:Derian Smith , 11/16/2025 02:30:00 PM, [address] [place] [address] [place], [address], Progress Notes * KRZYSZTOF GARCIADOB: [birth year] (24 yo F)Acc No.[id number]:12/17/2024 Patient: KRZYSZTOF GÓMEZ :2000 A ge:24 Y S ex:Female Address:[address] [facility] [address], [place], [address] * true * Date: Generated for Printi cayden/Faeddieg/eTransmitting on: 05/12/2024 08:03 AM EST
--- OUTSIDE RECORDS SUMMARY | 2025-01-07 12:00 | XMS_ITS ---
Author Organization Derian Smith III, MD Address [address] [place] [address] [place] [address] Care Team Providers Care Garden Worker Name Role Phone Dr. Derian Smith III Primary Care Provider REASON FOR VISIT Follow up Social History Sex Assigned At : Social History Observation Description Sex Assigned At Female Encounters Encounter Location Date Provider Diagnosis Derian Smith III, MD [address] [place] [address] [place] [address] 01/07/2025 Derian Smith Plan Of Treatment Next Appt Details Provider Name:Derian Smith , 03/13/2025 03:00:00 PM, [address] [place] [address] [place], [address], Provider Name:Derian Smith , 11/16/2025 02:30:00 PM, [address] [place] [address] [place], [address], Progress Notes * KRZYSZTOF GARCIADOB: 1 (24 yo F)Acc No.[id number]:01/07/2025 Progress Notes Patient: KRZYSZTOF GÓMEZ Provider: Sherri Smith MD :2000 A ge:24 Y S ex:Female Date:01/07/2025 Address:[address] [facility] [address], [facility] [place] Subjective: * Chief Complaints: * 1 . [...] 01/07/2025 Generated for Marci rodarte/Agata/Kasia on: 1 05/12/2024 08:02 AM EST
--- OUTSIDE RECORDS SUMMARY | 2025-01-08 04:15 | XMS_ITS ---
Author Organization Derian Smith III, MD Address [address] [place] [address] [place] [address] Care Team Providers Care Solder Sprayer Name Role Phone Dr. Derian Smith III Primary Care Provider [phone] Allergies Allergen (clinical drug ingredient) Drug/Non Drug [...] Provider Diagnosis Derian Smith III, MD [address] [place] [address] [place] [address] 01/08/2025 Derian Smith Obesity (BMI 30.0-34 .9) [...] - E28.2) She has been referred to [facility] for evaluation and management and routine reproductive [...] Name:Derian Smith , 03/13/2025 03:00:00 PM, [address] [place] [address] [place], [place], [address], Provider Name:Derian Smith , 11/16/2025 02:30:00 PM, [address] [place] [address] [place], [address], Progress Notes * KRZYSZTOF GARCIADOB: 1 (24 yo F)Acc No.[id number]:01/08/2025 Progress Notes Patient: Jus TROYFIQUE, KRZYSZTOF Provider: Sherri Smith MD :2000 A ge:24 Y S ex:Female Date:01/08/2025 Address:[address] [place] [address] [address]LO[address], [id number] Subjective: * Chief Complaints: * C hronic [...] * Surgical History: C holecystectomy for cholecystitis 0142O2Y3 * Hospitalization/Major Diagno stic Procedure: b cholecystectomy [...] or drink. She does not have a uatsdin objection to blood transfusion. She does not have any children. She has no exposures to toxic materials. She was born in [place], [place]. Her parents are from [facility]. * Medications: T akingLoryna 3-0.02 MG Tablet [...] N otes :She has been referred to [facility] C[facility] for evaluation and management and routine reproductive [...] 0 01/08/2025 Generated for Marci rodarte/Agata/Kasia on: 05/12/2024 08:03 AM EST History and [...]
--- NOTE | ~2025-03-12 | US_ITS ---
CLINICAL HISTORY: ABDOMINAL BLOATING,ABDOMINAL PAIN, ACUTE,GENERALIZED US abdomen complete with duplex and color Doppler Comparison: None Findings: The visualized pancreas, aorta, and inferior vena cava are unremarkable. Liver normal size and slightly echogenic. Right lobe 16.0 cm length. No focal hepatic masses. Common duct 6.0 mm diameter. Post cholecystectomy. No sonographic Beatty sign. Main portal vein antegrade. Right kidney normal size, 11.6 cm in length. Normal cortical width and echotexture. No solid or cystic renal masses. Vascular reflectors rather than nephrolithiasis. No hydronephrosis. Left kidney normal, 9.7 cm in length. Normal cortical width and echotexture. No solid or cystic renal masses. No nephrolithiasis. No hydronephrosis. Spleen measures 9.6 cm. No splenic masses. No ascites. No lymphadenopathy. Impression: 1. Hepatic steatosis 2. Post cholecystectomy. This document has been electronically signed by: Antony Soliz MD on 03/12/2025 11:22:24
--- OUTSIDE RECORDS SUMMARY | 2025-03-12 08:02 | XMS_ITS | Encounter Summary ---
Author Organization [facility] Address [address] [place] [address] Phone Care Team Providers Care Bicycle Assembler Name Role Phone Gema Rosado MD Primary Care Provider [phone] Encounter Details Date Type Department Care Team (Late st Contact Info) Description 12/13/2012 Documentation [facility] [place] Family Medicine [address] [place] [address] Family Medicine, Physician [address] [place] [address] Social History Tobacco Use Types Packs/Day Years [...] on filedocumented in this encounter Care Teams Bicycle Assembler Relationship Specialty Start Date End Date Gema Rosado MD [address] [place] [address] PCP - General 12/01/16 11/27/22 documented as of this encounter
--- OUTSIDE RECORDS SUMMARY | 2025-03-12 08:03 | XMS_ITS | Encounter Summary ---
Author Organization [facility] Address [address] [place] [address] Phone Care Team Providers Care Supervisor Felling Bucking Name Role Phone Gema Rosado MD Primary Care Provider [phone] Encounter Details Date Type Department Care Team (Late st Contact Info) Description 10/03/2016 Documentation [facility] Family Medicine [address] [place] [address] Family Medicine, Physician [address] [place] [address] Social History Tobacco Use Types Packs/Day Years [...] on filedocumented in this encounter Care Teams Supervisor Felling Bucking Relationship Specialty Start Date End Date Gema Rosado MD [address] [place] [address] PCP - General 12/01/16 11/27/22 documented as of this encounter
--- OUTSIDE RECORDS SUMMARY | 2025-03-12 08:03 | XMS_ITS | Patient Health Record ---
Author Organization [facility] Address [address] [place] [address] Care Team Providers Care Recorder Gravity Prospecting Name Role Phone Sarah COONEY, Derian Primary Care Provider Derian Serrano Unavailable [phone] Results Component Value Reference Range Flag Notes Ferritin Reviewed date:01/22/2025 01:24:45 AM Interpretation: Performing Lab:[facility], [address] [place] [phone] Notes/Report: Ferritin 63 10-122 ng/mL N Transglutaminase Ab IgG Reviewed date:01/26/2025 11:24:08 PM Interpretation: Performing Lab:[facility], [address] [place] [phone] Notes/Report: Transglutaminase Ab IgG <1.0 N Value Interpretation ----- <15.0 Antibody not detected > or = 15.0 Antibody detected THIS TEST WAS PERFORMED AT: [employer] [address] [place] [phone] RYLAN PALACIO MD Transglutaminase IgA Reviewed date:01/26/2025 11:23:34 PM Interpretation: Performing Lab:[facility], [address] [place] [phone] Notes/Report: Transglutaminase IgA <1.0 N Value Interpretation ----- <15.0 Antibody not detected > or = 15.0 Antibody detected THIS TEST WAS PERFORMED AT: [employer] [address] [place] [phone] RYLAN PALACIO MD Gliadin Ab Panel Reviewed date:01/26/2025 11:23:56 PM Interpretation: Performing Lab:[facility], [address] [place] [phone] Notes/Report: Gliadin Deamidated IgA Ab 3.6 N Value Interpretation ----- <15.0 Antibody not detected > or = 15.0 Antibody detected Gliadin Deamidated IgG Ab 5.6 N Value Interpretation ----- <15.0 Antibody not detected > or = 15.0 Antibody detected THIS TEST WAS PERFORMED AT: [employer] [address] [place] [phone] RYLAN PALACIO MD Endomysial IgA rflx Titer Reviewed date:01/26/2025 11:24:02 PM Interpretation: Performing Lab:[facility], [address] [place] [phone] Notes/Report: Endomysial IgA Antibody Negative Negative THIS TEST WAS PERFORMED AT: [facility] [address] LEIA GARZA MD,PHD Endomysial Titer TNP Complete Blood Count Auto Di ff Reviewed date:02/10/2025 12:02:27 AM Interpretation: Performing Lab:[facility], [address] [place] [phone] Notes/Report: White Blood Count 7.9 4.8-10.8 X10*3/uL N Red Blood Count 4.62 4.20-5.50 X10*6/uL N Hemoglobin 12.6 12.0-16.0 g/dl N Hematocrit 37.4 37.0-47.0 % N Mean Corpuscular Volume 81.0 80.0-98.0 fL N Mean Corpuscular Hemoglobin 27.3 27.0-33.0 pg N Mean Corpuscular HGB Conc 33.7 31.0-35.0 g/dl N Red Cell Distribution Width 13.7 11.0-16.0 % N Platelet Count 284 160-400 X10*3/uL N Mean Platelet Volume 8.9 9.4-12.3 fL L Neutrophils Percent Auto 50.8 45-73 % N Imm Gran Pct Auto 0.3 0.0-0.4 % N Lymphocytes Percent Auto 41.8 20-40 % H Monocytes Percent Auto 5.2 2-11 % N Eosinophils Percent Auto 1.5 0-4 % N Basophils Percent Auto 0.4 0-2 % N NRBC Pct Auto 0.0 0.0-0.2 /100WBC N Neutrophils Absolute Auto 4.0 2.0-8.3 x10*3/uL N Imm Gran Abs Auto 0.02 0.00-0.03 X10*3/uL N Lymphocytes Absolute Auto 3.3 1.2-4.9 X10*3/uL N Monocytes Absolute Auto 0.4 0.1-1.2 X10*3/uL N Eosinophils Absolute Auto 0.1 0.0-0.4 X10*3/uL N Basophils Absolute Auto 0.0 0.0-0.2 X10*3/uL N NRBC Abs Auto 0.000 0.0-0.012 X10*3/uL N IRON PROFILE Reviewed date:01/22/2025 01:15:14 AM Interpretation: Performing Lab:[facility], [address] [place] [phone] Notes/Report: Iron 43 30-160 mcg/dL N Total Iron Binding Capacity 367 228-428 mcg/dL N Percent Iron Saturation 12 15-50 % L Unsaturated Iron Binding 324 Reason For Referral Referring Provider First Name Derian Referring Provider Last Name Sarah Referring Provider Speciality Oncology Referred Organization [facility] Referred Provider Derian Chow Referred Address [address] [place] [phone], Referred Provider Specialty Gastroentero logy General Notes Tana Rodriguez 2024 02:27:17 PM >requested a [facility] referral from Dr. Smith's office for visit with Dr. Chow on 01-20-25 Referral Priority Routine Medications Medication SIG (Take, Route, Frequency, Duration) Notes Start Date End Date Status Dicyclomine HCl 10 MG Capsule Take 1 or 2 capsules 30 to 60 minutes before a meal to try to prevent the cramps, bloating, and discomfort you get when you are eating Orally Three times a day as directed; Duration: 30 days 01/20/2025 Active Famotidine 40 MG Tablet 1 tablet Orally Once a day every morning, but you can use a second dose 10 to 12 hours later in the day if needed for heartburn and reflux; Duration: 30 days 01/20/2025 Active Loryna 3-0.02 MG Tablet 1 tablet Orally Once a day Active Immunizations Vaccine Route Administration Date Status Comme nts Influenza Unknown 01/20/2025 Refused Social History Tobacco Use: Social History Observation Description Date Details (start date - stop date) Never Smoker NA - NA Social History Drug/Alcohol: Social Info Question Answer Notes AUDIT-C (Standard) Did you have a drink containing alcohol in the past year? 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 Problems Problem Type SNOMED Code ICD Code Onset Dates Problem Status W/U Status Risk Notes Problem Irritable bowel syndrome (81527740) Irritable bowel syndrome (K58.9) Active confirmed Problem Abdominal bloating (895826609) Abdominal bloating (R14.0) Active confirmed Problem Heartburn (59124636) Heartburn (R12) Active confirmed Problem Gastroesophageal reflux disease (892657898) GERD (gastroesopha geal reflux disease) (K21.9) Active confirmed Vital Signs Temperature 97.5 degrees Fahrenheit 01/20/2025 Blood pressure diastolic 01 mm Hg 01/20/2025 Height 63 in 01/20/2025 Blood pressure systolic 001 mm Hg 01/20/2025 Weight 207.8 lbs 01/20/2025 BMI 36.81 kg/m2 01/20/2025 Encounters Encounter Location Date Provider Diagnosis [facility] [address] [place] [address] 01/20/2025 Derian Chow GERD (gastroesophage al reflux [...] Provider Name:Derian Chow , 05/22/2025 01:00:00 PM, [address] [place] [address], [address], [place], [address], Insurance Providers Payer Name Payer Address Payer Phone Subscriber Number Group Number Insured Name Patient Relationship to Insured Coverage Start Date Coverage End Date MEDICAID OF [facility] [address] [place] [phone] [id number] GARCIA Self - patient is the insured Medical (General) History Medical History History ICD Code Denies LA,DM,CVA,Lung disease,renal dise ase Surgical History Surgery Date(Month/Year) Gallbladder removal 2012
--- OUTSIDE RECORDS SUMMARY | 2025-03-12 08:03 | XMS_ITS | Encounter Summary ---
Author Organization [facility] Address [address] [place] [address] Phone Care Team Providers Care Boat Master Name Role Phone Gema Rosado MD Primary Care Provider [phone] Encounter Details Date Type Department Care Team ([facility] Contact Info) Description 12/07/2016 Conversion Encounter [facility] [address] [place] [address] Social History Tobacco Use Types Packs/Day Years [...] on filedocumented in this encounter Care Teams Boat Master Relationship Specialty Start Date End Date Gema Rosado MD [address] [place] [address] PCP - General 12/01/16 11/27/22 documented as of this encounter
--- OUTSIDE RECORDS SUMMARY | 2025-03-12 08:03 | XMS_ITS | Encounter Summary ---
Author Organization [facility] Address [address] [place] [address] Phone Care Team Providers Care Supervisor Slitting And Shipping Name Role Phone Gema Rosado MD Primary Care Provider [phone] Encounter Details Date Type Department Care Team (Late st Contact Info) Description 06/26/2016 Documentation [facility] [place] Family Medicine [address] [place] [address] Family Medicine, Physician [address] [place] [address] Social History Tobacco Use Types Packs/Day Years [...] filedocumented in this encounter Care Teams Supervisor Slitting And Shipping Relationship Specialty Start Date End Date Gema Rosado MD [address] [place] [address] PCP - General 12/01/16 11/27/22 documented as of this encounter
--- OUTSIDE RECORDS SUMMARY | 2025-03-12 08:03 | XMS_ITS | Clinical Summary ---
Author Organization [facility] Address [address] [place] [address] Phone Care Team Providers Care Machinist Set Up Name Role Phone Unavailable Primary Care Provider [...] hCG, and Vitamin D level). Refer to [employer]. Assessment & Plan (05/12/2022 2:36 PM EST): Has a dx of PCOS. Was on OCPs but stopped them. Menses had been fairly regular until Sept then no menses since then. Not sexually active. Plan: Check labs (DHEAS, T, LH, FSH, prolactin, TFTs, serum hCG, and Vitamin D level). Refer to [employer]. BMI 36.0-36.9,adult 05/12/2022 Overview (05/12/2022): Exercising regularly and eating healthier. Assessment & Plan (05/12/2022 2:31 PM EST): Exercising regularly and eating healthier. 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 [...] p.o. daily. Doing well On campus at [employer] and also doing two jobs.Lee Ann [...] She will continue to follow closely with [facility] provider at [facility] & alert us to any [...] 1 month. Did not get any refills. [place] it did not make her periods regular. [...] 06/11/2014 05/12/2022 Overview (12/05/2018): Was tested at [facility] & not truly intol but [...] well Father Pamela Crabtree Works as a agency cashier, to patient's mother Mother Silvestre Vincent [...] Completed 12/10/2019, 10/16/2018 Procedures * Due to [place] Mouth Party law, this organization might not be sharing sensitive test results. Procedure Name Priority Date/Time Associated Diagnosis Comments CHLAMYDIA AND GONORRHEA, AMPLIFIED Routine 05/12/2022 2:38 PM EST Special screening examination for chlamydial disease from Last 3 Months or Most Recently Relevant to Health Maintenance Results * Due to [place]outh [place] law, this organization might not be sharing sensitive test results. * Chlamydia and Gonorrhoea, Amplified (05/12/2022 2:38 PM EST) Chlamydia Trachomatis, DNA Probe NEGATIVE (NEG) [facility] Comment: No Chlamydia Trachomatis RNA detected in this patient's sample (REFERENCE RANGE/NORMAL VALUE: NOT DETECTED) Note: This test uses sanding machine tender automatic- mediated amplification method to detect rRNA from C. Trachomatis URINE GC AMP PROBE NEGATIVE (NEG) [facility] Comment: No Neisseria Gonorrhoeae RNA detected in this patient's sample (REFERENCE RANGE/NORMAL VALUE: NOT DETECTED) NOTE: This test uses sanding machine tender automatic-mediated amplification method to detect rRNA from N.Gonorrhoeae. [...] without risk of sexual abuse. Consult the [facility] if needed. Contact phone number . Therapeutic failure or success cannot be determined with the Aptima Combo2 assay since nucleic acid may persist following appropriate antimicrobial therapy. The Centers for Disease Control and Prevention (CDC) recommends confirmatory retesting using culture or a different nucleic acid amplification test when positive results occur, if indicated. Testing performed or reported by [facility], a Service of [facility], [address] [place] [id number] Aly Quinonez MD, [employer] Sales Consultant [facility]# [id number] Urine (Urine) 05/12/2022 2:3 8 PM EST 05/13/2022 7:45 AM EST us Jessica Garnica MD LAB MICROBIOLOGY - GENERAL ORD ERABLES Final Result [facility] from Last 3 Months or Most Recently Relevant to Health Maintenance Insurance [facility] [place] [id number] [facility]
--- OUTSIDE RECORDS SUMMARY | 2025-03-12 08:03 | XMS_ITS | Patient Health Record ---
Author Organization Derian Smith III, MD Address [address] [place] [address] Care Team Providers Care Used Building Materials Yard Worker Name Role Phone Dr. Derian Smith III Primary Care Provider Allergies Allergen (clinical drug ingredient) Drug/Non Drug Allergy documented on EMR Reaction Allergy Type Onset Date Status No Known Drug Allergy Unknown Drug Allergy Active No Known Food Allergy Unknown Drug Allergy Active Results Component Value Reference Range Notes Pap Smear Reviewed date:05/30/2024 09:27:02 AM Interpretation: Performing Lab:[facility], [address] [place] [address] Notes/Report: -- ---- Name: Krzysztof Garcia Nguyen Age/Sex: 23/F : 2000 Unit#: [id number] Attend Dr: Maria R Escobedo [facility] Re05/22/24 Status : DEP REF Location: [facility] Disch: -- ---- SPEC : [id number] RECD : 05/23/24 STATUS: CHARO ELMORE NUM: [id number] BETO: 05/22/24-[address]: Maria R Escobedo CNM ENTERED: 05/23/24-10 23 SP TYPE: Pap Smr OTHR DR: Derian Smith MD ORDERED: Pap Smear Interpretation Satisfactory for evaluation. Negative for intraepithelial lesion or malignancy. Clinical Information LMP:04/21/24 Previous PAP test: Never Other surgery: Other history: Material Received ThinPrep-Cervical Copies To: Derian Smith MD [address], [address] [place] [address] Maria R Escobedo CNM [facility] [address] [place] [address] -- ---- Signed (signature on file) KENDALL Pena (ASCP) 05/27/24 0835 -- ---- END OF REPORT Lipid Panel Reviewed date:09/16/2024 01:55:42 PM Interpretation: Performing Lab:[facility], [address] [place] [phone] Notes/Report: Triglycerides 241 <150 mg/dL Desirable Triglyceride: [...] Folate Reviewed date:09/16/2024 01:55:42 PM Interpretation: Performing Lab:[address] [address] Notes/Report: Vitamin B12 233 200-900 pg/mL NORMAL 200-900 PG/ML INDETERMINATE 160-199 PG/ML DEFICIENT < 160 PG/ML Folate 4.7 > or = 4.0 ng/mL Reference Values: > or = 4.0 ng/mL < 4.0 ng/mL suggests folate deficiency Methotrexate, aminopterin and folinic acid (leucovorin) are chemotherapeutic agents whose molecular structures are similar to folate; therefore, the Grab Operator folate assay cannot be used for patients using these drugs. Free T4 (Free Thyroxine) Reviewed date:09/16/2024 01:55:42 PM Interpretation: Performing Lab:[facility], [address] [place] [address] Notes/Report: Free T4 (Free Thyroxine) 0.98 0.71-1.85 ng/dL Complete Blood Count Auto Di ff Reviewed date:09/16/2024 01:55:42 PM Interpretation: Performing Lab:[facility], [address] [place] [phone] Notes/Report: White Blood Count 7.9 4.8-10.8 X10*3/uL [...] NRBC Abs Auto 0.000 0.0-0.012 X10*3/uL [facility] [facility]. Panel Fa st Reviewed date:09/16/2024 01:55:42 PM Interpretation: Performing Lab:[facility], [address] [place] [address] Notes/Report: Sodium 140 135-145 mmol/L Potassium 4.1 [...] Hormone Reviewed date:09/16/2024 01:55:42 PM Interpretation: Performing Lab:[facility], [address] [place] [phone] Notes/Report: Thyroid Stimulating Hormone 1.82 0.32-4.0 uIU/mL TSH 3rd Generation ([facility]) XR cervical spine 3V Reviewed date:09/16/2024 01:55:42 PM Interpretation: Performing Lab: Notes/Report: [address] [address] XRay Report Signed Patient: Krzysztof Garcia MR#: [id number] : 2000 Acct:[id number] Age/Sex: 24 / F ADM Date: 09/10/24 Loc: [facility] Attending Dr: Derian Smith MD Ordering Physician: Derian Smith MD Date of Service: 09/10/24 Procedure(s): XR cervical spine 3V Accession Number(s): [id number] cc: Derian Smith MD EXAMINATION: XR CERVICAL [...] 09/10/24 1242 DD/ 1140 TD/TT: 09/10/24 1146 Internal Medicine Specialist: [address] [place] [address] XRay Report Signed Patient: Krzysztof Garcia MR#: [id number] : 2000 Acct:[id number] Age/Sex: 24 / F ADM Date: 09/10/24 Loc: HO.XRAY Attending Dr: Derian Smith MD Ordering Physician: Derian Smith MD Date of Service: 09/10/24 Procedure(s): XR cervical spine 3V Accession Number(s): [id number] cc: Derian Smith MD EXAMINATION: XR CERVICAL [...] 09/10/24 1242 DD/ 1140 TD/TT: 09/10/24 1146 Internal Medicine Specialist: Magnesium Reviewed date:12/03/2024 04:20:57 PM Interpretation: Performing Lab:[facility], [address] [place] [phone] Notes/Report: Magnesium 2.1 1.6-2.6 mg/dL Lipid Panel Reviewed date:12/03/2024 04:20:57 PM Interpretation: Performing Lab:[facility], [address] [place] [address] Notes/Report: Triglycerides 407 <150 mg/dL Desirable Triglyceride: [...] ff Reviewed date:12/03/2024 04:20:57 PM Interpretation: Performing Lab:[facility], [address] [place] [phone] Notes/Report: White Blood Count 6.9 4.8-10.8 X10*3/uL [...] te Reviewed date:12/03/2024 04:20:57 PM Interpretation: Performing Lab:[facility], [address] [place] [phone] Notes/Report: Erythrocyte Sedimentation Rate 21 0-20 MM/HR Patients with polycythemia and many hemoglobin abnormalities may have depressed sed rates whereas patients with anemia may have elevated sed rates. [facility]. Panel Fa Reviewed date:12/03/2024 04:20:57 PM Interpretation: Performing Lab:[facility], [address] [place] [phone] Notes/Report: Sodium 139 135-145 mmol/L Potassium 4.1 [...] Panel Reviewed date:01/17/2025 09:00:51 PM Interpretation: Performing Lab:[facility], [address] [place] [phone] Notes/Report: Gliadin Deamidated IgA Ab 4.5 Value Interpretation ----- <15.0 Antibody not detected > or = 15.0 Antibody detected Gliadin Deamidated IgG Ab 5.6 Value Interpretation ----- <15.0 Antibody not detected > or = 15.0 Antibody detected THIS TEST WAS PERFORMED AT: [employer] [address] [place] [phone] RYLAN PALACIO MD Reason For Referral Reason Evaluate and Treat Questioning if patient has Androgenetic alopecia Diagnosis 1 Fatigue (R53.83) Diagnosis 2 Obesity (BMI 30.0-34 .9) (E66.9) Diagnosis 3 Cervical radiculopat hy (M54.12) Diagnosis 4 Polycystic ovaries ( E28.2) Referral Organization Derian Smith III, MD Referring Provider First Name Derian Referring Provider Last Name Sarah Referring Provider Speciality Internal edicine Referred Organization [facility] nter Referred Provider [facility], [facility] Referred Address [address] [place] [id number], Referred Provider Specialty OB - Gynecol ogy [...] Provider Speciality Internal M edicine Referred Provider Mahometivis Mckeno [facility] er, Pulmonology Referred Provider Specialty [...] Status W/U Status Risk Notes Problem Fatigue (29292788) Fatigue (R53.83) Active confirmed A sleep study has been ordered to evaluate her complaints of insomnia and daytime somnolence and snoring. He'll be seen thereafter. Problem 235480859628199 Obesity (BMI 30.0-34.9) (E66.9) Active confirmed We [...] obesity. Various strategiees to reduce it. Problem 04872986 Cervical radiculopathy (M54.12) Active confirmed The neck pain is not improved but the shoulder pain is described as a little better. He'll continue current therapy. If this has not improved in 3 weeks she will have imaging done and be referred for possible injections and physical therapy. Problem Polycystic ovary syndrome (disorder) (637008274) Polycystic ovaries (E28.2) Active confirmed She has been referred to LADLE LINER HELPER for evaluation and management and routine [...] Provider Diagnosis Derian Smith III, MD [address] [place] [address] [place] [address] 09/10/2024 Derian Smith Obesity (BMI 30.0-34 .9) E66.9 ; Cervical radiculopathy M54.12 and Fatigue R53.83 Derian Smith III, MD [address] [place] [address] [place] [address] 09/24/2024 Derian Smith Obesity (BMI 30.0-34 .9) E66.9 ; Cervical radiculopathy M54.12 and Polycystic ovaries E28.2 Derian Smith III, MD [address] [place] [address] [place] [address] 11/12/2024 Derian Smith Obesity (BMI 30.0-34 .9) E66.9 ; Fatigue R53.83 ; Cervical radiculopathy M54.12 and Polycystic ovaries E28.2 Derian Smith III, MD [address] [place] [address] [place] [address] 12/03/2024 Derian Smith Obesity (BMI 30.0-34 .9) E66.9 ; Fatigue R53.83 ; Polycystic ovaries E28.2 and Cervical radiculopathy M54.12 Derian Smith III, MD [address] [place] [address] [place] [address] 01/08/2025 Derian Smith Obesity (BMI 30.0-34 .9) E66.9 ; Fatigue R53.83 ; Polycystic ovaries E28.2 and Cervical radiculopathy M54.12 Derian Smith III, MD [address] [place] [address] [place] [address] 12/17/2024 Derian Smith III, MD [address] [place] [address] [place] [address] 12/17/2024 Derian Smith Assessments Encounter Date Diagnosis [...] - E28.2) She has been referred to LADLE LINER HELPER for evaluation and management and routine [...] - E28.2) She has been referred to LADLE LINER HELPER for evaluation and management and routine reproductive health care. She is not at this time. She does not have contraception. 01/08/2025 Polycystic ovaries (ICD-10 - E28.2) She has been referred to LADLE LINER HELPER for evaluation and management and routine reproductive health care. She is not at this time. She does not have contraception. 11/12/2024 Polycystic ovaries (ICD-10 - E28.2) She has been referred to LADLE LINER HELPER for evaluation and management and routine [...] Provider Name:Derian Smith , 03/13/2025 03:00:00 PM, [address] [place] [address] [address], [place], [address], Provider Name:Derian Gouldrne , 11/16/2025 02:30:00 PM, [address] [place] [address] [address], [place], [phone], Insurance Providers Payer Name Payer Address Payer Phone Subscriber Number Group Number Insured Name Patient Relationship to Insured Coverage Start Date Coverage End Date MEDICAID [place] [address] [place] [id number] KRZYSZTOF GARCIA Self - patient is the insured Medical (General) History Medical History History ICD Code Obesity Polycystic ovaries Cervical radiculopathy Surgical History Surgery Date(Month/Year) Cholecystectomy for cholecystitis 2013 Hospitalization History Reason Date(Month/Year) food poisoning 2022 [facility] cholecystectomy for stones
--- OUTSIDE RECORDS SUMMARY | 2025-03-12 08:04 | XMS_ITS | Data Portability ---
Author Organization [facility]AMALIEL Roberson [facility] Address [address] [place] [address] Care Team Providers Care Tonal Regulator Name Role Phone [facility] Primary Care Provid er Assessment No assessment recorded. Plan of Treatment Reminders Order Date Submit Date Provider Last Modified By Organization Details Last Modified Time Details Appointments None recorded. Lab rapid SARS CoV 2 Ag, QL IA, respiratory specimen 2022 023 [email or web address], [address] [place] [address], [phone], 13:15:58 rapid strep group A, throat 2022 023 [place] _[facility], [address] [place] [address], [phone], 13:21:40 Referral None recorded. Procedures None recorded. Surgeries None recorded. Imaging None recorded. Medication Orders None recorded. Patient TargetsNo targets recorded. Patient Instructions Encounter Date Encounter Id Patient Instructions Last Modified By Organization Details Last Modified Time 09/24/2022 [id number] your symptoms seem consistent with a viral [...] Analyte Normal = Negati ve Not Available [address] [place] [address], [phone], 09/24/2022 13:15:49 09/25/19 23 09/24/2022 rapid strep group A, throa t Unknown Analyte negati ve Not Available [address] [place] [address], [phone], 09/24/2022 13:15:49 09/25/19 23 09/24/2022 rapid SARS CoV 2 Ag, QL IA, respi rator y speci men Unknown Analyte Normal =Negat radha Not Available [address] [place] [address], [address], 09/24/2022 12:29:13 09/25/1909/24/2022 rapid SARS CoV 2 Ag, QL IA, respi rator y speci men Unknown Analyte negati ve Not Available [address] [place] [address], [phone], 09/24/2022 12:29:13 Result Notes None recorded. Problems [...] numeric rating [Score] - Reported Oxygen saturation Heart rate Respiratory rate Body temperature Systolic And Diastolic Provider Name and Address Organization Details Last Updated DateTime 160.02 cm 36.3 kg/m2 72745.4 4 g 6 97 % 112 /min 18 /min 99.3 [degF] 125/73 mm[Hg] VALENCIA LING [facility] - [facility] 12:29:07 Social History Question Answer Notes LastModified by [employer] Details LastModified Time Tobacco Smoking Status Never Smoker VALENCIA pillai PA Adrianne [facility] 09/24/2022 12:25:30 Have You Recently Traveled Abroad? No Information not available 09/24/2022 Are You Currently In School? No Information not available 09/24/2022 Sex: Unknown Functional Status Question Answer Note LastModified by [employer] Details LastModified Time Do you use any [...] split virus, quadrivalent, PF 9 completed VALENCIA pillai, [place] - [facility] 09/24/2022 12:24:26 Past Encounters Encounter ID Performer Location Encounter Start Date Encounter Closed Date Diagnosis/Indication Diagnosis SNOMED-CT Code Diagnosis ICD10 Code Diagnosis IMO Codes Diagnosis Note [id number] GAMALIEL Buchanan [address] [place] [address] 09/24/2022 10:20:48 09/24/2022 13:31:31 Cough 95664163 R05.9 Acute pharyngitis 644529 003 J02.9 Health Concerns Section Related Observation LastModified by Organization Detai ls LastModified Time None Recorded Concern Status LastModified by Organization Details LastModified Time None Recorded Advance Directives Directive None Recorded Payers Insurance Date Sequence Insurance Name Policy Number Policy Li Covered Member ID Li Member ID Guarantor Name 09/24/2022 1 [facility] (MEDICAID REPLACEMENT - HMO) CHILDACO Lee Ann Collinsnaomie [id number] Lee Ann Bell Notes Date Note Type [...] post nasal drip. GAMALIEL Raymundo [facility] [place], [address], [place] - [facility] 09/24/2022 13:28:00 OBGyn Episode No OBEpisode recorded.
== END 2025-03-12 07:53 | disposition home or self-care (01) ==
LOC: HO.US 07:52
PROVIDERS: PCP Internal Medicine Medical Oncology; Visit Provider Internal Medicine
DX: R14.0 Abdominal distension (gaseous) (principal); R10.84 Generalized abdominal pain
CPT/HCPCS: 76700

== ENCOUNTER → 2025-03-12 07:55 | Outpatient (BNV) | payer OTHER, SELFPAY | PROVIDERS: PCP Internal Medicine Medical Oncology; Visit Provider Radiology Diagnostic Radiology | DX: K76.0 Fatty (change of) liver, not elsewhere classified (principal); Z90.5 Acquired absence of kidney | CPT/HCPCS: 76700 ==

== ENCOUNTER → 2025-03-26 10:24 | Outpatient (REF) | payer OTHER, SELFPAY ==
--- OUTSIDE RECORDS SUMMARY | 2023-11-12 09:00 | XMS_ITS ---
Author Organization Derian Smith III, MD Address [address] [place] [address] Care Team Providers Care Sap Pi Developer Name Role Phone Dr. Derian Smith III Primary Care Provider Allergies Allergen (clinical drug ingredient) Drug/Non Drug Allergy documented on EMR Reaction Allergy Type Onset Date Status No Known Drug Allergy Unknown Drug Allergy Active Results Component Value Reference Range Notes URINE DIP STICK Reviewed date:11/12/2023 02:26:01 PM Interpretation: Performing Lab: Notes/Report: SG 1.030 1.005 - 1.025 pH 5.0 5.0 - 9.0 HUSSEIN Negative Negative - NIT Negative Negative - PRO 15 Negative - Trace GLU Negative Negative - KET 5 Negative - UBG 0.2 0.1 - 1.8 FEMI 1 0.2 - 1.3 BLD Positive Negative - Menstrating No REASON FOR VISIT Annual Exam Medications Medication SIG (Take, Route, Fr equency, Duration) Notes Start Date End Date Status D3 50 MCG (1999) 1 tablet Orally Once a day Active Loryna 3-0.02 MG TAKE ONE TABLET BY M OUTH EVERY DAY Oral Active Social History Tobacco Use: Social History Observation Description Date Details (start date - stop date) Never Smoker NA - NA Sex Assigned At : Social History Observation Description Sex Assigned At Female Tobacco Use/Smoking Question Answer Notes Patient is a nonsmoker Additional Findings: Tobacco Non-User Aggressive non-smoker Alcohol Screen Question Answer Notes Did you have a drink containing alcohol in the p ast year? No Points 0 Interpretation Negative Vital Signs Temperature 98.1 degrees Fahrenheit 11/12/19 24 Blood pressure systolic 132 mm Hg 11/12/19 24 Blood pressure diastolic 74 mm Hg 024 Heart Rate 93 /min 11/12/2023 Height 5 ft 3 in in 11/12/2023 Weight 204 lbs 11/12/2023 BMI 36.13 kg/m2 11/12/2023 Encounters Encounter Location Date Provider Diagnosis Derian Smith III, MD [address] [place] [address] [place] [address] 11/12/2023 Derian Smith Obesity (BMI 30.0-34.9) E66.9 and Polycystic ovaries E28.2 Assessments Encounter Date Diagnosis (ICD Code) Assessment Notes Treatment Notes Treatment Clinical Notes 11/12/2023 Obesity (BMI 30.0-34.9) (ICD-10 - E66.9) We have discussed diet and nutrition today. We made a plan to lose weight at a rate of one half of a pound per week through a diet restricted in fact calories and sodium combined with regular physical activity. Her weight is stable over the last 6 monnths. We reviewed the health consequences of obesity. Various strategiees to reduce it. 11/12/2023 Polycystic ovaries (ICD-10 - E28.2) She has been referred to [facility] for evaluation and management and routine reproductive health care. She is not at this time. She does not have contraception. Plan Of Treatment Medication Medication Name Sig Start Date Stop Date Notes D3 50 MCG (1999) 1 tablet Orally Once a day Loryna 3-0.02 MG TAKE ONE TABLET BY M OUTH EVERY DAY Oral Next Appt Details Follow Up: 1 Year, Reason: O V, Annual Exam Provider Name:Derian Smith , 04/20/2025 03:15:00 PM, [address] [place] [address] [place], [address], Provider Name:Derian Smith , 11/16/2025 02:30:00 PM, [address] [place] [address] [place], [address], Progress Notes * KRZYSZTOF GARCIADOB: 1 (23 yo F)Acc No.[id number]:11/12/2023 Progress Notes Patient: KRZYSZTOF GÓMEZ Provider: Sherri Smith MD :2000 A ge:23 Y S ex:Female Date:11/12/2023 Address:[address] [place] [address] [place], [place] [facility] Subjective: * Chief Complaints: * A nnual Exam * HPI: D epression Screening: She returns to the office for her annual physical examination. She is up-to-date with her [facility]. She has no new complaints. She continues her efforts at weight loss. We have discussed diet and nutrition and weight loss strategies at length today. PHQ-9 L ittle interest or pleasure in doing things?More than half the days F eeling down, depressed, or hopeless S everal days T rouble falling or staying asleep, or sleeping too much N early every day F eeling tired or having little energy M ore than half the days P oor appetite or overeating M ore than half the days F eeling bad about yourself or that you are a failure, or have let yourself or your family down N ot at all T rouble concentrating on things, such as reading the newspaper or watching television N early every day M oving or speaking so slowly that other people could have noticed; or the opposite, being so fidgety or restless that you have been moving around a lot more than usual N ot at all T houghts that you would be better off or of hurting yourself in some way N ot at all T otal Score 1 3 I nterpretation M oderate Depression C OVID-19 Screening: Questions H ave you experienced fever, chills, cough, sore throat, shortness of breath, difficulty breathing, muscle aches, loss of taste or smell? N o H ave you been exposed to the virus within the last 10 days? N o H ave you travelled internationally in the last 10 days? N o H ave you been exposed to COVID-19 in the past? N o S HARRISON Questions: SDOH Questions I n the past year have you been worried about losing your housing? N o I n the past year have you or any family members you live with been unable to get any of the following when it was really needed? Check all that apply: N one * ROS: G eneral/Constitutional: pain o nly normal aches and pains. C hills d enies.?Fatigue a dmits. F ever d enies. E NT: Decreased hearing d enies. R espiratory: Cough d enies. C ardiovascular: Chest pain with exertion d enies. D yspnea on exertion?denies. S hortness of breath d enies. G astrointestinal: Constipation d enies. D ecreased appetite d enies.?Diarrhea d enies. H eartburn d enies. N ausea d enies. R ectal bleeding?denies. V omiting d enies. H ematology: bruising d enies. p etechiae d enies. S wollen glands n one have been noted. G enitourinary: Frequent urination a t night. M usculoskeletal: Muscle aches d enies. P ainful joints d enies. S ciatica d enies. W eakness d enies. S kin: Itching d enies. R harry d enies. S kin lesion(s)?denies. N eurologic: Difficulty speaking d enies. D izziness d enies.?Headache d enies. L ow back pain d enies. P sychiatric: Depressed mood d enies. * Medical History: * Surgical History: C holecystectomy for cholecystitis [id number] * Hospitalization/Major Diagno stic Procedure: b cholecystectomy for stones food poisoning 2022 * Family History: F ather: alive, History of depression, diagnosed with DM. M other: alive, Chronic pain syndrome, orthostatic hypotension, diagnosed with HTN. S iblings: alive. 1 brother(s) - healthy. . There is no family history of breast or uterine cancer. She is not aware of any family history of inherited cancer syndromes. She is not aware of any family history of addiction, or mental illness, other than her father's depression or substance use disorder. * Social History: T obacco Use: T obacco Use/Smoking P atient is a n onsmoker A dditional Findings: Tobacco Non-User A ggressive non-smoker D rugs/Alcohol: D rugs H ave you used drugs other than those for medical reasons in the past 12 months? N o Alcohol Screen D id you have a drink containing alcohol in the past year? N o P oints 0 I nterpretation N egative S he is now observe it most of her does not smoke or drink. She does not have a mormonism objection to blood transfusion. She does not have any children. She has no exposures to toxic materials. She was born in [place], [place]. Her parents are from [place]. * Medications: T akingD3 50 MCG (2000 UT) Tablet 1 tablet Orally Once a dayLoryna 3-0.02 MG Tablet TAKE ONE TABLET BY MOUTH EVERY DAY Oral Medication List reviewed and reconciled with the patientTaking D3 50 MCG (2000 UT) Tablet 1 tablet Orally Once a dayTaking Loryna 3-0.02 MG Tablet TAKE ONE TABLET BY MOUTH EVERY DAY Oral Medication List reviewed and reconciled with the patient * Allergies: N o Known Drug Allergyno[Allergies Verified] Objective: * Vitals: H t: 5 ft 3 in, Wt: 204, BMI:36.13, BP: 132/74, HR: 93, Temp: 98.1, Wt-k.53. * Examination: G eneral Examination: GENERAL APPEARANCE: p leasant, well nourished, well developed, in no acute distress, calm and relaxed woman, obese. HEAD: a traumatic, normocephalic. EYES: e isabelle, perrla, anicteric, conjugate. EARS: n ormal. NOSE: s eptum intact. ORAL CAVITY: n ormal, unremarkable. NECK/THYROID: n o jugular venous distention, no carotid bruit, thyroid normal. LYMPH NODES: n o enlarged lymph nodes,spleen normal. SKIN: n o suspicious lesions, anicteric. HEART: n o clicks, gallops, murmurs, or rubs, regular rhythm, S1, S2 normal, no s3, or vascular bruits. LUNGS: c lear to auscultation . BREASTS: n ot examined. ABDOMEN: b owel sounds normal, no ascites, no organomegaly, no mass , centripital obesity. RECTAL EXAM: n ot examined. MUSCULOSKELETAL: e xtremities unremarkable, no clubbing, cyanosis or edema. PERIPHERAL PULSES: n ormal. NEUROLOGIC: a lert and oriented, cranial nerves 2-12 grossly intact, deep tendon reflexes 2+ symmetrical, motor strength normal upper and lower extremities, sensory exam intact. PSYCH: a lert, oriented. Assessment: * Assessment: 1. O nancy (BMI 30.0-34.9) - E66.9, We have discussed diet and nutrition today. We made a plan to lose weight at a rate of one half of a pound per week through a diet restricted in fact calories and sodium combined with regular physical activity. Her weight is stable over the last 6 monnths. We reviewed the health consequences of obesity. Various strategiees to reduce it. 2 . P olycystic ovaries - E28.2, She has been referred to [facility] for evaluation and management and routine reproductive health care. She is not at this time. She does not have contraception. Plan: * Treatment: * Labs: * L ab: URINE DIP STICK Value Reference Range S G 1.030 1.005 - 1.025 * p H 5.0 5.0 - 9.0 * L EU Negative Negative - * N IT Negative Negative - * P RO 15 Negative - Trace * G MYKE Negative Negative - * K ET 5 Negative - * U BG 0.2 0.1 - 1.8 * B IL 1 0.2 - 1.3 * B LD Positive Negative - * M enstrating No * Procedure Codes: 8 1002 URINE-NO MICRO * Preventive Medicine: Counseling: C are goal follow-up plan: Counseling for abnormal BMI given Y es Above Normal BMI Follow-up D ietary management education, guidance, and counseling, Dietary needs education * Follow Up: 1 Year (Reason: OV, Annual Exam) * Images: * Sign off status: Completed true * Provider: Sherri Smith MD Date: 0 11/12/2023 Generated for Marci rodarte/Agata/Sayitting on: 1 05/27/2024 12:42 PM EST History and Physical Notes * HPI (History of Present Illness) Category Sub-Category Detail Notes Depression Screening PHQ-9 Little inte rest or pleasure in doing things: More than half the days Feeling down, depressed, or hopeless: Se veral days Trouble falling or staying asleep, or sl eeping too much: Nearly every day Feeling tired or having little energy: M ore than half the days Poor appetite or overeating: More than h jami the days Feeling bad about yourself o r that you are a failure, or have let yourself or your family down: Not at all Trouble concentrating on thi ngs, such as reading the newspaper or watching television: Nearly every day Moving or speaking so slowly that other people could have noticed; or the opposite, being so fidgety or restless that you have been moving around a lot more than usual: Not at all Thoughts that you would be b fabien off or of hurting yourself in some way: Not at all Total Score: 13 Interpretation: Moderate Depression COVID-19 Screening Questions Have you had any new onset fever, chills, cough, congestion, sore throat, shortness of breath, muscle aches?: No Have you been exposed to the virus withi n the last 10 days?: No Have you travelled internationally in [facility] last 10 days?: No Have you been exposed to COVID-19 in the past?: No SDOH Questions SDOH Questions In the past year have you been worried about losing your housing?: No In the past year have you or any family members you live with been unable to get any of the following when it was really needed? Check all that apply:: None Examination Category Sub-Category Detail Notes General Examination GENERAL APPEARANCE: pleasant , well nourished, well developed, in no acute distress, calm and relaxed woman, obese HEAD: atraumatic, normocep halic EYES: eomi, perrla, anicte eli, conjugate EARS: normal NOSE: septum intact NECK/THYROID: no jugular venous di stention, no carotid bruit, thyroid normal HEART: no clicks, gallops, murmurs, or rubs, regular rhythm, S1, S2 normal, no s3, or vascular bruits LUNGS: clear to auscultatio n ABDOMEN: bowel sounds normal, no ascites, no organomegaly, no mass , centripital obesity NEUROLOGIC: alert and oriented, cranial nerves 2-12 grossly intact, deep tendon reflexes 2+ symmetrical, motor strength normal upper and lower extremities, sensory exam intact SKIN: no suspicious lesion s, anicteric PERIPHERAL PULSES: normal BREASTS: not examined MUSCULOSKELETAL: extremities unremark able, no clubbing, cyanosis or edema LYMPH NODES: no enlarged lymph no elida,spleen normal RECTAL EXAM: not examined PSYCH: alert, oriented ORAL CAVITY: normal, unremarkable
--- OUTSIDE RECORDS SUMMARY | 2024-09-10 05:30 | XMS_ITS ---
Author Organization Derian Smith III, MD Address [address] [place] [address] [place] [address] Care Team Providers Care Kitchen Manager Name Role Phone Dr. Derian Smith III Primary Care Provider Allergies Allergen (clinical drug ingredient) Drug/Non Drug Allergy documented on EMR Reaction Allergy Type Onset Date Status No Known Drug Allergy Unknown Drug Allergy Active Results Component Value Reference Range Notes Lipid Panel Reviewed date:09/16/2024 01:55:42 PM Interpretation: Performing Lab:[facility], [address] [place] [phone] Notes/Report: Triglycerides 241 <150 mg/dL Desirable Triglyceride: [...] Folate Reviewed date:09/16/2024 01:55:42 PM Interpretation: Performing Lab:[facility], [address] [place] [phone] Notes/Report: Vitamin B12 233 200-900 pg/mL NORMAL 200-900 PG/ML INDETERMINATE 160-199 PG/ML DEFICIENT < 160 PG/ML Folate 4.7 > or = 4.0 ng/mL Reference Values: > or = 4.0 ng/mL < 4.0 ng/mL suggests folate deficiency Methotrexate, aminopterin and folinic acid (leucovorin) are chemotherapeutic agents whose molecular structures are similar to folate; therefore, the Oil And Gas Specialist folate assay cannot be used for patients using these drugs. Free T4 (Free Thyroxine) Reviewed date:09/16/2024 01:55:42 PM Interpretation: Performing Lab:[facility], [address] [place] [phone] Notes/Report: Free T4 (Free Thyroxine) 0.98 0.71-1.85 [...] Problem Status W/U Status Risk Notes Problem 11408749 Cervical radiculopathy (M54.12) Active confirmed The neck pain is not improved but the shoulder pain is described as a little better. He'll continue current therapy. If this has not improved in 3 weeks she will have imaging done and be referred for possible injections and physical therapy. Problem Fatigue (37715837) Fatigue (R53.83) Active confirmed A sleep study [...] Date Provider Diagnosis Derian Smith III, MD [address] [place] [address] [place] [address] 09/10/2024 Derian Smith Obesity (BMI 30.0-34 .9) [...] Weeks, Reason: ov Provider Name:Derian Smith , 04/20/2025 03:15:00 PM, 10 [facility] [address], [place], [address], Provider Name:Derian Smith , 11/16/2025 02:30:00 PM, [address] [place] [address] [address], [place], [address], Progress Notes * KRZYSZTOF GARCIADOB: 1 (24 yo F)Acc No.[id number]:09/10/2024 Progress Notes Patient: KRZYSZTOF GÓMEZ Provider: Sherri Smith MD :2000 A ge:24 Y S ex:Female Date:09/10/2024 Address:[address] [place] [address] FLOOR, [id number] Subjective: * Chief Complaints: * N ian [...] or drink. She does not have a christian objection to blood transfusion. She does not have any children. She has no exposures to toxic materials. She was born in [place], [place]. Her parents are from [place]. * [...] 0 09/10/2024 Generated for Marci rodarte/Agata/Sayitting on: 05/27/2024 12:43 PM EST History and Physical Notes * [...]
--- OUTSIDE RECORDS SUMMARY | 2024-09-24 05:15 | XMS_ITS ---
Author Organization Derian Smith III, MD Address [address] [place] [address] [place] [address] Care Team Providers Care Contract Admin Name Role Phone Dr. Derian Smith III Primary Care Provider [phone] Allergies Allergen (clinical drug ingredient) Drug/Non Drug [...] Date Provider Diagnosis Derian Smith III, MD [address] [place] [address] [place] [address] 09/24/2024 Derian Smith Obesity (BMI 30.0-34 .9) [...] - E28.2) She has been referred to [facility] for evaluation and management and routine reproductive [...] Provider Name:Derian Smith , 04/20/2025 03:15:00 PM, [address] [place] [address] [address], [place], [address], Provider Name:Derian Smith , 11/16/2025 02:30:00 PM, [address] [place] [address] [place], [address], Progress Notes * KRZYSZTOF GARCIADOB: 1 (24 yo F)Acc No.[id number]:09/24/2024 Progress Notes Patient: Jus TROYSERGIOKRZYSZTOF Provider: Sherri Smith MD :2000 A ge:24 Y S ex:Female Date:09/24/2024 Address:[address] [place] [address] [address]LO[address], [id number] Subjective: * Chief Complaints: * N ian [...] * Surgical History: C holecystectomy for cholecystitis [id number] * Hospitalization/Major Diagno stic Procedure: b cholecystectomy [...] or drink. She does not have a episcopal objection to blood transfusion. She does not have any children. She has no exposures to toxic materials. She was born in [place], [place]. Her parents are from [facility]. * Medications: T akingD3 50 MCG (2000 [...] May have water,PLEASE FAX COMPLETED RESULTS TO [phone] L ab:Free T4 (Free Thyroxine) (Order Date - 09/10/2024) (Collection Date & Time - 09/10/2024 11:32 AM) Value Reference Range Free T4 (Free Thyroxine) 0.98 0.71-1.85 - ng/ dL Clinical Info: Please fast for 12-14 hours prior to having this labwork done. You may have black coffee or tea with no milk or sugar. May have water,PLEASE FAX COMPLETED RESULTS TO [phone] L ab:Complete Blood Count Auto Diff (Order [...] Auto 0.000 0.0-0.012 - X10*3/uL L ab:Comprehensive [place]. Panel Fast (Order Date - 09/10/2024) (Collection [...] May have water,PLEASE FAX COMPLETED RESULTS TO [phone] Lab:Thyroid Stimulating Horm one * Collection Date [...] N otes :She has been referred to [facility] for evaluation and management and routine reproductive [...] 0 09/24/2024 Generated for Marci rodarte/Agata/eTransmitting on: 1 05/27/2024 12:44 PM EST History and Physical Notes * [...]
--- OUTSIDE RECORDS SUMMARY | 2024-11-12 09:30 | XMS_ITS ---
Author Organization Derian Smith III, MD Address [address] [place] [address] [place] [address] Care Team Providers Care Construction Job Cost Estimator Name Role Phone Dr. Derian Smith III Primary Care Provider Allergies Allergen (clinical drug ingredient) Drug/Non Drug Allergy documented on EMR Reaction Allergy Type Onset Date Status No Known Drug Allergy Unknown Drug Allergy Active No Known Food Allergy Unknown Drug Allergy Active Results Component Value Reference Range Notes Magnesium Reviewed date:12/03/2024 04:20:57 PM Interpretation: Performing Lab:[facility], [address] [place] [phone] Notes/Report: Magnesium 2.1 1.6-2.6 mg/dL Lipid Panel Reviewed date:12/03/2024 04:20:57 PM Interpretation: Performing Lab:[facility], [address] [place] [address] Notes/Report: Triglycerides 407 <150 mg/dL Desirable Triglyceride: less than 150 mg/dL Borderline High Triglyceride 150-199 mg/dL High Triglyceride: 200-499 mg/dL Very High Triglyceride: greater than or equal to 5OO mg/dL Cholesterol 227 <200 mg/dL Desirable Cholesterol: less than 200 mg/dL Borderline High Cholesterol: 200-239 mg/dL High Cholesterol: greater than 239 mg/dL LDL Cholesterol Calculated TNP <100 mg/dL Unable to calculate the LDL. The formula of Friedwald, Nelson, and Kevin is only valid if the triglycerides are less than 400 mg/dl. HDL Cholesterol 44 >40 mg/dL Desirable HDL: greater than 40 mg/dL Note: This HDL assay may give artificially low results in patients with liver disease. REASON FOR VISIT Annual Exam Medications Medication SIG (Take, Route, Fr equency, Duration) Notes Start Date End Date Status Loryna 3-0.02 MG TAKE ONE TABLET BY M OUTH EVERY DAY Oral Active Social History Tobacco Use: Social History Observation Description Date Details (start date - stop date) Never Smoker NA - NA Sex Assigned At : Social History Observation Description Sex Assigned At Female Tobacco Control (Standard) Question Answer Notes Tobacco use: Nonsmoker Additional Findings: Tobacco non-user Aggressive nonsmoker AUDIT-C (Standard) Question Answer Notes Did you have a drink containing alcohol in the p ast year? No Points 0 Interpretation Negative Vital Signs Temperature 97.2 degrees Fahrenheit 11/13/19 25 Blood pressure systolic 118 mm Hg 11/13/19 25 Blood pressure diastolic 79 mm Hg 025 Heart Rate 85 /min 11/12/2024 Height 5 ft 3 in in 11/12/2024 Weight 206 lbs 11/12/2024 BMI 36.49 kg/m2 11/12/2024 Encounters Encounter Location Date Provider Diagnosis Derian Smith III, MD [address] [place] [address] [place] [address] 11/12/2024 Derian Smith Obesity (BMI 30.0-34 .9) E66.9 ; Fatigue R53.83 ; Cervical radiculopathy M54.12 and Polycystic ovaries E28.2 Assessments Encounter Date Diagnosis (ICD Code) Assessment Notes Treat ment Notes Treatment Clinical Notes 11/12/2024 Obesity (BMI 30.0-34.9) (ICD-10 - E66.9) We [...] of obesity. Various strategiees to reduce it. 11/12/2024 Fatigue (ICD-10 - R53.83) This is becoming a chronic complaint. Repeat P conference blood work has been ordered to evaluate for a metabolic cause. 11/12/2024 Cervical radiculopathy (ICD-10 - M54.12) The neck pain is not improved but the shoulder pain is described as a little better. He'll continue current therapy. If this has not improved in 3 weeks she will have imaging done and be referred for possible injections and physical therapy. 11/12/2024 Polycystic ovaries (ICD-10 - E28.2) She has been referred to [facility] for evaluation and management and routine reproductive health care. She is not at this time. She does not have contraception. Plan Of Treatment Medication Medication Name Sig Start Date Stop Date Notes Loryna 3-0.02 MG TAKE ONE TABLET BY MOUTH EVERY DAY Oral Pending Test Test Name Order Date PROFILE, FASTING (COMPREHENSIVE METABOLI C) 11/12/2024 CBC w DIFF 11/12/2024 SED RATE (ESR) 11/12/2024 Next Appt Details Follow Up: 3 Weeks, Reason: OV Provider Name:Derian Smith , 04/20/2025 03:15:00 PM, [address] [place] [address] [address], [place], [address], Provider Name:Derian Smith , 11/16/2025 02:30:00 PM, [address] [place] [address] [address], [place], [address], Progress Notes * KRZYSZTOF GARCIADOB: 1 (24 yo F)Acc No.[id number]:11/12/2024 Progress Notes Patient: KRZYSZTOF GÓMEZ Provider: Sherri Smith MD :2000 A ge:24 Y S ex:Female Date:11/12/2024 Address:[address] [place] [address], [id number] Subjective: * Chief Complaints: * A nnual Exam * HPI: D epression Screening: She returns to the office at the age of 24 for her annual physical examination. She says she has been feeling very tired and has been for several years. She has not had a period for 3 months but had 1 last week. She is up-to-date with gynecology. She denies any unusual bleeding. Recent blood work has been unremarkable. Her examination today showed a healthy woman who is overweight. We discussed weight loss strategies at length today. Comprehensive blood work was ordered.again to evaluate the fatigue. PHQ-9 L ittle interest or pleasure in doing things?Several days F eeling down, depressed, or hopeless S everal T rouble falling or staying asleep, or sleeping too much M ore than half the days F eeling tired or having little energy M ore than half the days P oor appetite or overeating M ore than half the days F eeling bad about yourself or that you are a failure, or have let yourself or your family down S ever T rouble concentrating on things, such as reading the newspaper or watching television N early every day M oving or speaking so slowly that other people could have noticed; or the opposite, being so fidgety or restless that you have been moving around a lot more than usual S T houghts that you would be better off or of hurting yourself in some way N ot at all T otal Score 1 3 I nterpretation M oderate Depression C OVID-19 Screening: Questions H ave you had any new onset fever, chills, cough, congestion, sore throat, shortness of breath, muscle aches? N o S HARRISON Questions: SDOH Questions I n the past year have you been worried about losing your housing? N o I n the past year have you or any family members you live with been unable to get any of the following when it was really needed? Check all that apply: N one * ROS: G eneral/Constitutional: pain N ian with range of motion. C hills d enies.?Fatigue a dmits. F ever d enies. E NT: Decreased hearing d enies. R espiratory: Cough d enies. C ardiovascular: Chest pain with exertion d enies. D yspnea on exertion?denies. S hortness of breath d enies. G astrointestinal: Constipation o ccasional. D ecreased appetite d enies. D iarrhea d enies. H eartburn d enies. N ausea d enies. R ectal bleeding d enies. V omiting d enies. H ematology: bruising [...] Social History: T obacco Use: T obacco Control (Standard) T obacco use: N onsmoker A dditional Findings: Tobacco non-user A ggressive nonsmoker D rugs/Alcohol: D rugs H ave you used drugs other than those for medical reasons in the past 12 months? N o D rug/Alcohol: A JEREMIAS-C (Standard) D id you have a drink containing alcohol in the past year? N o P oints 0 I nterpretation N egative S he is now observe it most of her does not smoke or drink. She does not have a hoahaoism objection to blood transfusion. She does not have any children. She has no exposures to toxic materials. She was born in [place], [place]. Her parents are from [place]. * Medications: T akingLoryna 3-0.02 MG Tablet TAKE ONE TABLET BY MOUTH EVERY DAY Oral Taking Loryna 3-0.02 MG Tablet TAKE ONE TABLET BY MOUTH EVERY DAY Oral DiscontinuedD3 50 MCG (2000 UT) Tablet 1 tablet Orally Once a day dexAMETHasone 2 MG Tablet 1 tablet Orally twice a day Medication List reviewed and reconciled with the patientDiscontinued D3 50 MCG (1999) Tablet 1 tablet Orally Once a day Discontinued dexAMETHasone 2 MG Tablet 1 tablet Orally twice a day Medication List reviewed and reconciled with the patient * Allergies: N o Known Drug AllergyNo Known Food Allergyno[Allergies Verified] Objective: * Vitals: H t: 5 ft 3 in, Wt: 206, BMI:36.49, BP: 118/79, HR: 85, Temp: 97.2, Wt-k.44. * Examination: G eneral Examination: GENERAL APPEARANCE: p leasant, well nourished, well developed, in no acute distress, calm and relaxed: obese: woman. HEAD: a traumatic, normocephalic. EYES: e [...] sounds normal, no ascites, no organomegaly, no mass: centripital obesity. RECTAL EXAM: n ot examined. MUSCULOSKELETAL: e xtremities unremarkable, no clubbing, cyanosis or edema. PERIPHERAL PULSES: n ormal. NEUROLOGIC: a lert and oriented, cranial nerves 2-12 grossly intact, deep tendon reflexes 2+ symmetrical, motor strength normal upper and lower extremities, sensory exam intact. PSYCH: a lert, oriented. Assessment: * Assessment: 1. O besity (BMI 30.0-34.9) - E66.9 (Primary) N otes :We have discussed diet and [...] Various strategiees to reduce it. 2 . F atigue - R53.83 N otes :This is becoming a chronic complaint. Repeat P conference blood work has been ordered to evaluate for a metabolic cause. 3 . C ervical radiculopathy - M54.12 N otes :The neck pain is not improved but the shoulder pain is described as a little better. He'll continue current therapy. If this has not improved in 3 weeks she will have imaging done and be referred for possible injections and physical therapy. 4 . P olycystic ovaries - E28.2 N otes :She has been referred to [facility] for evaluation and management and routine reproductive health care. She is not at this time. She does not have contraception. Plan: * Treatment: 2. F atigue L AB: PROFILE, FASTING (COMPREHENSIVE METABOLIC) L AB: CBC w DIFF L AB: SED RATE (ESR) L AB: Magnesium L AB: Lipid Panel * Procedure Codes: * Preventive Medicine: Counseling: [...] done * Follow Up: 3 Weeks (Reason: OV) * Images: * Sign off status: Completed true * Provider: Sherri Smith MD Date: 0 11/12/2024 Generated for Marci rodarte/Agata/eTransmitting on: 05/27/2024 12:43 PM EST History and Physical Notes * HPI (History of Present Illness) Category Sub-Category Detail Notes Depression Screening PHQ-9 Little inte rest or pleasure in doing things: Several days Feeling down, depressed, or hopeless: Se veral days Trouble falling or staying a sleep, or sleeping too much: More than half the days Feeling tired or having little energy: M ore than half the days Poor appetite or overeating: More than h jami the days Feeling bad about yourself o r that you are a failure, or have let yourself or your family down: Several days Trouble concentrating on thi ngs, such as reading the newspaper or watching television: Nearly every day Moving or speaking so slowly that other people could have noticed; or the opposite, being so fidgety or restless that you have been moving around a lot more than usual: Several days Thoughts that you would be b fabien off or of hurting yourself in some way: Not at all Total Score: 13 Interpretation: Moderate Depression COVID-19 Screening Questions Have you had any new onset fever, chills, cough, congestion, sore throat, shortness of breath, muscle aches?: No SDOH Questions SDOH Questions In the [...] developed, in no acute distress, calm and relaxed: obese: woman HEAD: atraumatic, normocep halic EYES: eomi, perrla, anicte eli, conjugate EARS: normal NOSE: septum intact NECK/THYROID: no jugular venous di stention, no carotid bruit, thyroid normal HEART: no clicks, gallops, murmurs, or rubs, regular rhythm, S1, S2 normal, no s3, or vascular bruits LUNGS: clear to auscultatio n ABDOMEN: bowel sounds normal, no ascites, no organomegaly, no mass: centripital obesity NEUROLOGIC: alert and oriented, cranial [...]
--- OUTSIDE RECORDS SUMMARY | 2024-12-03 10:45 | XMS_ITS ---
Author Organization Derian Smith III, MD Address [address] [place] [address] [place] [address] Care Team Providers Care Hand Expansion Envelope Maker Name Role Phone Dr. Derian Smith III Primary Care Provider Allergies Allergen (clinical drug ingredient) Drug/Non Drug Allergy documented on EMR Reaction Allergy Type Onset Date Status No Known Drug Allergy Unknown Drug Allergy Active No Known Food Allergy Unknown Drug Allergy Active Results Component Value Reference Range Notes Gliadin Ab Panel Reviewed date:01/17/2025 09:00:51 PM Interpretation: Performing Lab:[facility], [address] [place] [phone] Notes/Report: Gliadin Deamidated IgA Ab 4.5 Value Interpretation ----- <15.0 Antibody not detected > or = 15.0 Antibody detected Gliadin Deamidated IgG Ab 5.6 Value Interpretation ----- <15.0 Antibody not detected > or = 15.0 Antibody detected THIS TEST WAS PERFORMED AT: [facility] [address] [place] [phone] RYLAN PALACIO MD Reason For Referral Reason Evaluate and Treat Questioning if patient has Androgenetic alopecia Diagnosis 1 Fatigue (R53.83) Diagnosis 2 Obesity (BMI 30.0-34 .9) (E66.9) Diagnosis 3 Cervical radiculopat hy (M54.12) Diagnosis 4 Polycystic ovaries ( E28.2) Referral Organization Derian Smith III, MD Referring Provider First Name Derian Referring Provider Last Name Smith [facility] Referred Organization [facility] nter Referred Provider [facility] er, SPORTS INFORMATION DIRECTOR & Midwifery Referred Address [address] [place] [address],[place], [place],[phone], Referred Provider Specialty OB - Gynecol ogy [...] Referring Provider Speciality Internal edicine Referred Provider [facility] er, Pulmonology Referred Provider Specialty Pulmonary Di [...] Date Provider Diagnosis Derian Smith III, MD [address] [place] [address] [place] [address] 12/03/2024 Derian Smith Obesity (BMI 30.0-34 .9) [...] - E28.2) She has been referred to G[facility] HELPER for evaluation and management and routine reproductive [...] Treat Questioning if patient has Androgenetic alopecia, SPOR[facility] INFORMATION DIRECTOR [facility] Midwifery [facility], [address] [place] [address], [place], [place], [phone], 12/03/2024 12/03/2024, Evaluate and Treat AM Nausea, Abdominal pain after eating, Derian Chow 12/04/2024 12/04/2024, Evaluate and Treat Needs Sleep Study, Pulmonology [facility] Next Appt Details Follow Up: 4 Weeks, Reason: OV Provider Name:Derian Smith , 04/20/2025 03:15:00 PM, [address] [place] [address] [address], [place], [address], Provider Name:Derian Smith , 11/16/2025 02:30:00 PM, [address] [place] [address] [address], [place], [address], Progress Notes * KRZYSZTOF GARCIADOB: 1 (24 yo F)Acc No.[id number]:12/03/2024 Progress Notes Patient: KRZYSZTOF GÓMEZ Provider: Sherri Smith MD :2000 A ge:24 Y S ex:Female Date:12/03/2024 Address:[address] [place] [address], [id number] Subjective: * Chief Complaints: * C hronic [...] * Surgical History: C holecystectomy for cholecystitis [id number] * Hospitalization/Major Diagno stic Procedure: b cholecystectomy [...] or drink. She does not have a yarsani objection to blood transfusion. She does not have any children. She has no exposures to toxic materials. She was born in [place], [place]. Her parents are from [place]. * [...] soon as possible,PLEASE FAX COMPLETED RESULTS TO [phone] Please fast for 12-14 hours prior to having this labwork done. You may have black coffee or tea with no milk or sugar. May have water,PLEASE FAX COMPLETED RESULTS TO [phone] * Lab:Thyroid Stimulating Horm one * Collection Date 09/10/2024 03/06/2023 Collection Time 11:32 AM 10:46 AM Order Date 09/10/2024 03/06/2023 Thyroid Stimulating Hormone 1.82 (Ref Range: 0.32-4.0 uIU/mL) 1.05 (Ref Range: 0.32-4.0 uIU/mL) * Lab:Aan Scruggs. Dat l Fast * Collection Date [...] May have water,PLEASE FAX COMPLETED RESULTS TO [phone] ???Lab:Vitamin B12 and Folate (Order Date - 09/10/2024) (Collection Date & Time - 09/10/2024 11:32AM)?ValueReference Range?Vitamin [id number] - pg/mL?Folate4.7> or = 4.0 - ng/mL?Clinical Info: Please fast for 12-14 hours prior tohaving this labwork done. You may have black coffee or tea with no milk or sugar. May have water,PLEASE FAX COMPLETED RESULTS TO [phone] ???Lab:Magnesium (Order Date - 11/12/2024) (Collection Date & Time - 11/14/2024 10:45 AM)?ValueReference Range?Magnesium2.11.6-2.6 - mg/dL ?Clinical Info: Please fast for 12-14 hours prior tohaving this labwork done. You may have black coffee or tea with no milk or sugar. May have water,Ple ase have this testing done as soon as possible,PLEASE FAX COMPLETED RESULTS TO [phone] ???Lab:Erythrocyte Sedimentation Rate (Order Date - 11/14/2024) (Collection Date & Time - 11/14/2024 10:45 AM)?ValueReference Range?Erythrocyte Sedimentation [id number] - MM/HR ???Imaging:XR cervical spine 3V (Order [...] N otes :She has been referred to GARAGE HELPER for evaluation and management and routine reproductive [...] TABLET BY MOUTH EVERY DAY, Oral. Referral To:SPORTS INFORMATION DIRECTOR & [facility] OB - Gynecology Reason:Evaluate and Treat Questioning if patient has Androgenetic alopecia Referral To:Derian Chow Gastroenterology Reason:Evaluate and Treat AM Nausea, Abdominal pain after eating Referral To:Pulmonology [facility] Pulmonary Diseases Reason:Evaluate and Treat Needs Sleep Study 3. P olycystic ovaries Referral To:SPORTS INFORMATION DIRECTOR & [facility] OB - Gynecology Reason:Evaluate and Treat Questioning if patient has Androgenetic alopecia 4. C ervical radiculopathy Referral To:SPORTS INFORMATION DIRECTOR & [facility] OB - Gynecology Reason:Evaluate and Treat Questioning if patient has Androgenetic alopecia 5. O thers Referral To:Pulmonology [facility] Pulmonary Diseases Reason:Evaluate and Treat Needs Sleep [...] 12/03/2024 Generated for Marci rodarte/Agata/Curtsmitting on: 1 05/27/2024 12:43 PM EST History and Physical [...] Provider Referred Provider Not es 12/03/2024 [facility], SPORTS INFORMATION DIRECTOR & Midwifery Evaluate and Treat Questioning if patient has Androgenetic alopecia 12/03/2024 Derian Smith Robert Evaluate and Treat AM Nausea, Abdominal pain after eating 12/04/2024 [facility], Pulmonology Evaluate and Treat Needs Sleep Study
--- OUTSIDE RECORDS SUMMARY | 2024-12-17 05:09 | XMS_ITS ---
Author Organization Derian Smith III, MD Address [address] [place] [address] [place] [address] Care Team Providers Care Communications Consultant Name Role Phone Dr. Derian Smith III Primary Care Provider REASON FOR VISIT Reschedule Appointment Request Social History Sex Assigned At : Social History Observation Description Sex Assigned At Female Encounters Encounter Location Date Provider Diagnosis Derian Smith III, MD [address] [place] [address] [place] [address] 12/17/2024 Derian Smith Plan Of Treatment Next Appt Details Provider Name:Derian Smith , 04/20/2025 03:15:00 PM, [address] [place] [address] [place], [address], Provider Name:Derian Smith , 11/16/2025 02:30:00 PM, [address] [place] [address] [place], [address], Progress Notes * BLUEJOAN HEMALJENNYDOB: 1 (24 yo F)Acc No.[id number]:12/17/2024 Patient: KRZYSZTOF GÓMEZ :2000 A ge:24 Y S ex:Female Address:[address] [facility] [address], [place], [address] * true * Date: Generated for Printi cayden/Samuelg/eTransmitting on: 1 05/27/2024 12:44 PM EST
--- OUTSIDE RECORDS SUMMARY | 2024-12-17 05:09 | XMS_ITS ---
Author Organization Derian Smith III, MD Address [address] [place] [address] [place] [address] Care Team Providers Care Disabilities Caregiver Name Role Phone Dr. Derian Smith III Primary Care Provider REASON FOR VISIT Cancel Appointment Request Social History Sex Assigned At : Social History Observation Description Sex Assigned At Female Encounters Encounter Location Date Provider Diagnosis Derian Smith III, MD [address] [place] [address] [place] [address] 12/17/2024 Derian Smith Plan Of Treatment Next Appt Details Provider Name:Derian Smith , 04/20/2025 03:15:00 PM, [address] [place] [address] [place], [address], Provider Name:Derian Smith , 11/16/2025 02:30:00 PM, [address] [place] [address] [place], [address], Progress Notes * KRZYSZTOF GARCIADOB: 1 (24 yo F)Acc No.[id number]:12/17/2024 Patient: KRZYSZTOF GÓMEZ :2000 A ge:24 Y S ex:Female Address:[address] [facility] [address], [place], [address] * true * Date: Generated for Printi cayden/Samuelg/eTransmitting on: 1 05/27/2024 12:44 PM EST
--- OUTSIDE RECORDS SUMMARY | 2025-01-07 12:00 | XMS_ITS ---
Author Organization Derian Smith III, MD Address [address] [place] [address] [place] [address] Care Team Providers Care Certified Medical Coder Name Role Phone Dr. Derian Smith III Primary Care Provider REASON FOR VISIT Follow up Social History Sex Assigned At : Social History Observation Description Sex Assigned At Female Encounters Encounter Location Date Provider Diagnosis Derian Smith III, MD [address] [place] [address] [place] [address] 01/07/2025 Derian Smith Plan Of Treatment Next Appt Details Provider Name:Derian Smith , 04/20/2025 03:15:00 PM, [address] [place] [address] [place], [address], Provider Name:Derian Smith , 11/16/2025 02:30:00 PM, [address] [place] [address] [place], [address], Progress Notes * KRZYSZTOF GARCIADOB: 1 (24 yo F)Acc No.[id number]:01/07/2025 Progress Notes Patient: KRZYSZTOF GÓMEZ Provider: Sherri Smith MD :2000 A ge:24 Y S ex:Female Date:01/07/2025 Address:[address] [facility] [address], [facility] [id number] Subjective: * Chief Complaints: * 1 . [...] 0 01/07/2025 Generated for Marci rodarte/Agata/Kasia on: 1 05/27/2024 12:43 PM EST
--- OUTSIDE RECORDS SUMMARY | 2025-01-08 04:15 | XMS_ITS ---
Author Organization Derian Smith III, MD Address [address] [place] [address] [place] [address] Care Team Providers Care Infection Control Nurse Name Role Phone Dr. Derian Smith III Primary Care Provider [phone] Allergies Allergen (clinical drug ingredient) Drug/Non Drug [...] Date Provider Diagnosis Derian Smith III, MD [address] [place] [address] [place] [address] 01/08/2025 Derian Smith Obesity (BMI 30.0-34 .9) [...] - E28.2) She has been referred to [facility]ER[facility]OUNT[facility] for evaluation and management and routine reproductive [...] Months, Reason: OV Provider Name:Derian Smith , 04/20/2025 03:15:00 PM, [address] [place] [address] [address] [place], [place], [address], Provider Name:Derian Smith , 11/16/2025 02:30:00 PM, [address] [place] [address] [place], [address], Progress Notes * KRZYSZTOF GARCIADOB: 1 (24 yo F)Acc No.[id number]:01/08/2025 Progress Notes Patient: Jus TROYSERGIO KRZYSZTOF Provider: Sherri Smith MD :2000 A ge:24 Y S ex:Female Date:01/08/2025 Address:[address] [place] [address] [address], [id number] Subjective: * Chief Complaints: * C hronic [...] * Surgical History: C holecystectomy for cholecystitis [id number] * Hospitalization/Major Diagno stic Procedure: b cholecystectomy [...] or drink. She does not have a congregation objection to blood transfusion. She does not have any children. She has no exposures to toxic materials. She was born in [place], [place]. Her parents are from [facility]. * Medications: T akingLoryna 3-0.02 MG Tablet [...] N otes :She has been referred to [facility]ER[facility] ACCOUNTANT for evaluation and management and routine reproductive [...] 0 01/08/2025 Generated for Marci rodarte/Agata/Kasia on: 1 05/27/2024 12:44 PM EST History [...]
--- OUTSIDE RECORDS SUMMARY | 2025-03-13 10:00 | XMS_ITS ---
Author Organization Derian Smith III, MD Address [address] [place] [address] Care Team Providers Care Advertising Clerk Name Role Phone Dr. Derian Smith III Primary Care Provider Allergies Allergen (clinical drug ingredient) Drug/Non Drug Allergy documented on EMR Reaction Allergy Type Onset Date Status No Known Drug Allergy Unknown Drug Allergy Active No Known Food Allergy Unknown Drug Allergy Active REASON FOR VISIT Chronic fatigue, Polycystic ovarian syndrome, Obesity Medications Medication SIG (Take, Route, Frequency, Duration) Notes Start Date End Date Status Loryna 3-0.02 MG TAKE ONE TABLET BY M OUTH EVERY DAY Oral Active SUMAtriptan Succinate 50 MG 1 tablet as needed, may take second dose at least 2 hours after first dose up to 4 tablets per day as needed Orally Once a day for 30 days 03/13/2025 Active Social History Tobacco Use: Social History Observation Description Date Details (start date - stop date) Never Smoker NA - NA Sex Assigned At : Social History Observation Description Sex Assigned At Female Tobacco Control (Standard) Question Answer Notes Tobacco use: Nonsmoker Additional Findings: Tobacco non-user Aggressive nonsmoker Problems Problem Type SNOMED Code ICD Code Onset Dates Problem Status W/U Status Risk Notes Problem 120650333 Deviated septum (J34.2) Active confirmed I have suggested a trial of decongestants . Vital Signs Temperature 97.6 degrees Fahrenheit 03/13/20 25 Blood pressure systolic 115 mm Hg 03/13/20 25 Blood pressure diastolic 78 mm Hg 025 Heart Rate 88 /min 03/13/2025 Height 5 ft 3 in in 03/13/2025 Weight 213 lbs 03/13/2025 BMI 37.73 kg/m2 03/13/2025 Encounters Encounter Location Date Provider Diagnosis Derian Smith III, MD [address] [place] [address] [address] [place], [place] [address] 03/13/2025 Derian Smith Obesity (BMI 30.0-34 .9) E66.9 ; Fatigue R53.83 ; Polycystic ovaries E28.2 ; Cervical radiculopathy M54.12 and Deviated septum J34.2 Assessments Encounter Date Diagnosis (ICD Code) Assessment Notes Treat ment Notes Treatment Clinical Notes 03/13/2025 Obesity (BMI 30.0-34.9) (ICD-10 - E66.9) We [...] of obesity. Various strategiees to reduce it. 03/13/2025 Fatigue (ICD-10 - R53.83) A sleep study has been ordered to evaluate her complaints of insomnia and daytime somnolence and snoring. He'll be seen thereafter. 03/13/2025 Polycystic ovaries (ICD-10 - E28.2) She has been referred to BALING MACHINE OPERATOR for evaluation and management and routine reproductive health care. She is not at this time. She does not have contraception. 03/13/2025 Cervical radiculopathy (ICD-10 - M54.12) The neck pain is not improved but the shoulder pain is described as a little better. He'll continue current therapy. If this has not improved in 3 weeks she will have imaging done and be referred for possible injections and physical therapy. 03/13/2025 Deviated septum (ICD-10 - J34.2) I have suggested a trial of decongestants. Plan Of Treatment Medication Medication Name Sig Start Date Stop Date Notes Loryna 3-0.02 MG TAKE ONE TABLET BY M OUTH EVERY DAY Oral SUMAtriptan Succinate 50 MG 1 tablet as needed, may take second dose at least 2 hours after first dose up to 4 tablets per day as needed Orally Once a day for 30 days 03/13/2025 Next Appt Details Follow Up: 6 Weeks, Reason: OV Provider Name:Derian Smiht , 04/20/2025 03:15:00 PM, [address] [facility] [address], [place], [address], Provider Name:Derian Smith , 11/16/2025 02:30:00 PM, [address] [facility] [place], [address], Progress Notes * KRZYSZTOF GARCIADOB: 1 (24 yo F)Acc No.[id number]:03/13/2025 Progress Notes Patient: KRZYSZTOF GÓMEZ Provider: Sherri Smith MD :2000 A ge:24 Y S ex:Female Date:03/13/2025 Address:[address] [place] [address], [id number] Subjective: * Chief Complaints: * C hronic fatiguePolycystic ovarian syndromeObesity * HPI: C OVID-19 Screening: S he returns for ongoing evaluation and management of chronic fatigue. A sleep study at home has been scheduled by neurology on March 26, 2025. She does report daytime somnolence and poor sleeping. Her neck continues to be intermittently painful about 3 out of 10 with motion. She reports she has had the migraines more frequently. She was given sumatriptan. She complains that she has difficulty breathing through the left nostril. On examination there was mild deviation of the septum to the left with narrowing of the orifice. No congestion was noted. We discussed this at length. I recommended a trial of Flonase before contemplating surgery. Questions H ave you had any new onset fever, chills, cough, congestion, sore throat, shortness of breath, muscle aches? N o * ROS: G eneral/Constitutional: pain M ild neck pain with range of motion, otherwise only normal aches and pains. C hills d enies. F atigue a dmits. F ever d enies.? E NT: Decreased hearing d enies. R espiratory: Cough d enies. C ardiovascular: Chest pain with exertion d enies. D yspnea on exertion?denies. S hortness of breath d enies. G astrointestinal: Constipation d enies. D ecreased appetite d enies.?Diarrhea d enies. H eartburn o ccasional. N ausea d enies. R ectal bleeding [...] speaking d enies. D izziness d enies.?Headache M igraines. L ow back pain d enies. P [...] or drink. She does not have a anabaptism objection to blood transfusion. She does not have any children. She has no exposures to toxic materials. She was born in [place], [place]. Her parents are from [place]. * [...] H t: 5 ft 3 in, Wt: 213, BMI:37.73, BP: 115/78, HR: 88, Temp: 97.6, Wt-k.62. * Examination: G eneral Examination: GENERAL APPEARANCE: p leasant, well nourished, well developed, in no acute distress, calm and relaxed: obese: woman. HEAD: a traumatic, normocephalic. EYES: e isabelle, perrla, anicteric, conjugate. EARS: n ormal. NOSE: s eptum intact. ORAL CAVITY: n ormal, unremarkable. NECK/THYROID: n o jugular venous distention, no carotid bruit, thyroid normal, Mild decreased range of motion of neck. LYMPH NODES: n o enlarged lymph nodes,spleen [...] F atigue - R53.83 (Primary) N otes :A sleep [...] N otes :She has been referred to BALING MACHINE OPERATOR for evaluation and management and routine [...] referred for possible injections and physical therapy. 5 . D eviated septum - J34.2 N otes :I have suggested a trial of decongestants. Plan: * Treatment: * Procedure Codes: * [...] Other reason not done * Follow Up: 6 Weeks (Reason: OV) * Images: * Sign off status: Completed true * Provider: Sherri Smith MD Date: 05/13/2024 Generated for Marci rodarte/Agata/eTransmitting on: 05/27/2024 12:43 [...] di stention, no carotid bruit, thyroid normal, Mild decreased range of motion of neck HEART: no clicks, gallops, murmurs, or rubs, [...]
--- OUTSIDE RECORDS SUMMARY | 2025-03-26 12:43 | XMS_ITS | Encounter Summary ---
Author Organization [facility] Address [address] [place] [address] Phone Care Team Providers Care Grain Elevator Superintendent Name Role Phone Gema Rosado MD Primary Care Provider [phone] Encounter Details Date Type Department Care Team (Late st Contact Info) Description 12/13/2012 Documentation [facility] [place] [facility] [address] [place] [address] Family Medicine, Physician [address] [place] [address] Social History Tobacco Use Types Packs/Day Years [...] on filedocumented in this encounter Care Teams Grain Elevator Superintendent Relationship Specialty Start Date End Date Gema Rosado MD [address] [place] [address] PCP - General 12/01/16 11/27/22 documented as of this encounter
--- OUTSIDE RECORDS SUMMARY | 2025-03-26 12:44 | XMS_ITS | Encounter Summary ---
Author Organization [facility] Address [address] [place] [address] Phone Care Team Providers Care Ice Maker Name Role Phone Gema Rosado MD Primary Care Provider [phone] Encounter Details Date Type Department Care Team (Late st Contact Info) Description 10/03/2016 Documentation [facility] [place] [address] [place] [address] Family Medicine, Physician [address] [place] [address] Social History Tobacco Use Types Packs/Day Years [...] on filedocumented in this encounter Care Teams Ice Maker Relationship Specialty Start Date End Date Gema Rosado MD [address] [place] [address] PCP - General 12/01/16 11/27/22 documented as of this encounter
--- OUTSIDE RECORDS SUMMARY | 2025-03-26 12:44 | XMS_ITS | Clinical Summary ---
Author Organization [facility] Address [address] [place] [address] Phone Care Team Providers Care Embossing Calender Operator Name Role Phone Unavailable Primary Care Provider [...] hCG, and Vitamin D level). Refer to [facility]. Assessment & Plan (05/12/2022 2:36 PM EST): Has a dx of PCOS. Was on OCPs but stopped them. Menses had been fairly regular until Sept then no menses since then. Not sexually active. Plan: Check labs (DHEAS, T, LH, FSH, prolactin, TFTs, serum hCG, and Vitamin D level). Refer to [facility]. BMI 36.0-36.9,adult 05/12/2022 Overview (05/12/2022): Exercising regularly [...] necessary. PLAN: 1. Follow up with [facility] [place]; Futher appt were not scheduled, today was [...] necessary. PLAN: 1. Follow up with [facility] [place]; Virtual visit scheduled, Lee Ann is aware [...] necessary. PLAN: 1. Follow up with [facility] [place]; Virtual visit scheduled, Lee Ann is aware [...] Christi Lopez PsyD (behavioral health provider at [facility]) in August of this year. [...] necessary. PLAN: 1. Follow up with [facility] [place]; Virtual visit scheduled, Lee Ann is aware [...] necessary. PLAN: 1. Follow up with [facility] [place]; Virtual visit scheduled, Lee Ann is aware [...] p.o. daily. Doing well On campus at [employer] and also doing two jobs.Lee [...] She will continue to follow closely with [facility] provider at [facility] & alert us to any [...] 1 month. Did not get any refills. Twisp it did not make her periods regular. 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 Procedure Name Priority Date/Time Associated Diagnosis Comments CHLAMYDIA AND GONORRHEA, AMPLIFIED Routine 05/12/2022 2:38 PM EST Special screening examination for chlamydial disease from Last 3 Months or Most Recently Relevant to Health Maintenance Results * Due to [place] law, this organization might not be sharing sensitive test results. * Chlamydia and Gonorrhoea, Amplified (05/12/2022 2:38 PM EST) Chlamydia Trachomatis, DNA Probe NEGATIVE (NEG) [facility] Comment: No Chlamydia Trachomatis RNA detected in this patient's sample (REFERENCE RANGE/NORMAL VALUE: NOT DETECTED) Note: This test uses boatswain mate- mediated amplification method to detect rRNA from C. Trachomatis URINE GC AMP PROBE NEGATIVE (NEG) [facility] Comment: No Neisseria Gonorrhoeae RNA detected in this patient's sample (REFERENCE RANGE/NORMAL VALUE: NOT DETECTED) NOTE: This test uses boatswain mate-mediated amplification method to detect rRNA from N.Gonorrhoeae. [...] without risk of sexual abuse. Consult the [facility] if needed. Contact phone number . Therapeutic failure or success cannot be determined with the Aptima Combo2 assay since nucleic acid may persist following appropriate antimicrobial therapy. The Centers for Disease Control and Prevention (CDC) recommends confirmatory retesting using culture or a different nucleic acid amplification test when positive results occur, if indicated. Testing performed or reported by [facility], a Service of [facility], [address] [place] [id number] Aly Quinonez MD, Icu Nurse [facility]# [id number] Urine (Urine) 05/12/2022 2:3 8 PM EST 05/13/2022 7:45 AM EST us Jessica Garnica MD LAB MICROBIOLOGY - GENERAL ORD ERABLES Final Result [facility] from Last 3 Months or Most Recently Relevant to Health Maintenance Insurance [facility] [place] [id number] [facility] NON [facility]
--- OUTSIDE RECORDS SUMMARY | 2025-03-26 12:44 | XMS_ITS | Patient Health Record ---
Author Organization Derian Smith III, MD Address [address] [place] [address] Care Team Providers Care Metrologist Name Role Phone Dr. Derian Smith III Primary Care Provider Allergies Allergen (clinical drug ingredient) Drug/Non Drug Allergy documented on EMR Reaction Allergy Type Onset Date Status No Known Drug Allergy Unknown Drug Allergy Active No Known Food Allergy Unknown Drug Allergy Active Results Component Value Reference Range Notes Pap Smear Reviewed date:05/30/2024 09:27:02 AM Interpretation: Performing Lab:[facility], [address] [place] [phone] Notes/Report: -- ---- Name: Krzysztof Garcia Nguyen Age/Sex: 23/F : 2000 Unit#: [id number] Attend Dr: Maria R Escobedo [facility] Re05/22/24 Status : DEP REF Location: [facility] Disch: -- ---- SPEC : [id number] RECD : 05/23/24 STATUS: CHARO ELMORE NUM: [id number] BETO: 05/22/24-[address]: Maria R Escobedo CNM ENTERED: 05/23/24-10 23 SP TYPE: Pap Smr OTHR DR: Derian Smith MD ORDERED: Pap Smear Interpretation Satisfactory for evaluation. Negative for intraepithelial lesion or malignancy. Clinical Information LMP:04/21/24 Previous PAP test: Never Other surgery: Other history: Material Received ThinPrep-Cervical Copies To: Derian Smith MD [address], [address] [place] [address] Maria R Escobedo CNM [facility] [address] [place] [address] -- ---- Signed (signature on file) KENDALL Pena (ASCP) 05/27/24 0835 -- ---- END OF REPORT Lipid Panel Reviewed date:09/16/2024 01:55:42 PM Interpretation: Performing Lab:[facility], [address] [place] [phone] Notes/Report: Triglycerides 241 <150 mg/dL Desirable Triglyceride: [...] Folate Reviewed date:09/16/2024 01:55:42 PM Interpretation: Performing Lab:[address] [phone] Notes/Report: Vitamin B12 233 200-900 pg/mL NORMAL 200-900 PG/ML INDETERMINATE 160-199 PG/ML DEFICIENT < 160 PG/ML Folate 4.7 > or = 4.0 ng/mL Reference Values: > or = 4.0 ng/mL < 4.0 ng/mL suggests folate deficiency Methotrexate, aminopterin and folinic acid (leucovorin) are chemotherapeutic agents whose molecular structures are similar to folate; therefore, the Fisher Hoop Net folate assay cannot be used for patients using these drugs. Free T4 (Free Thyroxine) Reviewed date:09/16/2024 01:55:42 PM Interpretation: Performing Lab:[facility], [address] [place] [phone] Notes/Report: Free T4 (Free Thyroxine) 0.98 0.71-1.85 ng/dL Complete Blood Count Auto Di ff Reviewed date:09/16/2024 01:55:42 PM Interpretation: Performing Lab:[facility], [address] [place] [phone] Notes/Report: White Blood Count 7.9 4.8-10.8 X10*3/uL [...] NRBC Abs Auto 0.000 0.0-0.012 X10*3/uL Comprehensive [place]. Panel Fa st Reviewed date:09/16/2024 01:55:42 PM Interpretation: Performing Lab:[facility], [address] [place] [phone] Notes/Report: Sodium 140 135-145 mmol/L Potassium 4.1 [...] Hormone Reviewed date:09/16/2024 01:55:42 PM Interpretation: Performing Lab:[facility], [address] [place] [phone] Notes/Report: Thyroid Stimulating Hormone 1.82 0.32-4.0 uIU/mL TSH 3rd Generation ([facility]) XR cervical spine 3V Reviewed date:09/16/2024 01:55:42 PM Interpretation: Performing Lab: Notes/Report: [address] [address] XRay Report Signed Patient: Krzysztof Garcia MR#: [id number] : 2000 Acct:[id number] Age/Sex: 24 / F ADM Date: 09/10/24 Loc: [facility] Attending Dr: Derian Smith MD Ordering Physician: Derian Smith MD Date of Service: 09/10/24 Procedure(s): XR cervical spine 3V Accession Number(s): [id number] cc: Derian Smith MD EXAMINATION: XR CERVICAL [...] 09/10/24 1242 DD/ 1140 TD/TT: 09/10/24 1146 House Sitter: [address] [place] [address] XRay Report Signed Patient: Krzysztof Garcia MR#: [id number] : 2000 Acct:[id number] Age/Sex: 24 / F ADM Date: 09/10/24 Loc: HO.XRAY Attending Dr: Derian Smith MD Ordering Physician: Derian Smith MD Date of Service: 09/10/24 Procedure(s): XR cervical spine 3V Accession Number(s): [id number] cc: Derian Smith MD EXAMINATION: XR CERVICAL [...] 09/10/24 1242 DD/ 1140 TD/TT: 09/10/24 1146 House Sitter: Magnesium Reviewed date:12/03/2024 04:20:57 PM Interpretation: Performing Lab:[facility], [address] [place] [phone] Notes/Report: Magnesium 2.1 1.6-2.6 mg/dL Lipid Panel Reviewed date:12/03/2024 04:20:57 PM Interpretation: Performing Lab:[facility], [address] [place] [phone] Notes/Report: Triglycerides 407 <150 mg/dL Desirable Triglyceride: [...] ff Reviewed date:12/03/2024 04:20:57 PM Interpretation: Performing Lab:[facility], [address] [place] [phone] Notes/Report: White Blood Count 6.9 4.8-10.8 X10*3/uL [...] te Reviewed date:12/03/2024 04:20:57 PM Interpretation: Performing Lab:[facility], [address] [place] [phone] Notes/Report: Erythrocyte Sedimentation Rate 21 0-20 MM/HR Patients with polycythemia and many hemoglobin abnormalities may have depressed sed rates whereas patients with anemia may have elevated sed rates. Comprehensive [place]. Panel Fa Reviewed date:12/03/2024 04:20:57 PM Interpretation: Performing Lab:[facility], [address] [place] [phone] Notes/Report: Sodium 139 135-145 mmol/L Potassium 4.1 [...] Panel Reviewed date:01/17/2025 09:00:51 PM Interpretation: Performing Lab:[facility], [address] [place] [phone] Notes/Report: Gliadin Deamidated IgA Ab 4.5 Value Interpretation ----- <15.0 Antibody not detected > or = 15.0 Antibody detected Gliadin Deamidated IgG Ab 5.6 Value Interpretation ----- <15.0 Antibody not detected > or = 15.0 Antibody detected THIS TEST WAS PERFORMED AT: [facility] [address] [place] [phone] RYLAN PALACIO MD US abdomen complete Reviewed date:03/15/2025 07:42:52 AM Interpretation: Performing Lab: Notes/Report: [address] [address] Ultrasound Report Signed Patient: Krzysztof Garcia MR#: [id number] : 2000 Acct:[id number] Age/Sex: 24 / F ADM Date: 03/12/25 Loc: HO.US Attending Dr: Derian Chow MD Ordering Physician: Derian Chow MD Date of Service: 03/12/25 Procedure(s): US abdomen complete Accession Number(s): [id number] cc: Derian Smith MD; Derian Chow MD Reason for Exam: ABDOMINAL BLOATING,ABDOMINAL PAIN, ACUTE,GENERALIZED CLINICAL HISTORY: ABDOMINAL BLOATING,ABDOMINAL PAIN, ACUTE,GENERALIZED US abdomen complete with duplex and color Doppler Comparison: None Findings: The visualized pancreas, aorta, and inferior vena cava are unremarkable. Liver normal size and slightly echogenic. Right lobe 16.0 cm length. No focal hepatic masses. Common duct 6.0 mm diameter. Post cholecystectomy. No sonographic Beatty sign. Main portal vein antegrade. Right kidney normal size, 11.6 cm in length. Normal cortical width and echotexture. No solid or cystic renal masses. Vascular reflectors rather than nephrolithiasis. No hydronephrosis. Left kidney normal, 9.7 cm in length. Normal cortical width and echotexture. No solid or cystic renal masses. No nephrolithiasis. No hydronephrosis. Spleen measures 9.6 cm. No splenic masses. No ascites. No lymphadenopathy. Impression: 1. Hepatic steatosis 2. Post cholecystectomy. This document has been electronically signed by: Antony Soliz MD on 03/12/2025 11:22:24 Dictated By: Antony Soliz MD Signed By: <Electronically signed by Antony Soliz MD in OV> 03/12/25 112 DD/ 21 TD/TT: 03/12/251121 House Sitter: [place] [address] Ultrasound Report Signed Patient: Krzysztof Garcia MR#: [id number] : 2000 Acct:[id number] Age/Sex: 24 / F ADM Date: 03/12/25 Loc: HO.US Attending Dr: Derian Chow MD Ordering Physician: Derian Chow MD Date of Service: 03/12/25 Procedure(s): US abdomen complete Accession Number(s): [id number] cc: Derian Smith MD; Derian Chow MD Reason for Exam: ABDOMINAL BLOATING,ABDOMINAL PAIN, ACUTE,GENERALIZED CLINICAL HISTORY: ABDOMINAL BLOATING,ABDOMINAL PAIN, ACUTE,GENERALIZED US abdomen complete with duplex and color Doppler Comparison: None Findings: The visualized pancreas, aorta, and inferior vena cava are unremarkable. Liver normal size an d slightly echogenic. Right lobe 16.0 cm length. No focal hepatic masses. Common duct 6.0 mm diameter. Post cholecystectomy . No sonographic Beatty sign. Main portal vein antegrade. Right kidney normal size, 11.6 cm in length. Normal cortical width and echotexture. No altagracia d or cystic renal masses. Vascular reflectors rather than nephrolithiasis . No hydronephrosis. Left kidney normal, 9.7 cm in length. Normal cortical width and echotexture. No altagracia d or cystic renal masses. No nephrolithiasis. No hydronephrosis. Spleen measures 9.6 cm. No splenic masses. No ascites. No lymphadenopathy. Impression: 1. Hepatic steatosis 2. Post cholecystectomy. This document has be en electronically signed by: Antony Soliz MD on 03/12/2025 11:22:24 Dictated By: Antony Soliz MD Signed By: <Electronically signed by Antony Soliz MD in OV> 03/12/25 1124 DD/ 1122 TD/TT: 03/12/25 112 House Sitter: Reason For Referral Reason Evaluate and Treat Questioning if patient has Androgenetic alopecia Diagnosis 1 Fatigue (R53.83) Diagnosis 2 Obesity (BMI 30.0-34 .9) (E66.9) Diagnosis 3 Cervical radiculopat hy (M54.12) Diagnosis 4 Polycystic ovaries ( E28.2) Referral Organization Derian Smith III, MD Referring Provider First Name Derian Referring Provider Last Name Sarah Referring Provider [facility] Referred Organization [facility] nter Referred Provider [facility] er, [facility] Referred Address [address] [place] [address],[place], [id number], Referred Provider Specialty OB - Gynecol ogy General Notes D, Isadora 12/08/2024 09:40:19 AM > referral and [...] Referring Provider Speciality Internal edicine Referred Provider [facility] er, Pulmonology Referred Provider Specialty Pulmonary Di seases General Notes D, Isadora 12/08/2024 09:44:41 AM > Referral faxed with progress note Referral Priority Routine Referral Appointment Date 01/23/2025 Medications Medication SIG (Take, Route, Frequency, Duration) Notes Start Date End Date Status Loryna 3-0.02 MG TAKE ONE TABLET BY M OUTH EVERY DAY Oral Active SUMAtriptan Succinate 50 MG 1 tablet as needed, may take second dose at least 2 hours after first dose up to 4 tablets per day as needed Orally Once a day for 30 days 03/13/2025 Active Immunizations Vaccine Route Administration Date Status [...] Status W/U Status Risk Notes Problem Fatigue (69194786) Fatigue (R53.83) Active confirmed A sleep study has been ordered to evaluate her complaints of insomnia and daytime somnolence and snoring. He'll be seen thereafter. Problem [id number] Obesity (BMI 30.0-34.9) (E66.9) Active confirmed We [...] obesity. Various strategiees to reduce it. Problem [id number] Cervical radiculopathy (M54.12) Active confirmed The neck pain is not improved but the shoulder pain is described as a little better. He'll continue current therapy. If this has not improved in 3 weeks she will have imaging done and be referred for possible injections and physical therapy. Problem Polycystic ovary syndrome (disorder) (081610293) Polycystic ovaries (E28.2) Active confirmed She has been referred to PERSONAL DEVELOPMENT COACH for evaluation and management and routine reproductive health care. She is not at this time. She does not have contraception . Problem [id number] Deviated septum (J34.2) Active confirmed I have suggested a trial of decongestants . Vital Signs Heart Rate 88 /min 03/13/2025 Temperature 97.6 degrees Fahrenheit 03/13/2025 Blood pressure diastolic 78 mm Hg 03/13/2025 Height 5 ft 3 in in 03/13/2025 Blood pressure systolic 115 mm Hg 03/13/2025 Weight 213 lbs 03/13/2025 BMI 37.73 kg/m2 03/13/2025 Encounters Encounter Location Date Provider Diagnosis Derian Smith III, MD [address] [place] [address] [place] [address] 09/10/2024 Derian Smith Obesity (BMI 30.0-34 .9) E66.9 ; Cervical radiculopathy M54.12 and Fatigue R53.83 Derian Smith III, MD [address] [place] [address] [place] [address] 09/24/2024 Derian Smith Obesity (BMI 30.0-34 .9) E66.9 ; Cervical radiculopathy M54.12 and Polycystic ovaries E28.2 Derian Smith III, MD [address] [place] [address] [place] [address] 11/12/2024 Derian Smith Obesity (BMI 30.0-34 .9) E66.9 ; Fatigue R53.83 ; Cervical radiculopathy M54.12 and Polycystic ovaries E28.2 Derian Smith III, MD [address] [place] [address] [place] [address] 12/03/2024 Derian Smith Obesity (BMI 30.0-34 .9) E66.9 ; Fatigue R53.83 ; Polycystic ovaries E28.2 and Cervical radiculopathy M54.12 Derian Smith III, MD [address] [place] [address] [place] [address] 01/08/2025 Derian Smith Obesity (BMI 30.0-34 .9) E66.9 ; Fatigue R53.83 ; Polycystic ovaries E28.2 and Cervical radiculopathy M54.12 Derian Smith III, MD [address] [place] [address] [place] [address] 03/13/2025 Derian Smith Obesity (BMI 30.0-34 .9) E66.9 ; Fatigue R53.83 ; Polycystic ovaries E28.2 ; Cervical radiculopathy M54.12 and Deviated septum J34.2 Derian Smith III, MD [address] [place] [address] [place] [address] 12/17/2024 Derian Smith III, MD [address] [place] [address] [place] [address] 12/17/2024 Derian Smith Assessments Encounter Date Diagnosis [...] and snoring. He'll be seen thereafter. 03/13/2025 Obesity (BMI 30.0-34.9) (ICD-10 - E66.9) [...] - E28.2) She has been referred to PERSONAL DEVELOPMENT COACH for evaluation and management and routine reproductive [...] - E28.2) She has been referred to PERSONAL DEVELOPMENT COACH for evaluation and management and routine reproductive health care. She is not at this time. She does not have contraception. 01/08/2025 Polycystic ovaries (ICD-10 - E28.2) She has been referred to PERSONAL DEVELOPMENT COACH for evaluation and management and routine reproductive health care. She is not at this time. She does not have contraception. 03/13/2025 Polycystic ovaries (ICD-10 - E28.2) She has been referred to PERSONAL DEVELOPMENT COACH for evaluation and management and routine reproductive health care. She is not at this time. She does not have contraception. 11/12/2024 Polycystic ovaries (ICD-10 - E28.2) She has been referred to PERSONAL DEVELOPMENT COACH for evaluation and management and routine reproductive [...] for possible injections and physical therapy. 03/13/2025 Cervical radiculopathy (ICD-10 - M54.12) The [...] a trial of decongestants. Plan Of Treatment Pending Test Test Name [...] Provider Name:Derian Smith , 04/20/2025 03:15:00 PM, [address] [place] [address] [address], [place], [address], Provider Name:Derian Smith , 11/16/2025 02:30:00 PM, [address] [place] [address] [address], [place], [address], Insurance Providers Payer Name Payer Address Payer Phone Subscriber Number Group Number Insured Name Patient Relationship to Insured Coverage Start Date Coverage End Date MEDICAID [place] [address] [place] [id number] KRZYSZTOF GARCIA Self - patient is the insured Medical (General) History Medical History History ICD Code Obesity Polycystic ovaries Cervical radiculopathy Surgical History Surgery Date(Month/Year) Cholecystectomy for cholecystitis 2013 Hospitalization History Reason Date(Month/Year) food poisoning 2022 [facility] cholecystectomy [facility] stones
--- OUTSIDE RECORDS SUMMARY | 2025-03-26 12:44 | XMS_ITS | Patient Health Record ---
Author Organization [facility] Address [address] [place] [address] Care Team Providers Care Physical Therapy Technician Name Role Phone Sarah COONEY, Derian Primary Care Provider UnavailDerian Campbell Unavailable [phone] Results Component Value Reference Range Flag Notes Complete Blood Count Auto Di ff Reviewed date:02/10/2025 12:02:27 AM Interpretation: Performing Lab:[facility], [address] [place] [phone] Notes/Report: White Blood Count 7.9 4.8-10.8 X10*3/uL [...] PROFILE Reviewed date:01/22/2025 01:15:14 AM Interpretation: Performing Lab:[facility], [address] [place] [phone] Notes/Report: Iron 43 30-160 mcg/dL N Total Iron Binding Capacity 367 228-428 mcg/dL N Percent Iron Saturation 12 15-50 % L Unsaturated Iron Binding 324 US abdomen complete (Not ye t reviewed by provider) Interpretation: Performing Lab: Notes/Report: [address] [address] Ultrasound Report Signed Patient: Krzysztof Bell MR#: [id number] : 2000 Acct:[id number] Age/Sex: 24 / F ADM Date: 03/12/25 Loc: HO.US Attending Dr: Derian Chow MD Ordering Physician: Derian Chow MD Date of Service: 03/12/25 Procedure(s): US abdomen complete Accession Number(s): [id number] cc: Derian Smith MD; Derian Chow MD [...] Soliz MD on 03/12/2025 11:22:24 Dictated By: Antnoy Soliz MD Signed By: <Electronically signed by Antony Soliz MD in OV> 03/12/25 1124 DD/ 1122 TD/TT: 03/12/25 1122 Property Appraiser: Endomysial IgA rflx Titer Reviewed date:01/26/2025 11:24:02 PM Interpretation: Performing Lab:[facility], [address] [place] [phone] Notes/Report: Endomysial IgA Antibody Negative Negative THIS TEST WAS PERFORMED AT: [facility]/[address] [phone] LEIA GARZA MD,PHD Endomysial Titer TNP Gliadin Ab Panel Reviewed date:01/26/2025 11:23:56 PM Interpretation: Performing Lab:[facility], [address] [place] [phone] Notes/Report: Gliadin Deamidated IgA Ab 3.6 N Value Interpretation ----- <15.0 Antibody not detected > or = 15.0 Antibody detected Gliadin Deamidated IgG Ab 5.6 N Value Interpretation ----- <15.0 Antibody not detected > or = 15.0 Antibody detected THIS TEST WAS PERFORMED AT: [facility] [address] [phone] RYLAN PALACIO MD Transglutaminase IgA Reviewed date:01/26/2025 11:23:34 PM Interpretation: Performing Lab:[facility], [address] [place] [phone] Notes/Report: Transglutaminase IgA <1.0 N Value Interpretation ----- <15.0 Antibody not detected > or = 15.0 Antibody detected THIS TEST WAS PERFORMED AT: [facility] [address] [place] [phone] RYLAN PALACIO MD Transglutaminase Ab IgG Reviewed date:01/26/2025 11:24:08 PM Interpretation: Performing Lab:[facility], [address] [place] [phone] Notes/Report: Transglutaminase Ab IgG <1.0 N Value Interpretation ----- <15.0 Antibody not detected > or = 15.0 Antibody detected THIS TEST WAS PERFORMED AT: [facility] [address] [place] [phone] RYLAN PALACIO MD Ferritin Reviewed date:01/22/2025 01:24:45 AM Interpretation: Performing Lab: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 Problems Problem Type SNOMED Code ICD Code Onset Dates Problem Status W/U Status Risk Notes Problem Irritable bowel syndrome (97964361) Irritable bowel syndrome (K58.9) Active confirmed Problem Abdominal bloating (139769647) Abdominal bloating (R14.0) Active confirmed Problem Heartburn (64408402) Heartburn (R12) Active confirmed Problem Gastroesophageal reflux disease (431824749) GERD (gastroesopha geal reflux disease) (K21.9) Active confirmed Vital Signs Temperature 97.5 degrees Fahrenheit 01/20/2025 Blood pressure diastolic 01 mm Hg 01/20/2025 Height 63 in 01/20/2025 Blood pressure systolic 001 mm Hg 01/20/2025 Weight 207.8 lbs 01/20/2025 BMI 36.81 kg/m2 01/20/2025 Encounters Encounter Location Date Provider Diagnosis [facility] [address] [place] [address] 01/20/2025 Derian Chow GERD (gastroesophage al reflux [...] w DIFF 01/20/2025 US abdomen complete 01/20/2025 US abdomen complete 03/12/2025 Next Appt Details Provider Name:Derian Chow , 05/22/2025 01:00:00 PM, [address], [address], [place], [address], Insurance Providers Payer Name Payer Address Payer Phone Subscriber Number Group Number Insured Name Patient Relationship to Insured Coverage Start Date Coverage End Date [facility] [address] [facility] [phone] [id number] HEMAL BELLENA Self - patient is the insured Medical (General) History Medical History History ICD Code Denies [place],DM,CVA,Lung disease,renal dise ase Surgical History Surgery Date(Month/Year) Gallbladder removal 2012
--- OUTSIDE RECORDS SUMMARY | 2025-03-26 12:44 | XMS_ITS | Encounter Summary ---
Author Organization [facility] Address [address] [place] [address] Phone Care Team Providers Care Carpet Renovator Name Role Phone Gema Rosado MD Primary Care Provider Encounter Details Date Type Department Care Team ([facility] Contact Info) Description 12/07/2016 Conversion Encounter [facility] [address] [place] [address] Social History Tobacco Use Types Packs/Day Years [...] on filedocumented in this encounter Care Teams Carpet Renovator Relationship Specialty Start Date End Date Gema Rosado MD [address] [place] [address] PCP - General 12/01/16 11/27/22 documented as of this encounter
--- OUTSIDE RECORDS SUMMARY | 2025-03-26 12:44 | XMS_ITS | Encounter Summary ---
Author Organization [facility] Address [address] [place] [address] Phone Care Team Providers Care Mineral Surveying Technician Name Role Phone Gema Rosado MD Primary Care Provider [phone] Encounter Details Date Type Department Care Team (Late st Contact Info) Description 06/26/2016 Documentation [facility] [address] [place] [address] Family Medicine, Physician [address] [place] [address] Social History Tobacco Use Types Packs/Day Years [...] on filedocumented in this encounter Care Teams Mineral Surveying Technician Relationship Specialty Start Date End Date Gema Rosado MD [address] [place] [id number] PCP - General 12/01/16 11/27/22 documented as of this encounter
== END ==
LOC: HO.SL 10:24
PROVIDERS: PCP Internal Medicine Medical Oncology; Visit Provider Nurse Practitioner Family
DX: R40.0 Somnolence (principal); R06.83 Snoring
CPT/HCPCS: 95806

== ENCOUNTER → 2025-03-27 10:34 | Outpatient (BNV) | payer OTHER, SELFPAY | PROVIDERS: PCP Internal Medicine Medical Oncology; Visit Provider Psychiatry & Neurology Neurology | DX: R06.83 Snoring (principal) | CPT/HCPCS: 95806 ==